=== PATIENT | female | born 1970 | race Caucasian/White ===

== ENCOUNTER 2021-11-26 09:17 | Outpatient (REF) | payer BC, MEDICAID, SELFPAY ==
[2021-11-26 10:44] LABS: Erythrocyte Sedimentation Rate 9 MM/HR (0-20)
[2021-11-27 07:27] LABS: Syphilis Screen Nonreactive (Nonreactive)
[2021-11-28 15:22] LABS: Anti DNA DS Antibody <1 IU/mL
[2021-11-30 14:22] LABS: Anti Nuclear Antibody Screen NEGATIVE (NEGATIVE)
[2021-11-30 18:11] LABS: IgA 320 mg/dL (47-310); IgG 1176 mg/dL (600-1640); IgM 112 mg/dL (50-300)
== END 2021-11-26 09:18 | disposition home or self-care (01) ==
LOC: HO.LAB 09:17
PROVIDERS: PCP Physician Assistant Medical; Visit Provider Psychiatry & Neurology Neurology
DX: G93.49 Other encephalopathy (principal)
CPT/HCPCS: 36415; 82784; 85652; 86038; 86039; 86225; 86334; 86780

== ENCOUNTER 2024-05-21 12:23 | Outpatient (AMB) | payer MEDICAID, SELFPAY ==
--- NOTE | 2024-05-21 12:32 | A.OFFVIS_ITS ---
Vital Signs 05/21/24 12:33 Height 4 ft 11 in Weight 162 lb 4.163 oz BMI 32.8 BP 132/72 Blood Pressure Location Lt brachial Position Sitting Pulse 78 Pulse Source Pulse Oximeter Pulse Oximetry (%) 98 Oxygen Delivery Method Room Air Intake Visit Reasons: Myalgia/CM Intake Note: Patient presents today for myalgia up both upper extremities, she was externally referred by her PCP, Edgardo Jose. Allergies codeine Allergy (Unknown, Unverified 05/21/24 12:36) Unknown Medication List - Last Reconciled 05/21/24 by Katherine Denny MD albuterol sulfate 90 mcg/actuation 2 puffs inhalation Q6H PRN cetirizine (Allergy Relief (cetirizine)) 10 mg PO DAILY PRN duloxetine 30 mg PO DAILY epinephrine 0.3 mg IM Q10M PRN meloxicam 15 mg PO DAILY montelukast 10 mg PO DAILY omeprazole 20 mg PO DAILY HPI Comments Details: Patient is a 53 y.o. female with GERD and anxiety who presents for eval of hand and wrist pain January 2023 - Started to notice hand and wrist pain. Also associated with clumsiness and numbness. Occasionally also noted elbow pain when she had prolonged resting on the elbow. - Over the year there was no involvement of shoulders - Has some knee and hip pain but her main issue is her bilateral hands and wrists Tried Gabapentin 400mg at night. Helped a little bit Prednisone (medrol dose pack). Helped a little bit but returned IACS Left wrist, right shoulder Meloxicam Other symptoms - Fatigue associated with insomnia - AM stiffness 30-45 mins Imaging - XRs wrist 10/17/23. Normal for the most part (report seen on patient's phone) - MRI bilateral hands (imaging and report not seen) - MRI R shoulder. Rotator cuff tendinosis with partial thickness bursla surface tear of supraspinatus. Mild AC OA - XR shoulder 11/08/23. Osteopenia. Mild AC joint OA - MRI C-spine (report faxed) showing multilevel spondylosis - XR Cspine 10/17/23. loss of resting lordosis - MRI Brachial plexus to eval for thoracic outlet syndrome 03/06/24. Normal, degenerative changes EMG done, normal Labs 12/19/23 RF <10 ESR 6 CRP 3 SARA negative WBC 11.7 Hb 15.1 Hct 46.8 Plt 510 BUN 17 Cr 0.98 Na 143 K 5.2 Cl 103 CO2 20 Ca 20 AST/ALT Denies rashes, photosensitivity, alopecia, oral/nasal ulcers, sicca symptoms, lymphadenopathy, chest pain/shortness of breath, foamy urine, lower extremity edema, muscle weakness, Raynaud's Also denies history of seizure, CVA, psychosis, history of kidney problems, history of cytopenias, history of VTE including PE or DVTs Ob history . No hx of pre eclampsia. [facility] Medical History (Updated 05/21/24 @ 13:26 by Katherine Denny MD) Fibromyalgia Review of Systems Const Details: Review of Systems Constitutional: Denies fever, chills, weight loss ENT: Denies vision changes, eye pain or eye redness, dental caries, dry mouth GI: Denies nausea, vomiting, diarrhea, abdominal pain, change in BM Pulm: Denies SOB, ELLIS, hemoptysis, wheezing Cards: Denies chest pain, palpitations Skin: Denies Raynaud's, rash, nail changes, photosensitivity, HOUSE [employer]IST[employer] RN: Denies headaches, weakness, paresthesias, recurrent falls MSK: as per HPI All other systems reviewed and are unremarkable except noted above Physical Exam Vital Signs: Last Vital Signs Pulse 78 05/21/24 12:33 BP 132/72 05/21/24 12:33 Pulse Ox 98 05/21/24 12:33 Oxygen Delivery Method Room Air 05/21/24 12:33 BMI result Body Mass Index 32.8 Physical Examination CONSTITUITIONAL Patient alert and cooperative. Well appearing and in no apparent painful distress HEENT Conjunctiva and sclera clear. ?Pupils equal round and reactive to light. ?No lymphadenopathy. ? CHEST/RESPIRATORY SYSTEM Normal respiratory effort and able to speak in complete sentences. ?Clear to auscultation bilaterally. ?No crackles, rales, rhonchi, wheezes heard. CARDIAC SYSTEM Regular rate and rhythm. ?S1 and S2 heard no murmurs. 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 No deformities noted. ?No synovitis noted to the MCPs, PIPs or DIPs. ?Tenderness to palpation throughout the hands not limited to joints Wrists: ?Full range of motion at the wrists without pain. ?No tenderness to palpation or synovitis noted to the wrists. Elbows: Full range of motion without pain. No tenderness, weakness, swelling, increased warmth or erythema. Tenderness to palpation of forearm including lateral epicondyles Shoulders: Full range of motion without pain. No tenderness, weakness, swelling, increased warmth or erythema. Hips: Full range of motion without pain. Hip bursa: Bilateral tenderness to palpation Knees: ?Full range of motion. ?No tenderness, swelling, increased warmth or erythema.?No effusion or crepitations Ankles: Full range of motion. ?No tenderness, swelling, increased warmth or erythema.? Feet: ?Negative squeeze test. ?No tenderness to palpation or swelling of the MTPs. Tender points:??Tenderness to palpation of the neck, shoulders, chest, elbows, bilateral greater trochanters, bilateral lateral knees. SKIN Skin intact without rashes. Results Reviewed Results Reviewed: Imaging - XRs wrist 10/17/23. Normal for the most part (report seen on patient's phone) - MRI bilateral hands (imaging and report not seen) - MRI R shoulder. Rotator cuff tendinosis with partial thickness bursla surface tear of supraspinatus. Mild AC OA - XR shoulder 11/08/23. Osteopenia. Mild AC joint OA - MRI C-spine (report faxed) showing multilevel spondylosis - XR Cspine 10/17/23. loss of resting lordosis - MRI Brachial plexus to eval for thoracic outlet syndrome 03/06/24. Normal, degenerative changes EMG done, normal Labs 12/19/23 RF <10 ESR 6 CRP 3 SARA negative WBC 11.7 Hb 15.1 Hct 46.8 Plt 510 BUN 17 Cr 0.98 Na 143 K 5.2 Cl 103 CO2 20 Ca 20 AST/ALT Assessment & Plan Assessment & Plan (1) Fibromyalgia: Code(s): M79.7 - Fibromyalgia Category: Medical Plan: #Fibromyalgia Patient's exam and history consistent with fibromyalgia. Plan - pamphlet given - gabapentin 400 mg at night - baclofen 5 mg at night - Celebrex 200 mg twice a day - RTC 6 months - stretching/exercise regimen recommended - check DEXA since multiple x-rays mentioned osteopenia Plan I spent 60 minutes reviewing the record and labs, seeing the patient, discussing the treatment plan and documenting in the medical record Orders: Orders XR DEXA axial skeleton Today E55.9 - Vitamin D deficiency, unspecified, M79.7 - Fibromyalgia, M85.80 - Other specified disorders of bone density and structure, unspecified site Vitamin D 25-OH (D2 and D3) Today E55.9 - Vitamin D deficiency, unspecified, M79.7 - Fibromyalgia Thyroid Stimulating Hormone Today E55.9 - Vitamin D deficiency, unspecified, M79.7 - Fibromyalgia Medications: New gabapentin 400 mg PO BEDTIME 90 caps 1RF M79.7 - Fibromyalgia baclofen 5 mg PO BEDTIME 90 tabs 1RF M79.7 - Fibromyalgia duloxetine 60 mg PO DAILY 90 caps 1RF 90 days M79.7 - Fibromyalgia celecoxib (Celebrex) 200 mg PO BID 180 caps 1RF M79.7 - Fibromyalgia Coding Level of Care Code New Pt Level 5 (25448) Diagnoses Fibromyalgia M79.7
[2024-05-21 12:33] VITALS: BP 132/72; PULSE 78; O2SAT 98; BMI 32.8
--- OUTSIDE RECORDS SUMMARY | 2024-05-23 15:26 | XMS_ITS | Data Portability ---
Author Organization [facility], Main Office Address [address] [facility] [place] [phone] Care Team Providers Care Banquet Manager Name Role Phone WILLEM BLOUNT Account Management Assistant JONATAN GONSALVES Occ Therapy Asst [facility] MELY LAMBERT Transmission Repairer KATELYN REYES Primary Care Provider Assessment Encounter Date Assessment Date Assessment LastModified by Organization Details LastModified Time 12/19/2023 12/19/2023 Discussed with patient the signs/symptoms warranted for a return to office visit and/or an ER visit. Patient understood and agreed with the plan. [email or web address] Not available 12/19/2023 15:33:24 03/06/2024 03/06/2024 This service was provided using telemedicine. Patient consented to telephone visit Patient was located in the [facility]. Provider was located in the office. No other persons participated in the telemedicine visit except for the patient unless otherwise indicated here. {{}} Total time of visit was 22 minutes. [email or web address] Not available 03/06/2024 15:11:37 Plan of Treatment Reminders Order Date Submit Date Provider Last Modified By Organization Details Last Modified Time Details Appointments FOLLOW UP 30MIN 2023 10:00A M Katelyn Reyes PA-C Not available Not available Not available Lab lipid panel, serum 2022 023 [email or web address], [address] [address], [place], [address], 10/26/2023 09:38:20 HbA1c (hemog lobin A1c), blood 2023 024 [facility], [address] [place] [address], [address], [place], [address], 12/17/2023 08:07:27 lipid panel, serum 2023 024 [facility], [address] [place] [address], [address], [place], [address], 12/17/2023 08:07:27 CMP, serum or plasma 2023 024 [facility], [address] [place] [address], [facility] [address], [place], [address], 12/17/2023 08:07:26 CBC w/ auto diff 2023 024 [facility], [address] [place] [address], [facility] [address], [place], [address], 12/17/2023 08:07:25 SARA (antin uclear antibo dies) screen , ifa, serum 2023 024 [facility], [address], [place], [address], 12/22/2023 22:06:07 ESR (eryth rocyte sedime ntatio n rate), blood 2023 024 [facility], [address], [place], [address], 12/22/2023 22:06:06 C reacti ve protei n, QN, serum or plasma 2023 024 [facility], [address], [place], [address], 12/22/2023 22:06:07 vitami n B12, serum 2023 024 [facility], [address], [place], [address], 12/22/2023 22:06:06 methyl malona te, QN, serum or plasma 2023 024 [facility], [address], [place], [address], 12/22/2023 22:06:06 rf (rheum atoid factor ), serum 2023 024 [facility], [address], [place], [address], 12/22/2023 22:06:04 thiami ne, QN, blood 2023 024 [facility], [address], [place], [address], 12/22/2023 22:06:05 HbA1c (hemog lobin A1c), blood 2023 024 [facility], [address], [place], [address], 05/19/2024 06:08:28 BMP, serum or plasma 2023 024 [facility], [address], [place], [address], 05/19/2024 06:08:27 Referral psychi atrist referr rachel nichole anxiet y-curr ently not on any medica tion-p t intere sted in behavi oral interv ention and discus drea for medica tion 2023 024 [email or web address] [facility], [address] [place] [address] Rd, [place], [address], 12/19/2023 15:50:54 Procedures None record ed. Surgeries None record ed. Imaging None record ed. Medication Orders gabape ntin 100 mg capsul e 2023 024 [facility]/Pharmacy #[id number], [address] [place], [address], 12/05/2023 17:09:57 duloxe agata 30 mg capsul evelyn napier releas e 2023 Lizeth [facility]/Pharmacy #[id number], [address] [place], [address], 01/03/2024 11:01:21 Patient Targets Encounter Date Encounter Id Patient Goals Patient Target Last Modified By Organization Details Last Modified Time 03/30/2023 [id number] [facility] goal of Excess Body Weight Loss % 5 Not available Not available Not available Ongoing of LDL Direct <100 Not available Not available Not available Ongoing of LDL Direct yearly Not available Not available Not available Pt agrees to follow low fat diet, avoid saturated fats , decrease carbohydrate intake to 45 - 50 gm per meal , pt agrees to develop a regular pattern of exercise such as walking 30 minutes a day 3 times a week, Pt will keep a record of exercise and activity level Patient preferences and goals incorporated in plan and updated/modified as needed to reflect progress toward goal.Pt advised and agrees to work on self-monitoring behaviors; begin an appropriate diet for weight loss (such as a low carbohydrate diet), to do moderate exercise (such as walking) for approximately 150 minutes per week; and to identify desirable and timely rewards that will reinforce achievement of specific weight loss goals. 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 pmadden Not available 12/05/2023 20:59:50 Patient Instructions Encounter Date Encounter Id Patient Instructions Last Modified By Organization Details Last Modified Time 03/30/2023 [id number] Medications (OTC , herbal therapies, supplements) reviewed and reconciled with patient and or caregiver, including potential side effects, drug interactions, instructions, and the consequences of not taking medication. Reviewed potential barriers to medication adherence, such as side effects from medication or cost of medication. pmadden Not available 03/30/2023 21:24:35 12/05/2023 [id number] learning about stress pmadden Not available 12/05/2023 17:09:54 Mental Health Information pmadden Not available 12/05/2023 17:09:54 A healthy lifestyle: care instructions pmadden Not available 12/05/2023 17:09:54 Well Visit, Ages 18 to 65: Care Instructions pmadden Not available 12/05/2023 17:09:54 take gabapentin at night x 3 nights, then twice daily x 3 days, then 3 times daily pmadden Not available 12/05/2023 17:03:53 Medications (OTC , herbal therapies, supplements) reviewed and reconciled with patient and or caregiver, including potential side effects, drug interactions, instructions, and the consequences of not taking medication. Reviewed potential barriers to medication adherence, such as side effects from medication or cost of medication. jess Not available 12/05/2023 16:18:07 01/03/2024 [id number] prediabetes: car e instructions pmadden Not available 01/03/2024 11:01:15 diet and exercis e for metabolic syndrome: care instructions pmadden Not available 01/03/2024 11:01:15 Medications (OTC , herbal therapies, supplements) reviewed and reconciled with patient and or caregiver, including potential side effects, drug interactions, instructions, and the consequences of not taking medication. Reviewed potential barriers to medication adherence, such as side effects from medication or cost of medication. pmadden Not available 01/03/2024 10:59:48 03/06/2024 [id number] Medications (OTC , herbal therapies, supplements) reviewed and reconciled with patient and or caregiver, including potential side effects, drug interactions, instructions, and the consequences of not taking medication. Reviewed potential barriers to medication adherence, such as side effects from medication or cost of medication. pmadden Not available 03/06/2024 15:11:08 Reason for Referral Psychiatrist Referral for An xiety ongoing anxiety-currently not on any medication-pt interested in behavioral intervention and discussion for medication Referring Physician: Chyna Villagran, Family Medicine, Encounter Date: 12/19/2023 Results Created Date Observation Date Name Description Value Unit Range Abnormal Flag Note LastModifiedBy Organization Detail LastModifiedTime 12/16/19 24 12/17/2023 CBC WITH DIFFE RENTI AL/PL ATELE T WBC 11.7 x10e3 /uL 3.4-10 .8 above high normal Not Available [facility] ([facility]) [address], [place], [address], 12/17/2023 08:07:25 12/16/19 24 12/17/2023 CBC WITH DIFFE RENTI AL/PL ATELE T RBC 5.22 x10e6 /uL 3.77-5 .28 Not Available [facility] ([facility]) [address] [place], [address], 12/17/2023 08:07:25 12/16/19 24 12/17/2023 CBC WITH DIFFE RENTI AL/PL ATELE T hemoglobin 15.1 g/dL 11.1-1 5.9 Not Available [facility] ([facility]) [address] [place], [address], 12/17/2023 08:07:25 12/16/19 24 12/17/2023 CBC WITH DIFFE RENTI AL/PL ATELE T hematocrit 46.8 % 34.0-4 6.6 above high normal Not Available [facility] ([facility]) [address] [place], [address], 12/17/2023 08:07:25 12/16/19 24 12/17/2023 CBC WITH DIFFE RENTI AL/PL ATELE T MCV 90 fL 79-97 Not Available [facility] ([facility]) [address] [place], [address], 12/17/2023 08:07:25 12/16/19 24 12/17/2023 CBC WITH DIFFE RENTI AL/PL ATELE T MCH 28.9 pg 26.6-3 3.0 Not Available [facility] ([facility]) [address] [place], [address], 12/17/2023 08:07:25 12/16/19 24 12/17/2023 CBC WITH DIFFE RENTI AL/PL ATELE T MCHC 32.3 g/dL 31.5-3 5.7 Not Available [facility] ([facility]) [address], [place], [address], 12/17/2023 08:07:25 12/16/19 24 12/17/2023 CBC WITH DIFFE RENTI AL/PL ATELE T RDW 13.0 % 11.7-1 5.4 Not Available [facility] ([facility]) [address], [place], [address], 12/17/2023 08:07:25 12/16/19 24 12/17/2023 CBC WITH DIFFE RENTI AL/PL ATELE T platelets 510 x10e3 /uL 150-45 0 above high normal Not Available [facility] ([facility]) [address], [place], [address], 12/17/2023 08:07:25 12/16/19 24 12/17/2023 CBC WITH DIFFE RENTI AL/PL ATELE T neutrophils 67 % not estab. Not Available [facility] ([facility]) [address], [place], [address], 12/17/2023 08:07:25 12/16/19 24 12/17/2023 CBC WITH DIFFE RENTI AL/PL ATELE T lymphs 25 % not estab. Not Available [facility] ([facility]) [address], [place], [address], 12/17/2023 08:07:25 12/16/19 24 12/17/2023 CBC WITH DIFFE RENTI AL/PL ATELE T monocytes 6 % not estab. Not Available [facility] ([facility]) [address], [place], [address], 12/17/2023 08:07:25 12/16/19 24 12/17/2023 CBC WITH DIFFE RENTI AL/PL ATELE T eos 1 % not estab. Not Available [facility] ([facility]) [address] [place], [address], 12/17/2023 08:07:25 12/16/19 24 12/17/2023 CBC WITH DIFFE RENTI AL/PL ATELE T basos 1 % not estab. Not Available [facility] ([facility]) [address], [place], [address], 12/17/2023 08:07:25 12/16/19 24 12/17/2023 CBC WITH DIFFE RENTI AL/PL ATELE T immature cells COPYWRITER Not Available [facility] ([facility]) [address] [place], [address], 12/17/2023 08:07:25 12/16/19 24 12/17/2023 CBC WITH DIFFE RENTI AL/PL ATELE T neutrophils (absolute) 7.9 x10e3 /uL 1.4-7. 0 above high normal Not Available [facility] ([facility]) [address] [place], [address], 12/17/2023 08:07:25 12/16/19 24 12/17/2023 CBC WITH DIFFE RENTI AL/PL ATELE T lymphs (absolute) 2.9 x10e3 /uL 0.7-3. 1 Not Available [facility] ([facility]) [address] [place], [address], 12/17/2023 08:07:25 12/16/19 24 12/17/2023 CBC WITH DIFFE RENTI AL/PL ATELE T monocytes(ab solute) 0.7 x10e3 /uL 0.1-0. 9 Not Available [facility] ([facility]) [address] [place], [address], 12/17/2023 08:07:25 12/16/19 24 12/17/2023 CBC WITH DIFFE RENTI AL/PL ATELE T eos (absolute) 0.1 x10e3 /uL 0.0-0. 4 Not Available [facility] ([facility]) [address], [place], [address], 12/17/2023 08:07:25 12/16/19 24 12/17/2023 CBC WITH DIFFE RENTI AL/PL ATELE T baso (absolute) 0.1 x10e3 /uL 0.0-0. 2 Not Available [facility] ([facility]) [address], [place], [address], 12/17/2023 08:07:25 12/16/19 24 12/17/2023 CBC WITH DIFFE RENTI AL/PL ATELE T immature granulocytes 0 % not estab. Not Available [facility] ([facility]) [address], [place], [address], 12/17/2023 08:07:25 12/16/19 24 12/17/2023 CBC WITH DIFFE RENTI AL/PL ATELE T immature grans (abs) 0.0 x10e3 /uL 0.0-0. 1 Not Available [facility] ([facility]) [address], [place], [address], 12/17/2023 08:07:25 12/16/19 24 12/17/2023 CBC WITH DIFFE RENTI AL/PL ATELE T NRBC COPYWRITER Not Available [facility] ([facility]) [address], [place], [address], 12/17/2023 08:07:25 12/16/19 24 12/17/2023 CBC WITH DIFFE RENTI AL/PL ATELE T hematology comments: COPYWRITER Not Available [facility] ([facility]) [address], [place], [address], 12/17/2023 08:07:25 12/16/19 24 12/17/2023 COMP. METAB OLIC PANEL (14) glucose 89 mg/dL 70-99 Not Available [facility] ([facility]) [address] [place], [address], 12/17/2023 08:07:26 12/16/19 24 12/17/2023 COMP. METAB OLIC PANEL (14) BUN 17 mg/dL 6-24 Not Available [facility] ([facility]) [address] [place], [address], 12/17/2023 08:07:26 12/16/19 24 12/17/2023 COMP. METAB OLIC PANEL (14) creatinine 0.98 mg/dL 0.57-1 .00 Not Available [facility] ([facility]) [address], [place], [address], 12/17/2023 08:07:26 12/16/19 24 12/17/2023 COMP. METAB OLIC PANEL (14) eGFR 69 mL/mi n/1.7 3 >59 Not Available [facility] ([facility]) [address] [place], [address], 12/17/2023 08:07:26 12/16/19 24 12/17/2023 COMP. METAB OLIC PANEL (14) BUN/creatini ne ratio 17 9-23 Not Available [facility] ([facility]) [address] [place], [address], 12/17/2023 08:07:26 12/16/19 24 12/17/2023 COMP. METAB OLIC PANEL (14) sodium 143 mmol/ L 134-14 4 Not Available [facility] ([facility]) [address] [place], [address], 12/17/2023 08:07:26 12/16/19 24 12/17/2023 COMP. METAB OLIC PANEL (14) potassium 5.2 mmol/ L 3.5-5. 2 Not Available [facility] ([facility]) [address] [place], [address], 12/17/2023 08:07:26 12/16/19 24 12/17/2023 COMP. METAB OLIC PANEL (14) chloride 103 mmol/ L 96-106 Not Available [facility] ([facility]) [address] [place], [address], 12/17/2023 08:07:26 12/16/19 24 12/17/2023 COMP. METAB OLIC PANEL (14) carbon dioxide, total 20 mmol/ L 20-29 Not Available [facility] ([facility]) [address] [place], [address], 12/17/2023 08:07:26 12/16/19 24 12/17/2023 COMP. METAB OLIC PANEL (14) calcium 10.0 mg/dL 8.7-10 .2 Not Available [facility] ([facility]) [address] [place], [address], 12/17/2023 08:07:26 12/16/19 24 12/17/2023 COMP. METAB OLIC PANEL (14) protein, total 7.4 g/dL 6.0-8. 5 Not Available [facility] ([facility]) [address] [place], [address], 12/17/2023 08:07:26 12/16/19 24 12/17/2023 COMP. METAB OLIC PANEL (14) albumin 4.5 g/dL 3.8-4. 9 Not Available [facility] ([facility]) [address] [place], [address], 12/17/2023 08:07:26 12/16/19 24 12/17/2023 COMP. METAB OLIC PANEL (14) globulin, total 2.9 g/dL 1.5-4. 5 Not Available [facility] ([facility]) [address] [place], [address], 12/17/2023 08:07:26 12/16/19 24 12/17/2023 COMP. METAB OLIC PANEL (14) bilirubin, total 0.3 mg/dL 0.0-1. 2 Not Available [facility] ([facility]) [address] [place], [address], 12/17/2023 08:07:26 12/16/19 24 12/17/2023 COMP. METAB OLIC PANEL (14) alkaline phosphatase 101 IU/L 44-121 Not Available [facility] ([facility]) [address] [place], [address], 12/17/2023 08:07:26 12/16/19 24 12/17/2023 COMP. METAB OLIC PANEL (14) AST (SGOT) 18 IU/L 0-40 Not Available [facility] ([facility]) [address] [place], [address], 12/17/2023 08:07:26 12/16/19 24 12/17/2023 COMP. METAB OLIC PANEL (14) ALT (SGPT) 19 IU/L 0-32 Not Available [facility] ([facility]) [address] [place], [address], 12/17/2023 08:07:26 12/16/19 24 12/17/2023 LIPID PANEL cholesterol, total 258 mg/dL 100-19 9 above high normal Not Available [facility] ([facility]) [address] [place], [address], 12/17/2023 08:07:27 12/16/19 24 12/17/2023 LIPID PANEL triglyceride s 140 mg/dL 0-149 Not Available [facility] ([facility]) [address] [place], [address], 12/17/2023 08:07:27 12/16/19 24 12/17/2023 LIPID PANEL HDL cholesterol 47 mg/dL >39 Not Available [facility] ([facility]) [address] [place], [address], 12/17/2023 08:07:27 12/16/19 24 12/17/2023 LIPID PANEL VLDL cholesterol phoebe 26 mg/dL 5-40 Not Available [facility] ([facility]) [address] [place], [address], 12/17/2023 08:07:27 12/16/19 24 12/17/2023 LIPID PANEL LDL chol calc ([facility]) 185 mg/dL 0-99 above high normal Not Available [facility] ([facility]) [address] [place], [address], 12/17/2023 08:07:27 12/16/19 24 12/17/2023 LIPID PANEL LDL calc comment: COPYWRITER Not Available [facility] ([facility]) [address] [place], [address], 12/17/2023 08:07:27 12/16/19 24 12/17/2023 HEMOG LOBIN A1C hemoglobin A1C 5.7 % 4.8-5. 6 above high normal Predi abete s: 5.7 - 6.4 Diabe zamzam: >6.4 Glyce elke contr ol for adult s with diabe zamzam: <7.0 Not Available [facility] ([facility]) [address] [place], [address], 12/17/2023 08:07:27 12/19/19 24 12/20/2023 RHEUM ATOID FACTO R (RF) rheumatoid factor (rf) <10.0 IU/mL <14.0 Not Available [facility] ([facility]) [address] [place], [address], 12/22/2023 22:06:04 12/19/19 24 12/22/2023 VITAM IN B1 (THIA MINE) , BLOOD vit. B1, whole blood 164.0 nmol/ L 66.5-2 00.0 Not Available [facility] ([facility]) [address], [place], [address], 12/22/2023 22:06:05 12/19/19 24 12/22/2023 METHY LMALO CATA ACID, SERUM methylmaloni c acid, serum 147 nmol/ L 0-378 Not Available [facility] ([facility]) [address], [place], [address], 12/22/2023 22:06:05 12/19/19 24 12/20/2023 SEDIM ENTAT ION RATE- WESTE RGREN sedimentatio n rate-westerg aisha 16 mm/HR 0-40 Not Available [facility] ([facility]) [address], [place], [address], 12/22/2023 22:06:06 12/19/19 24 12/20/2023 VITAM IN B12 vitamin B12 475 pg/mL 232-12 45 Not Available [facility] ([facility]) [address], [place], [address], 12/22/2023 22:06:06 12/19/19 24 12/20/2023 C-CHAR CTIVE PROTE IN, QUANT C-reactive protein, quant 3 mg/L 0-10 Not Available [facility] ([facility]) [address] [place], [address], 12/22/2023 22:06:07 12/19/19 24 12/20/2023 SARA BY IFA RFX TITER /BETTY COCO SARA by ifa rfx titer/patter n NEGATI VE Negat berna <1:80 Borde rline 1:80 Posit berna >1:80 ICAP nomen clatu re: AC-0 For more infor matio n about Hep-2 cell patte rns use ANApa ttern s.org , the offic ial websi te for the Inter natio nal Conse nsus on Antin uclea r Antib ardha (SARA) Patte rns (ICAP ). Not Available [facility] ([facility]) [address] [place], [address], 12/22/2023 22:06:07 05/18/20 24 05/18/2024 BASIC METAB OLIC PANEL (8) sodium 145 mmol/ L 134-14 4 above high normal Not Available [facility] ([facility]) [address] [place], [address], 05/19/2024 06:08:27 05/18/20 24 05/18/2024 BASIC METAB OLIC PANEL (8) potassium 4.6 mmol/ L 3.5-5. 2 normal Not Available [facility] ([facility]) [address] [place], [address], 05/19/2024 06:08:27 05/18/20 24 05/19/2024 BASIC METAB OLIC PANEL (8) glucose 103 mg/dL 70-99 above high normal Not Available [facility] ([facility]) [address] [place], [address], 05/19/2024 06:08:27 05/18/20 24 05/19/2024 BASIC METAB OLIC PANEL (8) BUN 10 mg/dL 6-24 normal Not Available [facility] ([facility]) [address] [place], [address], 05/19/2024 06:08:27 05/18/20 24 05/19/2024 BASIC METAB OLIC PANEL (8) creatinine 0.92 mg/dL 0.57-1 .00 normal Not Available [facility] ([facility]) [address] [place], [address], 05/19/2024 06:08:27 05/18/20 24 05/19/2024 BASIC METAB OLIC PANEL (8) eGFR 74 mL/mi n/1.7 3 >59 normal Not Available [facility] ([facility]) [address] [place], [address], 05/19/2024 06:08:27 05/18/20 24 05/19/2024 BASIC METAB OLIC PANEL (8) BUN/creatini ne ratio 11 9-23 normal Not Available [facility] ([facility]) [address] [place], [address], 05/19/2024 06:08:27 05/18/20 24 05/19/2024 BASIC METAB OLIC PANEL (8) chloride 102 mmol/ L 96-106 normal Not Available [facility] ([facility]) [address] [place], [address], 05/19/2024 06:08:27 05/18/20 24 05/19/2024 BASIC METAB OLIC PANEL (8) carbon dioxide, total 22 mmol/ L 20-29 normal Not Available [facility] ([facility]) [address] [place], [address], 05/19/2024 06:08:27 05/18/20 24 05/19/2024 BASIC METAB OLIC PANEL (8) calcium 9.9 mg/dL 8.7-10 .2 normal Not Available [facility] ([facility]) [address] [place], [address], 05/19/2024 06:08:27 05/18/20 24 05/18/2024 HEMOG LOBIN A1C hemoglobin A1C 5.7 % 4.8-5. 6 above high normal Predi abete s: 5.7 - 6.4 Diabe zamzam: >6.4 Glyce elke contr ol for adult s with diabe zamzam: <7.0 Not Available [facility] ([facility]) [address] [place], [address], 05/19/2024 06:08:28 06/08/20 23 06/02/2023 elect romyo gram No observ ation record ed. jess [facility] [address] [place], [address], 12/05/2023 16:48:14 02/15/20 24 02/09/2024 nerve condu ction study No observ ation record ed. [address], [address], 03/06/2024 14:42:41 03/09/20 24 02/06/2024 elect romyo gram + nerve condu ction study No observ ation record ed. [facility] Scheduling Dept [address] [place] [address], [address], 03/09/2024 20:10:45 Result Notes None recorded. Problems Name Problem SNOMED Code Status Onset Date Resolution Date Notes Provider Name and Address Organization Details Recorded Time Acute pharyngi tis 860578066 Completed 05/30/2017 Rhonda Reyes PA-C [address] [facility] [address], [place], [phone] , [facility] 7 16:57:48 Abdomina l pain [id number] Completed 201101/01/2014 RECORDED 04/20/20 12 1:28PM BY ERICKA LEIGH MA, ANNOTATI ON/ADDEN CHIRAG blandon [facility] 6 17:26:14 Mammogra phy abnormal [id number] Active 2012 Not Available [facility] 4 09:41:04 Asthma [id number] Completed 201101/01/2014 RECORDED 04/20/20 12 1:27PM BY ERICKA LEIGH MA, ANNOTATI ON/ADDEN DUM Rhonda Reyes PA-C [address], [place], [phone] , [facility] 7 16:57:25 Acute upper respirat ory infectio n [id number] Completed 201101/01/2014 RECORDED 04/20/20 12 1:27PM BY ERICKA LEIGH MA, ANNOTATI ON/ADDEN CHIRAG blandon [facility] 6 17:26:14 Allergic rhinitis [id number] Active 2012 Not Available [facility] 4 09:41:05 Anxiety state [id number] Active 2012 Not Available [facility] 4 09:41:04 Patient status finding [id number] Completed 201201/01/2014 RECORDED 10/31/19 13 3:44PM BY ERICKA LEIGH MA, ANNOTATI ON/ADDEN DUM Donna Chowdhury MA null, [place] 7 16:26:15 Intrinsi c asthma [id number] Completed 201101/01/2014 RECORDED 04/20/20 12 1:27PM BY ERICKA LEIGH MA, ANNOTATI ON/ADDEN DUM Hussein burgos null, [place] 6 17:26:14 Acute asthma [id number] Completed 201101/01/2014 RECORDED 04/20/20 12 1:27PM BY ERICKA LEIGH MA, ANNOTATI ON/ADDEN DUM Hussein burgos null, [place] 6 17:26:14 Asthma [id number] Completed 201205/30/2017 Rhonda Reyes PA-C [address] [address], [facility] [place], [address] , [facility] [place] [facility] 7 16:57:25 Screenin g for malignan t neoplasm of breast Completed 201301/01/2014 RECORDED 06/13/19 14 7:21PM BY RENEE Napier, JEMIC AL SUMMARY Hussein burgos null, [place] 6 17:26:15 Screenin g for malignan t neoplasm of cervix Completed 201101/01/2014 RECORDED 04/20/20 12 1:28PM BY ERICKA LEIGH MA, ANNOTATI ON/ADDEN DUM Donna Chowdhury MA null, [place] 7 16:26:27 Screenin g for malignan t neoplasm of cervix Completed 201302/28/2017 RECORDED 07/27/19 14 1:57PM BY JEM WALTERIC AL SUMMARY Donna blandon, [place] 7 16:26:27 Chest pain [id number] Completed 201101/01/2014 RECORDED 04/20/20 12 1:27PM BY ERICKA LEIGH MA, ANNOTATI ON/ADDEN DUM Hussein Smith ro null, [place] 6 17:26:14 Sprain of costal cartilag e Completed 201201/01/2014 IMPRESSI ON: SHE WONT FILL PERCOCET UNTIL AFTER THE WEEKEND. LONG WEEKEND AHEAD. AIM FOR RETURN TO WORK WED. IF CANT RETURN MAKE F/U APPT/. TAKE BENADRYL PRN ITCHING WITH PERCOCET . CONTINUE MELOXICA M; RECORDED 03/01/20 13 9:41AM BY ERICKA LEIGH MA, ANNOTATI ON/ADDEN DUM Hussein burgos null, [place] 6 17:26:15 Disorder of nail 24589041 Completed 201101/01/2014 RECORDED 04/20/20 12 1:27PM BY ERICKA LEIGH MA, ANNOTATI ON/ADDEN DUM Hussein Smith ro null, [place] 6 17:26:14 Disorder of skin 78298712 Completed 201101/01/2014 RECORDED 04/20/20 12 1:27PM BY ERICKA LEIGH MA, ANNOTATI ON/ADDEN DUM Hussein Smith ro null, [place] 6 17:26:14 Dyspareu miya [id number] Completed 201101/01/2014 RECORDED 04/20/20 12 1:28PM BY ERICKA LEIGH MA, ANNOTATI ON/ADDEN DUM Hussein Blountand ro null, [place] 6 17:26:14 Dysphagi a [id number] Completed 201101/01/2014 RECORDED 04/20/20 12 1:28PM BY ERICKA LEIGH MA, DIEGO ON/ADDEN DUM Hussein VieiraAlessand ro null, [place] 6 17:26:14 Dysuria [id number] Completed 201101/01/2014 RECORDED 04/20/20 12 1:27PM BY ERICKA LEIGH MA, DIEGO ON/ADDEN DUM Hussein VieiraAlessand ro null, [place] 6 17:26:14 Influenz a vaccine needed [id number] 06 Completed 200901/01/2014 RECORDED 06/01/20 10 9:07AM BY COOPER LAWS I, HISTORIC AL SUMMARY Hussein Sandra'Chacha ro null, [place] 6 17:26:15 Closed fracture of ulna 90952379 Completed 201101/01/2014 RECORDED 04/20/20 12 1:27PM BY ERICKA LEIGH MA, DIEGO ON/ADDEN DUM Hussein VieiraAlessand ro null, [place] 6 17:26:15 Gastriti s [id number] Completed 201101/01/2014 RECORDED 04/20/20 12 1:27PM BY ERICKA LEIGH MA, DIEGO ON/ADDEN DUM Hussein VieiraAlebernardaand ro null, [place] 6 17:26:14 Gastrodu odenitis 669139352 Active 2011 Not Available [facility] 4 09:41:04 Gastroes ophageal reflux disease 011452692 Active 2012 Not Available [facility] 4 09:41:04 Adult health examinat ion Completed 201202/28/2017 RECORDED 05/04/20 13 1:58PM BY ERICKA LEIGH MA, OFFICE VISIT Donna Chowdhury MA null, [place] 7 16:26:47 Adult health examinat ion Completed 201201/01/2014 RECORDED 10/31/19 13 3:44PM BY ERICKA LEIGH MA, ANNOTATI ON/ADDEN DUM Donna blandon, [place] 7 16:26:47 Genital herpes simplex 62258992 Active 2012 Not Available [facility] 4 09:41:04 Hyperlip idemia 87424946 Completed 201206/14/2017 Rhonda Reyes PA-C [address] [facility] [address], [place], [address] , [facility] 8 13:11:07 Irritabl e bowel syndrome 37838573 Active 2012 Not Available [facility] 4 09:41:04 Neck pain 25604083 Completed 201201/01/2014 RECORDED 05/04/20 13 1:57PM BY ERICKA LEIGH MA, ANNOTATI ON/ADDEN DUM Katelyn Reyes PA-C [address] [facility] [address], [place], [address] , [facility] 3 20:22:59 Patient status finding [id number] Completed 201202/28/2017 RECORDED 05/04/20 13 1:58PM BY ERICKA LEIGH MA, OFFICE VISIT Donna blandon, [place] 7 16:26:15 Screenin g for malignan t neoplasm of colon Completed 200801/01/2014 RECORDED 12/04/19 09 10:12AM BY CARLOS EDUARDO ALVARADO MA, ANNOTATI ON/ADDEN DUM Hussein blandon, [place] 6 17:26:15 Administ ration of diphther ia and tetanus vaccine Completed 201201/01/2014 RECORDED 10/31/19 13 3:44PM BY ERICKA LEIGH MA, ANNOTATI ON/ADDEN DUM Hussein blandon, [place] 6 17:26:15 Urinary tract infectio us disease 76539657 Completed 201101/01/2014 RECORDED 04/20/20 12 1:27PM BY ERICKA LEIGH MA, ANNOTATI ON/ADDEN DUM Hussein D'Alessand ro null, [place] 6 17:26:14 Viral disease 38276055 Completed 201101/01/2014 RECORDED 04/20/20 12 1:27PM BY ERICKA LEIGH MA, ANNOTATI ON/ADDEN DUM Hussein D'Alessand ro null, [place] 6 17:26:14 Vomiting 761852072 Completed 201101/01/2014 RECORDED 04/20/20 12 1:27PM BY ERICKA LEIGH MA, ANNOTATI ON/ADDEN DUM Hussein D'Alessand ro null, [place] 6 17:26:14 Persiste nt vomiting 232593172 Completed 201101/01/2014 RECORDED 04/20/20 12 1:27PM BY ERICKA LEIGH MA, ANNOTATI ON/ADDEN DUM Hussein D'Alessand ro null, [place] 6 17:26:14 Verruca vulgaris 45835779 Active 2012 Not Available [facility] 4 09:41:05 Abnormal weight loss 844523045 Completed 201205/30/2017 Rhonda Reyes PA-C [address] [facility] [address], [place], [address] , [facility] 7 16:47:15 Abdomina l pain 66050125 Completed 201101/21/2014 RECORDED 04/20/20 12 1:28PM BY ERICKA LEIGH MA, ANNOTATI ON/ADDEN DUM Hussein D'Alessand ro null, [place] 6 17:26:15 Asthma 284670396 Completed 201101/21/2014 RECORDED 04/20/20 12 1:27PM BY ERICKA LEIGH MA, ANNOTATI ON/ADDEN DUM Rhonda Damon GRANADOS [address] [facility] [address], [place], [address] , [facility] 7 16:57:25 Acute upper respirat ory infectio n 13871462 Completed 201101/21/2014 RECORDED 04/20/20 12 1:27PM BY ERICKA LEIGH MA, ANNOTATI ON/ADDEN DUM Hussein Smith ro null, [place] 6 17:26:14 Patient status finding [id number] Completed 201201/21/2014 RECORDED 10/31/19 13 3:44PM BY ERICKA LEIGH MA, ANNOTATI ON/ADDEN DUM Donna Chowdhury MA null, [place] 7 16:26:15 Intrinsi c asthma 766592573 Completed 201101/21/2014 RECORDED 04/20/20 12 1:27PM BY ERICKA LEIGH MA, ANNOTATI ON/ADDEN DUM Hussein Sandra'Alekeyur ro null, [place] 6 17:26:14 Acute asthma 079906999 Completed 201101/21/2014 RECORDED 04/20/20 12 1:27PM BY ERICKA LEIGH MA, ANNOTATI ON/ADDEN DUM Hussein Smith ro null, [place] 6 17:26:14 Screenin g for malignan t neoplasm of breast Completed 201301/21/2014 RECORDED 06/13/19 14 7:21PM BY RENEE Napier, HISTORIC AL SUMMARY Hussein Sandra'Chacha ro null, [place] 6 17:26:15 Screenin g for malignan t neoplasm of cervix Completed 201101/21/2014 RECORDED 04/20/20 12 1:28PM BY ERICKA LEIGH MA, ANNOTATI ON/ADDEN DUM Donna Chowdhury MA null, [place] 7 16:26:27 Chest pain 24066847 Completed 201101/21/2014 RECORDED 04/20/20 12 1:27PM BY ERICKA LEIGH MA, DIEGO ON/ADDEN HCIRAG Clevelandssand ro null, [place] 6 17:26:14 Sprain of costal cartilag e Completed 201201/21/2014 IMPRESSI ON: SHE WONT FILL PERCOCET UNTIL AFTER THE WEEKEND. LONG WEEKEND AHEAD. AIM FOR RETURN TO WORK WED. IF CANT RETURN MAKE F/U APPT/. TAKE BENADRYL PRN ITCHING WITH PERCOCET . CONTINUE MELOXICA M; RECORDED 03/01/20 13 9:41AM BY ERICKA LEIGH MA, DIEGO ON/ADDEN DUM Hussein VieiraAlessand ro null, [place] 6 17:26:15 Disorder of nail 18097667 Completed 201101/21/2014 RECORDED 04/20/20 12 1:27PM BY ERICKA LEIGH MA, DIEGO ON/ADDEN DUM Hussein Sandra'Andriaand ro null, [place] 6 17:26:14 Disorder of skin 20776299 Completed 201101/21/2014 RECORDED 04/20/20 12 1:27PM BY ERICKA LEIGH MA, DIEGO ON/ADDEN CHIRAG Blountand ro null, [place] 6 17:26:14 Dyspareu miya [id number] Completed 201101/21/2014 RECORDED 04/20/20 12 1:28PM BY ERICKA LEIGH MA, DIEGO ON/ADDEN CHIRAG Sandra'Andriaand ro null, [place] 6 17:26:14 Dysphagi a [id number] Completed 201101/21/2014 RECORDED 04/20/20 12 1:28PM BY ERICKA LEIGH MA, DIEGO ON/ADDEN DUM Hussein VieiraAlessand ro null, [place] 6 17:26:14 Dysuria [id number] Completed 201101/21/2014 RECORDED 04/20/20 12 1:27PM BY ERICKA LEIGH MA, ANNOTATI ON/ADDEN DUM Hussein VieiraAlekeyur ro null, [place] 6 17:26:14 Influenz a vaccine needed 87650992105 06 Completed 200901/21/2014 RECORDED 06/01/20 10 9:07AM BY COOPER LAWS I, HISTORIC AL SUMMARY Hussein Smith ro null, [place] 6 17:26:15 Closed fracture of ulna 54511284 Completed 201101/21/2014 RECORDED 04/20/20 12 1:27PM BY ERICKA LEIGH MA, ANNOTATI ON/ADDEN DUM Hussein VieiraAlebernardaand ro null, [place] 6 17:26:15 Gastriti s [id number] Completed 201101/21/2014 RECORDED 04/20/20 12 1:27PM BY ERICKA LEIGH MA, ANNOTATI ON/ADDEN DUM Hussein Smith ro null, [place] 6 17:26:14 Neck pain 84478237 Completed 201201/21/2014 RECORDED 05/04/20 13 1:57PM BY ERICKA LEIGH MA, ANNOTATI ON/ADDEN DUM Katelyn Reyes PA-C [address] [address], [place], [address] [facility] 3 20:22:59 Screenin g for malignan t neoplasm of colon Completed 200801/21/2014 RECORDED 12/04/19 09 10:12AM BY CARLOS EDUARDO ALVARADO MA, ANNOTATI ON/ADDEN DUM Hussein Smith ro null, [place] 6 17:26:15 Administ ration of diphther ia and tetanus vaccine Completed 201201/21/2014 RECORDED 10/31/19 13 3:44PM BY ERICKA LEIGH MA, ANNOTATI ON/ADDEN DUM Hussein D'Alessand ro null, [facility] 6 17:26:15 Urinary tract infectio us disease 31437890 Completed 201101/21/2014 RECORDED 04/20/20 12 1:27PM BY ERICKA LEIGH MA, ANNOTATI ON/ADDEN DUM Hussein D'Alessand ro null, [place] 6 17:26:14 Viral disease 11818323 Completed 201101/21/2014 RECORDED 04/20/20 12 1:27PM BY ERICKA LEIGH MA, ANNOTATI ON/ADDEN DUM Hussein D'Alessand ro null, [place] 6 17:26:14 Vomiting 304192981 Completed 201101/21/2014 RECORDED 04/20/20 12 1:27PM BY ERICKA LEIGH MA, ANNOTATI ON/ADDEN DUM Hussein D'Alessand ro null, [place] 6 17:26:14 Persiste nt vomiting 903692554 Completed 201101/21/2014 RECORDED 04/20/20 12 1:27PM BY ERICKA LEIGH MA, ANNOTATI ON/ADDEN DUM Hussein D'Alessand ro null, [place] 6 17:26:14 Temporom andibula r joint disorder 46734282 Completed 05/30/2017 Rhonda Reyes PA-C [address] [address], [place], [address] , [facility] 7 16:58:26 Nail problem 225232996 Completed 01/31/2019 Rhonda Reyes PA-C [address] [address], [place], [address] , [facility] 9 16:06:03 Onychomy cosis 217474415 Completed 01/31/2019 Rhonda Reyes PA-C [address] [address], [facility] [place], [address] , [facility] 9 16:06:13 Low back pain 202538248 Active Not Available [facility] 4 09:41:04 Goiter 7436826 Active 2016 Not Available [facility] 4 09:41:04 Intermit tent asthma 782366839 Active 2016 Not Available [facility] 4 09:41:05 Mixed hyperlip idemia 896864188 Active 2017 Not Available [facility] 4 09:41:04 Elevated blood-pr essure reading without diagnosi s of hyperten drea 789313839 Active 2018 Not Available [facility] 4 09:41:04 Body mass index 30+ - obesity 124564659 Active 2018 Not Available [facility] 4 09:41:04 Mass of left breast 03769563216 538992 Active 2018 Not Available [facility] 4 09:41:04 Obesity 079538662 Active 2018 Not Available [facility] 4 09:41:05 Low back strain 243033387 Active 2020 Not Available [facility] 4 09:41:04 Skin lesion 60054889 Active 2021 Not Available [facility] 4 09:41:05 Bilatera l temporom andibula r joint pain 31744601875 670431 Active 2021 Not Available [facility] 4 09:41:04 Magnetic resonanc e imaging of brain abnormal 192277891 Active 2021 Not Available [facility] 4 09:41:05 Migraine 92699783 Active 2022 Not Available [facility] 4 09:41:05 Allergy to food 879838365 Active 2022 Not Available [facility] 4 09:41:05 Neck pain 27881531 Active 2022 RECORDED 05/04/20 13 1:57PM BY ERICKA LEIGH MA, ANNOTATI ON/RANDOLPH DUM Not Available [facility] 4 09:41:05 Medial epicondy litis 13499251 Active 2022 Not Available [facility] 4 09:41:05 Carpal tunnel syndrome of right wrist 21444019518 9108 Active 2022 Not Available [facility] 4 09:41:04 Constipa tion 48446140 Active 2022 Not Available [facility] 4 09:41:04 Impaired fasting glycemia 675178591 Active 2022 Not Available [facility] 4 09:41:05 Pain of right shoulder joint 20860885745 521350 Active 2023 Ricky blandon, [place] 4 16:52:18 Insomnia 568337762 Active 2023 Ricky blandon [place] 4 17:01:18 Prediabe zamzam 374385344 Active 2023 Katelyn Reyes PA-C [address] [facility] [address], [facility] [place], [address] , [facility] 4 10:49:56 Notes:Some problems listed i n Document: #[id number] could not be added to this patient's chart. Please review this document and add these problems to the patient's chart manually as needed. Problem Notes None recorded. Procedures Surgical History Date Name Laterality Status Provider Name and Address Organization Details Recorded Time 06/03/20 22 Date of Last Pap Smear completed Randa Herrera [place] 06/24/2022 09:26:57 08/12/19 22 Most Recent Mammogram completed Hussein Suarez MA [place] 12/01/2022 14:49:47 09/12/19 21 colonoscopy completed Katelyn Reyes PA-C [address] [facility] [address], [place], [address], [facility] 08/19/2021 15:14:36 08/11/19 20 Mammogram screening completed Ale Cervantes [place] 08/13/2019 11:45:01 09/03/19 17 Hysteroscopy completed Donna Chowdhury MA [place] 10/04/2016 13:44:17 07/20/19 17 Mammogram one breast [facility] 05/30/2017 16:20:13 06/22/19 17 needle aspiration of breast completed Carlos Eduardo petit MA [place] 05/27/2020 10:23:48 06/09/20 16 Mammogram one breast completed Cally Griffin [place] 06/10/2016 11:08:33 08/25/19 05 Caesarean Section completed Lashon Hartley MA [place] 08/19/2021 14:18:11 08/11/18 95 Caesarean Section completed Feli Dumont [place] 05/06/2014 13:50:16 Imaging Results Imaging Date Name Status LastModified by Organization Details LastModified Time 06/02/2023 electromyogram completed [address], [address], 12/05/2023 16:48:14 02/09/2024 nerve conduction study completed [address], [address], 03/06/2024 14:42:41 02/06/2024 electromyogram + nerve conduction study completed [facility] Scheduling Dept [address] [place] [address], [address], 03/09/2024 20:10:45 Procedure Notes None recorded. Medical Equipment None Reported. Allergies Allergen ID Allergen Name Allergen Category Reaction Reaction Severity Criticality Documentation Date Start Date Code Code System Note Provider Name and Address Organization Details Recorded Time Grass Pollen environme nt,medica tion itching moderate Not available 05/20/2015 Donna blandon [facility] [place] 5 10:15:28 [address]179 house dust allergeni c extract environme nt,medica tion cough headache itching other severe moderate severe severe Not available 05/20/2015 95858 9 RxNorm [facility] 5 10:15:28 [address] Tree Pollen medicatio n cough headache itching moderate moderate moderate Not available 05/20/2015 Donnakristy Songspenser GAYLE jamia, [place] 5 10:15:28 [address] Animal Hair-Dand er medicatio n itching moderate Not available 05/20/2015 Donnakristy Songspenser GAY[place] jamia, [place] 5 10:15:28 8274 codeine medicatio n itching Not available Not available 12/25/20132012 2670 RxNorm Carlos Eduardo [place] [facility] 7 16:07:35 8275 No known allergy (situatio n) Not available Not available Not available Not available 12/25/20132012 82218 6003 SNOMED COMME NT: RECOR DED 03/01 9:41A M BY RIGO MELISSA MA, OFFIC E VISIT ; [facility] 4 13:49:27 Medications Name Sig Start Date Stop Date Status Note LastModified by Organization Details LastModified Time monteluka st sodium 10 mg tabs active Not Available Not Available Not Available lansopraz ole 30 mg cpdr active Not Available Not Available Not Available cyclobenz aprine hcl 5 mg tabs active Not Available Not Available Not Available cetirizin e hcl 10 mg tabs active Not Available Not Available Not Available terbinafi ne hcl 250 mg tabs active Not Available Not Available Not Available prednison e 10 mg tablet TAKE 3 TABLETS BY MOUTH DAILY FOR 4 DAYS, 2 TABLETS DAILY X 4 DAYS THEN 1 TABLET DAILY FOR 4 DAYS 12/04 completed Not Available Not Available Not Available cetirizin e 10 mg tablet TAKE 1 TABLET BY MOUTH EVERY DAY 03/22 completed Not Available Not Available Not Available ofloxacin 0.3 % eye drops INSTILL 1 DROP IN EACH EYE 4 TIMES DAILY X 1 WEEK AFTER EYE SURGERY 05/27 completed Not Available Not Available Not Available valacyclo vir 1 gram tablet QD 08/20 completed RECORDED 08/21/19 11 1:56PM BY ZOE ESTEVEZ, ANNOTATI ON/RANDOLPH BEARD; Not Available Not Available Not Available hydrocodo ne 5 mg-acetam inophen 325 mg tablet 05/30 completed Not Available Not Available Not Available meloxicam 15 mg tablet TAKE 1 TABLET BY MOUTH EVERY DAY active Not Available Not Available No t Available sucralfat e 1 gram tablet FOUR TIMES DAILY active RECORDED 05/04/20 13 1:58PM BY ERICKA LEIGH MA, OFFICE VISIT; Not Available Not Available Not Available prednison e 20 mg tablet DAILY active Not Available Not Available Not Available Zithromax Z-Pierce 250 mg tablet DAILY 08/22 completed RECORDED 08/25/19 11 7:26AM BY COOPER LAWS I, MEDICATI ON AUTO-YESY CTIVATIO N;TAKE 2 PILLS ON DAY 1, THEN 1 PILL DAILY ON DAYS 2-5. Not Available Not Available Not Available sumatript an 50 mg tablet TAKE 1 TABLET BY MOUTH AT LEAST 2 HOURS BETWEEN DOSES NEEDED ONCE A DAY active Not Available Not Available No t Available sulfameth oxazole 800 mg-trimet hoprim 160 mg tablet TWO TIMES DAILY 03/27 completed RECORDED 03/29/20 11 2:07PM BY GAYLE VU, MEDICATI ON AUTO-YESY CTIVATIO N; Not Available Not Available Not Available peg-elect rolyte solution 420 gram oral solution 02/18 completed Not Available Not Available Not Available tramadol 50 mg tablet TID 09/23 completed RECORDED 09/24/19 09 2:12PM BY GAYLE VU, OFFICE VISIT; Not Available Not Available Not Available oxycodone -acetamin ophen 5 mg-325 mg tablet EVERY 4 HRS NEEDED FOR PAIN 11/13 completed RECORDED 12/24/19 13 8:50AM BY JESUS MANUEL BETTENCOURT, MEDICATI ON AUTO-YESY CTIVATIO N; Not Available Not Available Not Available terbinafi ne HCl 250 mg tablet TAKE 1 TABLET(S ) EVERY DAY BY ORAL ROUTE FOR 42 DAYS. 05/30 completed Not Available Not Available Not Available amoxicill in 875 mg tablet 05/30 completed Not Available Not Available Not Available prednisol one acetate 1 % eye drops,stephie pension INSTILL 1 DROP IN EACH EYE 4 TIMES DAILY X 1 WEEK AFTER EYE SURGERY 05/27 completed Not Available Not Available Not Available ciproflox acin 0.3 % eye drops 05/30 completed Not Available Not Available Not Available baclofen 10 mg tablet TAKE 1 TABLET BY MOUTH THREE TIMES A DAY NEEDED 08/19 completed Not Available Not Available Not Available benzonata te 100 mg capsule Take 1 capsule 3 times a day by oral route. 05/27 completed Not Available Not Available Not Available cephalexi n 500 mg capsule THREE TIMES DAILY 11/29 completed RECORDED 09/24/19 09 12:17PM BY TEMITOPE WILKS, MEDICATI ON AUTO-YESY CTIVATIO N; Not Available Not Available Not Available oseltamiv ir 75 mg capsule TWO TIMES DAILY 04/14 completed RECORDED 04/14/20 09 3:24PM BY HUSSEIN WILLIS MD, DIEGO ON/ADDEN DUM; Not Available Not Available Not Available lansopraz ole 30 mg capsule,d elayed release Take 1 capsule every day by oral route for 30 days. 08/10 completed Not Available Not Available Not Available prednison e 50 mg tablet TAKE 1 TABLET BY MOUTH EVERY DAY 12/04 completed Not Available Not Available Not Available polymyxin B sulfate 10,000 unit-trim ethoprim 1 mg/mL eye drops 05/30 completed Not Available Not Available Not Available Advair Diskus 250 mcg-50 mcg/dose powder for inhalatio n TWO TIMES DAILY 05/19 completed RECORDED 05/19/20 10 10:36AM BY JESUS MANUEL TRIPATHI, DIEGO ON/ADDEN DUM; Not Available Not Available Not Available Advair Diskus 500 mcg-50 mcg/dose powder for inhalatio n TWO TIMES DAILY 09/11 completed RECORDED 09/12/19 11 4:02PM BY HUSSEIN WILLIS MD, ANNOTATI ON/ADDEN DUM; Not Available Not Available Not Available gabapenti n 300 mg capsule TAKE 1 CAPSULE BY MOUTH AT BEDTIME 12/04 completed Not Available Not Available Not Available omeprazol e 20 mg capsule,d elayed release TAKE 1 CAPSULE BY MOUTH EVERY DAY 2023 active Not Available Not Available Not Avai lable cephalexi n 500 mg tablet THREE TIMES DAILY, NEEDED 09/23 completed RECORDED 09/24/19 09 1:27PM BY GAYLE VU, OFFICE VISIT;IN FECTION ON FINGER Not Available Not Available Not Available monteluka st 10 mg tablet TAKE 1 TAB EVERY OTHER DAY BY ORAL ROUTE DIRECTED active Not Available Not Available No t Available piroxicam 10 mg capsule TAKE 1 TO 2 CAPSULES BY MOUTH DAILY WITH FOOD NEEDED 12/04 completed Not Available Not Available Not Available gabapenti n 100 mg capsule TAKE 1 CAPSULE BY MOUTH THREE TIMES A DAY active Not Available Not Available No t Available lorazepam 1 mg tablet AT BEDTIME 03/31 completed RECORDED 04/17/20 13 12:15PM BY HUSSEIN WILLIS MD, MEDICATI ON AUTO-YESY CTIVATIO N; Not Available Not Available Not Available azelastin e 137 mcg (0.1 %) nasal spray [place] 2 sprays every day by nasal route as needed for 30 days. active Not Available Not Available No t Available epinephri ne 0.3 mg/0.3 mL injection , auto-inje ctor INJECT 1 AUTO-INJ MAXIMUS EVERY DAY NEEDED active Not Available Not Available No t Available ibuprofen 600 mg tablet Take by oral route for 8 days. 05/30 completed Not Available Not Available Not Available methylpre dnisolone 4 mg tablets in a dose pack TAKE 6 TABLETS ON DAY 1 DIRECTED ON PACKAGE AND DECREASE BY 1 TAB EACH DAY FOR A TOTAL OF 6 DAYS 12/04 completed Not Available Not Available Not Available albuterol sulfate HFA 90 mcg/actua tion aerosol inhaler INHALE 2 PUFFS EVERY 6 HOURS NEEDED active Not Available Not Available No t Available ondansetr on 4 mg disintegr ating tablet EVERY 6-8 HOURS, NEEDED, FOR NAUSEA 08/31 completed RECORDED 09/02/19 11 9:36AM BY LEXI BAJWA ON AUTO-YESY CTIVATIO N; Not Available Not Available Not Available fluticaso ne propionat e 50 mcg/actua tion nasal spray,stephie pension [place] 2 sprays every day by nasal route for 30 days. active PRN Not Available Not Available No t Available ipratropi um bromide 21 mcg (0.03 %) nasal spray [place] 2 sprays 3 times a day by nasal route for 30 days. active PRN Not Available Not Available No t Available tobramyci n 0.3 %-dexamet hasone 0.1 % eye drops,stephie pension 05/30 completed Not Available Not Available Not Available clindamyc in 1 % lotion APPLY TO AFFECTED AREAS OF GROIN ONCE TO TWICE DAILY. active Not Available Not Available No t Available albuterol (refill) 90 mcg/actua tion aerosol inhaler PRN active RECORDED 05/19/20 10 10:36AM BY JESUS MANUEL TRIPATHI, ANNOTATI ON/JOSEEN DUM; Not Available Not Available Not Available cyclobenz aprine 5 mg tablet TAKE 1 TABLET BY MOUTH 3 TIMES A DAY 08/06 completed Not Available Not Available Not Available duloxetin e 30 mg capsule,d elayed release TAKE 1 CAPSULE BY MOUTH EVERY DAY active Not Available Not Available No t Available Flovent HFA 220 mcg/actua tion aerosol inhaler INHALE 1 PUFF BY MOUTH TWICE DAILY DIRECTED active Not Available Not Available No t Available magnesium active mag O7 daily Not Available Not Available Not Available Flonase DAILY 2010 active RECORDED 05/04/20 13 1:58PM BY ERICKA LEIGH MA, OFFICE VISIT; Not Available Not Available Not Available omeprazol e DAILY 2010 active RECORDED 05/04/20 13 1:58PM BY ERICKA LEIGH MA, OFFICE VISIT; Not Available Not Available Not Available orphenadr ine citrate TWO TIMES DAILY active RECORDED 05/04/20 13 1:58PM BY ERICKA LEIGH MA, OFFICE VISIT; Not Available Not Available Not Available Guiatuss AT BEDTIME 04/18 completed RECORDED 04/18/20 09 12:00PM BY LASHON MOCTEZUMA, PA-C, MEDICATI ON AUTO-YESY CTIVATIO N; Not Available Not Available Not Available peak flow meter USE DAILY. DIAGNOSI S: ASTHMA (493.90) 03/08 completed RECORDED 03/16/20 11 2:42PM BY HUSSEIN WILLIS MD, MEDICATI ON AUTO-YESY CTIVATIO N; Not Available Not Available Not Available Symbicort 160 mcg-4.5 mcg/actua tion HFA aerosol inhaler TWO TIMES DAILY 05/20 completed RECORDED 06/08/20 12 8:04AM BY HUSSEIN WILLIS MD, MEDICATI ON AUTO-YESY CTIVATIO N;PER PULM/[facility] Not Available Not Available Not Available omeprazol e 20 mg tablet,de layed release Take 1 tablet every day by oral route. 05/27 completed Not Available Not Available Not Available Fluvirin 9059-0063 (PF) 45 mcg (15 mcg x3)/0.5 mL intramusc ular syringe active Not Available Not Available Not Available Afluria (PF) 45 mcg (15 mcg x 3)/0.5 mL intramusc ular syringe active Not Available Not Available Not Available Fluarix Quad 6589-7369 (PF) 60 mcg (15 mcg x 4)/0.5 mL IM syringe 05/28 completed Not Available Not Available Not Available Flucelvax Quad [id number] (PF) 60 mcg (15 mcg x 4)/0.5 mL IM syringe 05/30 completed Not Available Not Available Not Available Afluria Qd 2019- (36 mos up)(PF)60 mcg (15 mcg x4)/0.5 mL IM syringe ADM 0.5ML IM UTD 05/27 completed Not Available Not Available Not Available Vitals Date Recorded Body height Body mass index (BMI) Body weight Heart rate Oxygen saturation Oxygen saturation in Arterial blood by Pulse oximetry Body temperature Systolic blood pressure Diastolic blood pressure Provider Name and Address Organization Details Last Updated DateTime 3 149.86 cm 33.3 kg/m2 02676.7 4 g 67 /min 97 % 97 % 97.5 [degF] 134 mm[Hg] 67 mm[Hg] Lashon Bryson [facility] 3 15:32:17 Date Recorded Body height Body mass index (BMI) Body weight Heart rate Oxygen saturation Oxygen saturation in Arterial blood by Pulse oximetry Body temperature Systolic blood pressure Diastolic blood pressure Provider Name and Address Organization Details Last Updated DateTime 4 149.86 cm 35.6 kg/m2 32505.9 6 g 84 /min 97 % 97 % 98.7 [degF] 159 mm[Hg] 84 mm[Hg] Victoria Obando LPN [facility] 4 16:06:15 Date Recorded Systolic blood pressure Diastolic blood pressure Provider Name and Address Organization Details Last Updated DateTime 12/05/2023 136 mm[Hg] 84 mm[Hg] Ricky Morrison [facility] 12/05/2023 17:00:01 Date Recorded Body height Body mass index (BMI) Body weight Heart rate Oxygen saturation Oxygen saturation in Arterial blood by Pulse oximetry Body temperature Systolic blood pressure Diastolic blood pressure Provider Name and Address Organization Details Last Updated DateTime 4 149.86 cm 34.9 kg/m2 24821.4 8 g 92 /min 98 % 98 % 98 [degF] 150 mm[Hg] 83 mm[Hg] Sara Ferrer [facility] 4 15:13:25 Date Recorded Body height Body mass index (BMI) Body weight Heart rate Oxygen saturation Oxygen saturation in Arterial blood by Pulse oximetry Body temperature Systolic blood pressure Diastolic blood pressure Provider Name and Address Organization Details Last Updated DateTime 4 149.86 cm 34.9 kg/m2 72222.4 8 g 66 /min 96 % 96 % 97.8 [degF] 138 mm[Hg] 82 mm[Hg] Ac cordoba MA [facility] 4 10:15:08 Date Recorded Body height Provider Name an d Address Organization Details Last Updated DateTime 03/06/2024 149.86 cm Victoria Obando LPN [facility] 03/06/2024 14:27:22 Social History Question Answer Notes LastModified by Organizat ion Details LastModified Time Tobacco Smoking Status Never Smoker Feil blandon [facility] 05/06/2014 13:50:08 Do You Have An Advance Directive? No [email or web address] Information not available 03/30/2023 What Is Your Level Of Alcohol Consumption? Occasional Information not available 05/06/2014 Animal Exposure? Yes [email or web address] Information not available 03/30/2023 Do You Wear A Helmet When Biking? Yes [email or web address] Information not available 03/30/2023 Is Blood Transfusion Acceptable In An Emergency? Yes Information not available 05/20/2015 What Is Your Level Of Caffeine Consumption? Occasional 1-2 Cups Of Coffee Daily; Occasional Soda Information not available 05/30/2017 How Much Tobacco Do You Chew? None Information not available 05/20/2015 Are You Currently Employed? Yes Information not available 02/18/2021 What Type Of Diet Are You Following? REGULAR Information not available 05/06/2014 Which Illicit Or Recreational Drugs Have You Used? None Information not available 05/30/2017 Do You Or Have You Ever Used E-cigarettes Or Vape? 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 Yes Information not available 03/30/2023 Are There Any Guns Present In Your Home? No [email or web address] Information not available 03/30/2023 What Is Your Home Situation? Both Parents [email or web address] Information not available 03/30/2023 Legally Blind In One Or Both Eyes? No [email or web address] Information not available 03/30/2023 Live Alone Or With Others? With Others Boyfriend (Chuck)(Taty lozano) And Stepson (Daniel) [email or web address] Information not available 03/30/2023 Do You Take Precautions To Prevent Distracted Driving? Yes Information not available 05/20/2015 How Often Do You Need To Have Someone Help You When You Read Instructions, Pamphlets, Or Other Written Material From Your Doctor Or Pharmacy? Never Information not available 05/20/2015 Have You Served In The ? No Information not available 05/30/2017 Have You Or Anyone In Your Household Had Any Of The Following Symptoms In The Last 14 Days: Sore Throat, Cough, Chills, Body Aches For Unknown Reasons, Shortness Of Breath For Unknown Reasons, Loss Of Smell, Loss Of Taste, Fever At Or Greater Than 100 Degrees Fahrenheit? Yes Information not available 05/27/2020 Are You Or Anyone In Your Household A Health Care Provider Or Emergency Responder? No Information not available 05/27/2020 To The Best Of Your Knowledge Have You Been In Close Proximity To Any Individual Who Tested Positive For COVID-19? No Information not available 05/27/2020 *AWV ONLY* Are You Presently Prescribed Opioid Medication By PCP Or Specialist? If YES -Provider Assess The Benefit For Other, Non-opioid Pain Therapies Instead, Even If The Patient Does Not Have OUD But Is Possibly At Risk. No Information not available 08/06/2020 Have You Recently Traveled To A COVID-19 High Risk Area Or Gathering In The Last 10 Days? No Information not available 07/09/2020 Marital Status [email or web address] Informati on not available 03/30/2023 What Was The Date Of Your Most Recent Tobacco Screening? 12/05/2023 [email or web address] Information not available 12/05/2023 Total Number Of Stairs In Home 30 [email or web address] Information not available 03/30/2023 How Many Children Do You Have? 2 Son; Dontrell (lives W/ Biological Dad) And Dtr Redd Information not available 05/06/2014 Do You Use Protection During Sex? No Information not available 05/06/2014 Difficulty Reading? No [email or web address] Information not available 03/30/2023 What Is Your Relationship Status? Single [email or web address] Information not available 03/30/2023 Do You Use Your Seat Belt Or Car Seat Routinely? Yes Information not available 02/18/2021 Seat Belts Used Routinely Yes [email or web address] Information not available 03/30/2023 Are You Sexually Active? Yes Information not available 05/06/2014 Smoke Alarm In Home Yes [email or web address] Information not available 03/30/2023 Do You Have Smoke And Carbon Monoxide Detectors In Your Home? Yes Information not available 02/18/2021 At What Age Did You Start Smoking Tobacco? 0 Information not available 05/30/2017 Are You Passively Exposed To Smoke? No Information not available 05/20/2015 Do You Or Have You Ever Used Smokeless Tobacco? Never Used Smokeless Tobacco Information not available 05/27/2020 How Much Tobacco Do You Smoke? No Information not available 05/20/2015 Do You Use Any Illicit Or Recreational Drugs? No [email or web address] Information not available 03/30/2023 Do You Use Sunscreen Routinely? Yes Information not available 05/06/2014 How Many Years Have You Smoked Tobacco? 0 Information not available 05/30/2017 Sex: Unknown Functional Status Question Answer Note LastModified by Organizat ion Details LastModified Time Do you have difficulty walking or climbing stairs? No [email or web address] Information not available 03/30/2023 [address]y [address] at night? No [email or web address] Information not available 03/30/2023 Are you able to care for yourself? Yes Information not available 05/06/2014 Do you have difficulty dressing or bathing? No [email or web address] Information not available 03/30/2023 What is your exercise level? Moderate 2-3 x week; exercise bike Information not available 09/14/2017 Mental Status Question Answer Note LastModified by Organization D etails LastModified Time Do you have difficulty concentrating, remembering or making decisions? No [email or web address] Information no t available 03/30/2023 Family History Relationship Description Onset Age of this Age Resolved Age Notes LastModified by Organization Details LastModified Time Maternal Aunt Malignant tumor of breast 70 Mom's half sister has DM/ other one had breast cancer [email or web address] Not available 11/04/2015 14:02:11 Maternal Grandmother Hypertensive disorder 50 54 [email or web address] Not available 2014 12:57:34 Mother Disorder of thyroid gland 60 mom is 63/sadiq betes abolcun Not available 11/04/2015 14:02:11 Mother Hypercholest erolemia 60 abolcun Not available 2015 14:02:11 Mother Diabetes mellitus 62 abolcun Not available 2015 14:02:11 Father Malignant tumor of lung 56 56 smoker [email or web address] Not available 01/2015 10:44:55 Maternal Uncle Hypertensive disorder 30 36 [email or web address] Not available 2014 12:57:34 Paternal Grandfather Alcohol abuse 10 50 abolcun Not available 2014 12:57:34 Sister Anxiety disorder 26 [email or web address] Not available 2015 14:02:11 Paternal Grandmother Malignant tumor of breast 50 86 abolcun Not available 2014 12:57:34 Paternal Aunt Malignant tumor of cervix 50 60 abolcun Not available 2014 12:57:34 Paternal Aunt Hypertensive disorder 30 abolcun Not available 2015 14:02:11 Paternal Aunt Hypertensive disorder 30 abolcun Not available 2015 14:02:11 Medical History Condition Response Gout N Other N Kidney Stones N Blood Diseases N Hyperthyroidism N Breast Cancer N Hypothyroidism N Lung Disease N Depression N COPD N Defects or Inherited Disease N Anesthesia Complications N Headaches/Migraines Y Anxiety Disorder N Varicose Veins N Obesity N Vision or Eye Problems N Arthritis N Head Injury/Concussion N Infertility N Polyps N Congenital Anomalies N Acid Reflux (GERD) N Cancer N Stroke N ADHD N Endometriosis N High Cholesterol N Liver Disease N Fibromyalgia N Kidney Disease N Heart Problems N Ear or Hearing Problems N Hospitalizations N Thyroid Problems N GI Problems N Acne N Eating Disorder N Skin Problems N Anemia N Constipation N Bladder Problems N Mental Illness N Diabetes N Ovarian Cancer N Blood Transfusions N Seizures/Epilepsy N Tuberculosis N AIDS/HIV N Congestive Heart Failure (CHF) N Eczema N Abuse/Domestic Violence N Diverticulitis N Asthma Y Allergies Y Reflux/GERD N Hepatitis N Pulmonary Embolism N Hypertension N Chicken Pox Y Autism Spectrum Disorder (ASD) N Osteoporosis N Gynecological History Statement/Question Response Abnormal Pap Y Flow Moderate 01/01/2014 STIs/STDs N HPV Vaccine N Duration of Flow (days) 5 Age at Menarche 12 Current Control Method Tubal Ligat ion Most Recent Mammogram 08/11/2021 Age at First Child 24 Date of Last Colonoscopy Frequency of Cycle (Q days) Sexually Active? Y Menses Monthly Y Date of Last Pap Smear 06/03/2022 Sexual Problems? N LMP Approximate Desired Control Method None N Obstetrics History GPAL:G 2 P 2 0 0 2 Type Value Full Term 2 Living 2 Total 2 Immunizations Vaccine Type Date Status Note Provider Nam e and Address Organization Details Recorded Time Influenza, split virus, trivalent, PF 4 completed Not Available [facility] 07/11/2023 09:41:06 Influenza, split virus, trivalent, preservative 6 completed Not Available [facility] 07/11/2023 09:41:06 Influenza, split virus, trivalent, preservative 7 completed Not Available [facility] 07/11/2023 09:41:06 Influenza, split virus, trivalent, preservative 0 completed Not Available [facility] 07/11/2023 09:41:06 COVID-19, mRNA, LNP-S, PF, 100 mcg/0.5mL dose or 50 mcg/0.25mL dose 1 completed Not Available [facility] 07/11/2023 09:41:05 COVID-19, mRNA, LNP-S, PF, 100 mcg/0.5mL dose or 50 mcg/0.25mL dose 1 completed Not Available [facility] 07/11/2023 09:41:05 Influenza, MDCK, quadrivalent, PF 7 completed Not Available [facility] 07/11/2023 09:41:05 Influenza, split virus, quadrivalent, PF 0 completed Not Available [facility] 07/11/2023 09:41:06 Influenza, split virus, quadrivalent, PF 6 completed Not Available [facility] 07/11/2023 09:41:06 Influenza, MDCK, quadrivalent, PF 2 completed Not Available [facility] 07/11/2023 09:41:05 Influenza, split virus, quadrivalent, PF 8 completed Not Available [facility] 06/30/2019 02:22:15 Td (adult), 2 Lf tetanus toxoid, preservative free, adsorbed 2 completed Not Available [facility] 07/11/2023 09:41:06 Hep B, adult 3 completed Not Available [facility] 07/11/2023 09:41:06 MMR 3 completed Not Available [facility] 07/11/2023 09:41:05 Hep B, adult 3 completed Not Available [facility] 07/11/2023 09:41:06 Hep B, adult 3 completed Not Available [facility] 07/11/2023 09:41:06 Influenza, split virus, trivalent, preservative 0 completed Not Available [facility] 07/11/2023 09:41:06 Influenza, split virus, trivalent, preservative 1 completed Not Available [facility] 07/11/2023 09:41:06 Influenza, split virus, trivalent, preservative 2 completed Not Available [facility] 07/11/2023 09:41:06 Tdap 2 completed Not Available [facility] 07/11/2023 09:41:05 Influenza, split virus, trivalent, preservative 3 completed Not Available [facility] 07/11/2023 09:41:06 Past Encounters Encounter ID Performer Location Encounter Start Date Encounter Closed Date Diagnosis/Indication Diagnosis SNOMED-CT Code Diagnosis ICD10 Code [id number] Feli [place] Main Office [address] [facility] [address] [place] [place] [address] 12/27/2013 09:02:12 12/27/2013 09:40:51 Acute pharyngitis [id number] [employer] [facility] [address] [facility] [place] [address] 10/29/2006 00:00:00 [id number] [employer] [facility] [address] [facility] [place] [address] 02/27/2007 00:00:00 [id number] [facility] [facility] [address] [facility] [place] [address] 07/21/2006 00:00:00 [id number] [facility] [facility] [address] [facility] [place], [place] [address] 07/12/2006 00:00:00 [id number] [address] [facility] [address] [place] [address] 03/22/2007 00:00:00 [id number] [facility] [facility] [address] [place] [address] 06/22/2007 00:00:00 [id number] [facility] [facility] [address] [place] [address] 11/20/2007 00:00:00 [id number] [facility] [facility] [address] [place] [address] 11/27/2007 00:00:00 [id number] [facility] [facility] [address] [place] [address] 09/23/2008 00:00:00 [id number] [employer] [facility] [address] [facility] [address] [place] [address] 12/03/2008 00:00:00 [id number] [employer] [address] [facility] [address] [place] [address] 04/11/2009 00:00:00 [id number] [employer] [address] [facility] [address] [place] [address] 04/14/2009 00:00:00 [id number] [employer] [address] [facility] [place] [address] 07/16/2009 00:00:00 [id number] [facility] [facility] [address] [place] [address] 02/09/2010 00:00:00 [id number] [facility] [address] [place] [address] 03/13/2010 00:00:00 [id number] [facility] [facility] [address] [place] [address] 05/19/2010 00:00:00 [id number] [facility] [facility] [address] [place] [address] 06/01/2010 00:00:00 [id number] [facility] [facility] [address] [place] [address] 08/17/2010 00:00:00 [id number] [employer] [address] [place] [address] 08/21/2010 00:00:00 [id number] [facility] [address] [place] [address] 08/24/2010 00:00:00 [id number] [employer] [address] [place] [address] 08/28/2010 00:00:00 [id number] [employer] [address] [place] [address] 09/11/2010 00:00:00 [id number] [facility] [address] [place] [address] 01/05/2011 00:00:00 [id number] [facility] [address] [place] [address] 04/15/2011 00:00:00 [id number] [facility] [address] [place] [address] 02/18/2012 00:00:00 [id number] auto[employer] [address] [place] [address] 04/20/2012 00:00:00 [id number] [facility] [address] [place] [address] 10/30/2012 00:00:00 [id number] auto[employer] [address] [place] [address] 11/03/2012 00:00:00 [id number] [facility] [address] [place] [address] 03/01/2013 00:00:00 [id number] [facility] [address] [place] [address] 05/04/2013 00:00:00 [id number] Main Office [address] [address] [place] [address] 05/06/2014 13:44:40 05/06/2014 14:34:13 Adult health examination [id number] Allergic rhinitis 090416 04 Gastroesop hageal reflux disease 190953632 Screening for malignant neoplasm of breast 927910683 Hyperlipidemia 50760846 [id number] Feli Tim Main Office [address] [address] [place] [address] 07/19/2014 10:38:34 07/19/2014 11:40:59 Temporomandibular joint disorder 75006898 [id number] Main Office [address] [address] [place] [address] 07/23/2014 12:41:36 07/23/2014 13:22:01 Nail problem [id number] [id number] Hussein burgos Main Office [address] [address] [place] [address] 05/20/2015 10:10:59 05/20/2015 11:04:55 Adult health examination 238476408 Z00.00 Hyperlipidemia 69737911 E78.5 Temporoman dibular joint disorder 44831696 M26.60 [id number] Hussein burgos Main Office [address] [address] [place] [address] 11/04/2015 13:39:34 11/04/2015 15:07:46 Low back pain 514440170 M54.5 [id number] Shaunna Valencia Main Office [address] [address] [place] [address] 05/28/2016 15:00:36 05/28/2016 16:13:24 Adult health examination 813467463 Z00.00 Menorrhagia 643839352 N9 2.0 Mass of left breast 1224 504756 8387186 N63 Microscopic hematuria 19 6724142 R31.21 [id number] Hussein burgos Main Office [address] [address] [place] [address] 05/30/2017 15:45:25 05/30/2017 17:01:40 Adult health examination 411757423 Z00.00 Hyperlipidemia 95022159 E78.00 Fatigue 81822019 R53.83 Goiter 0586955 E04.9 Body mass index 30+ - obesity 810327307 E66.01 Z68.32 Intermittent asthma 4276 28815 J45.20 Irritable bowel syndrome 41199592 K58.9 [id number] Keyshawn Merchant MD Main Office [address] [address] [place] [address] 09/14/2017 15:19:44 09/14/2017 16:08:07 Mixed hyperlipidemia 934804893 E78.2 Body mass index 30+ - obesity 187194686 E66.01 Z68.33 [id number] Ananth Riley MD Main Office [address] [address] [place] [address] 03/14/2018 08:42:51 03/14/2018 09:28:37 Needs influenza immunization 415103559 Z23 Mixed hyperlipidemia 267 981048 E78.2 Body mass index 30+ - obesity 203575818 E66.01 Z68.31 [id number] Shaunna Valencia Main Office [address] [place] [address] 01/31/2019 15:13:51 01/31/2019 16:05:05 Adult health examination 259539372 Z00.00 Neoplasm o f uncertain behavior of skin 44095376 D48.5 Mixed hyperlipidemia 267 836803 E78.2 Goiter 9598639 E04.9 Mass of left breast 1224 200328 9317601 N63.20 Body mass index 30+ - obesity 249060503 Z68.31 Elevated blood-pressure reading without diagnosis of hypertension 814145789 R03.0 Intermittent asthma 4276 13960 J45.20 Obesity 679543219 E66.9 [id number] Rhonda Reyes PA-C Main Office [address] [address] [place] [address] 06/25/2019 13:41:08 06/25/2019 14:41:41 Postviral cough 777805741 R05 [id number] Katelyn Reyes PA-C [facility] [address] [address] [place] [address] 05/27/2020 07:11:33 05/27/2020 12:50:46 Counseling 467251407 Z71.9 Exposure t o viral disease 7640763419 84078 Z03.818 Cough 31696213 R05 Intermittent asthma 4276 93905 J45.20 Allergic rhinitis 538590 04 J30.9 [id number] Moraima Reese [facility] [address] [address] [place] [address] 05/30/2020 11:17:21 05/30/2020 15:04:02 Allergic rhinitis 20144551 J30.9 Posterior rhinorrhea 758 76860 R09.82 Cough 68815188 R05 [id number] Katelyn Reyes PA-C Main Office [address] [address] [place] [address] 07/09/2020 14:50:50 07/09/2020 16:01:06 Mass of left breast 0668402047 1196067 N63.20 [id number] Katelyn Reyes PA-C Main Office [address] [place] [address] 08/06/2020 10:51:54 08/06/2020 12:18:10 Adult health examination 819922313 Z00.00 Anxiety state 070619932 F41.1 Mixed hyperlipidemia 267 404184 E78.2 Screening for malignant neoplasm of colon 619661104 Z12.11 Screening for malignant neoplasm of cervix 869107486 Z12.4 Varicella vaccination 68 250503 Z23 Skin lesion 04581502 L98 .9 Body mass index 30+ - obesity 579221823 E66.9 Mass of left breast 1224 806866 4120316 N63.20 Impaired f asting glycemia 961572080 R73.01 Intermittent asthma 4276 63169 J45.20 [id number] Katelyn Reyes PA-C Main Office [address] [address] [place] [address] 02/18/2021 13:52:39 02/18/2021 14:48:47 Increased frequency of urination 539418011 R35.0 Low back strain 61162006 1 S39.012A [id number] Katelyn Reyes PA-C Main Office [address] [place] [address] 08/19/2021 14:12:03 08/19/2021 15:35:36 Adult health examination 404200634 Z00.00 Anxiety state 177791836 F41.1 Mixed hyperlipidemia 267 318746 E78.2 Varicella vaccination 68 693546 Z23 Skin lesion 79915546 L98 .9 Body mass index 30+ - obesity 038920517 E66.9 Z68.31 Impaired f asting glycemia 327029652 R73.01 Intermittent asthma 4276 54547 J45.20 Bilateral temporomandibular joint pain 5331077630 6821208 M26.623 Hepatitis C screening 41 8090864 Z11.59 [id number] Kaetlyn Reyes PA-C Main Office [address] [place] [address] 10/26/2021 15:41:09 10/26/2021 16:30:43 Bilateral temporomandibular joint pain 9302763619 9757668 M26.623 Magnetic r esonance imaging of brain abnormal 632934463 R93.0 Skin lesion 94772052 L98 .9 [id number] Katelyn Reyes PA-C Main Office [address] [place] [address] 12/01/2022 14:29:24 12/01/2022 15:53:41 Adult health examination 035420246 Z00.00 Intermittent asthma 4276 77892 J45.20 Bilateral temporomandibular joint pain 4466663983 6794342 M26.623 Magnetic r esonance imaging of brain abnormal 415214170 R93.0 Skin lesion 97209979 L98 .9 Allergy to food 86899681 1 T78.1XXA Neck pain 83874522 M54.2 Migraine 15710967 G43.90 9 Gastroesop hageal reflux disease 839121634 K21.9 Constipation 52611234 K5 9.00 Impaired f asting glycemia 779305018 R73.01 Hyperlipidemia 88112812 E78.5 Body mass index 30+ - obesity 420124208 E66.9 Z68.32 Fatigue 73128448 R53.83 [id number] Rhonda Reyes PA-C Main Office [address] [place] [address] 01/25/2023 15:36:37 01/25/2023 16:05:54 Medial epicondylitis 75403951 M77.01 Carpal nancy ernesto syndrome of right wrist [id number] 78307 G56.01 [id number] Katelyn Reyes PA-C Main Office [address] [address] [place] [address] 03/30/2023 15:11:21 03/30/2023 16:26:27 Neck pain 29834334 M54.2 Mixed hyperlipidemia 267 387712 E78.2 Body mass index 30+ - obesity 576678467 E66.9 Z68.33 Intermittent asthma 4276 42167 J45.20 Migraine 70523257 G43.90 9 Constipation 81477945 K5 9.00 Impaired f asting glycemia 466276124 R73.01 [id number] Katelyn Reyes PA-C Main Office [address] [address] [place] [address] 12/05/2023 15:48:27 12/06/2023 08:50:12 Adult health examination 903217055 Z00.00 Allergy to food 42753285 1 T78.1XXA Anxiety state 558751782 F41.1 Body mass index 30+ - obesity 986003236 E66.9 Z68.35 Gastroesop hageal reflux disease 213735834 K21.9 Impaired f asting glycemia 138175280 R73.01 Intermittent asthma 4276 94264 J45.20 Migraine 82905572 G43.90 9 Pain of ri ght shoulder joint 3756349846 3064189 M25.511 Insomnia 765773103 G47.0 0 Constipation 18966311 K5 9.00 Hyperlipidemia 81898197 E78.5 [id number] JESUS MANUEL BANG Main Office [address] [address] [place] [address] 12/19/2023 15:04:53 12/19/2023 15:50:54 Neuropathy 039854598 G62.9 Anxiety 35586505 F41.9 [id number] Katelyn Reyes PA-C Main Office [address] [address] [place] [address] 01/03/2024 10:00:33 01/03/2024 11:06:21 Neuropathy 812460545 G62.9 Anxiety 58989180 F41.9 Pain of ri ght shoulder joint 6777633808 7243115 M25.511 Prediabetes 418732232 R7 3.03 [id number] Katelyn Reyes PA-C [facility] [address] [facility] [address] [place] [address] 03/06/2024 13:46:56 03/06/2024 15:46:59 Anxiety state 127831467 F41.1 Prediabetes 529899214 R7 3.03 Neuropathy 429071895 G62 .9 Health Concerns Section Related Observation LastModified by Organization Detai ls LastModified Time None Recorded Concern Status LastModified by Organization Details LastModified Time None Recorded Advance Directives Directive N: Payers Encounter Date Sequence Insurance Name Policy Number Policy Jay Covered Member ID Jay Member ID Guarantor Name 03/30/2023 1 [place] [id number] Janiya M Cusson [id number] Janiya M Cusson 03/30/2023 1 [place] Janiya M Cusson [id number] Janiya M Cusson 12/05/2023 1 [place] [id number] Janiya M Cusson [id number] Janiya M Cusson 12/05/2023 1 [place] Janiya M Cusson [id number] Janiya M Cusson 12/19/2023 1 [place] [id number] Janiya M Cusson [id number] Janiya M Cusson 12/19/2023 1 [place] Janiya M Cusson [id number] Janiya M Cusson 01/03/2024 1 [place] [id number] Janiya M Cusson [id number] Janiya M Cusson 01/03/2024 1 [place] Janiya M Cusson [id number] Janiya M Cusson 03/06/2024 1 [place] Janiya M Cusson [id number] Janiya M Cusson Notes Date Note Type Note Provider Name and Address Organization Details Recorded Time 3 text/html 52 year old female presents for routine f/uwt slightly increasedreviewed last lab results c pt from 7.23no further neck painasthma stable on montelukastconstipation stable on mag supplement Katelyn Reyes PA-C [address] [address], [place], [address], [facility] [place] 03/30/2023 21:26:18 4 text/html 53 yo female presenting for annual physical exam. States has severe pain to her bilateral wrists and right shoulder for approximately 10 months. Has had several ED visits for this pain, Dr. Glaser (Hand Specialist), and an Orthopedic provider at [facility]. 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 Received steroid injections to left wrist and right shoulder without relief. Has been using Tylenol. Tetanus not UTD. Colonoscopy UTD. Pap UTD. Mammogram UTD. No acute complaints today. Appointment with Dr. Glaser in 6 weeks. Katelyn Reyes PA-C [address] [address], [place], [address], [facility] 12/05/2023 21:04:52 4 text/html Janiya is a 53yr old F who presents for 2 episodes of numbness/tingling sensation in her bilateral hands/arms. Has hx of bilateral carpal tunnel syndrome. Pt reports each episode were triggered by an anxiety attack. The first episode, pt witnessed her partner expelling mucus which made her dry heave and triggered an anxiety attack- symptoms lasted <10 minutes. The second episode pt reports the symptoms of numbness/tingling lasted <30 seconds and she notes too be under increase levels of stress. Denies of any associated palpitations, chest pain, sob. Pt reports she does follow specialist for her carpal tunnel and wears wrist braces at night for relief. JESUS MANUEL BANG [address] [address], [place], [address], [facility] [place] 12/20/2023 20:59:45 4 text/html fol by ortho - rev last ov note 11.03, seen again in 12.04 but no ov note to reviewrev labs c pt - all negativeolder labs - dx'd c predm - admits to eating/baking muffins c dtr Katelyn Reyes PA-C [address] [address], [place], [address], [facility] 01/03/2024 11:04:54 4 text/html Anxiety/DepressionReported bypatient.Quality:symptoms improved; not crying as much as before Context:major life stressors;trouble at work Associated Symptoms:denies homicidal ideations Katelyn Reyes PA-C [address] [address], [place], [address], [facility] 03/06/2024 15:20:52 OBGyn Episode No OBEpisode recorded.
--- OUTSIDE RECORDS SUMMARY | 2024-05-23 15:26 | XMS_ITS | Continuity of Care Document ---
Author Organization [facility], [facility] Address [address] [address] [place] [address] Care Team Providers Care Supervisor Asbestos Removal Name Role Phone WILLEM BLOUNT Carrot Grader Inspector JONATAN GONSALVES Patient Safety Sitter [phone] [facility] Phys. Med. & Rehab MELY LAMBERT Theoretical Physicist EDGARDO REYES Primary Care Provider [phone] Assessment Encounter Date Assessment Date Assessment LastModified by Organization Details LastModified Time 03/06/2024 03/06/2024 This service was provided using telemedicine. Patient consented to telephone visit Patient was located in the [facility]. Provider was located in the office. No other persons participated in the telemedicine visit except for the patient unless otherwise indicated here. {{}} Total time of visit was 22 minutes. [email or web address] Not available 03/06/2024 15:11:37 Plan of Treatment Reminders Order Date Submit Date Provider Last Modified By Organization Details Last Modified Time Details Appointments FOLLOW UP 30MIN 2023 10:00A M Edgardo Reyes PA-C Not available Not available Not available Lab None recorded . Referral None recorded . Procedures None recorded . Surgeries None recorded . Imaging None recorded . Medication Orders None recorded . Patient TargetsNo targets recorded. Patient Instructions Encounter Date Encounter Id Patient Instructions Last Modified By Organization Details Last Modified Time 03/06/2024 [id number] Medications (OTC , herbal therapies, supplements) reviewed and reconciled with patient and or caregiver, including potential side effects, drug interactions, instructions, and the consequences of not taking medication. Reviewed potential barriers to medication adherence, such as side effects from medication or cost of medication. [facility] Not available 03/06/2024 15:11:08 Reason for Referral None Reported. Results Created Date Observation Date Name Description Value Unit Range Abnormal Flag Note LastModifiedBy Organization Detail LastModifiedTime 02/15/20 24 02/09/2024 nerve condu ction study No observ ation record ed. [facility] [address] [place], [address], 03/06/2024 14:42:41 03/09/2002/06/2024 elect romyo gram + nerve condu ction study No observ ation record ed. [facility] Scheduling Dept [address] [place], [address], 03/09/2024 20:10:45 Result Notes None recorded. Problems Name Problem SNOMED Code Status Onset Date Resolution Date Notes Provider Name and Address Organization Details Recorded Time Acute pharyngi tis 878160757 Completed 05/30/2017 Rhonda Reyes PA-C [address], [place], [address] , [facility] 7 16:57:48 Abdomina l pain 65866248 Completed 201101/01/2014 RECORDED 04/20/20 12 1:28PM BY ERICKA LEIGH MA, ANNOTATI ON/[facility] [place] 6 17:26:14 Mammogra phy abnormal 425557499 Active 2012 Not Available [facility] 4 09:41:04 Asthma 829952258 Completed 201101/01/2014 RECORDED 04/20/20 12 1:27PM BY ERICKA LEIGH MA, ANNOTATI ON/ADDEN CHIRAG Reyes PA-C [address], [place], [address] , [facility] [place] 7 16:57:25 Acute upper respirat ory infectio n 32973654 Completed 201101/01/2014 RECORDED 04/20/20 12 1:27PM BY ERICKA LEIGH MA, ANNOTATI ON/ADDEN DUM Hussein burgos null, [facility] 6 17:26:14 Allergic rhinitis 49839861 Active 2012 Not Available [facility] 4 09:41:05 Anxiety state 824274770 Active 2012 Not Available [facility] 4 09:41:04 Patient status finding [id number] Completed 201201/01/2014 RECORDED 10/31/19 13 3:44PM BY ERICKA LEIGH MA, ANNOTATI ON/ADDEN DUM Donna Chowdhury MA null, [facility] 7 16:26:15 Intrinsi c asthma 715205070 Completed 201101/01/2014 RECORDED 04/20/20 12 1:27PM BY ERICKA LEIGH MA, ANNOTATI ON/ADDEN DUM Hussein burgos null, [facility] 6 17:26:14 Acute asthma 015223925 Completed 201101/01/2014 RECORDED 04/20/20 12 1:27PM BY ERICKA LEIGH MA, ANNOTATI ON/ADDEN DUM Hussein burgos null, [facility] 6 17:26:14 Asthma 037342715 Completed 201205/30/2017 Rhonda Reyes PA-C [address] [address], [place], [address] [facility] 7 16:57:25 Screenin g for malignan t neoplasm of breast Completed 201301/01/2014 RECORDED 06/13/19 14 7:21PM BY JUAN JOSE WAYNE AL KUMAR burgos null, [facility] 6 17:26:15 Screenin g for malignan t neoplasm of cervix Completed 201101/01/2014 RECORDED 04/20/20 12 1:28PM BY ERICKA LEIGH MA, DIEGO ON/ADDEN DUM Donna blandon, [facility] 7 16:26:27 Screenin g for malignan t neoplasm of cervix Completed 201302/28/2017 RECORDED 07/27/19 14 1:57PM BY JEM WALTERIC AL SUMMARY Donna blandon, [facility] 7 16:26:27 Chest pain 16710979 Completed 201101/01/2014 RECORDED 04/20/20 12 1:27PM BY ERICKA LEIGH MA, ANNOTATI ON/ADDEN DUM Hussein burgos null, [facility] 6 17:26:14 Sprain of costal cartilag e Completed 201201/01/2014 IMPRESSI ON: SHE WONT FILL PERCOCET UNTIL AFTER THE WEEKEND. LONG WEEKEND AHEAD. AIM FOR RETURN TO WORK WED. IF CANT RETURN MAKE F/U APPT/. TAKE BENADRYL PRN ITCHING WITH PERCOCET . CONTINUE MELOXICA M; RECORDED 03/01/20 13 9:41AM BY ERICKA LEIGH MA, DIEGO ON/ADDEN DUM Hussein blandon, [facility] 6 17:26:15 Disorder of nail 37048946 Completed 201101/01/2014 RECORDED 04/20/20 12 1:27PM BY ERICKA LEIGH MA, DIEGO ON/ADDEN DUM Hussein burgos null, [facility] 6 17:26:14 Disorder of skin 25476381 Completed 201101/01/2014 RECORDED 04/20/20 12 1:27PM BY ERICKA LEIGH MA, DIEGO ON/ADDEN DUM Hussein blandon, [facility] 6 17:26:14 Dyspareu miya 51276416 Completed 201101/01/2014 RECORDED 04/20/20 12 1:28PM BY ERICKA LEIGH MA, ANNOTATI ON/ADDEN DUM Hussein Sandra'Alessand ro null, [facility] 6 17:26:14 Dysphagi a [id number] Completed 201101/01/2014 RECORDED 04/20/20 12 1:28PM BY ERICKA LEIGH MA, ANNOTATI ON/ADDEN DUM Hussein Ottoniel'Alessand ro null, [facility] 6 17:26:14 Dysuria [id number] Completed 201101/01/2014 RECORDED 04/20/20 12 1:27PM BY ERICKA LEIGH MA, ANNOTATI ON/ADDEN DUM Hussein Ottoniel'Alessand ro null, [facility] 6 17:26:14 Influenz a vaccine needed [id number] 06 Completed 200901/01/2014 RECORDED 06/01/20 10 9:07AM BY COOPER LAWS I, HISTORIC AL SUMMARY Hussein Sandra'Alessand ro null, [facility] 6 17:26:15 Closed fracture of ulna 83220929 Completed 201101/01/2014 RECORDED 04/20/20 12 1:27PM BY ERICKA LEIGH MA, ANNOTKATERINA ON/ADDEN DUM Hussein D'Alessand ro null, [facility] 6 17:26:15 Gastriti s 3737972 Completed 201101/01/2014 RECORDED 04/20/20 12 1:27PM BY ERICKA LEIGH MA, ANNOTATI ON/ADDEN DUM Hussein D'Alessand ro null, [facility] 6 17:26:14 Gastrodu odenitis 294617189 Active 2011 Not Available [facility] 4 09:41:04 Gastroes ophageal reflux disease 095482985 Active 2012 Not Available [facility] 4 09:41:04 Adult health examinat ion Completed 201202/28/2017 RECORDED 05/04/20 13 1:58PM BY ERICKA LEIGH MA, OFFICE VISIT Donna Chowdhury MA null, [facility] 7 16:26:47 Adult health examinat ion Completed 201201/01/2014 RECORDED 10/31/19 13 3:44PM BY ERICKA LEIGH MA, ANNOTATI ON/ADDEN DUM Donna Chowdhury MA null, [facility] 7 16:26:47 Genital herpes simplex 41358173 Active 2012 Not Available [facility] 4 09:41:04 Hyperlip idemia 26858974 Completed 201206/14/2017 Rhonda Reyes PA-C [address] [facility] [address], [place], [address] , [facility] 8 13:11:07 Irritabl e bowel syndrome 17971105 Active 2012 Not Available [facility] 4 09:41:04 Neck pain 07052036 Completed 201201/01/2014 RECORDED 05/04/20 13 1:57PM BY ERICKA LEIGH MA, ANNOTATI ON/ADDEN DUM Edgardo Reyes PA-C [address] [facility] [address], [place], [address] , [facility] 3 20:22:59 Patient status finding [id number] Completed 201202/28/2017 RECORDED 05/04/20 13 1:58PM BY ERICKA LEIGH MA, OFFICE VISIT Donna Chowdhury MA null, [facility] 7 16:26:15 Screenin g for malignan t neoplasm of colon Completed 200801/01/2014 RECORDED 12/04/19 09 10:12AM BY BAN ALVARADO MA, ANNOTATI ON/ADDEN DUM Hussein burgos null, [facility] 6 17:26:15 Administ ration of diphther ia and tetanus vaccine Completed 201201/01/2014 RECORDED 10/31/19 13 3:44PM BY ERICKA LEIGH MA, ANNOTATI ON/ADDEN DUM Hussein D'Alessand ro null, [facility] 6 17:26:15 Urinary tract infectio us disease 91112565 Completed 201101/01/2014 RECORDED 04/20/20 12 1:27PM BY ERICKA LEIGH MA, ANNOTATI ON/ADDEN DUM Hussein D'Alessand ro null, [facility] 6 17:26:14 Viral disease 48782210 Completed 201101/01/2014 RECORDED 04/20/20 12 1:27PM BY ERICKA LEIGH MA, ANNOTATI ON/ADDEN DUM Hussein D'Alessand ro null, [facility] 6 17:26:14 Vomiting 357321409 Completed 201101/01/2014 RECORDED 04/20/20 12 1:27PM BY ERICKA LEIGH MA, ANNOTATI ON/ADDEN DUM Hussein D'Alessand ro null, [facility] 6 17:26:14 Persiste nt vomiting 881588874 Completed 201101/01/2014 RECORDED 04/20/20 12 1:27PM BY ERICKA LEIGH MA, ANNOTATI ON/ADDEN DUM Hussein D'Alessand ro null, [facility] 6 17:26:14 Verruca vulgaris 98032457 Active 2012 Not Available [facility] 4 09:41:05 Abnormal weight loss 075948148 Completed 201205/30/2017 Rhonda Reyes PA-C [address] [address], [place], [address] , [facility] 7 16:47:15 Abdomina l pain 64412185 Completed 201101/21/2014 RECORDED 04/20/20 12 1:28PM BY ERICKA LEIGH MA, DIEGO ON/ADDEN DUM Hussein D'Alessand ro null, [facility] 6 17:26:15 Asthma 727282440 Completed 201101/21/2014 RECORDED 04/20/20 12 1:27PM BY ERICKA LEIGH MA, ANNOTATI ON/ADDEN DUM Rhonda Reyes PA-C [address] [facility] [address], [place], [address] , [facility] 7 16:57:25 Acute upper respirat ory infectio n 56903633 Completed 201101/21/2014 RECORDED 04/20/20 12 1:27PM BY ERICKA LEIGH MA, ANNOTATI ON/ADDEN DUM Hussein burgos null, [facility] 6 17:26:14 Patient status finding 016782040 Completed 201201/21/2014 RECORDED 10/31/19 13 3:44PM BY ERICKA LEIGH MA, ANNOTATI ON/ADDEN DUM Donna Chowdhury MA null, [facility] 7 16:26:15 Intrinsi c asthma 613881285 Completed 201101/21/2014 RECORDED 04/20/20 12 1:27PM BY ERICKA LEIGH MA, ANNOTATI ON/ADDEN DUM Hussein burgos null, [facility] 6 17:26:14 Acute asthma 621037984 Completed 201101/21/2014 RECORDED 04/20/20 12 1:27PM BY ERICKA LEIGH MA, ANNOTATI ON/ADDEN DUM Hussein burgos null, [facility] 6 17:26:14 Screenin g for malignan t neoplasm of breast Completed 201301/21/2014 RECORDED 06/13/19 14 7:21PM BY JUAN JOSE WAYNE AL SUMMARY Hussein burgos null, [facility] 6 17:26:15 Screenin g for malignan t neoplasm of cervix Completed 201101/21/2014 RECORDED 04/20/20 12 1:28PM BY ERICKA LEIGH MA, DIEGO ON/ADDEN DUM Donna Chowdhury MA null, [facility] 7 16:26:27 Chest pain 85183410 Completed 201101/21/2014 RECORDED 04/20/20 12 1:27PM BY ERICKA LEIGH MA, ANNOTATI ON/ADDEN DUM Hussein Sandra'Alebernardaand ro null, [facility] 6 17:26:14 Sprain of costal cartilag e Completed 201201/21/2014 IMPRESSI ON: SHE WONT FILL PERCOCET UNTIL AFTER THE WEEKEND. LONG WEEKEND AHEAD. AIM FOR RETURN TO WORK WED. IF CANT RETURN MAKE F/U APPT/. TAKE BENADRYL PRN ITCHING WITH PERCOCET . CONTINUE MELOXICA M; RECORDED 03/01/20 13 9:41AM BY ERICKA LEIGH MA, DIEGO ON/ADDEN DUM Hussein burgos null, [facility] 6 17:26:15 Disorder of nail 55688544 Completed 201101/21/2014 RECORDED 04/20/20 12 1:27PM BY ERICKA LEIGH MA, SHONDAATI ON/ADDEN DUM Hussein Sandra'Chacha ro null, [facility] 6 17:26:14 Disorder of skin 55200750 Completed 201101/21/2014 RECORDED 04/20/20 12 1:27PM BY ERICKA LEIGH MA, DIEGO ON/ADDEN DUM Hussein Smith ro null, [facility] 6 17:26:14 Dyspareu miya [id number] Completed 201101/21/2014 RECORDED 04/20/20 12 1:28PM BY ERICKA LEIGH MA, ANNOTATI ON/ADDEN DUM Hussein Smith ro null, [facility] 6 17:26:14 Dysphagi a [id number] Completed 201101/21/2014 RECORDED 04/20/20 12 1:28PM BY ERICKA LEIGH MA, ANNOTATI ON/ADDEN DUM Hussein Sandra'Alessand ro null, [facility] 6 17:26:14 Dysuria 15318688 Completed 201101/21/2014 RECORDED 04/20/20 12 1:27PM BY ERICKA LEIGH MA, ANNOTATI ON/ADDEN DUM Hussein Sandra'Alessand ro null, [facility] 6 17:26:14 Influenz a vaccine needed [id number] 06 Completed 200901/21/2014 RECORDED 06/01/20 10 9:07AM BY COOPER LAWS I, HISTORIC AL SUMMARY Hussein Sandra'Alebernardaand ro null, [facility] 6 17:26:15 Closed fracture of ulna 45950247 Completed 201101/21/2014 RECORDED 04/20/20 12 1:27PM BY ERICKA LEIGH MA, ANNOTATI ON/ADDEN DUM Hussein Sandra'Alessand ro null, [facility] 6 17:26:15 Gastriti s 0436582 Completed 201101/21/2014 RECORDED 04/20/20 12 1:27PM BY ERIKCA LEIGH MA, ANNOTATI ON/ADDEN DUM Hussein Sandra'Alessand ro null, [facility] 6 17:26:14 Neck pain 27006443 Completed 201201/21/2014 RECORDED 05/04/20 13 1:57PM BY ERICKA LEIGH MA, ANNOTATI ON/ADDEN DUM Edgardo Reyes PA-C [address] [address], [place], [address] , [facility] 3 20:22:59 Screenin g for malignan t neoplasm of colon Completed 200801/21/2014 RECORDED 12/04/19 09 10:12AM BY BAN ALVARADO MA, ANNOTATI ON/ADDEN DUM Hussein Sandra'Alessand ro null, [facility] 6 17:26:15 Administ ration of diphther ia and tetanus vaccine Completed 201201/21/2014 RECORDED 10/31/19 13 3:44PM BY ERICKA LEIGH MA, DIEGO ON/ADDEN DUM Hussein Ottoniel'Alessand ro null, [facility] 6 17:26:15 Urinary tract infectio us disease 88461980 Completed 201101/21/2014 RECORDED 04/20/20 12 1:27PM BY ERICKA LEIGH MA, SHONDAATI ON/ADDEN DUM Hussein Ottoniel'Alessand ro null, [facility] 6 17:26:14 Viral disease 77522591 Completed 201101/21/2014 RECORDED 04/20/20 12 1:27PM BY ERICKA LEIGH MA, ANNOTATI ON/ADDEN DUM Hussein Ottoniel'Alessand ro null, [facility] 6 17:26:14 Vomiting 267129173 Completed 201101/21/2014 RECORDED 04/20/20 12 1:27PM BY ERICKA LEIGH MA, ANNOTATI ON/ADDEN DUM Hussein Ottoniel'Alessand ro null, [facility] 6 17:26:14 Persiste nt vomiting 198006735 Completed 201101/21/2014 RECORDED 04/20/20 12 1:27PM BY ERICKA LEIGH MA, ANNOTATI ON/ADDEN DUM Hussein Ottoniel'Alessand ro null, [facility] 6 17:26:14 Temporom andibula r joint disorder 06775292 Completed 05/30/2017 Rhonda Reyes PA-C [address] [address], [place], [address] , [facility] 7 16:58:26 Nail problem 824928594 Completed 01/31/2019 Rhonda Reyes PA-C [address] [facility] [address], [place], [address] , [facility] 9 16:06:03 Onychomy cosis 198074007 Completed 01/31/2019 Rhonda Reyes PA-C [address] [facility] [address], [place], [address] , [facility] 9 16:06:13 Low back pain 480706199 Active Not Available [facility] 4 09:41:04 Goiter 6986293 Active 2016 Not Available [facility] 4 09:41:04 Intermit tent asthma 195150466 Active 2016 Not Available [facility] 4 09:41:05 Mixed hyperlip idemia 482699284 Active 2017 Not Available [facility] 4 09:41:04 Elevated blood-pr essure reading without diagnosi s of hyperten drea 908999985 Active 2018 Not Available [facility] 4 09:41:04 Body mass index 30+ - obesity 321879820 Active 2018 Not Available [facility] 4 09:41:04 Mass of left breast 98425253807 739103 Active 2018 Not Available [facility] 4 09:41:04 Obesity 658278660 Active 2018 Not Available [facility] 4 09:41:05 Low back strain 242465735 Active 2020 Not Available [facility] 4 09:41:04 Skin lesion 55076005 Active 2021 Not Available [facility] 4 09:41:05 Bilatera l temporom andibula r joint pain 91831161704 286942 Active 2021 Not Available [facility] 4 09:41:04 Magnetic resonanc e imaging of brain abnormal 392726927 Active 2021 Not Available [facility] 4 09:41:05 Migraine 08414387 Active 2022 Not Available [facility] 4 09:41:05 Allergy to food 869959244 Active 2022 Not Available [facility] 4 09:41:05 Neck pain 41558274 Active 2022 RECORDED 05/04/20 13 1:57PM BY ERICKA LEIGH MA, ANNOTATI ON/RANDOLPH DUM Not Available [facility] 4 09:41:05 Medial epicondy litis 29044179 Active 2022 Not Available [facility] 4 09:41:05 Carpal tunnel syndrome of right wrist 58024225692 9108 Active 2022 Not Available [facility] 4 09:41:04 Constipa tion 58163623 Active 2022 Not Available [facility] 4 09:41:04 Impaired fasting glycemia 714957549 Active 2022 Not Available [facility] 4 09:41:05 Pain of right shoulder joint 96612939992 590560 Active 2023 Ricky blandon, [facility] 4 16:52:18 Insomnia 485295713 Active 2023 Ricky blandon, [facility] 4 17:01:18 Prediabe zamzam 143195557 Active 2023 Edgardo Reyes PA-C [address] [address], [facility] [place], [address] , [facility] 4 10:49:56 Notes:Some problems listed i n Document: #[id number] could not be added to this patient's chart. Please review this document and add these problems to the patient's chart manually as needed. Problem Notes None recorded. Procedures Surgical History Date Name Laterality Status Provider Name and Address Organization Details Recorded Time 06/03/20 Date of Last Pap Smear completed Randa Herrera [facility] 06/24/2022 09:26:57 08/12/19 Most Recent Mammogram completed Hussein Suarez MA [facility] 12/01/2022 14:49:47 09/12/19 colonoscopy completed Edgardo Reyes PA-C [address], [address], [facility] 08/19/2021 15:14:36 08/11/19 20 Mammogram screening completed Ale Billy [facility] 08/13/2019 11:45:01 09/03/19 17 Hysteroscopy completed Donna Chowdhury MA [facility] 10/04/2016 13:44:17 07/20/19 17 Mammogram one breast completed Ban petit MA [facility] 05/30/2017 16:20:13 06/22/19 17 needle aspiration of breast completed Ban petit MA [facility] 05/27/2020 10:23:48 06/09/20 16 Mammogram one breast completed Cally Griffin [facility] 06/10/2016 11:08:33 08/25/19 05 Caesarean Section completed Kevin Hartley MA [facility] 08/19/2021 14:18:11 08/11/18 95 Caesarean Section completed Feli Dumont [facility] 05/06/2014 13:50:16 Imaging Results None recorded. Procedure Notes None recorded. Medical Equipment None Reported. Allergies Allergen ID Allergen Name Allergen Category Reaction Reaction Severity Criticality Documentation Date Start Date Code Code System Note Provider Name and Address Organization Details Recorded Time 78541 Grass Pollen environme nt,medica tion itching moderate Not available 05/20/2015 Donna blandon [facility] 5 10:15:28 27935 house dust allergeni c extract environme nt,medica tion cough headache itching other severe moderate severe severe Not available 05/20/2015 07002 9 RxNorm Donna blandon [facility] 5 10:15:28 05644 Tree Pollen medicatio n cough headache itching moderate moderate moderate Not available 05/20/2015 Donna blandon [facility] 5 10:15:28 45450 Animal Hair-Dand er medicatio n itching moderate Not available 05/20/2015 Donna blandon [facility] 5 10:15:28 8274 codeine medicatio n itching Not available Not available 12/25/20132012 2670 [facility] 7 16:07:35 8275 No known allergy (situatio n) Not available Not available Not available Not available 12/25/20132012 76168 6003 SNOMED COMME NT: RECOR DED 03/01 9:41A M BY RIGO MELISSA MA, OFFIC E VISIT ; [facility] 4 13:49:27 Medications Name Sig Start Date Stop Date Status Note LastModified by Organization Details LastModified Time cyclobenz aprine hcl 5 mg tabs active Not Available Not Available Not Available cetirizin e hcl 10 mg tabs active Not Available Not Available Not Available monteluka st sodium 10 mg tabs active [...] 08/20 completed RECORDED 08/21/19 11 1:56PM BY DIEGO JOHN/RANDOLPH BEARD; Not Available Not Available Not Available [...] 04/14/20 09 3:24PM BY HUSSEIN WILLIS MD, ANNOTATI ON/ADDEN DUM; [...] 05/19/20 10 10:36AM BY JESUS MANUEL TRIPATHI, SHONDAATI ON/ADDEN DUM; Not Available Not Available Not [...] e 137 mcg (0.1 %) nasal spray Lutz 2 sprays every day by nasal route [...] 08/31 completed RECORDED 09/02/19 11 9:36AM BY ACOSTA BAJWAATI ON AUTO-YESY CTIVATIO N; Not Available Not Available Not Available fluticaso ne propionat e 50 mcg/actua tion nasal spray,stephie pension Lutz 2 sprays every day by nasal route for 30 days. active PRN Not Available Not Available No t Available ipratropi um bromide 21 mcg (0.03 %) nasal spray Lutz 2 sprays 3 times a day by [...] 10 10:36AM BY JESUS MANUEL TRIPATHI, ANNOTATI ON/ADDEN DUM; Not Available Not Available [...] 04/18 completed RECORDED 04/18/20 09 12:00PM BY KEVIN MOCTEZUMA PA-C, MEDICATI ON AUTO-YESY CTIVATIO N; Not [...] Not Available Not Available Not Available Fluvirin (PF) 45 mcg (15 mcg x3)/0.5 mL intramusc ular syringe active Not Available Not Available Not Available Afluria (PF) 45 mcg (15 mcg x 3)/0.5 mL intramusc ular syringe active Not Available Not Available Not Available Fluarix Quad (PF) 60 mcg (15 mcg x 4)/0.5 mL IM syringe 05/28 completed Not Available Not Available Not Available Flucelvax Quad [id number] (PF) 60 mcg (15 mcg x 4)/0.5 mL IM syringe 05/30 completed Not Available Not Available Not Available Afluria Qd (36 mos up)(PF)60 mcg (15 mcg x4)/0.5 mL IM syringe ADM 0.5ML IM UTD 05/27 completed Not Available Not Available Not Available Vitals Date Recorded Body height Provider Name an d Address Organization Details Last Updated DateTime 03/06/2024 149.86 cm Victoria Obando LPN [facility] 03/06/2024 14:27:22 Social History Question Answer Notes LastModified by Organizat ion Details LastModified Time Tobacco Smoking Status Never Smoker Feli blandon [facility] 05/06/2014 13:50:08 Do You Have An Advance Directive? No Information not available 03/30/2023 What Is Your Level Of Alcohol Consumption? Occasional Information not available 05/06/2014 Animal Exposure? Yes [email or web address] Information not available 03/30/2023 Do You Wear A Helmet When Biking? Yes [email or web address] Information not available 03/30/2023 Is Blood Transfusion [...] E-cigarettes Or Vape? Never Used Electronic Cigarettes [email or web address] Information not available 03/30/2023 Education 4 Year College [email or web address] Informati on not available 03/30/2023 What Is Your Occupation? [employer] Information not available 02/18/2021 Have There Been Any Changes To Your Family Or Social Situation? Yes [email or web address] Information not available 03/30/2023 Are There Any Guns Present In Your Home? No [email or web address] Information not available 03/30/2023 What Is Your Home Situation? Both Parents [email or web address] Information not available 03/30/2023 Legally Blind In One Or Both Eyes? No [email or web address] Information not available 03/30/2023 Live Alone Or With Others? With Others Boyfriend (Chuck)(Taty lozano) And Stepson (Daniel) Information not available 03/30/2023 Do You Take [...] No Information not available 07/09/2020 Marital Status [email or web address] Informati on not available 03/30/2023 What Was The Date Of Your Most Recent Tobacco Screening? 12/05/2023 [email or web address] Information not available 12/05/2023 Total Number Of Stairs In Home 30 Information not available 03/30/2023 How Many Children Do You Have? 2 Son; Dontrell (lives W/ Biological Dad) And [facility]tr [place] Information not available 05/06/2014 Do You Use Protection During Sex? No Information not available 05/06/2014 Difficulty Reading? No [email or web address] Information not available 03/30/2023 What Is Your Relationship Status? Single [email or web address] Information not available 03/30/2023 Do You Use Your Seat Belt Or Car Seat Routinely? Yes Information not available 02/18/2021 Seat Belts Used Routinely Yes [email or web address] Information not available 03/30/2023 Are You Sexually Active? Yes Information not available 05/06/2014 Smoke Alarm In Home Yes Information not available 03/30/2023 Do You Have [...] Use Any Illicit Or Recreational Drugs? No [email or web address] Information not available 03/30/2023 Do You Use Sunscreen Routinely? Yes Information not available 05/06/2014 How Many Years Have You Smoked Tobacco? 0 Information not available 05/30/2017 Sex: Unknown Functional Status Question Answer Note LastModified by Organizat ion Details LastModified Time Do you have difficulty walking or climbing stairs? No [email or web address] Information not available 03/30/2023 [address]y [address] at night? No [email or web address] Information not available 03/30/2023 Are you able to care for yourself? Yes Information not available 05/06/2014 Do you have difficulty dressing or bathing? No [email or web address] Information not available 03/30/2023 What is your exercise level? Moderate 2-3 x week; exercise bike Information not available 09/14/2017 Mental Status Question Answer Note LastModified by Organization D etails LastModified Time Do you have difficulty concentrating, remembering or making decisions? No Information no t available 03/30/2023 Family History [...] of thyroid gland 60 mom is 63/sadiq keenaes abolcun Not available 11/04/2015 14:02:11 Mother Hypercholest [...] available 2015 14:02:11 Medical History Condition Response Other N Gout N Kidney Stones N Blood Diseases N Hyperthyroidism N Breast Cancer N Lung Disease N Hypothyroidism N Depression N COPD N Defects or Inherited Disease N Anesthesia Complications N Headaches/Migraines Y Varicose Veins N Anxiety Disorder N Obesity N Vision or Eye Problems N Arthritis N Head Injury/Concussion N Polyps N Infertility N Congenital Anomalies N Acid Reflux (GERD) N Cancer N Stroke N ADHD N Endometriosis N High Cholesterol N Liver Disease N Fibromyalgia N Kidney Disease N Heart Problems N Ear or Hearing Problems N Hospitalizations N Thyroid Problems N GI Problems N Acne N Skin Problems N Eating Disorder N Anemia N Constipation N Bladder Problems N Mental Illness N Ovarian Cancer N Diabetes N Blood Transfusions N Seizures/Epilepsy N Tuberculosis N AIDS/HIV N Congestive Heart Failure (CHF) N Eczema N Diverticulitis N Abuse/Domestic Violence N Asthma Y Allergies Y Reflux/GERD N Hepatitis N Pulmonary Embolism N Hypertension N Osteoporosis N Chicken Pox Y Autism Spectrum Disorder (ASD) N Gynecological History Statement/Question Response Abnormal Pap [...] virus, trivalent, PF 4 completed Not Available [facility] 07/11/2023 09:41:06 Influenza, split virus, trivalent, preservative 6 completed Not Available [facility] 07/11/2023 09:41:06 Influenza, split virus, trivalent, preservative 7 completed Not Available [facility] 07/11/2023 09:41:06 Influenza, split virus, trivalent, preservative 0 completed Not Available [facility] 07/11/2023 09:41:06 COVID-19, mRNA, LNP-S, PF, 100 mcg/0.5mL dose or 50 mcg/0.25mL dose 1 completed Not Available [facility] 07/11/2023 09:41:05 COVID-19, mRNA, LNP-S, PF, 100 mcg/0.5mL dose or 50 mcg/0.25mL dose 1 completed Not Available [facility] 07/11/2023 09:41:05 Influenza, MDCK, quadrivalent, PF 7 completed Not Available [facility] 07/11/2023 09:41:05 Influenza, split virus, quadrivalent, PF 0 completed Not Available [facility] 07/11/2023 09:41:06 Influenza, split virus, quadrivalent, PF 6 completed Not Available [facility] 07/11/2023 09:41:06 Influenza, MDCK, quadrivalent, PF 2 completed Not Available [facility] 07/11/2023 09:41:05 Influenza, split virus, quadrivalent, PF 8 completed Not Available [facility] 06/30/2019 02:22:15 Td (adult), 2 Lf tetanus toxoid, preservative free, adsorbed 2 completed Not Available [facility] 07/11/2023 09:41:06 Hep B, adult 3 completed Not Available [facility] 07/11/2023 09:41:06 MMR 3 completed Not Available [facility] 07/11/2023 09:41:05 Hep B, adult 3 completed Not Available [facility] 07/11/2023 09:41:06 Hep B, adult 3 completed Not Available [facility] 07/11/2023 09:41:06 Influenza, split virus, trivalent, preservative 0 completed Not Available [facility] 07/11/2023 09:41:06 Influenza, split virus, trivalent, preservative 1 completed Not Available [facility] 07/11/2023 09:41:06 Influenza, split virus, trivalent, preservative 2 completed Not Available [facility] 07/11/2023 09:41:06 Tdap 2 completed Not Available [facility] 07/11/2023 09:41:05 Influenza, split virus, trivalent, preservative 3 completed Not Available [facility] 07/11/2023 09:41:06 Past Encounters Encounter ID Performer Location Encounter Start Date Encounter Closed Date Diagnosis/Indication Diagnosis SNOMED-CT Code Diagnosis ICD10 Code [id number] Edgardo Reyes PA-C [facility] [address] [place] [address] 03/06/2024 13:46:56 03/06/2024 15:46:59 Anxiety state 047319506 F41.1 Prediabetes 347952353 R7 3.03 Neuropathy 095502788 G62 .9 Health Concerns Section Related Observation LastModified by Organization Detai ls LastModified Time None Recorded Concern Status LastModified by Organization Details LastModified Time None Recorded Payers Encounter Date Sequence Insurance Name Policy Number Policy Jay Covered Member ID Jay Member ID Guarantor Name 03/06/2024 1 [place] [facility] Janiya Ordaz [id number] Janiya Ordaz Notes Date Note Type Note Provider Name and Address Organization Details Recorded Time 03/06/2024 text/html Anxiety/Depressi onReported bypatient.Qualit y:symptoms improved; not crying as much as before Context:major life stressors;troubl e at work Associated Symptoms:denies homicidal ideations Edgardo Reyes PA-C [address], [place], [address], [facility] 03/06/2024 15:20:52 OBGyn Episode No OBEpisode recorded.
== END 2024-05-21 13:43 | disposition home or self-care (01) ==
PROVIDERS: PCP Physician Assistant Medical; Visit Provider Student in an Organized Health Care Education/Training Program
DX: M79.7 Fibromyalgia (principal)
CPT/HCPCS: 99205

== ENCOUNTER → 2024-05-21 12:23 | Outpatient (BNVA) | payer MEDICAID, SELFPAY | PROVIDERS: PCP Physician Assistant Medical; Visit Provider Student in an Organized Health Care Education/Training Program | DX: M79.7 Fibromyalgia (principal) | CPT/HCPCS: 99202 ==

== ENCOUNTER 2024-11-14 12:28 | Outpatient (REF) | payer OTHER, SELFPAY ==
--- OUTSIDE RECORDS SUMMARY | 2024-11-14 13:01 | XMS_ITS | Data Portability ---
Author Organization [facility], Main Office Address [address] [place] [id number] Care Team Providers Care Front Maker Name Role Phone WILLEM BLOUNT Pediatric Audiologist JONATAN GONSALVES Vet Tech [phone] [facility] Re[facility] MELY LAMBERT Periodontal Assistant KATELYN REYES Primary Care Provider [phone] Assessment Encounter Date Assessment Date Assessment LastModified by Organization Details LastModified Time 12/19/2023 12/19/2023 Discussed with patient the signs/symptoms warranted for a return to office visit and/or an ER visit. Patient understood and agreed with the plan. [email or web address] Not available 12/19/2023 15:33:24 03/06/2024 03/06/2024 This service was provided using telemedicine. Patient consented to telephone visit Patient was located in the [facility]. Provider was located in the office. No other persons participated in the telemedicine visit except for the patient unless otherwise indicated here. Total time of visit was 22 minutes. [email or web address] Not available 03/06/2024 15:11:37 Plan of Treatment Reminders Order Date Submit Date Provider Last Modified By Organization Details Last Modified Time Details Appointments PE EST 2024 10:30A M Katelyn Reyes PA-C Not available Not available Not available Lab lipid panel, serum 202306 025 [facility] (Centralized Electronic Ordering - All Locations), Patient Can Go To The Location Of Their Choice, [address] 11/14/2024 04:03:16 HbA1c (hemog lobin A1c), blood 2023 025 [facility] (Centralized Electronic Ordering - All Locations), Patient Can Go To The Location Of Their Choice, [address] 11/14/2024 04:03:16 BMP, serum or plasma 2023 025 [facility] (Centralized Electronic Ordering - All Locations), Patient Can Go To The Location Of Their Choice, [address] 11/14/2024 04:03:16 HbA1c (hemog lobin A1c), blood 2023 024 [facility], [address], [place], [address], 05/19/2024 06:08:28 BMP, serum or plasma 2023 024 [facility], [address], [place], [address], 05/19/2024 06:08:27 SARA (antin uclear antibo dies) screen , ifa, serum 2023 024 [facility], [address], [place], [address], 12/22/2023 22:06:07 ESR (eryth rocyte sedime ntatio n rate), blood 2023 024 [facility], [address], [place], [address], 12/22/2023 22:06:06 C reacti ve protei n, QN, serum or plasma 2023 024 [facility], [address], [place], [address], 12/22/2023 22:06:07 vitami n B12, serum 2023 024 [facility], [address], [place], [address], 12/22/2023 22:06:06 methyl malona te, QN, serum or plasma 2023 024 [facility], [address], [place], [address], 12/22/2023 22:06:06 rf (rheum atoid factor ), serum 2023 024 [facility], [address], [place], [address], 12/22/2023 22:06:04 thiami ne, QN, blood 2023 024 [facility], [address], [place], [address], 12/22/2023 22:06:05 HbA1c (hemog lobin A1c), blood 2023 024 [facility], [address], [place] [address], [place], [address], 12/17/2023 08:07:27 lipid panel, serum 2023 024 [facility], [address], [place] [address], [place], [address], 12/17/2023 08:07:27 CMP, serum or plasma 2023 024 [facility], [address], [place] [address], [place], [address], 12/17/2023 08:07:26 CBC w/ auto diff 2023 024 [facility], [address], [place] [address], [place], [address], 12/17/2023 08:07:25 Referral psychi atrist referr rachel burgoset y-curr ently not on any medica tion-p t intere sted in behavi oral interv ention and discus drea for medica tion 2023 024 [facility], [address], [place], [address], 06/18/2024 11:00:16 Procedures None record ed. Surgeries None record ed. Imaging None record ed. 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 jess Not available 12/05/2023 16:18:07 01/03/2024 [id number] prediabetes: car e instructions pmadden Not available [...] medication. pmadden Not available 01/03/2024 10:59:48 03/06/2024 [id number] Medications (OTC , herbal therapies, supplements) reviewed and reconciled with patient and or caregiver, including potential side effects, drug interactions, instructions, and the consequences of not taking medication. Reviewed potential barriers to medication adherence, such as side effects from medication or cost of medication. pmadden Not available 03/06/2024 15:11:08 06/04/2024 [id number] fibromyalgia: care instructions pmadden Not available 06/04/2024 10:50:29 learning about stress pmadden Not available 06/04/2024 10:50:28 Mental Health Information pmadden Not available 06/04/2024 10:50:28 Medications (OTC , herbal therapies, supplements) reviewed and reconciled with patient and or caregiver, including potential side effects, drug interactions, instructions, and the consequences of not taking medication. Reviewed potential barriers to medication adherence, such as side effects from medication or cost of medication. pmadden Not available 06/04/2024 10:41:43 Reason for Referral Psychiatrist Referral for An [...] .8 above high normal Not Available [facility] ([facility]) [address] [place], [address], 12/17/2023 08:07:25 12/16/19 24 12/17/2023 CBC WITH DIFFE RENTI AL/PL ATELE T RBC 5.22 x10e6 /uL 3.77-5 .28 Not Available [facility] ([facility]) [address] [place], [address], 12/17/2023 08:07:25 12/16/19 24 12/17/2023 CBC WITH DIFFE RENTI AL/PL ATELE T hemoglobin 15.1 g/dL 11.1-1 5.9 Not Available [facility] ([facility]) [address] [place], [address], 12/17/2023 08:07:25 12/16/19 24 12/17/2023 CBC WITH DIFFE RENTI AL/PL ATELE T hematocrit 46.8 % 34.0-4 6.6 above high normal Not Available [facility] ([facility]) [address] [place], [address], 12/17/2023 08:07:25 12/16/19 24 12/17/2023 CBC WITH DIFFE RENTI AL/PL ATELE T MCV 90 fL 79-97 Not Available [facility] ([facility]) [address] [place], [address], 12/17/2023 08:07:25 12/16/19 24 12/17/2023 CBC WITH DIFFE RENTI AL/PL ATELE T MCH 28.9 pg 26.6-3 3.0 Not Available [facility] ([facility]) [address] [place], [address], 12/17/2023 08:07:25 12/16/19 24 12/17/2023 CBC WITH DIFFE RENTI AL/PL ATELE T MCHC 32.3 g/dL 31.5-3 5.7 Not Available [facility] ([facility]) [address] [facility], [place], [address], 12/17/2023 08:07:25 12/16/19 24 12/17/2023 CBC WITH DIFFE RENTI AL/PL ATELE T RDW 13.0 % 11.7-1 5.4 Not Available [facility] ([facility]) [address] [facility], [place], [address], 12/17/2023 08:07:25 12/16/19 24 12/17/2023 CBC WITH DIFFE RENTI AL/PL ATELE T platelets 510 x10e3 /uL 150-45 0 above high normal Not Available [facility] ([facility]) [address] [facility], [place], [address], 12/17/2023 08:07:25 12/16/19 24 12/17/2023 CBC WITH DIFFE RENTI AL/PL ATELE T neutrophils 67 % not estab. Not Available [facility] ([facility]) [address] [facility], [place], [address], 12/17/2023 08:07:25 12/16/19 24 12/17/2023 CBC WITH DIFFE RENTI AL/PL ATELE T lymphs 25 % not estab. Not Available [facility] ([facility]) [address] [facility], [place], [address], 12/17/2023 08:07:25 12/16/19 24 12/17/2023 CBC WITH DIFFE RENTI AL/PL ATELE T monocytes 6 % not estab. Not Available [facility] ([facility]) [address] [facility], [place], [address], 12/17/2023 08:07:25 12/16/19 24 12/17/2023 CBC WITH DIFFE RENTI AL/PL ATELE T eos 1 % not estab. Not Available [facility] ([facility]) [address] [facility], [place], [address], 12/17/2023 08:07:25 12/16/19 24 12/17/2023 CBC WITH DIFFE RENTI AL/PL ATELE T basos 1 % not estab. Not Available [facility] ([facility]) [address] [facility], [place], [address], 12/17/2023 08:07:25 12/16/19 24 12/17/2023 CBC WITH DIFFE RENTI AL/PL ATELE T immature cells CENTRAL AISLE CASHIER Not Available [facility] ([facility]) [address] [facility], [place], [address], 12/17/2023 08:07:25 12/16/19 24 12/17/2023 CBC WITH DIFFE RENTI AL/PL ATELE T neutrophils (absolute) 7.9 x10e3 /uL 1.4-7. 0 above high normal Not Available [facility] ([facility]) [address] [facility], [place], [address], 12/17/2023 08:07:25 12/16/19 24 12/17/2023 CBC WITH DIFFE RENTI AL/PL ATELE T lymphs (absolute) 2.9 x10e3 /uL 0.7-3. 1 Not Available [facility] ([facility]) [address] [facility], [place], [address], 12/17/2023 08:07:25 12/16/19 24 12/17/2023 CBC WITH DIFFE RENTI AL/PL ATELE T monocytes(ab solute) 0.7 x10e3 /uL 0.1-0. 9 Not Available [facility] ([facility]) [address] [place], [address], 12/17/2023 08:07:25 12/16/19 24 12/17/2023 CBC WITH DIFFE RENTI AL/PL ATELE T eos (absolute) 0.1 x10e3 /uL 0.0-0. 4 Not Available [facility] ([facility]) [address] [facility], [place], [address], 12/17/2023 08:07:25 12/16/19 24 12/17/2023 CBC WITH DIFFE RENTI AL/PL ATELE T baso (absolute) 0.1 x10e3 /uL 0.0-0. 2 Not Available [facility] ([facility]) [address] [facility], [place], [address], 12/17/2023 08:07:25 12/16/19 24 12/17/2023 CBC WITH DIFFE RENTI AL/PL ATELE T immature granulocytes 0 % not estab. Not Available [facility] ([facility]) [address] [facility], [place], [address], 12/17/2023 08:07:25 12/16/19 24 12/17/2023 CBC WITH DIFFE RENTI AL/PL ATELE T immature grans (abs) 0.0 x10e3 /uL 0.0-0. 1 Not Available [facility] ([facility]) [address] [place], [address], 12/17/2023 08:07:25 12/16/19 24 12/17/2023 CBC WITH DIFFE RENTI AL/PL ATELE T NRBC CENTRAL AISLE CASHIER Not Available [facility] ([facility]) [address] [facility], [place], [address], 12/17/2023 08:07:25 12/16/19 24 12/17/2023 CBC WITH DIFFE RENTI AL/PL ATELE T hematology comments: CENTRAL AISLE CASHIER Not Available [facility] ([facility]) [address] [place], [address], 12/17/2023 08:07:25 12/16/19 24 12/17/2023 COMP. METAB OLIC PANEL (14) glucose 89 mg/dL 70-99 Not Available [facility] ([facility]) [address] [place], [address], 12/17/2023 08:07:26 12/16/19 24 12/17/2023 COMP. METAB OLIC PANEL (14) BUN 17 mg/dL 6-24 Not Available [facility] ([facility]) [address] [place], [address], 12/17/2023 08:07:26 12/16/19 24 12/17/2023 COMP. METAB OLIC PANEL (14) creatinine 0.98 mg/dL 0.57-1 .00 Not Available [facility] ([facility]) [address] [place], [address], 12/17/2023 08:07:26 12/16/19 24 12/17/2023 COMP. METAB OLIC PANEL (14) eGFR 69 mL/mi n/1.7 3 >59 Not Available [facility] ([facility]) [address] [place], [address], 12/17/2023 08:07:26 12/16/19 24 12/17/2023 COMP. METAB OLIC PANEL (14) BUN/creatini ne ratio 17 9-23 Not Available [facility] ([facility]) [address] [facility] [place], [address], 12/17/2023 08:07:26 12/16/19 24 12/17/2023 COMP. METAB OLIC PANEL (14) sodium 143 mmol/ L 134-14 4 Not Available [facility] ([facility]) [address] [facility] [place], [address], 12/17/2023 08:07:26 12/16/19 24 12/17/2023 COMP. METAB OLIC PANEL (14) potassium 5.2 mmol/ L 3.5-5. 2 Not Available [facility] ([facility]) [address] [facility] [place], [address], 12/17/2023 08:07:26 12/16/19 24 12/17/2023 COMP. METAB OLIC PANEL (14) chloride 103 mmol/ L 96-106 Not Available [facility] ([facility]) [address] [facility] [place], [address], 12/17/2023 08:07:26 12/16/19 24 12/17/2023 COMP. METAB OLIC PANEL (14) carbon dioxide, total 20 mmol/ L 20-29 Not Available [facility] ([facility]) [address] [facility] [place], [address], 12/17/2023 08:07:26 12/16/19 24 12/17/2023 COMP. METAB OLIC PANEL (14) calcium 10.0 mg/dL 8.7-10 .2 Not Available [facility] ([facility]) [address] [facility] [place], [address], 12/17/2023 08:07:26 12/16/19 24 12/17/2023 COMP. METAB OLIC PANEL (14) protein, total 7.4 g/dL 6.0-8. 5 Not Available [facility] ([facility]) [address] [facility] [place], [address], 12/17/2023 08:07:26 12/16/19 24 12/17/2023 COMP. METAB OLIC PANEL (14) albumin 4.5 g/dL 3.8-4. 9 Not Available [facility] ([facility]) [address] [facility] [place], [address], 12/17/2023 08:07:26 12/16/19 24 12/17/2023 COMP. METAB OLIC PANEL (14) globulin, total 2.9 g/dL 1.5-4. 5 Not Available [facility] ([facility]) [address] [facility] [place], [address], 12/17/2023 08:07:26 12/16/19 24 12/17/2023 COMP. METAB OLIC PANEL (14) bilirubin, total 0.3 mg/dL 0.0-1. 2 Not Available [facility] ([facility]) [address] [facility] [place], [address], 12/17/2023 08:07:26 12/16/19 24 12/17/2023 COMP. METAB OLIC PANEL (14) alkaline phosphatase 101 IU/L 44-121 Not Available [facility] ([facility]) [address] [facility] [place], [address], 12/17/2023 08:07:26 12/16/19 24 12/17/2023 COMP. METAB OLIC PANEL (14) AST (SGOT) 18 IU/L 0-40 Not Available [facility] ([facility]) [address] [facility], [place], [address], 12/17/2023 08:07:26 12/16/19 24 12/17/2023 COMP. METAB OLIC PANEL (14) ALT (SGPT) 19 IU/L 0-32 Not Available [facility] ([facility]) [address] [facility] [place], [address], 12/17/2023 08:07:26 12/16/19 24 12/17/2023 LIPID PANEL cholesterol, total 258 mg/dL 100-19 9 above high normal Not Available [facility] ([facility]) [address] [facility] [place], [address], 12/17/2023 08:07:27 12/16/19 24 12/17/2023 LIPID PANEL triglyceride s 140 mg/dL 0-149 Not Available [facility] ([facility]) [address] [facility] [place], [address], 12/17/2023 08:07:27 12/16/19 24 12/17/2023 LIPID PANEL HDL cholesterol 47 mg/dL >39 Not Available [facility]) [address] [facility] [place], [address], 12/17/2023 08:07:27 12/16/19 24 12/17/2023 LIPID PANEL VLDL cholesterol phoebe 26 mg/dL 5-40 Not Available [facility] ([facility]) [address] [place], [address], 12/17/2023 08:07:27 12/16/19 24 12/17/2023 LIPID PANEL LDL chol calc (rust) 185 mg/dL 0-99 above high normal Not Available [facility] ([facility]) [address] [place], [address], 12/17/2023 08:07:27 12/16/19 24 12/17/2023 LIPID PANEL LDL calc comment: CENTRAL AISLE CASHIER Not Available [facility] ([facility]) [address] [place], [address], 12/17/2023 08:07:27 12/16/19 24 12/17/2023 HEMOG LOBIN A1C hemoglobin A1C 5.7 % 4.8-5. 6 above high normal Predi abete s: 5.7 - 6.4 Diabe zamzam: >6.4 Glyce elke contr ol for adult s with diabe zamzam: <7.0 Not Available [facility] ([facility]) [address] [place], [address], 12/17/2023 08:07:27 12/19/19 24 12/20/2023 RHEUM ATOID FACTO R (RF) rheumatoid factor (rf) <10.0 IU/mL <14.0 Not Available [facility] ([facility]) [address] [place], [address], 12/22/2023 22:06:04 12/19/19 24 12/22/2023 VITAM IN B1 (THIA MINE) , BLOOD vit. B1, whole blood 164.0 nmol/ L 66.5-2 00.0 Not Available [facility] ([facility]) [address] [place], [address], 12/22/2023 22:06:05 12/19/19 24 12/22/2023 METHY LMALO CATA ACID, SERUM methylmaloni c acid, serum 147 nmol/ L 0-378 Not Available [facility] ([facility]) [address] [facility], [place], [address], 12/22/2023 22:06:05 12/19/19 24 12/20/2023 SEDIM ENTAT ION RATE- WESTE RGREN sedimentatio n rate-westerg aisha 16 mm/HR 0-40 Not Available [facility] ([facility]) [address] [facility], [place], [address], 12/22/2023 22:06:06 12/19/19 24 12/20/2023 VITAM IN B12 vitamin B12 475 pg/mL 232-12 45 Not Available [facility] ([facility]) [address] [facility], [place], [address], 12/22/2023 22:06:06 12/19/19 24 12/20/2023 C-CHAR CTIVE PROTE IN, QUANT C-reactive protein, quant 3 mg/L 0-10 Not Available [facility] ([facility]) [address] [facility], [place], [address], 12/22/2023 22:06:07 12/19/19 24 12/20/2023 SARA BY IFA RFX TITER /BETTY COCO SARA by ifa rfx titer/patter n NEGATI VE Negat berna <1:80 Borde rline 1:80 Posit berna >1:80 ICAP nomen clatu re: AC-0 For more infor matio n about Hep-2 cell patte rns use ANApa ttern s.org , the offic ial lindsey te for the Inter natio nal Conse nsus on Antin uclea r Antib radha (SARA) Patte rns (ICAP ). Not Available [facility] ([facility]) [address] [facility], [place], [address], 12/22/2023 22:06:07 05/18/20 24 05/18/2024 BASIC METAB OLIC PANEL (8) sodium 145 mmol/ L 134-14 4 above high normal Not Available [facility] ([facility]) [address] [facility] [place], [address], 05/19/2024 06:08:27 05/18/20 24 05/18/2024 BASIC METAB OLIC PANEL (8) potassium 4.6 mmol/ L 3.5-5. 2 normal Not Available [facility] ([facility]) [address] [facility] [place], [address], 05/19/2024 06:08:27 05/18/20 24 05/19/2024 BASIC METAB OLIC PANEL (8) glucose 103 mg/dL 70-99 above high normal Not Available [facility] ([facility]) [address] [facility] [place], [address], 05/19/2024 06:08:27 05/18/20 24 05/19/2024 BASIC METAB OLIC PANEL (8) BUN 10 mg/dL 6-24 normal Not Available [facility] ([facility]) [address] [facility] [place], [address], 05/19/2024 06:08:27 05/18/20 24 05/19/2024 BASIC METAB OLIC PANEL (8) creatinine 0.92 mg/dL 0.57-1 .00 normal Not Available [facility] ([facility]) [address] [place], [address], 05/19/2024 06:08:27 05/18/20 24 05/19/2024 BASIC METAB OLIC PANEL (8) eGFR 74 mL/mi n/1.7 3 >59 normal Not Available [facility] ([facility]) [address] [facility] [place], [address], 05/19/2024 06:08:27 05/18/20 24 05/19/2024 BASIC METAB OLIC PANEL (8) BUN/creatini ne ratio 11 9-23 normal Not Available [facility] ([facility]) [address] [facility] [place], [address], 05/19/2024 06:08:27 05/18/20 24 05/19/2024 BASIC METAB OLIC PANEL (8) chloride 102 mmol/ L 96-106 normal Not Available [facility] ([facility]) [address] [facility] [place], [address], 05/19/2024 06:08:27 05/18/20 24 05/19/2024 BASIC METAB OLIC PANEL (8) carbon dioxide, total 22 mmol/ L 20-29 normal Not Available [facility] ([facility]) [address] [facility], [place], [address], 05/19/2024 06:08:27 05/18/20 24 05/19/2024 BASIC METAB OLIC PANEL (8) calcium 9.9 mg/dL 8.7-10 .2 normal Not Available [facility] ([facility]) [address] [facility], [place], [address], 05/19/2024 06:08:27 05/18/20 24 05/18/2024 HEMOG LOBIN A1C hemoglobin A1C 5.7 % 4.8-5. 6 above high normal Predi abete s: 5.7 - 6.4 Diabe zamzam: >6.4 Glyce elke contr ol for adult s with diabe zamzam: <7.0 Not Available [facility] ([facility]) [address] [facility], [place], [address], 05/19/2024 06:08:28 02/15/20 24 02/09/2024 nerve condu ction study No observ ation record ed. [facility] [address] [place], [address], 03/06/2024 14:42:41 03/09/20 24 02/06/2024 elect romyo gram + nerve condu ction study No observ ation record ed. [facility] Scheduling [facility] [address], [place], [address], 06/04/2024 10:41:17 10/20/19 25 10/18/2024 MAMMO , scree jaylene, digit al, bilat eral PROCED URE: MM Digita l Mammo Screen ing INDICA TION: Screen ing for breast cancer . No known palpab le abnorm alitie s. COMPAR MERRICK: Multip le prior studie s dating back to 022. TECHNI QUE: Full-f ield digita l CC and MLO 3D tomosy nthesi s images of both breast s were acquir ed. Comput er-aid ed detect ion (CAD) was utiliz ed in the interp retati on of this study. DENSIT Y: The breast s are hetero geneou sly dense, which may obscur e small masses . FINDIN GS: No suspic ious masses , suspic ious microc alcifi cation s, or areas of makayla ectura l distor tion are seen in either breast to sugges t malign daniel. IMPRES DREA: No mammog raphic eviden ce of malign daniel. RECOMM ENDATI ON: Annual mammog raphic screen ing BI-RAD S: 1 (Negat berna) Lay letter mailed to rimma granados WSN: [id number] Orderi ng Physic natalie: Tonio Reyes Dictat ed By: Ezra Guzman MD Dictmiriam ed Date/T gabrielle: 1:34 pm Review ed By: Ezra Guzman MD Signed By: Ezra Guzman MD Signed Date/T gabrielle: 1:34 pm Transc ribed By: JODI Transc riptio n Date/T gabrielle: 1:33 pm Birads : Rimma granados Class: Outpat ient [email or web address] [facility] ([facility]) [address] , [place], [address], 10/22/2024 13:46:11 10/20/19 25 10/18/2024 MAMMO , scree jaylene, digit al, bilat eral No observ ation record ed. [email or web address] [facility] [address], [place], [address], 10/24/2024 14:42:21 Result Notes None recorded. Problems Name Problem SNOMED Code Status Onset Date Resolution Date Notes Provider Name and Address Organization Details Recorded Time Acute pharyngi tis 583406225 Completed 05/30/2017 Rhonda Reyes PA-C [address], [place], [address] , [facility] 7 16:57:48 Abdomina l pain [id number] Completed 201101/01/2014 RECORDED 04/20/20 12 1:28PM BY ERICKA LEIGH MA, ANNOTATI ON/ADDEN DUM Hussein blandon, [facility] 6 17:26:14 Mammogra phy abnormal [id number] Active 2012 Not Available [facility] 4 09:41:04 Asthma [id number] Completed 201101/01/2014 RECORDED 04/20/20 12 1:27PM BY ERICKA LEIGH MA, ANNOTATI ON/ADDEN DUM Rhonda Reyes PA-C [address], [place], [address] , [facility] 7 16:57:25 Acute upper respirat ory infectio n [id number] Completed 201101/01/2014 RECORDED 04/20/20 12 1:27PM BY ERICKA LEIGH MA, ANNOTATI ON/ADDEN DUM Hussein blandon, [facility] 6 17:26:14 Allergic rhinitis [id number] Active 2012 Not Available [facility] 4 09:41:05 Anxiety state [id number] Active 2012 Not Available [facility] 4 09:41:04 Patient status finding [id number] Completed 201201/01/2014 RECORDED 10/31/19 13 3:44PM BY ERICKA LEIGH MA, ANNOTATI ON/ADDEN DUM Donna Chowdhury MA null, [facility] 7 16:26:15 Intrinsi c asthma [id number] Completed 201101/01/2014 RECORDED 04/20/20 12 1:27PM BY ERICKA LEIGH MA, ANNOTATI ON/ADDEN DUM Hussein burgos null, [facility] 6 17:26:14 Acute asthma [id number] Completed 201101/01/2014 RECORDED 04/20/20 12 1:27PM BY ERICKA LEIGH MA, ANNOTATI ON/ADDEN DUM Hussein burgos null, [facility] 6 17:26:14 Asthma [id number] Completed 201205/30/2017 Rhonda Reyes PA-C [address] [address], [place], [address] [facility] 7 16:57:25 Screenin g for malignan t neoplasm of breast Completed 201301/01/2014 RECORDED 06/13/19 14 7:21PM BY JEM WAYNEIC AL SUMMARY Hussein burgos null, [facility] 6 17:26:15 Screenin g for malignan t neoplasm of cervix Completed 201101/01/2014 RECORDED 04/20/20 12 1:28PM BY ERICKA LEIGH MA, ANNOTATI ON/ADDEN DUM Donna Chowdhury MA null, [facility] 7 16:26:27 Screenin g for malignan t neoplasm of cervix Completed 201302/28/2017 RECORDED 07/27/19 14 1:57PM BY KYLE PRESSLEY, JEMIC AL SUMMARY Donna Chowdhury MA null, [facility] 7 16:26:27 Chest pain 62313436 Completed 201101/01/2014 RECORDED 04/20/20 12 1:27PM BY ERICKA LEIGH MA, DIEGO ON/ADDEN DUM Hussein D'Alessand ro null, [facility] 6 17:26:14 Sprain of costal cartilag e Completed 201201/01/2014 IMPRESSI ON: SHE WONT FILL PERCOCET UNTIL AFTER THE WEEKEND. LONG WEEKEND AHEAD. AIM FOR RETURN TO WORK WED. IF CANT RETURN MAKE F/U APPT/. TAKE BENADRYL PRN ITCHING WITH PERCOCET . CONTINUE MELOXICA M; RECORDED 03/01/20 13 9:41AM BY ERICKA LEIGH MA, DIEGO ON/ADDEN DUM Hussein D'Alessand ro null, [facility] 6 17:26:15 Disorder of nail 91646726 Completed 201101/01/2014 RECORDED 04/20/20 12 1:27PM BY ERICKA LEIGH MA, DIEGO ON/ADDEN DUM Hussein D'Alessand ro null, [facility] 6 17:26:14 Disorder of skin 66684189 Completed 201101/01/2014 RECORDED 04/20/20 12 1:27PM BY ERICKA LEIGH MA, DIEGO ON/ADDEN DUM Hussein D'Alessand ro null, [facility] 6 17:26:14 Dyspareu miya [id number] Completed 201101/01/2014 RECORDED 04/20/20 12 1:28PM BY ERICKA LEIGH MA, DIEGO ON/ADDEN DUM Hussein D'Alessand ro null, [facility] 6 17:26:14 Dysphagi a [id number] Completed 201101/01/2014 RECORDED 04/20/20 12 1:28PM BY ERICKA LEIGH MA, ANNOTKATERINA ON/ADDEN DUM Hussein D'Alessand ro null, [facility] 6 17:26:14 Dysuria 00182877 Completed 201101/01/2014 RECORDED 04/20/20 12 1:27PM BY ERICKA LEIGH MA, ANNOTATI ON/ADDEN DUM Hussein Smith ro null, [facility] 6 17:26:14 Influenz a vaccine needed [id number] 06 Completed 200901/01/2014 RECORDED 06/01/20 10 9:07AM BY COOPER LAWS I, HISTORIC AL SUMMARY Hussein Smith ro null, [facility] 6 17:26:15 Closed fracture of ulna 91565168 Completed 201101/01/2014 RECORDED 04/20/20 12 1:27PM BY ERICKA LEIGH MA, ANNOTATI ON/ADDEN DUM Hussein Smith ro null, [facility] 6 17:26:15 Gastriti s 8405380 Completed 201101/01/2014 RECORDED 04/20/20 12 1:27PM BY ERICKA LEIGH MA, DIEGO ON/ADDEN DUM Hussein burgos null, [facility] 6 17:26:14 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 2011 Not Available [facility] 4 09:41:04 Gastroes ophageal reflux disease 414007470 Active 2012 Not Available [facility] 4 09:41:04 Adult health examinat ion Completed 201202/28/2017 RECORDED 05/04/20 13 1:58PM BY ERICKA LEIGH MA, OFFICE VISIT Donna blandon, [facility] 7 16:26:47 Adult health examinat ion Completed 201201/01/2014 RECORDED 10/31/19 13 3:44PM BY ERICKA LEIGH MA, ANNOTATI ON/ADDEN DUM Donna blandon, [facility] 7 16:26:47 Genital herpes simplex 42529359 Active 2012 Not Available [facility] 4 09:41:04 Hyperlip idemia 81060890 Completed 201206/14/2017 Rhonda Reyes PA-C [address], [place], [address] , [facility] 8 13:11:07 Irritabl e bowel syndrome 37479464 Active 2012 Not Available [facility] 4 09:41:04 Neck pain 31162689 Completed 201201/01/2014 RECORDED 05/04/20 13 1:57PM BY ERICKA LEIGH MA, ANNOTATI ON/ADDEN DUM Katelyn Reyes PA-C [address], [place], [address] , [facility] 3 20:22:59 Patient status finding [id number] Completed 201202/28/2017 RECORDED 05/04/20 13 1:58PM BY ERICKA LEIGH MA, OFFICE VISIT Donna Chowdhury MA null, [facility] 7 16:26:15 Screenin g for malignan t neoplasm of colon Completed 200801/01/2014 RECORDED 12/04/19 09 10:12AM BY CARLOS EDUARDO ALVARADO MA, ANNOTATI ON/ADDEN DUM Hussein Smith ro null, [facility] 6 17:26:15 Administ ration of diphther ia and tetanus vaccine Completed 201201/01/2014 RECORDED 10/31/19 13 3:44PM BY ERICKA LEIGH MA, ANNOTATI ON/ADDEN DUM Hussein Smith ro null, [facility] 6 17:26:15 Urinary tract infectio us disease 74752999 Completed 201101/01/2014 RECORDED 04/20/20 12 1:27PM BY ERICKA LEIGH MA, ANNOTATI ON/ADDEN DUM Hussein Smith ro null, [facility] 6 17:26:14 Viral disease 95511176 Completed 201101/01/2014 RECORDED 04/20/20 12 1:27PM BY ERICKA LEIGH MA, DIEGO ON/ADDEN DUM Hussein burgos null, [facility] 6 17:26:14 Vomiting 884540669 Completed 201101/01/2014 RECORDED 04/20/20 12 1:27PM BY ERICKA LEIGH MA, ANNOTATI ON/ADDEN DUM Hussein Smith ro null, [facility] 6 17:26:14 Persiste nt vomiting 351967457 Completed 201101/01/2014 RECORDED 04/20/20 12 1:27PM BY ERICKA LEIGH MA, DIEGO ON/ADDEN DUM Hussein burgos null, [facility] 6 17:26:14 Verruca vulgaris 06270266 Active 2012 Not Available [facility] 4 09:41:05 Abnormal weight loss 335064182 Completed 201205/30/2017 Rhonda Reyes PA-C [address] [facility] [address], [place], [address] , [facility] 7 16:47:15 Abdomina l pain 47111794 Completed 201101/21/2014 RECORDED 04/20/20 12 1:28PM BY ERICKA LEIGH MA, DIEGO ON/ADDEN DUM Hussein burgos null, [facility] 6 17:26:15 Asthma 879232219 Completed 201101/21/2014 RECORDED 04/20/20 12 1:27PM BY ERICKA LEIGH MA, DIEGO ON/ADDEN DUM Rhonda Reyes PA-C [address], [place], [address] , [facility] 7 16:57:25 Acute upper respirat ory infectio n 71252624 Completed 201101/21/2014 RECORDED 04/20/20 12 1:27PM BY ERICKA LEIGH MA, ANNOTATI ON/ADDEN DUM Hussein D'Alessand ro null, [facility] 6 17:26:14 Patient status finding [id number] Completed 201201/21/2014 RECORDED 10/31/19 13 3:44PM BY ERICKA LEIGH MA, ANNOTATI ON/ADDEN DUM Donna Chowdhury MA null, [facility] 7 16:26:15 Intrinsi c asthma 389397823 Completed 201101/21/2014 RECORDED 04/20/20 12 1:27PM BY ERICKA LEIGH MA, ANNOTATI ON/ADDEN DUM Hussein D'Alessand ro null, [facility] 6 17:26:14 Acute asthma 740070538 Completed 201101/21/2014 RECORDED 04/20/20 12 1:27PM BY ERICKA LEIGH MA, ANNOTATI ON/ADDEN DUM Hussein D'Alessand ro null, [facility] 6 17:26:14 Screenin g for malignan t neoplasm of breast Completed 201301/21/2014 RECORDED 06/13/19 14 7:21PM BY RENEE Napier, HISTORIC AL SUMMARY Hussein D'Alessand ro null, [facility] 6 17:26:15 Screenin g for malignan t neoplasm of cervix Completed 201101/21/2014 RECORDED 04/20/20 12 1:28PM BY ERICKA LEIGH MA, ANNOTATI ON/ADDEN DUM Donna Chowdhury MA null, [facility] 7 16:26:27 Chest pain 24516186 Completed 201101/21/2014 RECORDED 04/20/20 12 1:27PM BY ERICKA LEIGH MA, ANNOTATI ON/ADDEN DUM Hussein D'Alessand ro null, [facility] 6 17:26:14 Sprain of costal cartilag e Completed 201201/21/2014 PAI ON: SHE WONT FILL PERCOCET UNTIL AFTER THE WEEKEND. LONG WEEKEND AHEAD. AIM FOR RETURN TO WORK WED. IF CANT RETURN MAKE F/U APPT/. TAKE BENADRYL PRN ITCHING WITH PERCOCET . CONTINUE MELOXICA M; RECORDED 03/01/20 13 9:41AM BY ERICKA LEIGH MA, ANNOTATI ON/ADDEN DUM Hussein D'Alessand ro null, [facility] 6 17:26:15 Disorder of nail 32467118 Completed 201101/21/2014 RECORDED 04/20/20 12 1:27PM BY ERICKA LEIGH MA, SHONDAATI ON/ADDEN DUM Hussein D'Alessand ro null, [facility] 6 17:26:14 Disorder of skin 12141520 Completed 201101/21/2014 RECORDED 04/20/20 12 1:27PM BY ERICKA LEIGH MA, DIEGO ON/ADDEN DUM Hussein Ottoniel'Alessand ro null, [facility] 6 17:26:14 Dyspareu miya [id number] Completed 201101/21/2014 RECORDED 04/20/20 12 1:28PM BY ERICKA LEIGH MA, ANNOTKATERINA ON/ADDEN DUM Hussein Ottoniel'Alessand ro null, [facility] 6 17:26:14 Dysphagi a [id number] Completed 201101/21/2014 RECORDED 04/20/20 12 1:28PM BY ERICKA LEIGH MA, ANNOTATI ON/ADDEN DUM Hussein D'Alessand ro null, [facility] 6 17:26:14 Dysuria 10962634 Completed 201101/21/2014 RECORDED 04/20/20 12 1:27PM BY ERICKA LEIGH MA, ANNOTKATERINA ON/ADDEN DUM Hussein D'Alessand ro null, [facility] 6 17:26:14 Influenz a vaccine needed [id number] 06 Completed 200901/21/2014 RECORDED 06/01/20 10 9:07AM BY COOPER LAWS I, HISTORIC AL SUMMARY Hussein blandon, [facility] 6 17:26:15 Closed fracture of ulna 97590546 Completed 201101/21/2014 RECORDED 04/20/20 12 1:27PM BY ERICKA LEIGH MA, SHONDAATI ON/ADDEN DUM Hussein burgos null, [facility] 6 17:26:15 Gastriti s 8841480 Completed 201101/21/2014 RECORDED 04/20/20 12 1:27PM BY ERICKA LEIGH MA, DIEGO ON/ADDEN DUM Hussein burgos null, [facility] 6 17:26:14 Neck pain 99983473 Completed 201201/21/2014 RECORDED 05/04/20 13 1:57PM BY ERICKA LEIGH MA, ANNOTATI ON/ADDEN DUM Katelyn Reyes PA-C [address] [facility] [address], [place], [address] , [facility] 3 20:22:59 Screenin g for malignan t neoplasm of colon Completed 200801/21/2014 RECORDED 12/04/19 09 10:12AM BY CARLOS EDUARDO ALVARADO MA, DIEGO ON/ADDEN DUM Hussein blandon, [facility] 6 17:26:15 Administ ration of diphther ia and tetanus vaccine Completed 201201/21/2014 RECORDED 10/31/19 13 3:44PM BY ERICKA LEIGH MA, ANNOTATI ON/ADDEN DUM Hussein blandon, [facility] 6 17:26:15 Urinary tract infectio us disease 42131518 Completed 201101/21/2014 RECORDED 04/20/20 12 1:27PM BY ERICKA LEIGH MA, ANNOTATI ON/ADDEN DUM Hussein Ottoniel'Alessand ro null, [facility] 6 17:26:14 Viral disease 65857077 Completed 201101/21/2014 RECORDED 04/20/20 12 1:27PM BY ERICKA LEIGH MA, ANNOTATI ON/ADDEN DUM Hussein Ottoniel'Alessand ro null, [facility] 6 17:26:14 Vomiting 949721239 Completed 201101/21/2014 RECORDED 04/20/20 12 1:27PM BY ERICKA LEIGH MA, ANNOTATI ON/ADDEN DUM Hussein Ottoniel'Alessand ro null, [facility] 6 17:26:14 Persiste nt vomiting 738922297 Completed 201101/21/2014 RECORDED 04/20/20 12 1:27PM BY ERICKA LEIGH MA, ANNOTATI ON/ADDEN DUM Hussein Sandra'Alessand ro null, [facility] 6 17:26:14 Temporom andibula r joint disorder 03089492 Completed 05/30/2017 Rhonda Reyes PA-C [address] [address], [place], [address] , [facility] 7 16:58:26 Nail problem 572622594 Completed 01/31/2019 Rhonda Reyes PA-C [address] [address], [place], [address] , [facility] 9 16:06:03 Onychomy cosis 232564893 Completed 01/31/2019 Rhonda Reyes PA-C [address] [address], [place], [address] , [facility] 9 16:06:13 Low back pain 184594410 Active Not Available [facility] 4 09:41:04 Goiter 3257991 Active 2016 Not Available [facility] 4 09:41:04 Intermit tent asthma 172612574 Active 2016 Not Available [facility] 4 09:41:05 Mixed hyperlip idemia 359919686 Active 2017 Not Available [facility] 4 09:41:04 Elevated blood-pr essure reading without diagnosi s of hyperten drea 196457722 Active 2018 Not Available [facility] 4 09:41:04 Body mass index 30+ - obesity 984197118 Active 2018 Not Available [facility] 4 09:41:04 Mass of left breast 77796039181 944447 Active 2018 Not Available [facility] 4 09:41:04 Obesity 534146023 Active 2018 Not Available [facility] 4 09:41:05 Low back strain 458092328 Active 2020 Not Available [facility] 4 09:41:04 Skin lesion 14510593 Active 2021 Not Available [facility] 4 09:41:05 Bilatera l temporom andibula r joint pain 07665306490 852598 Active 2021 Not Available [facility] 4 09:41:04 Magnetic resonanc e imaging of brain abnormal 683363791 Active 2021 Not Available [facility] 4 09:41:05 Migraine 38083923 Active 2022 Not Available [facility] 4 09:41:05 Allergy to food 400390552 Active 2022 Not Available [facility] 4 09:41:05 Neck pain 26749442 Active 2022 RECORDED 05/04/20 13 1:57PM BY ERICKA LEIGH MA, ANNOTATI ON/RANDOLPH BEARD Not Available [facility] 4 09:41:05 Medial epicondy litis 15787463 Active 2022 Not Available [facility] 4 09:41:05 Carpal tunnel syndrome of right wrist 41717522361 9108 Active 2022 Not Available [facility] 4 09:41:04 Constipa tion 87628083 Active 2022 Not Available [facility] 4 09:41:04 Impaired fasting glycemia 688538051 Active 2022 Not Available [facility] 4 09:41:05 Pain of right shoulder joint 39487430653 219523 Active 2023 Ricky blandon, [facility] 4 16:52:18 Insomnia 798635798 Active 2023 Ricky blandon, [facility] 4 17:01:18 Prediabe zamzam 308331849 Active 2023 Katelyn Reyes PA-C [address] [facility] [address], [place], [address] , [facility] 4 10:49:56 Fibromya lgia 143327297 Active 2023 Katelyn Reyes PA-C [address] [facility] [address], [place], [address] , [facility] 4 10:45:05 Notes:Some problems listed i n Document: #[id number] could not be added to this patient's chart. Please review this document and add these problems to the patient's chart manually as needed. Problem Notes None recorded. Procedures Surgical History Date Name Laterality Status Provider Name and Address Organization Details Recorded Time 10/19/19 25 Most Recent Mammogram completed Kelsea Clements [facility] 10/24/2024 14:42:17 10/19/19 25 Mammogram screening completed Kelsea Clements [facility] 10/24/2024 14:42:06 06/03/20 22 Date of Last Pap Smear completed Randa Herrera [facility] 06/24/2022 09:26:57 09/12/19 21 colonoscopy completed Katelyn Reyes PA-C [address], [place], [address], [facility] 08/19/2021 15:14:36 09/03/19 17 Hysteroscopy completed Donna Bigby MA [facility] 10/04/2016 13:44:17 07/20/19 17 Mammogram one breast completed Carlos Eduardo petit MA [facility] 05/30/2017 16:20:13 06/22/19 17 needle aspiration of breast completed Carlos Eduardo petit MA [facility] 05/27/2020 10:23:48 06/09/20 16 Mammogram one breast completed Cally Griffin [facility] 06/10/2016 11:08:33 08/25/19 05 Caesarean Section completed Lashon Daughertyspenser DhillonhalleyGAYLE [facility] 08/19/2021 14:18:11 08/11/18 95 Caesarean Section completed Feli Dumont [facility] 05/06/2014 13:50:16 Imaging Results None recorded. Procedure Notes None recorded. Medical Equipment None Reported. Allergies Allergen ID Allergen Name Allergen Category Reaction Reaction Severity Criticality Documentation Date Start Date Code Code System Note Provider Name and Address Organization Details Recorded Time 55708 Grass Pollen environme nt,medica tion itching moderate Not available 05/20/2015 77235 A[facility]dhury [facility] 5 10:15:28 88917 house dust allergeni c extract environme nt,medica tion cough headache itching other severe moderate severe severe Not available 05/20/2015 73397 9 RxNorm Donna Chowdhury GAYLE jamia [facility] 5 10:15:28 04315 Tree Pollen medicatio n cough headache itching moderate moderate moderate Not available 05/20/2015 81892 ANA Chowdhury GAYLE jamia [facility] 5 10:15:28 06761 Animal Hair-Dand er medicatio n itching moderate Not available 05/20/2015 76291 ANA blandon [facility] 5 10:15:28 8274 codeine medicatio n itching Not available Not available 12/25/20132012 2670 RxNorm Carlos EduardoGAYLE Vega [facility] 7 16:07:35 8275 No known allergy (situatio n) Not available Not available Not available Not available 12/25/20132012 42807 6003 SNOMED COMME NT: RECOR DED 03/01 9:41A M BY RIGO MELISSA MA, OFFIC E VISIT ; Feli Dumont jamia [facility] 4 13:49:27 Medications Name Sig Start [...] active Not Available Not Available Not Available celecoxib 200 mg capsule TAKE 1 CAPSULE BY MOUTH TWICE A DAY active Not Available Not Available No t Available prednison e 10 mg tablet TAKE [...] completed RECORDED 08/21/19 11 1:56PM BY DIEGO JOHN ON/RANDOLPH BEARD; Not Available Not Available Not Available hydrocodo ne 5 mg-acetam inophen 325 mg tablet 05/30 completed Not Available Not Available Not Available meloxicam 15 mg tablet TAKE 1 TABLET BY MOUTH EVERY DAY 06/04 completed Not Available Not Available Not Available sucralfat e 1 gram tablet FOUR TIMES DAILY active RECORDED 05/04/20 13 1:58PM BY ERICKA LEIGH MA, OFFICE VISIT; Not Available Not Available Not Available prednison e 20 mg tablet DAILY active Not Available Not Available Not Available gabapenti n 400 mg capsule TAKE 1 CAPSULE BY MOUTH AT BEDTIME active Not Available Not Available No t Available Zithromax Z-Pierce 250 mg tablet DAILY [...] CAPSULE BY MOUTH THREE TIMES A DAY 06/04 completed Not Available Not Available Not Available lorazepam 1 mg tablet AT BEDTIME 03/31 completed RECORDED 04/17/20 13 12:15PM BY HUSSEIN WILLIS MD, MEDICATI ON AUTO-YESY CTIVATIO N; Not Available Not Available Not Available azelastin e 137 mcg (0.1 %) nasal spray [place] 2 sprays every day by nasal route [...] e 50 mcg/actua tion nasal spray,stephie pension Sisseton 2 sprays every day by nasal route for 30 days. active PRN Not Available Not Available No t Available ipratropi um bromide 21 mcg (0.03 %) nasal spray S[place] 2 sprays 3 times a day by nasal route for 30 days. active PRN Not Available Not Available No t Available tobramyci n 0.3 %-dexamet hasone 0.1 % eye drops,stephie pension 05/30 completed Not Available Not Available Not Available clindamyc in 1 % lotion APPLY TO AFFECTED AREAS OF GROIN ONCE TO TWICE DAILY. 06/04 completed Not Available Not Available Not Available albuterol (refill) 90 mcg/actua tion aerosol inhaler PRN active RECORDED 05/19/20 10 10:36AM BY JESUS MANUEL TRIPATHI, ANNOTATI ON/ADDEN DUM; Not Available Not Available Not Available cyclobenz aprine 5 mg tablet TAKE 1 TABLET BY MOUTH 3 TIMES A DAY 08/06 completed Not Available Not Available Not Available duloxetin e 30 mg capsule,d elayed release TAKE 1 CAPSULE BY MOUTH EVERY DAY 06/04 completed Not Available Not Available Not Available duloxetin e 60 mg capsule,d elayed release TAKE 1 CAPSULE [...] completed RECORDED 04/18/20 09 12:00PM BY LASHON MOCTEZUMA PA-C, MEDICATI ON AUTO-YESY CTIVATIO N; [...] Not Available Not Available Not Available Fluvirin 1787-7405 (PF) 45 mcg (15 mcg x3)/0.5 mL intramusc ular syringe active Not Available Not Available Not Available Afluria 3456-6267 (PF) 45 mcg (15 mcg x 3)/0.5 mL intramusc ular syringe active Not Available Not Available Not Available Fluarix Quad 1454-3748 (PF) 60 mcg (15 mcg x 4)/0.5 mL IM syringe 05/28 completed Not Available Not Available Not Available Flucelvax Quad 1469-5573 (PF) 60 mcg (15 mcg x 4)/0.5 mL IM syringe 05/30 completed Not Available Not Available Not Available baclofen 5 mg tablet TAKE 1 TABLET BY MOUTH EVERYDAY AT BEDTIME active Not Available Not Available No t Available Afluria Qd 2019- (36 mos up)(PF)60 [...] Updated DateTime 4 149.86 cm 35.6 kg/m2 73073.9 6 g 84 /min 97 % 97 % 98.7 [degF] 159 mm[Hg] 84 mm[Hg] Victoria Obando LPN [facility] 4 16:06:15 Date Recorded Systolic blood pressure Diastolic blood pressure Provider Name and Address Organization Details Last Updated DateTime 12/05/2023 136 mm[Hg] 84 mm[Hg] Ricky Morrison [facility] 12/05/2023 17:00:01 Date Recorded Body height Body mass index (BMI) Body weight Heart rate Oxygen saturation Oxygen saturation in Arterial blood by Pulse oximetry Body temperature Systolic blood pressure Diastolic blood pressure Provider Name and Address Organization Details Last Updated DateTime 4 149.86 cm 34.9 kg/m2 75693.4 8 g 92 /min 98 % 98 % 98 [degF] 150 mm[Hg] 83 mm[Hg] Sara Ferrer MA [facility] 4 15:13:25 Date Recorded Body height Body mass index (BMI) Body weight Heart rate Oxygen saturation Oxygen saturation in Arterial blood by Pulse oximetry Body temperature Systolic blood pressure Diastolic blood pressure Provider Name and Address Organization Details Last Updated DateTime 4 149.86 cm 34.9 kg/m2 86715.4 8 g 66 /min 96 % 96 % 97.8 [degF] 138 mm[Hg] 82 mm[Hg] Ac cordoba [facility] 4 10:15:08 Date Recorded Body height Provider Name an d Address Organization Details Last Updated DateTime 03/06/2024 149.86 cm Victoria Obando LPN [facility] 03/06/2024 14:27:22 Date Recorded Body height Body mass index (BMI) Body weight Oxygen saturation Oxygen saturation in Arterial blood by Pulse oximetry Heart rate Body temperature Systolic blood pressure Diastolic blood pressure Provider Name and Address Organization Details Last Updated DateTime 4 149.86 cm 32.2 kg/m2 09871.9 9 g 97 % 97 % 75 /min 97.5 [degF] 129 mm[Hg] 75 mm[Hg] Monika Haynes MA [facility] 4 10:25:40 Social History Question Answer Notes LastModified by Organizat ion Details LastModified Time Tobacco Smoking Status Never Smoker Feli blandon [facility] 05/06/2014 13:50:08 Do You Have An Advance Directive? No [email or web address] Information not available 03/30/2023 Animal Exposure? Yes [email or web address] Information not available 03/30/2023 Do You Wear A Helmet When Biking? Yes [email or web address] Information not available 03/30/2023 Is Blood Transfusion Acceptable In An Emergency? Yes Information not available 05/20/2015 What Is Your Level Of Caffeine Consumption? Occasional 1-2 Cups Of Coffee Daily; Occasional Soda Information not available 05/30/2017 How Much Tobacco Do You Chew? None Information not available 05/20/2015 What Type Of Diet Are You Following? REGULAR Information not available 05/06/2014 Which Illicit Or Recreational Drugs Have You Used? None Information not available 05/30/2017 Education 4 Year College [email or web address] Information not available 03/30/2023 Have There Been Any Changes To Your Family Or Social Situation? Yes [email or web address] Information not available 03/30/2023 Are There Any Guns Present In Your Home? No [email or web address] Information not available 03/30/2023 What Is Your Home Situation? Both Parents [email or web address] Information not available 03/30/2023 Legally Blind In One Or Both Eyes? No [email or web address] Information not available 03/30/2023 Live Alone Or With Others? With Others Boyfriend (Chuck)(Halran wilks) And Stepson (Daniel) [email or web address] Information not available 03/30/2023 Do You Take [...] 08/06/2020 Have You Recently Traveled To A [place] [address] High Risk Area Or Gathering In The Last 10 Days? No Information not available 07/09/2020 Marital Status [email or web address] Informati on not available 03/30/2023 What Was The Date Of Your Most Recent Tobacco Screening? 12/05/2023 [email or web address] Information not available 12/05/2023 Total Number Of Stairs In Home 30 [email or web address] Information not available 03/30/2023 How Many Children Do You Have? 2 Son; Dontrell (lives W/ Biological Dad) And Dtr Redd Information not available 05/06/2014 Do You Use Protection During Sex? No Information not available 05/06/2014 Difficulty Reading? No [email or web address] Information not available 03/30/2023 What Is Your Relationship Status? Single [email or web address] Information not available 03/30/2023 Do You Use Your Seat Belt Or Car Seat Routinely? Yes Information not available 02/18/2021 Seat Belts Used Routinely Yes [email or web address] Information not available 03/30/2023 Are You Sexually Active? Yes Information not available 05/06/2014 Smoke Alarm In Home Yes [email or web address] Information not available 03/30/2023 Do You Have Smoke And Carbon Monoxide Detectors In Your Home? Yes Information not available 02/18/2021 At What Age Did You Start Smoking Tobacco? 0 Information not available 05/30/2017 Are You Passively Exposed To Smoke? No Information not available 05/20/2015 How Much Tobacco Do You Smoke? No Information not available 05/20/2015 Do You Use Sunscreen Routinely? Yes Information not available 05/06/2014 How Many Years Have You Smoked Tobacco? 0 Information not available 05/30/2017 Do You Have Difficulty Walking Or Climbing Stairs? No [email or web address] Information not available 03/30/2023 Sex: Unknown Functional Status Question Answer Note LastModified by Organizat ion Details LastModified Time Do you use any illicit or recreational drugs? No [email or web address] Information not available 03/30/2023 What is your level of alcohol consumption? Occasional Information not available 05/06/2014 Do you or have you ever used smokeless tobacco? Never used smokeless tobacco Information not available 05/27/2020 Are you currently employed? Yes Information not available 02/18/2021 Difficulty [address] at night? No Information not available 03/30/2023 Are you able to care for yourself? 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 No [email or web address] Information not available 03/30/2023 Do you or have you ever used e-cigarettes or vape? Never used electronic cigarettes [email or web address] Information not available 03/30/2023 What is your exercise level? Moderate 2-3 x week; exercise bike Information not available 09/14/2017 Mental Status Question Answer Note LastModified by Organization D etails LastModified Time Do you have difficulty concentrating, remembering or making decisions? No [email or web address] Information no t available 03/30/2023 Family History [...] [email or web address] Not available 2015 14:02:11 Father Malignant neoplasm of lung 56 56 smoker [email or web address] Not available 01/2015 10:44:55 Maternal Uncle Hypertensive disorder 30 36 [email or web address] Not available 2014 12:57:34 Paternal Grandfather Harmful pattern of use of alcohol 10 50 [email or web address] Not available 2014 12:57:34 [...] Diseases N Hyperthyroidism N Breast Cancer N COPD N Depression N Lung Disease N Hypothyroidism N Defects or Inherited Disease N Anesthesia [...] Method Tubal Ligat ion Most Recent Mammogram 10/18/2024 Age at First Child 24 Date of Last Colonoscopy Frequency of Cycle (Q days) Sexually Active? Y Menses Monthly Y Date of Last Pap Smear 06/03/2022 Sexual Problems? N LMP Approximate Desired Control Method None N Obstetrics History GPAL:G 2 P 2 0 0 2 Type Value Full Term 2 Living 2 Total 2 Immunizations Vaccine Type Date Status Note Provider Reginaldo napier and Address Organization Details Recorded Time Influenza, split virus, trivalent, PF 4 completed Not Available [facility]11/[facility]23 09:41:06 Influenza, split virus, trivalent, preservative 6 completed Not Available [facility] 07/11/2023 09:41:06 Influenza, split virus, trivalent, preservative 7 completed Not Available [facility] 07/11/2023 09:41:06 Influenza, split virus, trivalent, preservative 0 completed Not Available [facility] 07/11/2023 09:41:06 COVID-19, mRNA, LNP-S, PF, 100 mcg/0.5mL dose or 50 mcg/0.25mL dose 1 completed Not Available [facility] 07/11/2023 09:41:05 COVID-19, mRNA, LNP-S, PF, 100 mcg/0.5mL dose or 50 mcg/0.25mL dose 1 completed Not Available [facility] 07/11/2023 09:41:05 Influenza, MDCK, quadrivalent, PF 7 completed Not Available [facility] 07/11/2023 09:41:05 Influenza, split virus, quadrivalent, PF 0 completed Not Available [facility] 07/11/2023 09:41:06 Influenza, split virus, quadrivalent, PF 6 completed Not Available [facility] 07/11/2023 09:41:06 Influenza, MDCK, quadrivalent, PF 2 completed Not Available [facility] 07/11/2023 09:41:05 Influenza, split virus, quadrivalent, PF 8 completed Not Available [facility] 06/30/2019 02:22:15 Td (adult), 2 Lf tetanus toxoid, preservative free, adsorbed 2 completed Not Available [facility] 07/11/2023 09:41:06 Hep B, adult 3 completed Not Available [facility] 07/11/2023 09:41:06 MMR 3 completed Not Available [facility] 07/11/2023 09:41:05 Hep B, adult 3 completed Not Available [facility] 07/11/2023 09:41:06 Hep B, adult 11/28/200 3 completed Not Available [facility] 07/11/2023 09:41:06 Influenza, split virus, trivalent, preservative 0 completed Not Available [facility] 07/11/2023 09:41:06 Influenza, split virus, trivalent, preservative 1 completed Not Available [facility] 07/11/2023 09:41:06 Influenza, split virus, trivalent, preservative 2 completed Not Available [facility] 07/11/2023 09:41:06 Tdap 2 completed Not Available [facility] 07/11/2023 09:41:05 Influenza, split virus, trivalent, preservative 3 completed Not Available [facility] 07/11/2023 09:41:06 Past Encounters Encounter ID Performer Location Encounter Start Date Encounter Closed Date Diagnosis/Indication Diagnosis SNOMED-CT Code Diagnosis ICD10 Code Diagnosis Note [id number] YEYO Gaytan Main Office [address] [facility] [address] [place] [address] 12/27/2013 09:02:12 12/27/2013 09:40:51 Acute pharyngitis [id number] Rapid strep neg, c/w viral infx. Recommend supportive tx. [id number] [employer] [address] [place] [address] 10/29/2006 00:00:[id number] [facility] [address] [place] [address] 02/27/2007 00:00:00 [id number] [facility] [address] [place] [address],[address] [place] [address] 07/21/2006 00:00:00 [id number] [facility] [address] [place] [address] 07/12/2006 00:00:00 [id number] [facility] [address] [place] [address],[address] [place] [address] 03/22/2007 00:00:00 [id number] [employer] [address] [place] [address] 06/22/2007 00:00:00 [id number] [facility] er[place] [address] [place] [address] 11/20/2007 00:00:00 [id number] [facility] erce [address] [place] [address] 11/27/2007 00:00:00 [id number] [employer] erce [address] [place] [address] 09/23/2008 00:00:00 [id number] [employer] erce [address] [place] [address] 12/03/2008 00:00:00 [id number] [employer] erce [address] [place] [address] 04/11/2009 00:00:00 [id number] [employer] erce [address] [facility] [address] [place] [address] 04/14/2009 00:00:00 [id number] [employer] erce [address] [place] [address] 07/16/2009 00:00:00 [id number] [employer] er[facility] [address] [place] [address] 02/09/2010 00:00:00 [id number] [employer] erce [address] [place] [address] 03/13/2010 00:00:00 [id number] [employer] erce [address] [place] [address] 05/19/2010 00:00:00 [id number] [employer] erce [address] [place] [address] 06/01/2010 00:00:00 [id number] [employer] erce [address] [place] [address] 08/17/2010 00:00:00 [id number] [employer] erce [address] [place] [address] 08/21/2010 00:00:00 [id number] [employer] erce [address] [facility] [address] [place] [address] 08/24/2010 00:00:00 [id number] [employer] erce [address] [facility],[address] [place] [address] 08/28/2010 00:00:00 [id number] [employer] erce [address] [facility],[address] [place] [address] 09/11/2010 00:00:00 [id number] [employer] erce [address] [facility],[address] [place] [address] 01/05/2011 00:00:00 [id number] [employer] erce [address] [facility],[address] [place] [address] 04/15/2011 00:00:00 [id number] [employer] erce [address] [facility],[address] [place] [address] 02/18/2012 00:00:00 [id number] [employer] erce [address] [facility],[address] [place] [address] 04/20/2012 00:00:00 [id number] [employer] erce [address] [facility],[address] [place] [address] 10/30/2012 00:00:00 [id number] [employer] erce [address] [facility],[address] [place] [address] 11/03/2012 00:00:00 [id number] [employer] erce [address] [facility],[address] [place] [address] 03/01/2013 00:00:00 [id number] [employer] erce [address] [facility],[address] [place] [address] 05/04/2013 00:00:00 [id number] Hussein burgos MD Main Office [address] [facility] [address] [place] [address] 05/06/2014 13:44:40 05/06/2014 14:34:13 Adult health examination 232193592 Allergic rhinitis 94296758 pt sees Schreibste in/ENT Gastroesop hageal reflux disease 463027545 Screening for malignant neoplasm of breast 097067127 Hyperlipidemia 47089043 [id number] Hussein burgos MD Main Office [address] [address] [place] [address] 07/19/2014 10:38:34 07/19/2014 11:40:59 Temporomandibular joint disorder 72019104 [id number] Keyshawn Merchant MD Main Office [address] [address] [place] [address] 07/23/2014 12:41:36 07/23/2014 13:22:01 Nail problem 273967616 Likely fungal but will culture for confirmati on. Pt advised and typical treatment course, possible side effects, and potential for recurrence if culture is positive. Will provide rx for 6-9 months if LFT's normal and culture confirms diagnosis. Otherwise may need to see derm or podiatry. [id number] Hussein burgos MD Main Office [address] [address] [place] [address] 05/20/2015 10:10:59 05/20/2015 11:04:55 Adult health examination 560326313 Z00.00 Hyperlipidemia 56376240 E78.5 pt has FH of DM and labs c/w that risk. Hi Triglyc and low HDL. we will monitor this. Temporoman dibular joint disorder 45230745 M26.60 [id number] Hussein burgos MD Main Office [address] [address] [place] [address] 11/04/2015 13:39:34 11/04/2015 15:07:46 Low back pain 175525401 M54.5 [id number] Hussein burgos MD Main Office [address] [address] [place] [address] 05/28/2016 15:00:36 05/28/2016 16:13:24 Adult health examination 395960841 Z00.00 Menorrhagia 426777671 N9 2.0 Mass of left breast 1224 243323 1008505 N63 Microscopic hematuria 19 0407382 R31.21 [id number] Rhonda Reyes PA-C Main Office [address] [address] [place] [address] 05/30/2017 15:45:25 05/30/2017 17:01:40 Adult health examination 915376639 Z00.00 up to date on vaccines. Hyperlipidemia 48288180 E78.00 Fatigue 42779803 R53.83 Goiter 3481280 E04.9 Body mass index 30+ - obesity 530228857 E66.01 Z68.32 Intermittent asthma 4276 02624 J45.20 stable on Montelucas t and occasional rescue inhaler use. Irritable bowel syndrome 37999821 K58.9 some constipati on. Pt. is Advised to use MiraLax powder daily and increase [id number] Rhonda Reyes PA-C Main Office [address] [address] [place] [address] 09/14/2017 15:19:44 09/14/2017 16:08:07 Mixed hyperlipidemia 035646334 E78.2 repeat fasting lipids. Start Mediterran cuong low fat diet and daily 30 minute exercise activity as discussed. Return in 4 months for f/u. Body mass index 30+ - obesity 719591883 E66.01 Z68.33 [id number] Rhonda Reyes PA-C Main Office [address] [address] [place] [address] 03/14/2018 08:42:51 03/14/2018 09:28:37 Needs influenza immunization 348043156 Z23 Mixed hyperlipidemia 267 390094 E78.2 Continue monitoring lipids. Start Mediterran cuong low fat diet and daily 30 minute exercise activity as discussed. Return in may 2018 for physical exam. Pts ASCVD score calculated 2.4%. Low risk and not a candidate for statin therapy at this time. Body mass index 30+ - obesity 194611113 E66.01 Z68.31 continue weight loss via exercise and low fat /calorie diet. [id number] Rogelio Otero MD Main Office [address] [address] [place] [address] 01/31/2019 15:13:51 01/31/2019 16:05:05 Adult health examination 151202411 Z00.00 up to date on vaccines. Neoplasm o f uncertain behavior of skin 19758695 D48.5 Mixed hyperlipidemia 267 629046 E78.2 Repeat fasting labs, discussed low fat diet and weight loss. Goiter 5724770 E04.9 repeat labs Mass of left breast 1224 230989 4038476 N63.20 Will set up an ultrasound Body mass index 30+ - obesity 945225400 Z68.31 continue weight loss via exercise and low fat /calorie diet. Elevated blood-pressure reading without diagnosis of hypertension 761572679 R03.0 Lower sodium and caffeine , test BP on outside few time in the next 2-3 weeks and call office if BP is over 140/90. Intermittent asthma 4276 57500 J45.20 stable on montelukas t and occasional rescue inhaler use. Obesity 248984695 E66.9 [id number] Rogelio Otero MD Main Office [address] [facility] [address] [place] [address] 06/25/2019 13:41:08 06/25/2019 14:41:41 Postviral cough 057639598 R05 Continue benzonatat e prn as prescribed . Encouraged OTC decongesta nts. Continue to hydrate, use humidifier , and saline nasal washes. [id number] [facility] [address] [facility] [address] [place] [address] 05/27/2020 07:11:33 05/27/2020 12:50:46 Counseling 948822569 Z71.9 Health advice, education or counseling done for COVID 19 has pending covid test from [employer] from yesterday, but had high risk exposure to covid + friend on Sat - will try to arrange above covid test for Th. Exposure t o viral disease 7376841200 98258 Z03.818 Cough 16907944 R05 chronic d/t pnd, but see above and below - cont mishel prn as well Intermittent asthma 4276 32039 J45.20 stable, cont inhalers as dir Allergic rhinitis 274996 04 J30.9 cont allergy shots as dir, f/u c ENT 06.25.20 [id number] Le franco MD [facility] [address] [facility] [address] [place] [address] 05/30/2020 11:17:21 05/30/2020 15:04:02 Allergic rhinitis 17314725 J30.9 add medrol as she is on maximal therapy of other meds, call if not improving, side effects reviewed. Let natural gas technician know we are adding prednisone and her other meds back so they can plan next immunother apy. OOW until 06/09 Posterior rhinorrhea 758 82873 R09.82 flonase, atrovent and singulair all being taken, will add oral steroid Cough 46476322 R05 pt using all allergy meds, will add medrol taper pack to see if this helps with sx. If not improving consider adding antibiotic next week [id number] Keyshawn Merchant MD Main Office [address] [place] [address] 07/09/2020 14:50:50 07/09/2020 16:01:06 Mass of left breast 7962137131 1255414 N63.20 [id number] Keyshawn Merchant MD Main Office [address] [place] [address] 08/06/2020 10:51:54 08/06/2020 12:18:10 Adult health examination 610397495 Z00.00 Anxiety state 028358369 F41.1 stable lately, cont yoga Mixed hyperlipidemia 267 505013 E78.2 trigs trending down - congrats - continue low carb diet /// LDL (bad chol) slightly elevated - rec less red meat Screening for malignant neoplasm of colon 883346577 Z12.11 Screening for malignant neoplasm of cervix 571546610 Z12.4 Varicella vaccination 68 934782 Z23 Skin lesion 61994059 L98 .9 Body mass index 30+ - obesity 627387582 E66.9 Mass of left breast 1224 219034 6184011 N63.20 seen by breast specialist - benign - had recent mammo/ u/s Impaired f asting glycemia 692987265 R73.01 Janiya - your sugar is ever so slightly raised - rec. decrease sugar intake (brownies ac blood test) - rest of your chemistrie s are fine - will check a1c at next lab test Intermittent asthma 4276 64893 J45.20 stable, cont inhalers as dir, cont allergy shots as per ENT [id number] Keyshawn Merchant MD Main Office [address] [facility] [address] [place] [address] 02/18/2021 13:52:39 02/18/2021 14:48:47 Increased frequency of urination 894263566 R35.0 Low back strain 88491282 1 S39.012A rec moist heat, hep, nsaids call if no better in 1 month, sooner if worse - then consider PT, PMR vs xray at that time [id number] Keyshawn Merchant MD Main Office [address] [address] [place] [address] 08/19/2021 14:12:03 08/19/2021 15:35:36 Adult health examination 492509528 Z00.00 Anxiety state 393646389 F41.1 stable lately, cont yoga, cont fu c therapist ~ wkly Mixed hyperlipidemia 267 848458 E78.2 trigs trending down - congrats - continue low carb diet /// LDL (bad chol) slightly elevated - rec less red meat Varicella vaccination 68 311126 Z23 Skin lesion 75961857 L98 .9 cont f/u c derm Body mass index 30+ - obesity 866382187 E66.9 Z68.31 Impaired f asting glycemia 305521476 R73.01 Janiya - your sugar is ever so slightly raised - rec. decrease sugar intake (brownies ac blood test) - rest of your chemistrie s are fine - will check a1c at next lab test Intermittent asthma 4276 22013 J45.20 stable, cont inhalers as dir, used to do allergy shots as per ENT Bilateral temporomandibular joint pain 4159133691 0176493 M26.623 cont mouth guard, med, f/u c dentist Hepatitis C screening 41 8473189 Z11.59 [id number] Keyshawn Merchant MD Main Office [address] [address] [place] [address] 10/26/2021 15:41:09 10/26/2021 16:30:43 Bilateral temporomandibular joint pain 7505539972 7603111 M26.623 cont mouth guard, med, f/u c max/fac surgeon - anticipate sx in near future Magnetic r esonance imaging of brain abnormal 145037557 R93.0 mri tmj at [facility] incidental ly found white matter lesions - will get brain mri & r/o lyme, and pt would like to see a neurologis t Skin lesion 04543637 L98 .9 cont f/u c derm - pending excision on her back later this wk [id number] Keyshawn Merchant MD Main Office [address] [facility] [address] [facility] [place] [address] 12/01/2022 14:29:24 12/01/2022 15:53:41 Adult health examination 341741972 Z00.00 Pap & mammo & colon utd Intermittent asthma 4276 87796 J45.20 stable, cont inhalers/m ed as dir, used to do allergy shots as per ENT Bilateral temporomandibular joint pain 4420299590 6808201 M26.623 cont mouth guard, med, f/u c max/fac surgeon - anticipate sx in near future 6. - cont f/u c chiropract or, did not have sx as above Magnetic r esonance imaging of brain abnormal 163696085 R93.0 mri tmj at [facility] incidental ly found white matter lesions - will get brain mri & r/o lyme, and pt would like to see a neurologis t 6. - seen by neuro - negative w/u = likely scar tissue Skin lesion 01844072 L98 .9 cont f/u c derm Allergy to food 19098041 1 T78.1XXA used to see natural gas technician - epipen rx Neck pain 33340054 M54.2 x few months - fol by chiropract or, no xray yet - is having weakness R hand - check xray, if nl then consider hand specialist (? cts) - if advanced ddd - then consider pmr Migraine 83757050 G43.90 9 stable, cont prn imitrex, cont f/u c neuro Gastroesop hageal reflux disease 595245223 K21.9 stable, cont ppi / f/u c gi, had egd Constipation 54477028 K5 9.00 better c mag - helps c migraine prevention too Impaired f asting glycemia 971077984 R73.01 Janiya - your sugar is ever so slightly raised - rec. decrease sugar intake (brownies) - rest of your chemistrie s are fine - will check a1c at next lab test Hyperlipidemia 71115766 E78.5 Body mass index 30+ - obesity 877874649 E66.9 Z68.32 cont plenty of walking/co nsider HIIT, consider myplate.go v, rec increase sleep to 7-8 hours/nigh t Fatigue 49301649 R53.83 [id number] Natasha Rios MD Main Office [address] [place] [address] 01/25/2023 15:36:37 01/25/2023 16:05:54 Medial epicondylitis 23293326 M77.01 Symptoms are chronic at this point and are not helped by taking oral NSAIDs. Begin taking meloxicam 15 mg daily. Schedule ross with orthopedic s for cortisone injection. Carpal nancy ernesto syndrome of right wrist 5085500732 64105 G56.01 recommend wrist splint and icing. 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 [id number] Keyshawn Merchant MD Main Office [address] [place] [address] 03/30/2023 15:11:21 03/30/2023 16:26:27 Neck pain 70914455 M54.2 x few months - fol by chiropract or, no xray yet - is having weakness R hand - check xray, if nl then consider hand specialist (? cts) - if advanced ddd - then consider pmr 10.23 - recent cervical XR was unremarkab le with no abnormal findings. cont. Meloxicam - consider adding prn moist heat Mixed hyperlipidemia 267 559730 E78.2 rec low carb diet to lower trigs, increase aerobic exercise to raise HDL (good chol), and decrease your red meat intake to lower your LDL (bad chol)cont fish oil, rec less bread/past a - recheck fasting lipids - if trigs still elevated, then rec change to krill oil Body mass index 30+ - obesity 997389707 E66.9 Z68.33 cont plenty of walking/co nsider HIIT, consider myplate.go v, rec increase sleep to 7-8 hours/nigh t 10.23 - Pt has tried a form of weight watchers diet in the past without success in weight reduction, not exercising much due to ongoing issues with neck and right upper extremity pain. Intermittent asthma 4276 38630 J45.20 stable, cont inhalers/m ed as dir, used to do allergy shots as per ENT Migraine 27577331 G43.90 9 stable, cont prn imitrex, cont f/u c neuro Constipation 49576860 K5 9.00 better c mag - helps c migraine prevention too Impaired f asting glycemia 980437345 R73.01 Janiya - your sugar is ever so slightly raised - rec. decrease sugar intake (brownies) - rest of your chemistrie s are fine - will check a1c at next lab test 10.23 - no evidence of predm c a1c 5.5 [id number] Keyshawn Merchant MD Main Office [address] [facility] [address] [place] [address] 12/05/2023 15:48:27 12/06/2023 08:50:12 Adult health examination 427934291 Z00.00 Pap & mammo & colon utd Allergy to food 14206703 1 T78.1XXA Stable, has epi pen Anxiety state 516466459 F41.1 MIGUEL ANGEL 20. 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 Gastroesop hageal reflux disease 686511169 K21.9 stable, cont ppi / f/u c gi, had egd Impaired f asting glycemia 896023941 R73.01 Janiya - your sugar is ever so slightly raised - rec. decrease sugar intake (brownies) - rest of your chemistrie s are fine - will check a1c at next lab test 10.23 - no evidence of predm c a1c 5.5 Intermittent asthma 4276 81082 J45.20 stable, cont inhalers/m ed as dir, used to do allergy shots as per ENT Migraine 79334862 G43.90 9 stable, cont prn imitrex, cont f/u c neuro Pain of ri ght shoulder joint 9998692751 9042331 M25.511 in middle of w/u c Dr. Glaser - reviewed recent consult notes - had samuel injxn, pending start PTwihonorio get her mri and labs from [place] to see if has underlying rheum etiologyco nt meloxicam as dir, but add trial gbn - see below Insomnia 648715063 G47.0 0 see above Constipation 23570182 K5 9.00 better c mag - helps c migraine prevention too 6.24 - stop mag, rather take colace qd-qod Hyperlipidemia 38323126 E78.5 [id number] Ananth Riley MD Main Office [address] [facility] [address] [place] [address] 12/19/2023 15:04:53 12/19/2023 15:50:54 Neuropathy 526895801 G62.9 -given hx, likely related to pt anxiety-dotson s hx of bilateral carpal tunnel syndrome; follows specialist -had 2 episode; pt notes both were related to anxiety attacks-dotson s not noticed any other triggers-w ears wrist braces at night for carpal tunnel-pt requests lab work, will r/o vitamin deficiency , rheumatoid process, etc Anxiety 75116544 F41.9 pt is interested in seeing a psychiatri st to further discuss behavioral or medication interventi ons [id number] Keyshawn Merchant MD Main Office [address] [facility] [address] [place] [address] 01/03/2024 10:00:33 01/03/2024 11:06:21 Neuropathy 372088566 G62.9 -given hx, likely related to pt anxiety-dotson s hx of bilateral carpal tunnel syndrome; follows specialist -had 2 episode; pt notes both were related to anxiety attacks-dotson s not noticed any other triggers-w ears wrist braces at night for carpal tunnel-pt requests lab work, will r/o vitamin deficiency , rheumatoid process, etc 01.03.24 - reviewed labs c pt - negative Anxiety [id number] F41.9 pt is interested in seeing a psychiatri st to further discuss behavioral or medication interventi ons 7.23.24 - pending see psychiatri sttrial c duloxetine Pain of ri ght shoulder joint [id number] M25.511 in middle of w/u c Dr. Glaser - reviewed recent consult notes - had samuel injxn, pending start PTwill get her mri and labs from [place] to see if has underlying rheum etiologyco nt meloxicam as dir, but add trial gbn - see below 7.24 - cont f/u c ortho, had cervical mri - next ov in a few weeks Prediabetes [id number] R7 3.03 Janiya - unfortunat ana you have evidence of pre-diabet es - rec. less sugar intake (candy, ice cream, soda/juice , etc), follow a low carb diet and get plenty of aerobic exercise to help you to lose weight. Pat less aleida chip muffins, soda, iced tea [id number] Keyshawn Merchant MD [facility] [address] [facility] [address] [place] [address] 03/06/2024 13:46:56 03/06/2024 15:46:59 Anxiety state [id number] F41.1 MIGUEL ANGEL 20. 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 less sugar intake (candy, ice cream, soda/juice , etc), follow a low carb diet and get plenty of aerobic exercise to help you to lose weight. Pat less aleida chip muffins, soda, iced tea 9.24 - pending recheck a1c p 10.5 Neuropathy [id number] G62 .9 -given hx, likely related to pt anxiety-dotson s hx of bilateral carpal tunnel syndrome; follows specialist -had 2 episode; pt notes both were related to anxiety attacks-dotson s not noticed any other triggers-w ears wrist braces at night for carpal tunnel-pt requests lab work, will r/o vitamin deficiency , rheumatoid process, etc 7.23.24 - reviewed labs c pt - negative . - had normal nerve conduction study - seen by ortho, then referred to thoracic surgeon - seen yesterday - ? has thoracic outlet syndrome - rec mri (done) and PT [id number] Keyshawn Merchant MD Main Office [address] [facility] [address] [facility] [place] [address] 06/04/2024 10:01:44 06/04/2024 11:08:55 Anxiety state [id number] F41.1 MIGUEL ANGEL 20. 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 - miguel angel down to 11, pending see psych at [place], doing better on dulox - cont as dir 12. - miguel angel/phq low/stable , see below - hopefully will trend better as dulox recently increased by rheum, pending see psych - encouraged her to call, try other group if do not hear from them Prediabetes [id number] R7 3.03 Janiya - unfortunat ana you have evidence of pre-diabet es - rec. less sugar intake (candy, ice cream, soda/juice , etc), follow a low carb diet and get plenty of aerobic exercise to help you to lose weight. Pat less aleida chip muffins, soda, iced tea 06.05 - stable, recheck p 3 months - also rec low salt diet d/t slightly elevated sodium Fibromyalgia [id number] M 79.7 new dx - seen by rheum recently - cont gbn, but increase duloxetine , next f/u 6 months Mixed hyperlipidemia [id number] E78.2 rec low carb diet to lower trigs, increase aerobic exercise to raise HDL (good chol), and decrease your red meat intake to lower your LDL (bad chol)cont fish oil, rec less bread/past a - recheck fasting lipids - if trigs still elevated, then rec change to krill oil Health Concerns Section Related Observation LastModified by Organization Detai ls LastModified Time None Recorded Concern Status LastModified by Organization Details LastModified Time None Recorded Advance Directives Directive N: Payers Encounter Date Sequence Insurance Name Policy Number Policy Jay Covered Member ID Jay Member ID Guarantor Name 12/05/2023 1 [place] [id number] Janiya Ordaz [id number] Janiya Merchantson 12/05/2023 1 [place] Janiya Ordaz [id number] Janiya Merchantson 12/19/2023 1 [place] [id number] Janiya Ordaz [id number] Janiya Merchantson 12/19/2023 1 [place] Janiya Ordaz [id number] Janiya Merchantson 01/03/2024 1 [place] [id number] Janiya Ordaz [id number] Janiya Merchantson 01/03/2024 1 [place] Janiya Ordaz [id number] Janiya Merchantson 03/06/2024 1 [place] Janiya Ordaz [id number] Janiya Merchantson 06/04/2024 1 [place] Janiya Ordaz [id number] Janiya Merchantson Notes Date Note Type Note Provider Name and Address Organization Details Recorded Time 12/05/2023 text/html 53 yo female presenting for annual physical exam. States has severe pain to her bilateral wrists and right shoulder for approximately 10 months. Has had several ED visits for this pain, Dr. Glaser (Hand Specialist), and an Orthopedic provider at [facility]. 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 Received steroid injections to left wrist and right shoulder without relief. Has been using Tylenol. Tetanus not UTD. Colonoscopy UTD. Pap UTD. Mammogram UTD. No acute complaints today. Appointment with Dr. Glaser in 6 weeks. Katelyn Reyes PA-C [address] [address], [place], [address], [facility] 12/05/2023 21:04:52 12/19/2023 text/html Janiya is a 53y r old F who presents for 2 episodes [...] at night for relief. JESUS MANUEL BANG [address] [address], [place], [phone], [facility] 12/20/2023 20:59:45 01/03/2024 text/html fol by ortho - r rubin last ov note 11.03, seen again in 12.04 but no ov note to reviewrev labs c pt - all negativeolder labs - dx'd c predm - admits to eating/baking muffins c dtr Katelyn Reyes PA-C [address] [address], [place], [address], [facility] 01/03/2024 11:04:54 03/06/2024 text/html Anxiety/Depressi onR eported bypatient.Quality:s ymptoms improved; not crying as much as before Context:major life stressors;trouble at work Associated Symptoms:denies homicidal ideations Katelyn Reyes PA-C [address] [address], [place], [address], [facility] 03/06/2024 15:20:52 06/04/2024 text/html Anxiety/Depressi onR eported bypatient.Quality:s ymptoms improved Severity:denies suicidal ideations Context:major life stressors;trouble at work Associated Symptoms:denies homicidal ideations Katelyn Reyes PA-C [address] [address], [place], [address], [facility] 06/04/2024 13:01:40 OBGyn Episode No OBEpisode recorded.
[2024-11-14 14:45] LABS: Thyroid Stimulating Hormone 1.33 uIU/mL (0.32-4.0)
[2024-11-17 17:58] LABS: Vitamin D 25-OH, D2 <4 ng/mL; Vitamin D 25-OH, D3 30 ng/mL; Vitamin D 25-OH, Total 30 ng/mL (30-100)
== END 2024-11-14 12:29 | disposition home or self-care (01) ==
LOC: HO.LAB 12:28
PROVIDERS: PCP Physician Assistant Medical; Visit Provider Student in an Organized Health Care Education/Training Program
DX: M79.7 Fibromyalgia (principal); E55.9 Vitamin D deficiency, unspecified
CPT/HCPCS: 36415; 82306; 84443

== ENCOUNTER 2024-11-20 12:43 | Outpatient (AMB) | payer OTHER, SELFPAY ==
--- NOTE | 2024-11-20 13:03 | A.OFFVIS_ITS ---
Vital Signs 11/20/24 13:04 Height 4 ft 11 in Weight 152 lb 12.485 oz BMI 30.9 BP 124/72 Blood Pressure Location Rt brachial Position Sitting Pulse 80 Pulse Source Pulse Oximeter Pulse Oximetry (%) 99 Oxygen Delivery Method Room Air Intake Visit Reasons: Myalgia Intake Note: Patient last seen by Doctor Katherine Denny on 05/21/24. Presents today for Myalgia follow up and test results. Patient would like refill of Baclofen and Celebrex, all were denied. Accompanied by: Daughter Allergies codeine Allergy (Unknown, Unverified 05/21/24 12:36) Unknown Medication List - Last Reconciled 11/20/24 by Katherine Denny MD albuterol sulfate 90 mcg/actuation 2 puffs inhalation Q6H PRN duloxetine 60 mg PO DAILY 90 days epinephrine 0.3 mg IM Q10M PRN gabapentin 400 mg PO BEDTIME hydroxyzine HCl 25 mg PO BID montelukast 10 mg PO DAILY omeprazole 20 mg PO DAILY HPI Comments Details: Patient is a 53 y.o. female with GERD, anxiety and fibromyalgia here today for follow up Interval History: Patient last seen 05/21/2024 with me. At that time she was establishing care for the evaluation of hand and wrist pain. Her examination was consistent with fibromyalgia and she was recommended gabapentin and baclofen as well as Celebrex. Did not feel that the baclofen were the Celebrex was helpful. Currently continues to complain of widespread pain including her hands, wrists, back and shoulders. Recently got a shoulder subacromial bursa injection bilaterally which helps slightly. Also started hydroxyzine for anxiety Rheumatologic History: Initial History: January 2023 - Started to notice hand and wrist pain. Also associated with clumsiness and numbness. Occasionally also noted elbow pain when she had prolonged resting on the elbow. - Over the year there was no involvement of shoulders - Has some knee and hip pain but her main issue is her bilateral hands and wrists Tried Gabapentin 400mg at night. Helped a little bit Prednisone (medrol dose pack). Helped a little bit but returned IACS Left wrist, right shoulder Meloxicam Other symptoms - Fatigue associated with insomnia - AM stiffness 30-45 mins Imaging - XRs wrist 10/17/23. Normal for the most part (report seen on patient's phone) - MRI bilateral hands (imaging and report not seen) - MRI R shoulder. Rotator cuff tendinosis with partial thickness bursla surface tear of supraspinatus. Mild AC OA - XR shoulder 11/08/23. Osteopenia. Mild AC joint OA - MRI C-spine (report faxed) showing multilevel spondylosis - XR Cspine 10/17/23. loss of resting lordosis - MRI Brachial plexus to eval for thoracic outlet syndrome 03/06/24. Normal, degenerative changes EMG done, normal Labs 12/19/23 RF <10 ESR 6 CRP 3 SARA negative WBC 11.7 Hb 15.1 Hct 46.8 Plt 510 BUN 17 Cr 0.98 Na 143 K 5.2 Cl 103 CO2 20 Ca 20 AST/ALT Denies rashes, photosensitivity, alopecia, oral/nasal ulcers, sicca symptoms, lymphadenopathy, chest pain/shortness of breath, foamy urine, lower extremity edema, muscle weakness, Raynaud's Also denies history of seizure, CVA, psychosis, history of kidney problems, history of cytopenias, history of VTE including PE or DVTs Ob history . No hx of pre eclampsia. Both Current Rheumatology Medication(s): Baclofen 5 mg Celebrex 200 mg b.i.d. Gabapentin 400 mg nightly [facility] Medical History (Updated 05/21/24 @ 13:26 by Katherine Denny MD) Fibromyalgia Review of Systems Const Details: Review of Systems Constitutional: Denies fever, chills, weight loss ENT: Denies vision changes, eye pain or eye redness, dental caries, dry mouth GI: Denies nausea, vomiting, diarrhea, abdominal pain, change in BM Pulm: Denies SOB, ELLIS, hemoptysis, wheezing Cards: Denies chest pain, palpitations Skin: Denies Raynaud's, rash, nail changes, photosensitivity, YOUTUBER: Denies headaches, weakness, paresthesias, recurrent falls MSK: as per HPI All other systems reviewed and are unremarkable except noted above Physical Exam Vital Signs: Last Vital Signs Pulse 80 11/20/24 13:04 BP 124/72 11/20/24 13:04 Pulse Ox 99 11/20/24 13:04 Oxygen Delivery Method Room Air 11/20/24 13:04 BMI result Body Mass Index 30.9 Physical Examination CONSTITUITIONAL Patient alert and cooperative. Well appearing and in no apparent painful distress HEENT Conjunctiva and sclera clear. ?Pupils equal round and reactive to light. ?No lymphadenopathy. ? CHEST/RESPIRATORY SYSTEM Normal respiratory effort and able to speak in complete sentences. ?Clear to auscultation bilaterally. ?No crackles, rales, rhonchi, wheezes heard. CARDIAC SYSTEM Regular rate and rhythm. ?S1 and S2 heard no murmurs. 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 No deformities noted. ?No synovitis noted to the MCPs, PIPs or DIPs. ?Tenderness to palpation throughout the hands not limited to joints Wrists: ?Full range of motion at the wrists without pain. No synovitis but tenderness to palpation of her wrists Elbows: Full range of motion without pain. No tenderness, weakness, swelling, increased warmth or erythema. Tenderness to palpation of forearm including lateral epicondyles bilaterally Shoulders: Full range of motion without pain. No tenderness, weakness, swelling, increased warmth or erythema. Hips: Full range of motion without pain. Hip bursa: Bilateral tenderness to palpation Knees: ?Full range of motion. ?No tenderness, swelling, increased warmth or erythema.?No effusion or crepitations Ankles: Full range of motion. ?No tenderness, swelling, increased warmth or erythema.? Feet: ?Negative squeeze test. ?No tenderness to palpation or swelling of the MTPs. Tender points:??Tenderness to palpation of the neck, shoulders, chest, elbows, bilateral greater trochanters, bilateral lateral knees. SKIN Skin intact without rashes. Results Reviewed Results Reviewed: Imaging - XRs wrist 10/17/23. Normal for the most part (report seen on patient's phone) - MRI bilateral hands (imaging and report not seen) - MRI R shoulder. Rotator cuff tendinosis with partial thickness bursla surface tear of supraspinatus. Mild AC OA - XR shoulder 11/08/23. Osteopenia. Mild AC joint OA - MRI C-spine (report faxed) showing multilevel spondylosis - XR Cspine 10/17/23. loss of resting lordosis - MRI Brachial plexus to eval for thoracic outlet syndrome 03/06/24. Normal, degenerative changes EMG done, normal Labs 12/19/23 RF <10 ESR 6 CRP 3 SARA negative WBC 11.7 Hb 15.1 Hct 46.8 Plt 510 BUN 17 Cr 0.98 Na 143 K 5.2 Cl 103 CO2 20 Ca 20 AST/ALT Assessment & Plan Assessment & Plan (1) Fibromyalgia: Code(s): M79.7 - Fibromyalgia Category: Medical Plan: #Fibromyalgia Patient is a 54-year-old female here today for follow up of her fibromyalgia. She is a classic fibromyalgia but she does have tenderness to palpation of her actual joints. Could this be an underlying inflammatory disease that were missing? Let us try a short course of prednisolone and then re-evaluate Plan - Prednisone 15mg x 7 days then 10mg x 7 days then 5mg x 7 days then stop - Labs today: CBC, CMP, ESR, CRP, RF, CCP - get MRI hands report - RTC 3 weeks Plan I spent 30 minutes reviewing the record and labs, seeing the patient, discussing the treatment plan and documenting in the medical record Orders: Orders Complete Blood Count Auto Diff Today M79.7 - Fibromyalgia C Reactive Protein Today M79.7 - Fibromyalgia Comprehensive Met. Panel Today M79.7 - Fibromyalgia Erythrocyte Sedimentation Rate Today M79.7 - Fibromyalgia Rheumatoid Factor Today M79.7 - Fibromyalgia Cyclic Citrullinated Peptide Today M79.7 - Fibromyalgia Medications: New prednisone Take 3 tablets for 7 days then 2 tablets for 7 days then 1 tablet for 7 days then stop 5 mg PO DIRECTED 42 tabs 0RF M79.7 - Fibromyalgia Coding Level of Care Code Est Pt Level 4 (82104) Diagnoses Fibromyalgia M79.7
[2024-11-20 13:04] VITALS: BP 124/72; PULSE 80; O2SAT 99; BMI 30.9
--- OUTSIDE RECORDS SUMMARY | 2024-11-20 14:54 | XMS_ITS | Data Portability ---
Author Organization [facility], Main Office Address [address] [place] [id number] Care Team Providers Care Survey Research Professor Name Role Phone WILLEM BLOUNT Veneer Redrier JONATAN GONSALVES Peanut Blancher [facility] MELY LAMBERT Frame Fixer KATELYN REYES Primary Care Provider Assessment Encounter [...] telephone visit Patient was located in the [facility]. Provider was located in the office. [...] available Not available Lab lipid panel, serum 202306/2 025 [facility] (Centralized Electronic Ordering - All Locations), Patient Can Go To The Location Of Their Choice, [address] 11/14/2024 04:03:16 HbA1c (hemog lobin A1c), blood 2023 025 [facility] (Centralized Electronic Ordering - All Locations), Patient Can Go To The Location Of Their Choice, [address] 11/14/2024 04:03:16 BMP, serum or plasma 2023 025 [facility] (Centralized Electronic Ordering - All Locations), Patient Can Go To The Location Of Their Choice, [address] 11/14/2024 04:03:16 HbA1c (hemog lobin A1c), blood 2023 024 [facility], [address], [place], [address], 05/19/2024 06:08:28 BMP, serum or plasma 2023 024 [facility], [address], [place], [address], 05/19/2024 06:08:27 SARA (antin uclear antibo dies) screen , ifa, serum 2023 024 [facility], [address], [place], [address], 12/22/2023 22:06:07 ESR (eryth rocyte sedime ntatio n rate), blood 2023 024 [facility], [address], [place], [address], 12/22/2023 22:06:06 C reacti ve protei n, QN, serum or plasma 2023 024 [facility], [address], [place], [address], 12/22/2023 22:06:07 vitami n B12, serum 2023 024 [facility], [address], [place], [address], 12/22/2023 22:06:06 methyl malona te, QN, serum or plasma 2023 024 [facility], [address], [place], [address], 12/22/2023 22:06:06 rf (rheum atoid factor ), serum 2023 024 [facility], [address], [place], [address], 12/22/2023 22:06:04 thiami ne, QN, blood 2023 024 [facility], [address], [place], [address], 12/22/2023 22:06:05 HbA1c (hemog lobin A1c), blood 2023 024 [facility], [address], [place] [address], [place], [address], 12/17/2023 08:07:27 lipid panel, serum 2023 024 [facility], [address], [place] [address], [place], [address], 12/17/2023 08:07:27 CMP, serum or plasma 2023 024 [facility], [address], [place] [address], [place], [address], 12/17/2023 08:07:26 CBC w/ auto diff 2023 024 [facility], [address], [place] [address], [place], [address], 12/17/2023 08:07:25 Referral psychi atrist referr rachel burgoset y-curr ently not on any medica tion-p t intere sted in behavi oral interv ention and discus drea for medica tion 2023 024 [facility], [address], [place], [address], 06/18/2024 11:00:16 Procedures None record ed. Surgeries None record ed. Imaging None record ed. Medication Orders duloxe agata 30 mg capsul e,evelyn taylor releas e 2023 024 [id number] [id number], [address] [place], [address], 06/04/2024 10:26:54 gabape ntin 100 mg capsul e 2023 024 [email or web address] [id number], [address], [place], [address], 06/04/2024 10:27:08 Patient Targets Encounter Date Encounter Id Patient Goals Patient Target Last Modified By Organization Details Last Modified Time 12/05/2023 [id number] rn long term care goal of Excess Body Weight Loss % [...] By Organization Details Last Modified Time 12/05/2023 [id number] learning about stress pmadden Not available 12/05/2023 [...] medication. jess Not available 12/05/2023 16:18:07 01/03/2024 [id number] prediabetes: car e instructions pmadden Not available [...] medication. pmadden Not available 01/03/2024 10:59:48 03/06/2024 [id number] Medications (OTC , herbal therapies, supplements) reviewed and reconciled with patient and or caregiver, including potential side effects, drug interactions, instructions, and the consequences of not taking medication. Reviewed potential barriers to medication adherence, such as side effects from medication or cost of medication. pmadden Not available 03/06/2024 15:11:08 06/04/2024 [id number] fibromyalgia: care instructions pmadden Not available 06/04/2024 [...] .8 above high normal Not Available [facility] ([facility]) [address] [place], [address], 12/17/2023 08:07:25 12/16/19 24 12/17/2023 CBC WITH DIFFE RENTI AL/PL ATELE T RBC 5.22 x10e6 /uL 3.77-5 .28 Not Available [facility] ([facility]) [address] [place], [address], 12/17/2023 08:07:25 12/16/19 24 12/17/2023 CBC WITH DIFFE RENTI AL/PL ATELE T hemoglobin 15.1 g/dL 11.1-1 5.9 Not Available [facility] ([facility]) [address] [place], [address], 12/17/2023 08:07:25 12/16/19 24 12/17/2023 CBC WITH DIFFE RENTI AL/PL ATELE T hematocrit 46.8 % 34.0-4 6.6 above high normal Not Available [facility] ([facility]) [address] [place], [address], 12/17/2023 08:07:25 12/16/19 24 12/17/2023 CBC WITH DIFFE RENTI AL/PL ATELE T MCV 90 fL 79-97 Not Available [facility] ([facility]) [address] [place], [address], 12/17/2023 08:07:25 12/16/19 24 12/17/2023 CBC WITH DIFFE RENTI AL/PL ATELE T MCH 28.9 pg 26.6-3 3.0 Not Available [facility] ([facility]) [address] [place], [address], 12/17/2023 08:07:25 12/16/19 24 12/17/2023 CBC WITH DIFFE RENTI AL/PL ATELE T MCHC 32.3 g/dL 31.5-3 5.7 Not Available [facility] ([facility]) [address] [facility], [place], [address], 12/17/2023 08:07:25 12/16/19 24 12/17/2023 CBC WITH DIFFE RENTI AL/PL ATELE T RDW 13.0 % 11.7-1 5.4 Not Available [facility] ([facility]) [address] [facility], [place], [address], 12/17/2023 08:07:25 12/16/19 24 12/17/2023 CBC WITH DIFFE RENTI AL/PL ATELE T platelets 510 x10e3 /uL 150-45 0 above high normal Not Available [facility] ([facility]) [address] [facility], [place], [address], 12/17/2023 08:07:25 12/16/19 24 12/17/2023 CBC WITH DIFFE RENTI AL/PL ATELE T neutrophils 67 % not estab. Not Available [facility] ([facility]) [address] [facility], [place], [address], 12/17/2023 08:07:25 12/16/19 24 12/17/2023 CBC WITH DIFFE RENTI AL/PL ATELE T lymphs 25 % not estab. Not Available [facility] ([facility]) [address] [facility], [place], [address], 12/17/2023 08:07:25 12/16/19 24 12/17/2023 CBC WITH DIFFE RENTI AL/PL ATELE T monocytes 6 % not estab. Not Available [facility] ([facility]) [address] [facility], [place], [address], 12/17/2023 08:07:25 12/16/19 24 12/17/2023 CBC WITH DIFFE RENTI AL/PL ATELE T eos 1 % not estab. Not Available [facility] ([facility]) [address] [facility], [place], [address], 12/17/2023 08:07:25 12/16/19 24 12/17/2023 CBC WITH DIFFE RENTI AL/PL ATELE T basos 1 % not estab. Not Available [facility] ([facility]) [address] [facility], [place], [address], 12/17/2023 08:07:25 12/16/19 24 12/17/2023 CBC WITH DIFFE RENTI AL/PL ATELE T immature cells LEAD SOFTWARE TEST ENGINEER Not Available [facility] ([facility]) [address] [facility], [place], [address], 12/17/2023 08:07:25 12/16/19 24 12/17/2023 CBC WITH DIFFE RENTI AL/PL ATELE T neutrophils (absolute) 7.9 x10e3 /uL 1.4-7. 0 above high normal Not Available [facility] ([facility]) [address] [facility], [place], [address], 12/17/2023 08:07:25 12/16/19 24 12/17/2023 CBC WITH DIFFE RENTI AL/PL ATELE T lymphs (absolute) 2.9 x10e3 /uL 0.7-3. 1 Not Available [facility] ([facility]) [address] [facility], [place], [address], 12/17/2023 08:07:25 12/16/19 24 12/17/2023 CBC WITH DIFFE RENTI AL/PL ATELE T monocytes(ab solute) 0.7 x10e3 /uL 0.1-0. 9 Not Available [facility] ([facility]) [address] [place], [address], 12/17/2023 08:07:25 12/16/19 24 12/17/2023 CBC WITH DIFFE RENTI AL/PL ATELE T eos (absolute) 0.1 x10e3 /uL 0.0-0. 4 Not Available [facility] ([facility]) [address] [facility], [place], [address], 12/17/2023 08:07:25 12/16/19 24 12/17/2023 CBC WITH DIFFE RENTI AL/PL ATELE T baso (absolute) 0.1 x10e3 /uL 0.0-0. 2 Not Available [facility] ([facility]) [address] [facility], [place], [address], 12/17/2023 08:07:25 12/16/19 24 12/17/2023 CBC WITH DIFFE RENTI AL/PL ATELE T immature granulocytes 0 % not estab. Not Available [facility] ([facility]) [address] [facility], [place], [address], 12/17/2023 08:07:25 12/16/19 24 12/17/2023 CBC WITH DIFFE RENTI AL/PL ATELE T immature grans (abs) 0.0 x10e3 /uL 0.0-0. 1 Not Available [facility] ([facility]) [address] [place], [address], 12/17/2023 08:07:25 12/16/19 24 12/17/2023 CBC WITH DIFFE RENTI AL/PL ATELE T NRBC LEAD SOFTWARE TEST ENGINEER Not Available [facility] ([facility]) [address] [facility], [place], [address], 12/17/2023 08:07:25 12/16/19 24 12/17/2023 CBC WITH DIFFE RENTI AL/PL ATELE T hematology comments: LEAD SOFTWARE TEST ENGINEER Not Available [facility] ([facility]) [address] [place], [address], 12/17/2023 08:07:25 12/16/19 24 12/17/2023 COMP. METAB OLIC PANEL (14) glucose 89 mg/dL 70-99 Not Available [facility] ([facility]) [address] [place], [address], 12/17/2023 08:07:26 12/16/19 24 12/17/2023 COMP. METAB OLIC PANEL (14) BUN 17 mg/dL 6-24 Not Available [facility] ([facility]) [address] [place], [address], 12/17/2023 08:07:26 12/16/19 24 12/17/2023 COMP. METAB OLIC PANEL (14) creatinine 0.98 mg/dL 0.57-1 .00 Not Available [facility] ([facility]) [address] [place], [address], 12/17/2023 08:07:26 12/16/19 24 12/17/2023 COMP. METAB OLIC PANEL (14) eGFR 69 mL/mi n/1.7 3 >59 Not Available [facility] ([facility]) [address] [place], [address], 12/17/2023 08:07:26 12/16/19 24 12/17/2023 COMP. METAB OLIC PANEL (14) BUN/creatini ne ratio 17 9-23 Not Available [facility] ([facility]) [address] [facility] [place], [address], 12/17/2023 08:07:26 12/16/19 24 12/17/2023 COMP. METAB OLIC PANEL (14) sodium 143 mmol/ L 134-14 4 Not Available [facility] ([facility]) [address] [facility] [place], [address], 12/17/2023 08:07:26 12/16/19 24 12/17/2023 COMP. METAB OLIC PANEL (14) potassium 5.2 mmol/ L 3.5-5. 2 Not Available [facility] ([facility]) [address] [facility] [place], [address], 12/17/2023 08:07:26 12/16/19 24 12/17/2023 COMP. METAB OLIC PANEL (14) chloride 103 mmol/ L 96-106 Not Available [facility] ([facility]) [address] [facility] [place], [address], 12/17/2023 08:07:26 12/16/19 24 12/17/2023 COMP. METAB OLIC PANEL (14) carbon dioxide, total 20 mmol/ L 20-29 Not Available [facility] ([facility]) [address] [facility] [place], [address], 12/17/2023 08:07:26 12/16/19 24 12/17/2023 COMP. METAB OLIC PANEL (14) calcium 10.0 mg/dL 8.7-10 .2 Not Available [facility] ([facility]) [address] [facility] [place], [address], 12/17/2023 08:07:26 12/16/19 24 12/17/2023 COMP. METAB OLIC PANEL (14) protein, total 7.4 g/dL 6.0-8. 5 Not Available [facility] ([facility]) [address] [facility] [place], [address], 12/17/2023 08:07:26 12/16/19 24 12/17/2023 COMP. METAB OLIC PANEL (14) albumin 4.5 g/dL 3.8-4. 9 Not Available [facility] ([facility]) [address] [facility] [place], [address], 12/17/2023 08:07:26 12/16/19 24 12/17/2023 COMP. METAB OLIC PANEL (14) globulin, total 2.9 g/dL 1.5-4. 5 Not Available [facility] ([facility]) [address] [facility] [place], [address], 12/17/2023 08:07:26 12/16/19 24 12/17/2023 COMP. METAB OLIC PANEL (14) bilirubin, total 0.3 mg/dL 0.0-1. 2 Not Available [facility] ([facility]) [address] [facility] [place], [address], 12/17/2023 08:07:26 12/16/19 24 12/17/2023 COMP. METAB OLIC PANEL (14) alkaline phosphatase 101 IU/L 44-121 Not Available [facility] ([facility]) [address] [facility] [place], [address], 12/17/2023 08:07:26 12/16/19 24 12/17/2023 COMP. METAB OLIC PANEL (14) AST (SGOT) 18 IU/L 0-40 Not Available [facility] ([facility]) [address] [facility], [place], [address], 12/17/2023 08:07:26 12/16/19 24 12/17/2023 COMP. METAB OLIC PANEL (14) ALT (SGPT) 19 IU/L 0-32 Not Available [facility] ([facility]) [address] [facility] [place], [address], 12/17/2023 08:07:26 12/16/19 24 12/17/2023 LIPID PANEL cholesterol, total 258 mg/dL 100-19 9 above high normal Not Available [facility] ([facility]) [address] [facility] [place], [address], 12/17/2023 08:07:27 12/16/19 24 12/17/2023 LIPID PANEL triglyceride s 140 mg/dL 0-149 Not Available [facility] ([facility]) [address] [facility] [place], [address], 12/17/2023 08:07:27 12/16/19 24 12/17/2023 LIPID PANEL HDL cholesterol 47 mg/dL >39 Not Available [facility] ([facility]) [address] [facility] [place], [address], 12/17/2023 08:07:27 12/16/19 24 12/17/2023 LIPID PANEL VLDL cholesterol phoebe 26 mg/dL 5-40 Not Available [facility] ([facility]) [address] [place], [address], 12/17/2023 08:07:27 12/16/19 24 12/17/2023 LIPID PANEL LDL chol calc ([facility]) 185 mg/dL 0-99 above high normal Not Available [facility] ([facility]) [address] [place], [address], 12/17/2023 08:07:27 12/16/19 24 12/17/2023 LIPID PANEL LDL calc comment: LEAD SOFTWARE TEST ENGINEER Not Available [facility] ([facility]) [address] [place], [address], 12/17/2023 08:07:27 12/16/19 24 12/17/2023 HEMOG LOBIN A1C hemoglobin A1C 5.7 % 4.8-5. 6 above high normal Predi abete s: 5.7 - 6.4 Diabe zamzam: >6.4 Glyce elke contr ol for adult s with diabe zamzam: <7.0 Not Available [facility] ([facility]) [address] [place], [address], 12/17/2023 08:07:27 12/19/19 24 12/20/2023 RHEUM ATOID FACTO R (RF) rheumatoid factor (rf) <10.0 IU/mL <14.0 Not Available [facility] ([facility]) [address] [place], [address], 12/22/2023 22:06:04 12/19/19 24 12/22/2023 VITAM IN B1 (THIA MINE) , BLOOD vit. B1, whole blood 164.0 nmol/ L 66.5-2 00.0 Not Available [facility] ([facility]) [address] [place], [address], 12/22/2023 22:06:05 12/19/19 24 12/22/2023 METHY LMALO CATA ACID, SERUM methylmaloni c acid, serum 147 nmol/ L 0-378 Not Available [facility] ([facility]) [address] [facility], [place], [address], 12/22/2023 22:06:05 12/19/19 24 12/20/2023 SEDIM ENTAT ION RATE- WESTE RGREN sedimentatio n rate-westerg aisha 16 mm/HR 0-40 Not Available [facility] ([facility]) [address] [facility], [place], [address], 12/22/2023 22:06:06 12/19/19 24 12/20/2023 VITAM IN B12 vitamin B12 475 pg/mL 232-12 45 Not Available [facility] ([facility]) [address] [facility], [place], [address], 12/22/2023 22:06:06 12/19/19 24 12/20/2023 C-CHAR CTIVE PROTE IN, QUANT C-reactive protein, quant 3 mg/L 0-10 Not Available [facility] ([facility]) [address] [facility], [place], [address], 12/22/2023 22:06:07 12/19/19 24 12/20/2023 SARA BY [...] Patte rns (ICAP ). Not Available [facility] ([facility]) [address] [facility], [place], [address], 12/22/2023 22:06:07 05/18/20 24 05/18/2024 BASIC METAB OLIC PANEL (8) sodium 145 mmol/ L 134-14 4 above high normal Not Available [facility] ([facility]) [address] [facility] [place], [address], 05/19/2024 06:08:27 05/18/20 24 05/18/2024 BASIC METAB OLIC PANEL (8) potassium 4.6 mmol/ L 3.5-5. 2 normal Not Available [facility] ([facility]) [address] [facility] [place], [address], 05/19/2024 06:08:27 05/18/20 24 05/19/2024 BASIC METAB OLIC PANEL (8) glucose 103 mg/dL 70-99 above high normal Not Available [facility] ([facility]) [address] [facility] [place], [address], 05/19/2024 06:08:27 05/18/20 24 05/19/2024 BASIC METAB OLIC PANEL (8) BUN 10 mg/dL 6-24 normal Not Available [facility] ([facility]) [address] [facility] [place], [address], 05/19/2024 06:08:27 05/18/20 24 05/19/2024 BASIC METAB OLIC PANEL (8) creatinine 0.92 mg/dL 0.57-1 .00 normal Not Available [facility] ([facility]) [address] [place], [address], 05/19/2024 06:08:27 05/18/20 24 05/19/2024 BASIC METAB OLIC PANEL (8) eGFR 74 mL/mi n/1.7 3 >59 normal Not Available [facility] ([facility]) [address] [facility] [place], [address], 05/19/2024 06:08:27 05/18/20 24 05/19/2024 BASIC METAB OLIC PANEL (8) BUN/creatini ne ratio 11 9-23 normal Not Available [facility] ([facility]) [address] [facility] [place], [address], 05/19/2024 06:08:27 05/18/20 24 05/19/2024 BASIC METAB OLIC PANEL (8) chloride 102 mmol/ L 96-106 normal Not Available [facility] ([facility]) [address] [facility] [place], [address], 05/19/2024 06:08:27 05/18/20 24 05/19/2024 BASIC METAB OLIC PANEL (8) carbon dioxide, total 22 mmol/ L 20-29 normal Not Available [facility] ([facility]) [address] [facility], [place], [address], 05/19/2024 06:08:27 05/18/20 24 05/19/2024 BASIC METAB OLIC PANEL (8) calcium 9.9 mg/dL 8.7-10 .2 normal Not Available [facility] ([facility]) [address] [facility], [place], [address], 05/19/2024 06:08:27 05/18/20 24 05/18/2024 HEMOG LOBIN A1C hemoglobin A1C 5.7 % 4.8-5. 6 above high normal Predi abete s: 5.7 - 6.4 Diabe zamzam: >6.4 Glyce elke contr ol for adult s with diabe zamzam: <7.0 Not Available [facility] ([facility]) [address] [facility], [place], [address], 05/19/2024 06:08:28 02/15/20 24 02/09/2024 nerve condu ction study No observ ation record ed. [facility] [address] [place], [address], 03/06/2024 14:42:41 03/09/20 24 02/06/2024 elect romyo gram + nerve condu ction study No observ ation record ed. [facility] Scheduling Dept [address], [place], [address], 06/04/2024 10:41:17 10/20/19 25 10/18/2024 MAMMO , [...] Lay letter mailed to rimma granados WSN: [id number] Orderi ng Physic natalie: Tonio Reyes Dictat ed By: Ezra Guzman MD Dictmiriam ed Date/T gabrielle: 1:34 pm Review ed By: Ezra Guzman MD Signed By: Ezra Guzman MD Signed Date/T gabrielle: 1:34 pm Transc ribed By: JODI Transc riptio n Date/T gabrielle: 1:33 pm Birads : Rimma granados Class: Outpat ient [facility] [address] , [place], [address], 10/22/2024 13:46:11 10/20/19 25 10/18/2024 MAMMO , scree jaylene, digit al, bilat eral No observ ation record ed. [email or web address] [facility] [address], [place], [address], 10/24/2024 14:42:21 Result Notes None recorded. Problems Name Problem SNOMED Code Status Onset Date Resolution Date Notes Provider Name and Address Organization Details Recorded Time Acute pharyngi tis 205267882 Completed 05/30/2017 Rhonda Reyes PA-C [address], [place], [address] , [facility] 7 16:57:48 Abdomina l pain [id number] Completed 201101/01/2014 RECORDED 04/20/20 12 1:28PM BY ERICKA LEIGH MA, ANNOTATI ON/ADDEN DUM Hussein blandon, [facility] 6 17:26:14 Mammogra phy abnormal [id number] Active 2012 Not Available [facility] 4 09:41:04 Asthma [id number] Completed 201101/01/2014 RECORDED 04/20/20 12 1:27PM BY ERICKA LEIGH MA, ANNOTATI ON/ADDEN DUM Rhonda Reyes PA-C [address], [place], [address] , [facility] 7 16:57:25 Acute upper respirat ory infectio n [id number] Completed 201101/01/2014 RECORDED 04/20/20 12 1:27PM BY ERICKA LEIGH MA, ANNOTATI ON/ADDEN DUM Hussein blandon, [facility] 6 17:26:14 Allergic rhinitis 32182958 Active 2012 Not Available [facility] 4 09:41:05 Anxiety state 225177010 Active 2012 Not Available [facility] 4 09:41:04 Patient status finding [id number] Completed 201201/01/2014 RECORDED 10/31/19 13 3:44PM BY ERICKA LEIGH MA, ANNOTATI ON/ADDEN DUM Donna Chowdhury MA null, [facility] 7 16:26:15 Intrinsi c asthma [id number] Completed 201101/01/2014 RECORDED 04/20/20 12 1:27PM BY ERICKA LEIGH MA, ANNOTATI ON/ADDEN DUM Hussein burgos null, [facility] 6 17:26:14 Acute asthma [id number] Completed 201101/01/2014 RECORDED 04/20/20 12 1:27PM BY ERICKA LEIGH MA, ANNOTATI ON/ADDEN DUM Hussein burgos null, [facility] 6 17:26:14 Asthma 847502500 Completed 201205/30/2017 Rhonda Reyes PA-C [address] [address], [place], [address] [facility] 7 16:57:25 Screenin g for malignan t neoplasm of breast Completed 201301/01/2014 RECORDED 06/13/19 14 7:21PM BY JEM WAYNEIC AL SUMMARY Hussein burgos null, [facility] 6 17:26:15 Screenin g for malignan t neoplasm of cervix Completed 201101/01/2014 RECORDED 04/20/20 12 1:28PM BY ERICKA LEIGH MA, ANNOTATI ON/ADDEN DUM Donna Chowdhury MA null, [facility] 7 16:26:27 Screenin g for malignan t neoplasm of cervix Completed 201302/28/2017 RECORDED 07/27/19 14 1:57PM BY KYLE PRESSLEY, JEMIC AL SUMMARY Donna Chowdhury MA null, [facility] 7 16:26:27 Chest pain [id number] Completed 201101/01/2014 RECORDED 04/20/20 12 1:27PM BY ERICKA LEIGH MA, DIEGO ON/ADDEN DUM Hussein D'Alessand ro null, [facility] 6 17:26:14 Sprain of costal cartilag e Completed 201201/01/2014 IMPRESSI ON: SHE WONT FILL PERCOCET UNTIL AFTER THE WEEKEND. LONG WEEKEND AHEAD. AIM FOR RETURN TO WORK WED. IF CANT RETURN MAKE F/U APPT/. TAKE BENADRYL PRN ITCHING WITH PERCOCET . CONTINUE MELOXICA M; RECORDED 03/01/20 13 9:41AM BY ERICKA LEIGH MA, DIEGO ON/ADDEN DUM Hussein D'Alessand ro null, [facility] 6 17:26:15 Disorder of nail 96256351 Completed 201101/01/2014 RECORDED 04/20/20 12 1:27PM BY ERICKA LEIGH MA, DIEGO ON/ADDEN DUM Hussein D'Alessand ro null, [facility] 6 17:26:14 Disorder of skin 12606040 Completed 201101/01/2014 RECORDED 04/20/20 12 1:27PM BY ERICKA LEIGH MA, DIEGO ON/ADDEN DUM Hussein D'Alessand ro null, [facility] 6 17:26:14 Dyspareu miya [id number] Completed 201101/01/2014 RECORDED 04/20/20 12 1:28PM BY ERICKA LEIGH MA, DIEGO ON/ADDEN DUM Hussein D'Alessand ro null, [facility] 6 17:26:14 Dysphagi a [id number] Completed 201101/01/2014 RECORDED 04/20/20 12 1:28PM BY ERICKA LEIGH MA, ANNOTKATERINA ON/ADDEN DUM Hussein D'Alessand ro null, [facility] 6 17:26:14 Dysuria [id number] Completed 201101/01/2014 RECORDED 04/20/20 12 1:27PM BY ERICKA LEIGH MA, ANNOTATI ON/ADDEN DUM Hussein Smith ro null, [facility] [facility] 6 17:26:14 Influenz a vaccine needed [id number] 06 Completed 200901/01/2014 RECORDED 06/01/20 10 9:07AM BY COOPER LAWS I, HISTORIC AL SUMMARY Hussein Smith ro null, [facility] 6 17:26:15 Closed fracture of ulna 44619660 Completed 201101/01/2014 RECORDED 04/20/20 12 1:27PM BY ERICKA LEIGH MA, ANNOTATI ON/ADDEN DUM Hussein Smith ro null, [facility] 6 17:26:15 Gastriti s 7703220 Completed 201101/01/2014 RECORDED 04/20/20 12 1:27PM BY ERICKA LEIGH MA, DIEGO ON/ADDEN DUM Hussein burgos null, [facility] 6 17:26:14 Gastrodu odenitis 357614980 Active 2011 Not Available [facility] 4 09:41:04 Gastroes ophageal reflux disease 944525333 Active 2012 Not Available [facility] 4 09:41:04 Adult health examinat ion Completed 201202/28/2017 RECORDED 05/04/20 13 1:58PM BY ERICKA LEIGH MA, OFFICE VISIT Donna blandon, [facility] 7 16:26:47 Adult health examinat ion Completed 201201/01/2014 RECORDED 10/31/19 13 3:44PM BY ERICKA LEIGH MA, ANNOTATI ON/ADDEN DUM Donna blandon, [facility] 7 16:26:47 Genital herpes simplex 65396598 Active 2012 Not Available [facility] 4 09:41:04 Hyperlip idemia 86201902 Completed 201206/14/2017 Rhonda Reyes PA-C [address], [place], [address] , [facility] 8 13:11:07 Irritabl e bowel syndrome 84329430 Active 2012 Not Available [facility] 4 09:41:04 Neck pain 28351062 Completed 201201/01/2014 RECORDED 05/04/20 13 1:57PM BY ERICKA LEIGH MA, ANNOTATI ON/ADDEN DUM Katelyn Reyes PA-C [address], [place], [address] , [facility] 3 20:22:59 Patient status finding [id number] Completed 201202/28/2017 RECORDED 05/04/20 13 1:58PM BY ERICKA LEIGH MA, OFFICE VISIT Donna Chowdhury MA null, [facility] 7 16:26:15 Screenin g for malignan t neoplasm of colon Completed 200801/01/2014 RECORDED 12/04/19 09 10:12AM BY CARLOS EDUARDO ALVARADO MA, ANNOTATI ON/ADDEN DUM Hussein Smith ro null, [facility] 6 17:26:15 Administ ration of diphther ia and tetanus vaccine Completed 201201/01/2014 RECORDED 10/31/19 13 3:44PM BY ERICKA LEIGH MA, ANNOTATI ON/ADDEN DUM Hussein Smith ro null, [facility] 6 17:26:15 Urinary tract infectio us disease 30952364 Completed 201101/01/2014 RECORDED 04/20/20 12 1:27PM BY ERICKA LEIGH MA, ANNOTATI ON/ADDEN DUM Hussein Smith ro null, [facility] 6 17:26:14 Viral disease 49548139 Completed 201101/01/2014 RECORDED 04/20/20 12 1:27PM BY ERICKA LEIGH MA, DIEGO ON/ADDEN DUM Hussein burgos null, [facility] 6 17:26:14 Vomiting 583201195 Completed 201101/01/2014 RECORDED 04/20/20 12 1:27PM BY ERICKA LEIGH MA, ANNOTATI ON/ADDEN DUM Hussein Smith ro null, [facility] 6 17:26:14 Persiste nt vomiting 581509360 Completed 201101/01/2014 RECORDED 04/20/20 12 1:27PM BY ERICKA LEIGH MA, DIEGO ON/ADDEN DUM Hussein burgos null, [facility] 6 17:26:14 Verruca vulgaris 55437624 Active 2012 Not Available [facility] 4 09:41:05 Abnormal weight loss 140097830 Completed 201205/30/2017 Rhonda Reyes PA-C [address] [facility] [address], [place], [address] , [facility] 7 16:47:15 Abdomina l pain 08232810 Completed 201101/21/2014 RECORDED 04/20/20 12 1:28PM BY ERICKA LEIGH MA, DIEGO ON/ADDEN DUM Hussein burgos null, [facility] 6 17:26:15 Asthma 457864766 Completed 201101/21/2014 RECORDED 04/20/20 12 1:27PM BY ERICKA LEIGH MA, DIEGO ON/ADDEN DUM Rhonda Reyes PA-C [address], [place], [address] , [facility] 7 16:57:25 Acute upper respirat ory infectio n 09356122 Completed 201101/21/2014 RECORDED 04/20/20 12 1:27PM BY ERICKA LEIGH MA, ANNOTATI ON/ADDEN DUM Hussein D'Alessand ro null, [facility] 6 17:26:14 Patient status finding [id number] Completed 201201/21/2014 RECORDED 10/31/19 13 3:44PM BY ERICKA LEIGH MA, ANNOTATI ON/ADDEN DUM Donna Chowdhury MA null, [facility] 7 16:26:15 Intrinsi c asthma 602672613 Completed 201101/21/2014 RECORDED 04/20/20 12 1:27PM BY ERICKA LEIGH MA, ANNOTATI ON/ADDEN DUM Hussein D'Alessand ro null, [facility] 6 17:26:14 Acute asthma 486744125 Completed 201101/21/2014 RECORDED 04/20/20 12 1:27PM BY ERICKA LEIGH MA, ANNOTATI ON/ADDEN DUM Hussein D'Alessand ro null, [facility] 6 17:26:14 Screenin g for malignan t neoplasm of breast Completed 201301/21/2014 RECORDED 06/13/19 14 7:21PM BY RENEE Napier, HISTORIC AL SUMMARY Hussein D'Alessand ro null, [facility] 6 17:26:15 Screenin g for malignan t neoplasm of cervix Completed 201101/21/2014 RECORDED 04/20/20 12 1:28PM BY ERICKA LEIGH MA, ANNOTATI ON/ADDEN DUM Donna Chowdhury MA null, [facility] 7 16:26:27 Chest pain 14026935 Completed 201101/21/2014 RECORDED 04/20/20 12 1:27PM BY ERICKA LEIGH MA, ANNOTATI ON/ADDEN DUM Hussein D'Alessand ro null, [facility] 6 17:26:14 Sprain of costal cartilag e Completed 201201/21/2014 PAI ON: SHE WONT FILL PERCOCET UNTIL AFTER THE WEEKEND. LONG WEEKEND AHEAD. AIM FOR RETURN TO WORK WED. IF CANT RETURN MAKE F/U APPT/. TAKE BENADRYL PRN ITCHING WITH PERCOCET . CONTINUE MELOXICA M; RECORDED 03/01/20 13 9:41AM BY ERICKA LEIGH MA, ANNOTATI ON/ADDEN DUM Hussein D'Alessand ro null, [facility] 6 17:26:15 Disorder of nail 29817759 Completed 201101/21/2014 RECORDED 04/20/20 12 1:27PM BY ERICKA LEIGH MA, SHONDAATI ON/ADDEN DUM Hussein D'Alessand ro null, [facility] 6 17:26:14 Disorder of skin 37565513 Completed 201101/21/2014 RECORDED 04/20/20 12 1:27PM BY ERICKA LEIGH MA, DIEGO ON/ADDEN DUM Hussein Ottoniel'Alessand ro null, [facility] 6 17:26:14 Dyspareu miya 84955694 Completed 201101/21/2014 RECORDED 04/20/20 12 1:28PM BY ERICKA LEIGH MA, ANNOTKATERINA ON/ADDEN DUM Hussein Ottoniel'Alessand ro null, [facility] 6 17:26:14 Dysphagi a 76298733 Completed 201101/21/2014 RECORDED 04/20/20 12 1:28PM BY ERICKA LEIGH MA, ANNOTATI ON/ADDEN DUM Hussein D'Alessand ro null, [facility] 6 17:26:14 Dysuria [id number] Completed 201101/21/2014 RECORDED 04/20/20 12 1:27PM BY ERICKA LEIGH MA, ANNOTKATERINA ON/ADDEN DUM Hussein D'Alessand ro null, [facility] 6 17:26:14 Influenz a vaccine needed 39493629689 06 Completed 200901/21/2014 RECORDED 06/01/20 10 9:07AM BY COOPER ALWS I, HISTORIC AL SUMMARY Hussein blandon, [facility] 6 17:26:15 Closed fracture of ulna 85763006 Completed 201101/21/2014 RECORDED 04/20/20 12 1:27PM BY ERICKA LEIGH MA, SHONDAATI ON/ADDEN DUM Hussein burgos null, [facility] 6 17:26:15 Gastriti s 8542708 Completed 201101/21/2014 RECORDED 04/20/20 12 1:27PM BY ERICKA LEIGH MA, DIEGO ON/ADDEN DUM Hussein burgos null, [facility] 6 17:26:14 Neck pain 07086549 Completed 201201/21/2014 RECORDED 05/04/20 13 1:57PM BY ERICKA LEIGH MA, ANNOTATI ON/ADDEN DUM Katelyn Reyes PA-C [address] [facility] [address], [place], [address] , [facility] 3 20:22:59 Screenin g for malignan t neoplasm of colon Completed 200801/21/2014 RECORDED 12/04/19 09 10:12AM BY CARLOS EDUARDO ALVARADO MA, DIEGO ON/ADDEN DUM Hussein blandon, [facility] 6 17:26:15 Administ ration of diphther ia and tetanus vaccine Completed 201201/21/2014 RECORDED 10/31/19 13 3:44PM BY ERICKA LEIGH MA, ANNOTATI ON/ADDEN DUM Hussein blandon, [facility] 6 17:26:15 Urinary tract infectio us disease 55054727 Completed 201101/21/2014 RECORDED 04/20/20 12 1:27PM BY ERICKA LEIGH MA, ANNOTATI ON/ADDEN DUM Hussein Ottoniel'Alessand ro null, [facility] 6 17:26:14 Viral disease 59484894 Completed 201101/21/2014 RECORDED 04/20/20 12 1:27PM BY ERICKA LEIGH MA, ANNOTATI ON/ADDEN DUM Hussein Ottoniel'Alessand ro null, [facility] 6 17:26:14 Vomiting 588637240 Completed 201101/21/2014 RECORDED 04/20/20 12 1:27PM BY ERICKA LEIGH MA, ANNOTATI ON/ADDEN DUM Hussein Ottoniel'Alessand ro null, [facility] 6 17:26:14 Persiste nt vomiting 114430331 Completed 201101/21/2014 RECORDED 04/20/20 12 1:27PM BY ERICKA LEIGH MA, ANNOTATI ON/ADDEN DUM Hussein Sandra'Alessand ro null, [facility] 6 17:26:14 Temporom andibula r joint disorder 92719048 Completed 05/30/2017 Rhonda Reyes PA-C [address] [address], [place], [address] , [facility] 7 16:58:26 Nail problem 399281998 Completed 01/31/2019 Rhonda Reyes PA-C [address] [address], [place], [address] , [facility] 9 16:06:03 Onychomy cosis 369136827 Completed 01/31/2019 Rhonda Reyes PA-C [address] [address], [place], [address] , [facility] 9 16:06:13 Low back pain 076941449 Active Not Available [facility] 4 09:41:04 Goiter 5760064 Active 2016 Not Available [facility] 4 09:41:04 Intermit tent asthma 753402343 Active 2016 Not Available [facility] 4 09:41:05 Mixed hyperlip idemia 326822017 Active 2017 Not Available [facility] 4 09:41:04 Elevated blood-pr essure reading without diagnosi s of hyperten drea 073139583 Active 2018 Not Available [facility] 4 09:41:04 Body mass index 30+ - obesity 125856339 Active 2018 Not Available [facility] 4 09:41:04 Mass of left breast 88055796267 772974 Active 2018 Not Available [facility] 4 09:41:04 Obesity 639410722 Active 2018 Not Available [facility] 4 09:41:05 Low back strain 531895036 Active 2020 Not Available [facility] 4 09:41:04 Skin lesion 35535442 Active 2021 Not Available [facility] 4 09:41:05 Bilatera l temporom andibula r joint pain 61286903476 153719 Active 2021 Not Available [facility] 4 09:41:04 Magnetic resonanc e imaging of brain abnormal 586914412 Active 2021 Not Available [facility] 4 09:41:05 Migraine 31253599 Active 2022 Not Available [facility] 4 09:41:05 Allergy to food 427592305 Active 2022 Not Available [facility] 4 09:41:05 Neck pain 29523801 Active 2022 RECORDED 05/04/20 13 1:57PM BY ERICKA LEIGH MA, ANNOTATI ON/RANDOLPH BEARD Not Available [facility] 4 09:41:05 Medial epicondy litis 59668515 Active 2022 Not Available [facility] 4 09:41:05 Carpal tunnel syndrome of right wrist 02695834857 9108 Active 2022 Not Available [facility] 4 09:41:04 Constipa tion 98122045 Active 2022 Not Available [facility] 4 09:41:04 Impaired fasting glycemia 165628150 Active 2022 Not Available [facility] 4 09:41:05 Pain of right shoulder joint 80111199364 165265 Active 2023 Ricky blandon, [facility] 4 16:52:18 Insomnia 253892398 Active 2023 Ricky blandon, [facility] 4 17:01:18 Prediabe zamzam 254760896 Active 2023 Katelyn Reyes PA-C [address], [place], [address] , [facility] 4 10:49:56 Fibromya lgia 786572119 Active 2023 Katelyn Reyes PA-C [address], [place], [address] , [facility] 4 10:45:05 Notes:Some problems listed i n Document: #[id number] could not be added to this patient's chart. Please review this document and add these problems to the patient's chart manually as needed. Problem Notes None recorded. Procedures Surgical History Date Name Laterality Status Provider Name and Address Organization Details Recorded Time 10/19/19 25 Most Recent Mammogram completed Kelsea Clements [facility] 10/24/2024 14:42:17 10/19/19 25 Mammogram screening completed Kelsea Clements [facility] 10/24/2024 14:42:06 06/03/20 22 Date of Last Pap Smear completed Randa Herrera [facility] 06/24/2022 09:26:57 09/12/19 21 colonoscopy completed Katelyn Reyes PA-C [address], [place], [address], [facility] 08/19/2021 15:14:36 09/03/19 17 Hysteroscopy completed Donna Bigby MA [facility] 10/04/2016 13:44:17 07/20/19 17 Mammogram one breast completed Carlos Eduardo petit MA [facility] 05/30/2017 16:20:13 06/22/19 17 needle aspiration of breast completed Carlos Eduardo petit MA [facility] 05/27/2020 10:23:48 06/09/20 16 Mammogram one breast completed Cally Griffin [facility] 06/10/2016 11:08:33 08/25/19 05 Caesarean Section completed Lashon Daughertyspenser DhillonhalleyGAYLE [facility] 08/19/2021 14:18:11 08/11/18 95 Caesarean Section completed Feli Dumont [facility] 05/06/2014 13:50:16 Imaging Results None recorded. Procedure Notes None recorded. Medical Equipment None Reported. Allergies Allergen ID Allergen Name Allergen Category Reaction Reaction Severity Criticality Documentation Date Start Date Code Code System Note Provider Name and Address Organization Details Recorded Time 92507 Grass Pollen environme nt,medica tion itching moderate Not available 05/20/2015 42916 [facility] 10:15:28 79879 house dust allergeni c extract environme nt,medica tion cough headache itching other severe moderate severe severe Not available 05/20/2015 72647 9 RxNorm Donna Chowdhury GAYLE jamia [facility] 5 10:15:28 58840 Tree Pollen medicatio n cough headache itching moderate moderate moderate Not available 05/20/2015 57352 ANA Chowdhury GAYLE jamia [facility] 5 10:15:28 78043 Animal Hair-Dand er medicatio n itching moderate Not available 05/20/2015 21388 ANA blandon [facility] 5 10:15:28 8274 codeine medicatio n itching Not available Not available 12/25/20132012 2670 RxNorm Carlos EduardoGAYLE Vega [facility] 7 16:07:35 8275 No known allergy (situatio n) Not available Not available Not available Not available 12/25/20132012 69009 6003 SNOMED COMME NT: RECOR DED 03/01 9:41A M BY RIGO MELISSA MA, OFFIC E VISIT ; Feli Dumont jamia [facility] 4 13:49:27 Medications Name Sig Start [...] e 137 mcg (0.1 %) nasal spray [place] 2 sprays every day by nasal route [...] e 50 mcg/actua tion nasal spray,stephie pension [place] 2 sprays every day by nasal route for 30 days. active PRN Not Available Not Available No t Available ipratropi um bromide 21 mcg (0.03 %) nasal spray [place] 2 sprays 3 times a day by [...] Not Available Not Available Not Available Fluvirin 0728-2926 (PF) 45 mcg (15 mcg x3)/0.5 mL intramusc ular syringe active Not Available Not Available Not Available Afluria 1197-7830 (PF) 45 mcg (15 mcg x 3)/0.5 mL intramusc ular syringe active Not Available Not Available Not Available Fluarix Quad 2643-2362 (PF) 60 mcg (15 mcg x 4)/0.5 mL IM syringe 05/28 completed Not Available Not Available Not Available Flucelvax Quad 5108-5566 (PF) 60 mcg (15 mcg x 4)/0.5 [...] Updated DateTime 4 149.86 cm 35.6 kg/m2 60585.9 6 g 84 /min 97 % 97 % 98.7 [degF] 159 mm[Hg] 84 mm[Hg] Victoria Obando LPN [facility] 4 16:06:15 Date Recorded Systolic blood pressure Diastolic blood pressure Provider Name and Address Organization Details Last Updated DateTime 12/05/2023 136 mm[Hg] 84 mm[Hg] Ricky Morrison [facility] 12/05/2023 17:00:01 Date Recorded Body height Body mass index (BMI) Body weight Heart rate Oxygen saturation Oxygen saturation in Arterial blood by Pulse oximetry Body temperature Systolic blood pressure Diastolic blood pressure Provider Name and Address Organization Details Last Updated DateTime 4 149.86 cm 34.9 kg/m2 93018.4 8 g 92 /min 98 % 98 % 98 [degF] 150 mm[Hg] 83 mm[Hg] Sara Ferrer [facility] 4 15:13:25 Date Recorded Body height Body mass index (BMI) Body weight Heart rate Oxygen saturation Oxygen saturation in Arterial blood by Pulse oximetry Body temperature Systolic blood pressure Diastolic blood pressure Provider Name and Address Organization Details Last Updated DateTime 4 149.86 cm 34.9 kg/m2 56124.4 8 g 66 /min 96 % 96 % 97.8 [degF] 138 mm[Hg] 82 mm[Hg] [facility] 4 10:15:08 Date Recorded Body height Provider Name an d Address Organization Details Last Updated DateTime 03/06/2024 149.86 cm Victoria Obando LPN [facility] 03/06/2024 14:27:22 Date Recorded Body height Body mass index (BMI) Body weight Oxygen saturation Oxygen saturation in Arterial blood by Pulse oximetry Heart rate Body temperature Systolic blood pressure Diastolic blood pressure Provider Name and Address Organization Details Last Updated DateTime 4 149.86 cm 32.2 kg/m2 85985.9 9 g 97 % 97 % 75 /min 97.5 [degF] 129 mm[Hg] 75 mm[Hg] Monika Haynes MA [facility] 4 10:25:40 Social History Question Answer Notes LastModified by Organizat ion Details LastModified Time Tobacco Smoking Status Never Smoker Feli blandon [facility] 05/06/2014 13:50:08 Do You Have An Advance Directive? No [email or web address] Information not available 03/30/2023 Animal Exposure? Yes Information not available 03/30/2023 Do You Wear A Helmet When Biking? Yes [email or web address] Information not available 03/30/2023 Is Blood Transfusion [...] not available 05/30/2017 Education 4 Year College [email or web address] Information not available 03/30/2023 Have There Been Any Changes To Your Family Or Social Situation? Yes Information not available 03/30/2023 Are There Any Guns Present In Your Home? No [email or web address] Information not available 03/30/2023 What Is Your Home Situation? Both Parents [email or web address] Information not available 03/30/2023 Legally Blind In One Or Both Eyes? No [email or web address] Information not available 03/30/2023 Live Alone Or With Others? With Others Boyfriend (Chuck)(Harlan wilks) And Stepson (Daniel) [email or web address] Information not available 03/30/2023 Do You Take [...] 08/06/2020 Have You Recently Traveled To A [place] [address] High Risk Area Or Gathering In The Last 10 Days? No Information not available 07/09/2020 Marital Status Informati on not available 03/30/2023 What Was The Date Of Your Most Recent Tobacco Screening? 12/05/2023 [email or web address] Information not available 12/05/2023 Total Number Of Stairs In Home 30 [email or web address] Information not available 03/30/2023 How Many Children Do You Have? 2 Son; Dontrell (lives W/ Biological Dad) And Dtr Redd Information not available 05/06/2014 Do You Use Protection During Sex? No Information not available 05/06/2014 Difficulty Reading? No [email or web address] Information not available 03/30/2023 What Is Your Relationship Status? Single [email or web address] Information not available 03/30/2023 Do You Use Your Seat Belt Or Car Seat Routinely? Yes Information not available 02/18/2021 Seat Belts Used Routinely Yes [email or web address] Information not available 03/30/2023 Are You Sexually Active? Yes Information not available 05/06/2014 Smoke Alarm In Home Yes [email or web address] Information not available 03/30/2023 Do You Have [...] Have Difficulty Walking Or Climbing Stairs? No [email or web address] Information not available 03/30/2023 Sex: Unknown Functional Status Question Answer Note LastModified by Organizat ion Details LastModified Time Do you use any illicit or recreational drugs? No [email or web address] Information not available 03/30/2023 What is your level of alcohol consumption? Occasional Information not available 05/06/2014 Do you or have you ever used smokeless tobacco? Never used [email or web address] tobacco Information not available 05/27/2020 Are you currently employed? Yes Information not available 02/18/2021 [address]y [address] at night? No [email or web address] Information not available 03/30/2023 Are you able to care for yourself? 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 No [email or web address] Information not available 03/30/2023 Do you or have you ever used e-cigarettes or vape? Never used electronic cigarettes [email or web address] Information not available 03/30/2023 What is your exercise level? Moderate 2-3 x week; exercise bike Information not available 09/14/2017 Mental Status Question Answer Note LastModified by Organization D etails LastModified Time Do you have difficulty concentrating, remembering or making decisions? No [email or web address] Information no t available 03/30/2023 Family History [...] virus, trivalent, PF 4 completed Not Available [facility] 07/11/2023 09:41:06 Influenza, split virus, trivalent, preservative 6 completed Not Available [facility] 07/11/2023 09:41:06 Influenza, split virus, trivalent, preservative 7 completed Not Available [facility] 07/11/2023 09:41:06 Influenza, split virus, trivalent, preservative 0 completed Not Available [facility] 07/11/2023 09:41:06 COVID-19, mRNA, LNP-S, PF, 100 mcg/0.5mL dose or 50 mcg/0.25mL dose 1 completed Not Available [facility] 07/11/2023 09:41:05 COVID-19, mRNA, LNP-S, PF, 100 mcg/0.5mL dose or 50 mcg/0.25mL dose 1 completed Not Available [facility] 07/11/2023 09:41:05 Influenza, MDCK, quadrivalent, PF 7 completed Not Available [facility] 07/11/2023 09:41:05 Influenza, split virus, quadrivalent, PF 0 completed Not Available [facility] 07/11/2023 09:41:06 Influenza, split virus, quadrivalent, PF 6 completed Not Available [facility] 07/11/2023 09:41:06 Influenza, MDCK, quadrivalent, PF 2 completed Not Available [facility] 07/11/2023 09:41:05 Influenza, split virus, quadrivalent, PF 8 completed Not Available [facility] 06/30/2019 02:22:15 Td (adult), 2 Lf tetanus toxoid, preservative free, adsorbed 2 completed Not Available [facility] 07/11/2023 09:41:06 Hep B, adult 3 completed Not Available [facility] 07/11/2023 09:41:06 MMR 3 completed Not Available [facility] 07/11/2023 09:41:05 Hep B, adult 3 completed Not Available [facility] 07/11/2023 09:41:06 Hep B, adult 11/28/200 3 completed Not Available [facility] 07/11/2023 09:41:06 Influenza, split virus, trivalent, preservative 0 completed Not Available [facility] 07/11/2023 09:41:06 Influenza, split virus, trivalent, preservative 1 completed Not Available [facility] 07/11/2023 09:41:06 Influenza, split virus, trivalent, preservative 2 completed Not Available [facility] 07/11/2023 09:41:06 Tdap 2 completed Not Available [facility] 07/11/2023 09:41:05 Influenza, split virus, trivalent, preservative 3 completed Not Available [facility] 07/11/2023 09:41:06 Past Encounters Encounter ID Performer Location Encounter Start Date Encounter Closed Date Diagnosis/Indication Diagnosis SNOMED-CT Code Diagnosis ICD10 Code Diagnosis Note [id number] YEYO Gaytan Main [address] [facility] [address] [place] [address] 12/27/2013 09:02:12 12/27/2013 09:40:51 Acute pharyngitis [id number] Rapid strep neg, c/w viral infx. Recommend supportive tx. [id number] [employer] [address] [place] [address] 10/29/2006 00:00:00 [id number] [employer] [address] [place] [address] 02/27/2007 00:00:00 [id number] [employer] [facility] [address] [place] [address],[address] [place] [address] 07/21/2006 00:00:00 [id number] [employer] [address] [place] [address] 07/12/2006 00:00:00 [id number] [employer] [facility] [address] [place] [address],[address] [place] [address] 03/22/2007 00:00:00 [id number] [employer] [address] [place] [address] 06/22/2007 00:00:00 [id number] [employer] erce [address] [place] [address] 11/20/2007 00:00:00 [id number] [employer] erce [address] [place] [address] 11/27/2007 00:00:00 [id number] [employer] erce [address] [place] [address] 09/23/2008 00:00:00 [id number] [employer] [facility]ce [address] [place] [address] 12/03/2008 00:00:00 [id number] [employer] erce [address] [place] [address] 04/11/2009 00:00:00 [id number] [employer] erce [address] [facility] [address] [place] [address] 04/14/2009 00:00:00 [id number] [employer] erce [address] [place] [address] 07/16/2009 00:00:00 [id number] [employer] erce [address] [place] [address] 02/09/2010 00:00:00 [id number] [employer] erce [address] [place] [address] 03/13/2010 00:00:00 [id number] [employer] erce [address] [place] [address] 05/19/2010 00:00:00 [id number] [employer] erce [address] [place] [address] 06/01/2010 00:00:00 [id number] [employer] erce [address] [place] [address] 08/17/2010 00:00:00 [id number] [employer] erce [address] [place] [address] 08/21/2010 00:00:00 [id number] [employer] erce [address] [facility] [address] [place] [address] 08/24/2010 00:00:00 [id number] [employer] erce [address] [facility],[address] [place] [address] 08/28/2010 00:00:00 [id number] [employer] erce [address] [facility],[address] [place] [address] 09/11/2010 00:00:00 [id number] [employer] erce [address] [facility],[address] [place] [address] 01/05/2011 00:00:00 [id number] [employer] erce [address] [facility],[address] [place] [address] 04/15/2011 00:00:00 [id number] [employer] erce [address] [facility],[address] [place] [address] 02/18/2012 00:00:00 [id number] [employer] erce [address] [facility],[address] [place] [address] 04/20/2012 00:00:00 [id number] [employer] erce [address] [facility],[address] [place] [address] 2 10/30/2012 00:00:00 [id number] [employer] erce [address] [facility],[address] [place] [address] 11/03/2012 00:00:00 [id number] [employer] erce [address] [facility],[address] [place] [address] 03/01/2013 00:00:00 [id number] [employer] erce [address] [facility],[address] [place] [address] 2 05/04/2013 00:00:00 [id number] Hussein burgos MD Main Office [address] [facility] [address] [place] [address] 05/06/2014 13:44:40 05/06/2014 14:34:13 Adult health examination [id number] Allergic rhinitis [id number] pt sees Schreibste in/ENT Gastroesop hageal reflux disease 739510975 Screening for malignant neoplasm of breast 077306332 Hyperlipidemia 03783035 [id number] Hussein burgos MD Main Office [address] [address] [place] [address] 07/19/2014 10:38:34 07/19/2014 11:40:59 Temporomandibular joint disorder 82591629 [id number] Keyshawn Merchant MD Main Office [address] [address] [place] [address] 07/23/2014 12:41:36 07/23/2014 13:22:01 Nail problem 151149174 Likely fungal but will culture for confirmati on. Pt advised and typical treatment course, possible side effects, and potential for recurrence if culture is positive. Will provide rx for 6-9 months if LFT's normal and culture confirms diagnosis. Otherwise may need to see derm or podiatry. [id number] Hussein burgos MD Main Office [address] [address] [place] [address] 05/20/2015 10:10:59 05/20/2015 11:04:55 Adult health examination 925876409 Z00.00 Hyperlipidemia 96259107 E78.5 pt has FH of DM and labs c/w that risk. Hi Triglyc and low HDL. we will monitor this. Temporoman dibular joint disorder 92335354 M26.60 [id number] Hussein burgos MD Main Office [address] [address] [place] [address] 11/04/2015 13:39:34 11/04/2015 15:07:46 Low back pain 095770620 M54.5 [id number] Hussein burgos MD Main Office [address] [address] [place] [address] 05/28/2016 15:00:36 05/28/2016 16:13:24 Adult health examination 774309090 Z00.00 Menorrhagia 870056643 N9 2.0 Mass of left breast 1224 083924 0373059 N63 Microscopic hematuria 19 4438296 R31.21 [id number] Rhonda Reyes PA-C Main Office [address] [address] [place] [address] 05/30/2017 15:45:25 05/30/2017 17:01:40 Adult health examination 993714132 Z00.00 up to date on vaccines. Hyperlipidemia 25939385 E78.00 Fatigue 05884899 R53.83 Goiter 4308773 E04.9 Body mass index 30+ - obesity 411299537 E66.01 Z68.32 Intermittent asthma 4276 06328 J45.20 stable on Montelucas t and occasional rescue inhaler use. Irritable bowel syndrome 51138949 K58.9 some constipati on. Pt. is Advised to use MiraLax powder daily and increase [id number] Rhonda Reyes PA-C Main Office [address] [address] [place] [address] 09/14/2017 15:19:44 09/14/2017 16:08:07 Mixed hyperlipidemia 694496672 E78.2 repeat fasting lipids. Start Mediterran cuong low fat diet and daily 30 minute exercise activity as discussed. Return in 4 months for f/u. Body mass index 30+ - obesity 262386937 E66.01 Z68.33 [id number] Rhonda Reyes PA-C Main Office [address] [address] [place] [address] 03/14/2018 08:42:51 03/14/2018 09:28:37 Needs influenza immunization 935200361 Z23 Mixed hyperlipidemia 267 059832 E78.2 Continue monitoring lipids. Start Mediterran cuong low fat diet and daily 30 minute exercise activity as discussed. Return in may 2018 for physical exam. Pts ASCVD score calculated 2.4%. Low risk and not a candidate for statin therapy at this time. Body mass index 30+ - obesity 597035765 E66.01 Z68.31 continue weight loss via exercise and low fat /calorie diet. [id number] Rogelio Otero MD Main Office [address] [address] [place] [address] 01/31/2019 15:13:51 01/31/2019 16:05:05 Adult health examination 368057249 Z00.00 up to date on vaccines. Neoplasm o f uncertain behavior of skin 64328589 D48.5 Mixed hyperlipidemia 267 112172 E78.2 Repeat fasting labs, discussed low fat diet and weight loss. Goiter 9263315 E04.9 repeat labs Mass of left breast 1224 142198 1604359 N63.20 Will set up an ultrasound Body mass index 30+ - obesity 375627550 Z68.31 continue weight loss via exercise and low fat /calorie diet. Elevated blood-pressure reading without diagnosis of hypertension 146158821 R03.0 Lower sodium and caffeine , test BP on outside few time in the next 2-3 weeks and call office if BP is over 140/90. Intermittent asthma 4276 56927 J45.20 stable on montelukas t and occasional rescue inhaler use. Obesity 925191804 E66.9 [id number] Rogelio Otero MD Main Office [address] [facility] [address] [place] [address] 06/25/2019 13:41:08 06/25/2019 14:41:41 Postviral cough 495619950 R05 Continue benzonatat e prn as prescribed . Encouraged OTC decongesta nts. Continue to hydrate, use humidifier , and saline nasal washes. [id number] [facility] [address] [facility] [address] [place] [address] 05/27/2020 07:11:33 05/27/2020 12:50:46 Counseling 310390509 Z71.9 Health advice, education or counseling done for COVID 19 has pending covid test from [facility] from yesterday, but had high risk exposure to covid + friend on Sat - will try to arrange above covid test for Th. Exposure t o viral disease 5914181771 06550 Z03.818 Cough 92682127 R05 chronic d/t pnd, but see above and below - cont mishel prn as well Intermittent asthma 4276 06388 J45.20 stable, cont inhalers as dir Allergic rhinitis 217841 04 J30.9 cont allergy shots as dir, f/u c ENT 06.25.20 [id number] Le franco MD [facility] [address] [facility] [address] [place] [address] 05/30/2020 11:17:21 05/30/2020 15:04:02 Allergic rhinitis 52017597 J30.9 add medrol as she is on maximal therapy of other meds, call if not improving, side effects reviewed. Let curtain cutter know we are adding prednisone and her other meds back so they can plan next immunother apy. OOW until 06/09 Posterior rhinorrhea 758 46571 R09.82 flonase, atrovent and singulair all being taken, will add oral steroid Cough 81322088 R05 pt using all allergy meds, will add medrol taper pack to see if this helps with sx. If not improving consider adding antibiotic next week [id number] Keyshawn Merchant MD Main Office [address] [place] [address] 07/09/2020 14:50:50 07/09/2020 16:01:06 Mass of left breast 0821212987 1770385 N63.20 [id number] Keyshawn Merchant MD Main Office [address] [place] [address] 08/06/2020 10:51:54 08/06/2020 12:18:10 Adult health examination 127100261 Z00.00 Anxiety state 313514757 F41.1 stable lately, cont yoga Mixed hyperlipidemia 267 444603 E78.2 trigs trending down - congrats - continue low carb diet /// LDL (bad chol) slightly elevated - rec less red meat Screening for malignant neoplasm of colon 362726333 Z12.11 Screening for malignant neoplasm of cervix 500975987 Z12.4 Varicella vaccination 68 686276 Z23 Skin lesion 26335993 L98 .9 Body mass index 30+ - obesity 588540799 E66.9 Mass of left breast 1224 238844 7265772 N63.20 seen by breast specialist - benign - had recent mammo/ u/s Impaired f asting glycemia 000843522 R73.01 Janiya - your sugar is ever so slightly raised - rec. decrease sugar intake (brownies ac blood test) - rest of your chemistrie s are fine - will check a1c at next lab test Intermittent asthma 4276 98010 J45.20 stable, cont inhalers as dir, cont allergy shots as per ENT [id number] eKyshawn Merchant MD Main Office [address] [facility] [address] [place] [address] 02/18/2021 13:52:39 02/18/2021 14:48:47 Increased frequency of urination 092804276 R35.0 Low back strain 57706474 1 S39.012A rec moist heat, hep, nsaids call if no better in 1 month, sooner if worse - then consider PT, PMR vs xray at that time [id number] Keyshawn Merchant MD Main Office [address] [address] [place] [address] 08/19/2021 14:12:03 08/19/2021 15:35:36 Adult health examination 264526858 Z00.00 Anxiety state 721681303 F41.1 stable lately, cont yoga, cont fu c therapist ~ wkly Mixed hyperlipidemia 267 880479 E78.2 trigs trending down - congrats - continue low carb diet /// LDL (bad chol) slightly elevated - rec less red meat Varicella vaccination 68 782542 Z23 Skin lesion 25080208 L98 .9 cont f/u c derm Body mass index 30+ - obesity 805017693 E66.9 Z68.31 Impaired f asting glycemia 896697201 R73.01 Janiya - your sugar is ever so slightly raised - rec. decrease sugar intake (brownies ac blood test) - rest of your chemistrie s are fine - will check a1c at next lab test Intermittent asthma 4276 55874 J45.20 stable, cont inhalers as dir, used to do allergy shots as per ENT Bilateral temporomandibular joint pain 7180804364 8825046 M26.623 cont mouth guard, med, f/u c dentist Hepatitis C screening 41 5448019 Z11.59 [id number] Keyshawn Merchant MD Main Office [address] [address] [place] [address] 10/26/2021 15:41:09 10/26/2021 16:30:43 Bilateral temporomandibular joint pain 7590366358 5444116 M26.623 cont mouth guard, med, f/u c max/fac surgeon - anticipate sx in near future Magnetic r esonance imaging of brain abnormal 632883799 R93.0 mri tmj at [facility] incidental ly found white matter lesions - will get brain mri & r/o lyme, and pt would like to see a neurologis t Skin lesion 20803012 L98 .9 cont f/u c derm - pending excision on her back later this wk [id number] Keyshawn Merchant MD Main Office [address] [facility] [address] [facility] [place] [address] 12/01/2022 14:29:24 12/01/2022 15:53:41 Adult health examination 162130507 Z00.00 Pap & mammo & colon utd Intermittent asthma 4276 47885 J45.20 stable, cont inhalers/m ed as dir, used to do allergy shots as per ENT Bilateral temporomandibular joint pain 2161705811 5442892 M26.623 cont mouth guard, med, f/u c max/fac surgeon - anticipate sx in near future 6. - cont f/u c chiropract or, did not have sx as above Magnetic r esonance imaging of brain abnormal 865260791 R93.0 mri tmj at [facility] incidental ly found white matter lesions - will get brain mri & r/o lyme, and pt would like to see a neurologis t 6. - seen by neuro - negative w/u = likely scar tissue Skin lesion 71557316 L98 .9 cont f/u c derm Allergy to food 01819011 1 T78.1XXA used to see curtain cutter - epipen rx Neck pain 71262120 M54.2 x few months - fol by chiropract or, no xray yet - is having weakness R hand - check xray, if nl then consider hand specialist (? cts) - if advanced ddd - then consider pmr Migraine 06125925 G43.90 9 stable, cont prn imitrex, cont f/u c neuro Gastroesop hageal reflux disease 303257596 K21.9 stable, cont ppi / f/u c gi, had egd Constipation 02531470 K5 9.00 better c mag - helps c migraine prevention too Impaired f asting glycemia 806683967 R73.01 Janiya - your sugar is ever so slightly raised - rec. decrease sugar intake (brownies) - rest of your chemistrie s are fine - will check a1c at next lab test Hyperlipidemia 59404797 E78.5 Body mass index 30+ - obesity 324527544 E66.9 Z68.32 cont plenty of walking/co nsider HIIT, consider myplate.go v, rec increase sleep to 7-8 hours/nigh t Fatigue 07396763 R53.83 [id number] Natasha Rios MD Main Office [address] [place] [address] 01/25/2023 15:36:37 01/25/2023 16:05:54 Medial epicondylitis 68752296 M77.01 Symptoms are chronic at this point and are not helped by taking oral NSAIDs. Begin taking meloxicam 15 mg daily. Schedule ross with orthopedic s for cortisone injection. Carpal nancy ernesto syndrome of right wrist 7764763347 15936 G56.01 recommend wrist splint and icing. 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 [id number] Keyshawn Merchant MD Main Office [address] [place] [address] 03/30/2023 15:11:21 03/30/2023 16:26:27 Neck pain 42475810 M54.2 x few months - fol by chiropract or, no xray yet - is having weakness R hand - check xray, if nl then consider hand specialist (? cts) - if advanced ddd - then consider pmr 10.23 - recent cervical XR was unremarkab le with no abnormal findings. cont. Meloxicam - consider adding prn moist heat Mixed hyperlipidemia 267 343518 E78.2 rec low carb diet to lower trigs, increase aerobic exercise to raise HDL (good chol), and decrease your red meat intake to lower your LDL (bad chol)cont fish oil, rec less bread/past a - recheck fasting lipids - if trigs still elevated, then rec change to krill oil Body mass index 30+ - obesity 754361912 E66.9 Z68.33 cont plenty of walking/co nsider HIIT, consider myplate.go v, rec increase sleep to 7-8 hours/nigh t 10.23 - Pt has tried a form of weight watchers diet in the past without success in weight reduction, not exercising much due to ongoing issues with neck and right upper extremity pain. Intermittent asthma 4276 22889 J45.20 stable, cont inhalers/m ed as dir, used to do allergy shots as per ENT Migraine 19312528 G43.90 9 stable, cont prn imitrex, cont f/u c neuro Constipation 45441099 K5 9.00 better c mag - helps c migraine prevention too Impaired f asting glycemia 593614383 R73.01 Janiya - your sugar is ever so slightly raised - rec. decrease sugar intake (brownies) - rest of your chemistrie s are fine - will check a1c at next lab test 10.23 - no evidence of predm c a1c 5.5 [id number] Keyshawn Merchant MD Main Office [address] [facility] [address] [place] [address] 12/05/2023 15:48:27 12/06/2023 08:50:12 Adult health examination 550170438 Z00.00 Pap & mammo & colon utd Allergy to food 84152060 1 T78.1XXA Stable, has epi pen Anxiety state 698824154 F41.1 MIGUEL ANGEL 20. 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 Gastroesop hageal reflux disease 570950724 K21.9 stable, cont ppi / f/u c gi, had egd Impaired f asting glycemia 830516208 R73.01 Janiya - your sugar is ever so slightly raised - rec. decrease sugar intake (brownies) - rest of your chemistrie s are fine - will check a1c at next lab test 10.23 - no evidence of predm c a1c 5.5 Intermittent asthma 4276 91104 J45.20 stable, cont inhalers/m ed as dir, used to do allergy shots as per ENT Migraine 75160548 G43.90 9 stable, cont prn imitrex, cont f/u c neuro Pain of ri ght shoulder joint 3865622280 3229992 M25.511 in middle of w/u c Dr. Glaser - reviewed recent consult notes - had samuel injxn, pending start PTwihonorio get her mri and labs from [place] to see if has underlying rheum etiologyco nt meloxicam as dir, but add trial gbn - see below Insomnia 677985275 G47.0 0 see above Constipation 10658145 K5 9.00 better c mag - helps c migraine prevention too 6.24 - stop mag, rather take colace qd-qod Hyperlipidemia 98961396 E78.5 [id number] Ananth Riley MD Main Office [address] [facility] [address] [place] [address] 12/19/2023 15:04:53 12/19/2023 15:50:54 Neuropathy 487132882 G62.9 -given hx, likely related to pt anxiety-dotson s hx of bilateral carpal tunnel syndrome; follows specialist -had 2 episode; pt notes both were related to anxiety attacks-dotson s not noticed any other triggers-w ears wrist braces at night for carpal tunnel-pt requests lab work, will r/o vitamin deficiency , rheumatoid process, etc Anxiety 28578784 F41.9 pt is interested in seeing a psychiatri st to further discuss behavioral or medication interventi ons [id number] Keyshawn Merchant MD Main Office [address] [facility] [address] [place] [address] 01/03/2024 10:00:33 01/03/2024 11:06:21 Neuropathy 588704647 G62.9 -given hx, likely related to pt anxiety-dotson s hx of bilateral carpal tunnel syndrome; follows specialist -had 2 episode; pt notes both were related to anxiety attacks-dotson s not noticed any other triggers-w ears wrist braces at night for carpal tunnel-pt requests lab work, will r/o vitamin deficiency , rheumatoid process, etc 01.03.24 - reviewed labs c pt - negative Anxiety 10702664 F41.9 pt is interested in seeing a psychiatri st to further discuss behavioral or medication interventi ons 7.23.24 - pending see psychiatri sttrial c duloxetine Pain of ri ght shoulder joint 1018944865 9685149 M25.511 in middle of w/u c Dr. Glaser - reviewed recent consult notes - had samuel injxn, pending start PTwill get her mri and labs from [place] to see if has underlying rheum etiologyco nt meloxicam as dir, but add trial gbn - see below 7.24 - cont f/u c ortho, had cervical mri - next ov in a few weeks Prediabetes 681474673 R7 3.03 Janiya - unfortunat ana you have evidence of pre-diabet es - rec. less sugar intake (candy, ice cream, soda/juice , etc), follow a low carb diet and get plenty of aerobic exercise to help you to lose weight. Pat less aleida chip muffins, soda, iced tea [id number] [facility]wn [facility] [address] [facility] [address] [place] [address] 03/06/2024 13:46:56 03/06/2024 15:46:59 Anxiety state 124407404 F41.1 MIGUEL ANGEL 20. 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 less sugar intake (candy, ice cream, soda/juice , etc), follow a low carb diet and get plenty of aerobic exercise to help you to lose weight. Pat less aleida chip muffins, soda, iced tea 9.24 - pending recheck a1c p 10.5 Neuropathy 421225781 G62 .9 -given hx, likely related to [...] syndrome - rec mri (done) and PT [id number] Keyshawn Merchant MD Main Office [address] [facility] [address] [facility] [place] [address] 06/04/2024 10:01:44 06/04/2024 11:08:55 Anxiety state 005785843 F41.1 MIGUEL ANGEL 20. 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 - miguel angel down to 11, pending see psych at [facility], doing better on dulox - cont as dir 12. - miguel angel/phq low/stable , see below - hopefully will trend better as dulox recently increased by rheum, pending see psych - encouraged her to call, try other group if do not hear from them Prediabetes 608263654 R7 3.03 Janiya - unfortunat ana you have evidence of pre-diabet es - rec. less sugar intake (candy, ice cream, soda/juice , etc), follow a low carb diet and get plenty of aerobic exercise to help you to lose weight. Pat less laeida chip muffins, soda, iced tea 06.05 - stable, recheck p 3 months - also rec low salt diet d/t slightly elevated sodium Fibromyalgia 510472653 M 79.7 new dx - seen by rheum recently - cont gbn, but increase duloxetine , next f/u 6 months Mixed hyperlipidemia 267 302191 E78.2 rec low carb diet to lower [...] ID Guarantor Name 12/05/2023 1 [place] [id number] Janiya Ordaz [id number] Janiya Merchantson 12/05/2023 1 [place] Janiya Ordaz [id number] Janiya Merchantson 12/19/2023 1 [place] [id number] Janiya Ordaz [id number] Janiya Merchantson 12/19/2023 1 [place] Janiya Ordaz [id number] Janiya Merchantson 01/03/2024 1 [place] [id number] Janiya Ordaz [id number] Janiya Merchantson 01/03/2024 1 [place] Janiya Ordaz [id number] Janiya Merchantson 03/06/2024 1 [place] Janiya Ordaz [id number] Janiya Merchantson 06/04/2024 1 [place] Janiya Ordaz [id number] Janiya Merchantson Notes Date Note Type Note Provider Name and Address Organization Details Recorded Time 12/05/2023 text/html 53 yo female presenting for annual physical exam. States has severe pain to her bilateral wrists and right shoulder for approximately 10 months. Has had several ED visits for this pain, Dr. Glaser (Hand Specialist), and an Orthopedic provider at [facility]. 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 Received steroid injections to left wrist and right shoulder without relief. Has been using Tylenol. Tetanus not UTD. Colonoscopy UTD. Pap UTD. Mammogram UTD. No acute complaints today. Appointment with Dr. Glaser in 6 weeks. Katelyn Reyes PA-C [address] [address], [place], [address], [facility] 12/05/2023 21:04:52 12/19/2023 text/html Janiya is a [...] night for relief. JESUS MANUEL BANG [address] [address], [place], [address], [facility] 12/20/2023 20:59:45 01/03/2024 text/html fol by ortho - r rubin last ov note 11.03, seen again in 12.04 but no ov note to reviewrev labs c pt - all negativeolder labs - dx'd c predm - admits to eating/baking muffins c dtr Katelyn Reyes PA-C [address] [address], [place], [phone], [facility] 01/03/2024 11:04:54 03/06/2024 text/html Anxiety/Depressi onR eported bypatient.Quality:s ymptoms improved; not crying as much as before Context:major life stressors;trouble at work Associated Symptoms:denies homicidal ideations Katelyn Reyes PA-C [address] [address], [place], [phone], [facility] 03/[facility] 15:20:52 06/04/2024 text/html Anxiety/Depressi onR eported bypatient.Quality:s ymptoms improved Severity:denies suicidal ideations Context:major life stressors;trouble at work Associated Symptoms:denies homicidal ideations Katelyn Reyes PA-C [address] [address], [place], [phone], [facility] 06/04/2024 13:01:40 OBGyn Episode No OBEpisode recorded.
== END 2024-11-20 13:55 | disposition home or self-care (01) ==
LOC: HO.RHE 12:43
PROVIDERS: PCP Physician Assistant Medical; Visit Provider Student in an Organized Health Care Education/Training Program
DX: M79.7 Fibromyalgia (principal)
CPT/HCPCS: 99214

== ENCOUNTER → 2024-11-20 12:43 | Outpatient (BNVA) | payer OTHER, SELFPAY | PROVIDERS: PCP Physician Assistant Medical; Visit Provider Student in an Organized Health Care Education/Training Program | DX: M79.7 Fibromyalgia (principal) | CPT/HCPCS: 99212 ==

== ENCOUNTER 2025-01-03 09:53 | Outpatient (REF) | payer OTHER, SELFPAY ==
--- NOTE | ~2025-01-03 | MM_ITS ---
EXAMINATION: DXA BONE DENSITY AXIAL HISTORY: M85.80 - Other specified disorders of bone density and structure, unspecified... TECHNIQUE: Healthy Humans Dual energy absorptiometry (DEXA) of the lumbar spine, total left hip, and femoral neck was performed. COMPARISON: There are no prior studies for comparison. FINDINGS: The bone mineral density of the lumbar spine is 0.961 g/cm2, corresponding to a T-score of -1.8, and a Z-score of -1.3. This is indicative of osteopenia. The bone mineral density of the left total hip is 0.842 g/cm2, corresponding to a T-score of -1.3, and a Z-score of -0.9. This is indicative of osteopenia. The bone mineral density of the left femoral neck is 0.762 g/cm2, corresponding to a T-score of -2.0, and a Z-score of -1.1. This is indicative of osteopenia. FRACTURE RISK: The FRAX index suggests a risk of major osteoporotic fracture of 7.1%, and of hip fracture 0.8%. MM/XR DEXA axial skeleton IMPRESSION: Based on bone mineral density, and according to World Health Organization (WHO) criteria, the diagnosis is consistent with osteopenia. Statistically, 68% of repeat scans fall within 1 SD (+/- 0.010 g/cm2 for AP spine L1-L4) and 1 SD (+/- 0.012 g/cm2 for femur total) FRAX is a trademark of the [employer]'s [place] for Metabolic Bone Disease, a World Health Organization (WHO) Collaborating Center. Electronically signed by: Tam Truong MD 01/03/2025 10:24 AM EDT
--- OUTSIDE RECORDS SUMMARY | 2025-01-03 10:37 | XMS_ITS | Data Portability ---
Author Organization [facility], Main Office Address [address] [facility] [address] [place] [id number] Care Team Providers Care Director Process Name Role Phone WILLEM BLOUNT Brine Process Operator JONATAN GONSALVES Cyber Systems Operations Specialist [phone] [facility] Phys. Med. [facility] Rehab MELY LAMBERT Geospatial Program Management Officer KATELYN REYES Primary Care Provider Assessment Encounter [...] telephone visit Patient was located in the [facility]. Provider was located in the office. [...] available Lab lipid panel, serum [id number] [email or web address] [facility] (Centralized Electronic Ordering - All Locations), Patient Can Go To The Location Of Their Choice, [address] 11/26/2024 11:13:29 HbA1c (hemog lobin A1c), blood 2023 025 [email or web address] [facility] (Centralized [facility] Ordering - All Locations), Patient Can Go To The Location Of Their Choice, [address] 11/26/2024 11:13:29 BMP, serum or plasma 2023 025 [email or web address] [facility] (Centralized Electronic Ordering - All Locations), Patient Can Go To The Location Of Their Choice, [address] 11/26/2024 11:13:29 HbA1c (hemog lobin A1c), blood 2023 024 [facility], [address], [place], [address], 05/19/2024 06:08:28 BMP, serum or plasma 2023 024 [facility], [address], [place], [address], 05/19/2024 06:08:27 SARA (antin uclear antibo dies) screen , ifa, serum 2023 024 [facility], [address], [place], [address], 12/22/2023 22:06:07 ESR (eryth rocyte sedime ntatio n rate), blood 2023 024 [facility], [address], [place], [address], 12/22/2023 22:06:06 C reacti ve protei n, QN, serum or plasma 2023 024 [facility], [address], [place], [address], 12/22/2023 22:06:07 vitami n B12, serum 2023 024 [facility], [address], [place], [address], 12/22/2023 22:06:06 methyl malona te, QN, serum or plasma 2023 024 [facility], [address], [place], [address], 12/22/2023 22:06:06 rf (rheum atoid factor ), serum 2023 024 [facility], [address], [place], [address], 12/22/2023 22:06:04 thiami ne, QN, blood 2023 024 [facility], [address], [place], [address], 12/22/2023 22:06:05 HbA1c (hemog lobin A1c), blood 2023 024 [facility], [address], [place] [address], [place], [address], 12/17/2023 08:07:27 lipid panel, serum 2023 024 REDD [facility], [address], [place] [address], [place], [address], 12/17/2023 08:07:27 CMP, serum or plasma 2023 024 [facility], [address], [address] [address], [place], [address], 12/17/2023 08:07:26 CBC w/ auto diff 2023 024 RED[facility], [address], [place] [address], [place], [address], 12/17/2023 08:07:25 Referral psychi atrist referr rachel nichole anxiet y -curre ntly not on any medica tion -pt intere sted in behavi oral interv ention and discus drea for medica tion 2023 024 [facility], [address], [place], [address], 06/18/2024 11:00:16 Procedures None record ed. Surgeries None record ed. Imaging None record ed. Medication Orders duloxe agata 30 mg capsul e,evelyn yed releas e 2023 024 [email or web address] [facility]/Pharmacy #[id number], [address] [place], [address], 06/04/2024 10:26:54 gabape ntin 100 mg capsul e 2023 024 [email or web address] [facility]/Pharmacy #[id number], [address] [facility], [place], [address], 06/04/2024 10:27:08 Patient Targets Encounter Date Encounter Id Patient Goals Patient Target Last Modified By Organization Details Last Modified Time 12/05/2023 [id number] senior living goal of Excess Body Weight Loss % 5 Not available Not available Not available 12/05/2023 [id number] Pt advised and agrees to work on [...] By Organization Details Last Modified Time 12/05/2023 [id number] learning about stress pmadden Not available 12/05/2023 [...] medication. jess Not available 12/05/2023 16:18:07 01/03/2024 [id number] prediabetes: car e instructions pmadden Not available [...] medication. pmadden Not available 01/03/2024 10:59:48 03/06/2024 [id number] Medications (OTC , herbal therapies, supplements) reviewed and reconciled with patient and or caregiver, including potential side effects, drug interactions, instructions, and the consequences of not taking medication. Reviewed potential barriers to medication adherence, such as side effects from medication or cost of medication. pmadden Not available 03/06/2024 15:11:08 06/04/2024 [id number] fibromyalgia: care instructions pmadden Not available 06/04/2024 [...] .8 above high normal Not Available [facility] ([facility]) [address] [facility], [place], [address], 12/17/2023 08:07:25 12/16/19 24 12/17/2023 CBC WITH DIFFE RENTI AL/PL ATELE T RBC 5.22 x10e6 /uL 3.77-5 .28 Not Available [facility] ([facility]) [address] [facility], [place], [address], 12/17/2023 08:07:25 12/16/19 24 12/17/2023 CBC WITH DIFFE RENTI AL/PL ATELE T hemoglobin 15.1 g/dL 11.1-1 5.9 Not Available [facility] ([facility]) [address] [place], [address], 12/17/2023 08:07:25 12/16/19 24 12/17/2023 CBC WITH DIFFE RENTI AL/PL ATELE T hematocrit 46.8 % 34.0-4 6.6 above high normal Not Available [facility] ([facility]) [address] [place], [address], 12/17/2023 08:07:25 12/16/19 24 12/17/2023 CBC WITH DIFFE RENTI AL/PL ATELE T MCV 90 fL 79-97 Not Available [facility] ([facility]) [address] [place], [address], 12/17/2023 08:07:25 12/16/19 24 12/17/2023 CBC WITH DIFFE RENTI AL/PL ATELE T MCH 28.9 pg 26.6-3 3.0 Not Available [facility] ([facility]) [address] [place], [address], 12/17/2023 08:07:25 12/16/19 24 12/17/2023 CBC WITH DIFFE RENTI AL/PL ATELE T MCHC 32.3 g/dL 31.5-3 5.7 Not Available [facility] ([facility]) [address] [facility], [place], [address], 12/17/2023 08:07:25 12/16/19 24 12/17/2023 CBC WITH DIFFE RENTI AL/PL ATELE T RDW 13.0 % 11.7-1 5.4 Not Available [facility] ([facility]) [address] [facility], [place], [address], 12/17/2023 08:07:25 12/16/19 24 12/17/2023 CBC WITH DIFFE RENTI AL/PL ATELE T platelets 510 x10e3 /uL 150-45 0 above high normal Not Available [facility] ([facility]) [address] [facility], [place], [address], 12/17/2023 08:07:25 12/16/19 24 12/17/2023 CBC WITH DIFFE RENTI AL/PL ATELE T neutrophils 67 % not estab. Not Available [facility] ([facility]) [address] [facility], [place], [address], 12/17/2023 08:07:25 12/16/19 24 12/17/2023 CBC WITH DIFFE RENTI AL/PL ATELE T lymphs 25 % not estab. Not Available [facility] ([facility]) [address] [facility], [place], [address], 12/17/2023 08:07:25 12/16/19 24 12/17/2023 CBC WITH DIFFE RENTI AL/PL ATELE T monocytes 6 % not estab. Not Available [facility] ([facility]) [address] [facility], [place], [address], 12/17/2023 08:07:25 12/16/19 24 12/17/2023 CBC WITH DIFFE RENTI AL/PL ATELE T eos 1 % not estab. Not Available [facility] ([facility]) [address] [facility], [place], [address], 12/17/2023 08:07:25 12/16/19 24 12/17/2023 CBC WITH DIFFE RENTI AL/PL ATELE T basos 1 % not estab. Not Available [facility] ([facility]) [address] [facility], [place], [address], 12/17/2023 08:07:25 12/16/19 24 12/17/2023 CBC WITH DIFFE RENTI AL/PL ATELE T immature cells TELEVISION PICTURE TUBE REBUILDER Not Available [facility] ([facility]) [address] [facility], [place], [address], 12/17/2023 08:07:25 12/16/19 24 12/17/2023 CBC WITH DIFFE RENTI AL/PL ATELE T neutrophils (absolute) 7.9 x10e3 /uL 1.4-7. 0 above high normal Not Available [facility] ([facility]) [address] [place], [address], 12/17/2023 08:07:25 12/16/19 24 12/17/2023 CBC WITH DIFFE RENTI AL/PL ATELE T lymphs (absolute) 2.9 x10e3 /uL 0.7-3. 1 Not Available [facility] ([facility]) [address] [place], [address], 12/17/2023 08:07:25 12/16/19 24 12/17/2023 CBC WITH DIFFE RENTI AL/PL ATELE T monocytes(ab solute) 0.7 x10e3 /uL 0.1-0. 9 Not Available [facility] ([facility]) [address] [place], [address], 12/17/2023 08:07:25 12/16/19 24 12/17/2023 CBC WITH DIFFE RENTI AL/PL ATELE T eos (absolute) 0.1 x10e3 /uL 0.0-0. 4 Not Available [facility] ([facility]) [address] [place], [address], 12/17/2023 08:07:25 12/16/19 24 12/17/2023 CBC WITH DIFFE RENTI AL/PL ATELE T baso (absolute) 0.1 x10e3 /uL 0.0-0. 2 Not Available [facility] ([facility]) [address] [facility], [place], [address], 12/17/2023 08:07:25 12/16/19 24 12/17/2023 CBC WITH DIFFE RENTI AL/PL ATELE T immature granulocytes 0 % not estab. Not Available [facility] ([facility]) [address] [facility], [place], [address], 12/17/2023 08:07:25 12/16/19 24 12/17/2023 CBC WITH DIFFE RENTI AL/PL ATELE T immature grans (abs) 0.0 x10e3 /uL 0.0-0. 1 Not Available [facility] ([facility]) [address] [place], [address], 12/17/2023 08:07:25 12/16/19 24 12/17/2023 CBC WITH DIFFE RENTI AL/PL ATELE T NRBC TELEVISION PICTURE TUBE REBUILDER Not Available [facility] ([facility]) [address] [place], [address], 12/17/2023 08:07:25 12/16/19 24 12/17/2023 CBC WITH DIFFE RENTI AL/PL ATELE T hematology comments: TELEVISION PICTURE TUBE REBUILDER Not Available [facility] ([facility]) [address] [place], [address], 12/17/2023 08:07:25 12/16/19 24 12/17/2023 COMP. METAB OLIC PANEL (14) glucose 89 mg/dL 70-99 Not Available [facility] ([facility]) [address], [place], [address], 12/17/2023 08:07:26 12/16/19 24 12/17/2023 COMP. METAB OLIC PANEL (14) BUN 17 mg/dL 6-24 Not Available [facility] ([facility]) [address] [place], [address], 12/17/2023 08:07:26 12/16/19 24 12/17/2023 COMP. METAB OLIC PANEL (14) creatinine 0.98 mg/dL 0.57-1 .00 Not Available [facility] ([facility]) [address] [place], [address], 12/17/2023 08:07:26 12/16/19 24 12/17/2023 COMP. METAB OLIC PANEL (14) eGFR 69 mL/mi n/1.7 3 >59 Not Available [facility] ([facility]) [address], [place], [address], 12/17/2023 08:07:26 12/16/19 24 12/17/2023 COMP. METAB OLIC PANEL (14) BUN/creatini ne ratio 17 9-23 Not Available [facility] [address] [facility] [place], [address], 12/17/2023 08:07:26 12/16/19 24 12/17/2023 COMP. METAB OLIC PANEL (14) sodium 143 mmol/ L 134-14 4 Not Available [facility] ([facility]) [address] [place], [address], 12/17/2023 08:07:26 12/16/19 24 12/17/2023 COMP. METAB OLIC PANEL (14) potassium 5.2 mmol/ L 3.5-5. 2 Not Available [facility] ([facility]) [address] [place], [address], 12/17/2023 08:07:26 12/16/19 24 12/17/2023 COMP. METAB OLIC PANEL (14) chloride 103 mmol/ L 96-106 Not Available [facility] ([facility]) [address] [place], [address], 12/17/2023 08:07:26 12/16/19 24 12/17/2023 COMP. METAB OLIC PANEL (14) carbon dioxide, total 20 mmol/ L 20-29 Not Available [facility] ([facility]) [address] [place], [address], 12/17/2023 08:07:26 12/16/19 24 12/17/2023 COMP. METAB OLIC PANEL (14) calcium 10.0 mg/dL 8.7-10 .2 Not Available [facility] ([facility] [address] [facility] [place], [address], 12/17/2023 08:07:26 12/16/19 24 12/17/2023 COMP. METAB OLIC PANEL (14) protein, total 7.4 g/dL 6.0-8. 5 Not Available [facility] ([facility]) [address] [facility] [place], [address], 12/17/2023 08:07:26 12/16/19 24 12/17/2023 COMP. METAB OLIC PANEL (14) albumin 4.5 g/dL 3.8-4. 9 Not Available [facility] ([facility] [address] [facility] [place], [address], 12/17/2023 08:07:26 12/16/19 24 12/17/2023 COMP. METAB OLIC PANEL (14) globulin, total 2.9 g/dL 1.5-4. 5 Not Available [facility] ([facility]) [address] [facility] [place], [address], 12/17/2023 08:07:26 12/16/19 24 12/17/2023 COMP. METAB OLIC PANEL (14) bilirubin, total 0.3 mg/dL 0.0-1. 2 Not Available [facility] ([facility]) [address] [place], [address], 12/17/2023 08:07:26 12/16/19 24 12/17/2023 COMP. METAB OLIC PANEL (14) alkaline phosphatase 101 IU/L 44-121 Not Available [facility]) [address] [facility] [place] [place], [address], 12/17/2023 08:07:26 12/16/19 24 12/17/2023 COMP. METAB OLIC PANEL (14) AST (SGOT) 18 IU/L 0-40 Not Available [facility] ([facility]) [address] [place], [address], 12/17/2023 08:07:26 12/16/19 24 12/17/2023 COMP. METAB OLIC PANEL (14) ALT (SGPT) 19 IU/L 0-32 Not Available [facility] ([facility]) [address] [place], [address], 12/17/2023 08:07:26 12/16/19 24 12/17/2023 LIPID PANEL cholesterol, total 258 mg/dL 100-19 9 above high normal Not Available [facility] ([facility]) [address] [place], [address], 12/17/2023 08:07:27 12/16/19 24 12/17/2023 LIPID PANEL triglyceride s 140 mg/dL 0-149 Not Available [facility] ([facility]) [address] [place], [address], 12/17/2023 08:07:27 12/16/19 24 12/17/2023 LIPID PANEL HDL cholesterol 47 mg/dL >39 Not Available [facility]) [address] [place], [address], 12/17/2023 08:07:27 12/16/19 24 12/17/2023 LIPID PANEL VLDL cholesterol phoebe 26 mg/dL 5-40 Not Available [facility] ([facility]) [address] [place], [address], 12/17/2023 08:07:27 12/16/19 24 12/17/2023 LIPID PANEL LDL chol calc ([facility]) 185 mg/dL 0-99 above high normal Not Available [facility] ([facility]) [address] [place], [address], 12/17/2023 08:07:27 12/16/19 24 12/17/2023 LIPID PANEL LDL calc comment: TELEVISION PICTURE TUBE REBUILDER Not Available [facility] ([facility]) [address] [place], [address], 12/17/2023 08:07:27 12/16/19 24 12/17/2023 HEMOG LOBIN A1C hemoglobin A1C 5.7 % 4.8-5. 6 above high normal Predi abete s: 5.7 - 6.4 Diabe zamzam: >6.4 Glyce elke contr ol for adult s with diabe zamzam: <7.0 Not Available [facility] ([facility]) [address] [place], [address], 12/17/2023 08:07:27 12/19/19 24 12/20/2023 RHEUM ATOID FACTO R (RF) rheumatoid factor (rf) <10.0 IU/mL <14.0 Not Available [facility]) [address] [place], [address], 12/22/2023 22:06:04 12/19/19 24 12/22/2023 VITAM IN B1 (THIA MINE) , BLOOD vit. B1, whole blood 164.0 nmol/ L 66.5-2 00.0 Not Available [facility] ([facility]) [address] [place], [address], 12/22/2023 22:06:05 12/19/19 24 12/22/2023 METHY LMALO CATA ACID, SERUM methylmaloni c acid, serum 147 nmol/ L 0-378 Not Available [facility] ([facility]) [address] [place], [address], 12/22/2023 22:06:05 12/19/19 24 12/20/2023 SEDIM ENTAT ION RATE- WESTE RGREN sedimentatio n rate-westerg aisha 16 mm/HR 0-40 Not Available [facility] ([facility]) [address] [place], [address], 12/22/2023 22:06:06 12/19/19 24 12/20/2023 VITAM IN B12 vitamin B12 475 pg/mL 232-12 45 Not Available [facility] ([facility]) [address] [place], [address], 12/22/2023 22:06:06 12/19/19 24 12/20/2023 C-CHAR CTIVE PROTE IN, QUANT C-reactive protein, quant 3 mg/L 0-10 Not Available [facility] ([facility]) [address] [place], [address], 12/22/2023 22:06:07 12/19/19 24 12/20/2023 SARA BY IFA RFX TITER /BETTY COCO SARA by ifa rfx titer/patter n NEGATI VE Negat berna <1:80 Borde rline 1:80 Posit berna >1:80 ICAP nomen zora re: AC-0 For more infor chris n about Hep-2 cell patte rns use ANApa ttern s.org , the offic ial lindsey te for the Inter natio nal Conse nsus on Antin uclea r Antib radha (SARA) Patte rns (ICAP ). Not Available [facility] ([facility]) [address] [place], [address], 12/22/2023 22:06:07 05/18/20 24 05/18/2024 BASIC METAB OLIC PANEL (8) sodium 145 mmol/ L 134-14 4 above high normal Not Available [facility] ([facility]) [address] [place], [address], 05/19/2024 06:08:27 05/18/20 24 05/18/2024 BASIC METAB OLIC PANEL (8) potassium 4.6 mmol/ L 3.5-5. 2 normal Not Available [facility] ([facility]) [address] [facility] [place], [address], 05/19/2024 06:08:27 05/18/20 24 05/19/2024 BASIC METAB OLIC PANEL (8) glucose 103 mg/dL 70-99 above high normal Not Available [facility] ([facility]) [address] [facility] [place] [place], [address], 05/19/2024 06:08:27 05/18/20 24 05/19/2024 BASIC METAB OLIC PANEL (8) BUN 10 mg/dL 6-24 normal Not Available [facility] ([facility]) [address] [facility] [place], [address], 05/19/2024 06:08:27 05/18/20 24 05/19/2024 BASIC METAB OLIC PANEL (8) creatinine 0.92 mg/dL 0.57-1 .00 normal Not Available [facility] ([facility]) [address] [facility] [place], [address], 05/19/2024 06:08:27 05/18/20 24 05/19/2024 BASIC METAB OLIC PANEL (8) eGFR 74 mL/mi n/1.7 3 >59 normal Not Available [facility] ([facility]) [address] [facility] [place], [address], 05/19/2024 06:08:27 05/18/20 24 05/19/2024 BASIC METAB OLIC PANEL (8) BUN/creatini ne ratio 11 9-23 normal Not Available [facility] ([facility]) [address] [place], [address], 05/19/2024 06:08:27 05/18/20 24 05/19/2024 BASIC METAB OLIC PANEL (8) chloride 102 mmol/ L 96-106 normal Not Available [facility] ([facility]) [address] [place], [address], 05/19/2024 06:08:27 05/18/20 24 05/19/2024 BASIC METAB OLIC PANEL (8) carbon dioxide, total 22 mmol/ L 20-29 normal Not Available [facility] ([facility]) [address] [place], [address], 05/19/2024 06:08:27 05/18/20 24 05/19/2024 BASIC METAB OLIC PANEL (8) calcium 9.9 mg/dL 8.7-10 .2 normal Not Available [facility] ([facility]) [address] [place], [address], 05/19/2024 06:08:27 05/18/20 24 05/18/2024 HEMOG LOBIN A1C hemoglobin A1C 5.7 % 4.8-5. 6 above high normal Predi abete s: 5.7 - 6.4 Diabe zamzam: >6.4 Glyce elke contr ol for adult s with diabe zamzam: <7.0 Not Available [facility] ([facility]) [address] [place], [address], 05/19/2024 06:08:28 02/15/20 24 02/09/2024 nerve condu ction study No observ ation record ed. [facility] [address] [facility], [place], [address], 03/06/2024 14:42:41 03/09/20 24 02/06/2024 elect romyo gram + nerve condu ction study No observ ation record ed. [facility] Scheduling [facility] [address] [facility], [place], [address], 06/04/2024 10:41:17 10/20/19 25 10/18/2024 MAMMO , [...] Lay letter mailed to rimma granados WSN: [id number] Orderi ng Physic natalie: Tonio Reyes Dictat ed By: Ezra Guzman MD Dictmiriam ed Date/T gabrielle: 1:34 pm Review ed By: Ezra Guzman MD Signed By: Ezra Guzman MD Signed Date/T gabrielle: 1:34 pm Transc ribed By: JODI Transc riptio n Date/T gabrielle: 1:33 pm Birads : Rimma granados Class: Outpat ient [email or web address] [facility] (Outpt Imaging) [address], [place], [address], 10/22/2024 13:46:11 10/20/19 25 10/18/2024 MAMMO , norae jaylene, digit al, bilat eral No observ ation record ed. [email or web address] [facility] [address] [place], [address], 10/24/2024 14:42:21 01/04/20 25 01/03/2025 imagi ng/di agnos tic resul t No observ ation record ed. [facility] [address] [place], [address], 01/03/2025 10:28:03 Result Notes Documentation Provider Name and Address Organization Details Recorded Time Mammo, Screening, Digital, Bilateral : PROCEDURE: MM Digital Mammo Screening INDICATION: Screening for breast cancer. No known palpable abnormalities. COMPARISON: Multiple prior studies dating back to 08/30/2021. TECHNIQUE: Full-field digital CC and MLO 3D tomosynthesis images of both breasts were acquired. Computer-aided detection (CAD) was utilized in the interpretation of this study. DENSITY: The breasts are heterogeneously dense, which may obscure small masses. FINDINGS: No suspicious masses, suspicious microcalcifications, or areas of architectural distortion are seen in either breast to suggest malignancy. IMPRESSION: No mammographic evidence of malignancy. RECOMMENDATION: Annual mammographic screening BI-RADS: 1 (Negative) Lay letter mailed to patient WSN: [id number] Ordering Physician: Katelyn Reyes Dictated By: Ezra Auguste MD Dictated Date/Time: 10/19/24 1:34 pm Reviewed By: Ezra Auguste MD Signed By: Ezra Auguste MD Signed Date/Time: 10/19/24 1:34 pm Transcribed By: JODI Retail Field Supervisor Date/Time: 10/19/24 1:33 pm Birads: Patient Class: Outpatient Kelsea blandon [place] [facility] 10/22/2024 13:46:11 Problems Name Problem SNOMED Code Status Onset Date Resolution Date Notes Provider Name and Address Organization Details Recorded Time Acute pharyngi tis [id number] Completed 05/30/2017 Rhonda Reyes PA-C [address] [facility] [address], [place], [address] , [facility] 16:57:48 Temporom andibula r joint disorder [id number] Completed 05/30/2017 Rhonda Reyes PA-C [address] [facility] [address], [place], [address] , [facility] 16:58:26 Nail problem [id number] Completed 01/31/2019 Rhonda Reyes PA-C [address] [facility] [address], [place], [address] , [facility] 16:06:03 Onychomy cosis [id number] Completed 01/31/2019 Rhonda Reyes PA-C [address] [facility] [address], [place], [address] , [facility] [place] 16:06:13 Low back pain [id number] Active Not Available [facility] 4 09:41:04 Screenin g for malignan t neoplasm of colon Completed 200801/01/2014 RECORDED 12/04/19 09 10:12AM BY CARLOS EDUARDO ALVARADO MA, ANNOTATI ON/ADDMARY blandon, [facility] 6 17:26:15 Screenin g for malignan t neoplasm of colon Completed 200801/21/2014 RECORDED 12/04/19 09 10:12AM BY CARLOS EDUARDO ALVARADO MA ANNOTKATERINA ON/ADDEN DUM Hussein blandon, [facility] 6 17:26:15 Influenz a vaccine needed [id number] 06 Completed 200901/01/2014 RECORDED 06/01/20 10 9:07AM BY COOPER LAWS I, HISTORIC AL SUMMARY Hussein blandon, [facility] 6 17:26:15 Influenz a vaccine needed [id number] 06 Completed 200901/21/2014 RECORDED 06/01/20 10 9:07AM BY COOPER LAWS I, HISTORIC AL SUMMARY Hussein burgos null, [facility] 6 17:26:15 Abdomina l pain [id number] Completed 201101/01/2014 RECORDED 04/20/20 12 1:28PM BY ERICKA LEIGH MA, ANNOTATI ON/ADDEN DUM Hussein Smith ro null, [facility] 6 17:26:14 Asthma 275458224 Completed 201101/01/2014 RECORDED 04/20/20 12 1:27PM BY ERICKA LEIGH MA, ANNOTATI ON/ADDEN DUM Rhonda Reyes PA-C [address] [address], [place], [address] [facility] 7 16:57:25 Acute upper respirat ory infectio n 01691207 Completed 201101/01/2014 RECORDED 04/20/20 12 1:27PM BY ERICKA LEIGH MA, ANNOTATI ON/ADDEN DUM Hussein burgos null, [facility] 6 17:26:14 Intrinsi c asthma [id number] Completed 201101/01/2014 RECORDED 04/20/20 12 1:27PM BY ERICKA LEIGH MA, ANNOTATI ON/ADDEN DUM Hussein burgos null, [facility] 6 17:26:14 Acute asthma [id number] Completed 201101/01/2014 RECORDED 04/20/20 12 1:27PM BY ERICKA LEIGH MA, ANNOTATI ON/ADDEN DUM Hussein burgos null, [facility] 6 17:26:14 Screenin g for malignan t neoplasm of cervix Completed 201101/01/2014 RECORDED 04/20/20 12 1:28PM BY ERICKA LEIGH MA, ANNOTATI ON/ADDEN DUM Donna Chowdhury MA null, [facility] 7 16:26:27 Chest pain [id number] Completed 201101/01/2014 RECORDED 04/20/20 12 1:27PM BY ERICKA LEIGH MA, ANNOTATI ON/ADDEN DUM Hussein D'Alessand ro null, [facility] 6 17:26:14 Disorder of nail [id number] Completed 201101/01/2014 RECORDED 04/20/20 12 1:27PM BY ERICKA LEIGH MA, ANNOTATI ON/ADDEN DUM Hussein D'Alessand ro null, [facility] 6 17:26:14 Disorder of skin [id number] Completed 201101/01/2014 RECORDED 04/20/20 12 1:27PM BY ERICKA LEIGH MA, ANNOTATI ON/ADDEN DUM Hussein D'Alessand ro null, [facility] 6 17:26:14 Dyspareu miya [id number] Completed 201101/01/2014 RECORDED 04/20/20 12 1:28PM BY ERICKA LEIGH MA, ANNOTATI ON/ADDEN DUM Hussein D'Alessand ro null, [facility] 6 17:26:14 Dysphagi a [id number] Completed 201101/01/2014 RECORDED 04/20/20 12 1:28PM BY ERICKA LEIGH MA, ANNOTATI ON/ADDEN DUM Hussein D'Alessand ro null, [facility] 6 17:26:14 Dysuria [id number] Completed 201101/01/2014 RECORDED 04/20/20 12 1:27PM BY ERICKA LEIGH MA, ANNOTATI ON/ADDEN DUM Hussein D'Alessand ro null, [facility] 6 17:26:14 Closed fracture of ulna 86182796 Completed 201101/01/2014 RECORDED 04/20/20 12 1:27PM BY ERICKA LEIGH MA, ANNOTATI ON/ADDEN DUM Hussein D'Alessand ro null, [facility] 6 17:26:15 Gastriti s [id number] Completed 201101/01/2014 RECORDED 04/20/20 12 1:27PM BY ERICKA LEIGH MA, ANNOTATI ON/ADDEN DUM Hussein D'Alessand ro null, [facility] 6 17:26:14 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 Active 2011 Not Available [facility] 4 09:41:04 Urinary tract infectio us disease 73210528 Completed 201101/01/2014 RECORDED 04/20/20 12 1:27PM BY ERICKA LEIGH MA, ANNOTATI ON/ADDEN DUM Hussein D'Alessand ro null, [facility] 6 17:26:14 Viral disease 84610434 Completed 201101/01/2014 RECORDED 04/20/20 12 1:27PM BY ERICKA LEIGH MA, ANNOTATI ON/ADDEN DUM Hussein D'Alessand ro null, [facility] 6 17:26:14 Vomiting [id number] Completed 201101/01/2014 RECORDED 04/20/20 12 1:27PM BY ERICKA LEIGH MA, ANNOTATI ON/ADDEN DUM Hussein D'Alessand ro null, [facility] 6 17:26:14 Persiste nt vomiting 378837200 Completed 201101/01/2014 RECORDED 04/20/20 12 1:27PM BY ERICKA LEIGH MA, ANNOTATI ON/ADDEN DUM Hussein D'Alessand ro null, [facility] 6 17:26:14 Abdomina l pain 88502635 Completed 201101/21/2014 RECORDED 04/20/20 12 1:28PM BY ERICKA LEIGH MA, ANNOTATI ON/ADDEN DUM Hussein D'Alessand ro null, [facility] 6 17:26:15 Asthma [id number] Completed 201101/21/2014 RECORDED 04/20/20 12 1:27PM BY ERICKA LEIGH MA, ANNOTATI ON/ADDEN DUM Rhonda Reyes PA-C [address] [facility] [address], [place], [address] , [facility] 7 16:57:25 Acute upper respirat ory infectio n 77271020 Completed 201101/21/2014 RECORDED 04/20/20 12 1:27PM BY ERICKA LEIGH MA, ANNOTATI ON/ADDEN DUM Hussein Sandra'Alekeyur ro null, [facility] 6 17:26:14 Intrinsi c asthma 074303099 Completed 201101/21/2014 RECORDED 04/20/20 12 1:27PM BY ERICKA LEIGH MA, ANNOTATI ON/ADDEN DUM Hussein Sandra'Alessand ro null, [facility] 6 17:26:14 Acute asthma 901843020 Completed 201101/21/2014 RECORDED 04/20/20 12 1:27PM BY ERICKA LEIGH MA, ANNOTATI ON/ADDEN DUM Hussein Sandra'Alekeyur burgos null, [facility] 6 17:26:14 Screenin g for malignan t neoplasm of cervix Completed 201101/21/2014 RECORDED 04/20/20 12 1:28PM BY ERICKA LEIGH MA, ANNOTATI ON/ADDEN DUM Donna Bigby GAYLE null, [facility] 7 16:26:27 Chest pain 00619933 Completed 201101/21/2014 RECORDED 04/20/20 12 1:27PM BY ERICKA LEIGH MA, ANNOTATI ON/ADDEN DUM Hussein Sandra'Alekeyur burgos null, [facility] 6 17:26:14 Disorder of nail 93413880 Completed 201101/21/2014 RECORDED 04/20/20 12 1:27PM BY ERICKA LEIGH MA, ANNOTATI ON/ADDEN DUM Hussein D'Alessand ro null, [facility] 6 17:26:14 Disorder of skin 39828199 Completed 201101/21/2014 RECORDED 04/20/20 12 1:27PM BY ERICKA LEIGH MA, ANNOTATI ON/ADDEN DUM Hussein D'Alessand ro null, [facility] 6 17:26:14 Dyspareu miya [id number] Completed 201101/21/2014 RECORDED 04/20/20 12 1:28PM BY ERICKA LEIGH MA, ANNOTATI ON/ADDEN DUM Hussein D'Alessand ro null, [facility] 6 17:26:14 Dysphagi a [id number] Completed 201101/21/2014 RECORDED 04/20/20 12 1:28PM BY ERICKA LEIGH MA, ANNOTATI ON/ADDEN DUM Hussein D'Alessand ro null, [facility] 6 17:26:14 Dysuria [id number] Completed 201101/21/2014 RECORDED 04/20/20 12 1:27PM BY ERICKA LEIGH MA, ANNOTATI ON/ADDEN DUM Hussein D'Alessand ro null, [facility] 6 17:26:14 Closed fracture of ulna 54046602 Completed 201101/21/2014 RECORDED 04/20/20 12 1:27PM BY ERICKA LEIGH MA, ANNOTATI ON/ADDEN DUM Hussein D'Alessand ro null, [facility] 6 17:26:15 Gastriti s [id number] Completed 201101/21/2014 RECORDED 04/20/20 12 1:27PM BY ERICKA LEIGH MA, ANNOTATI ON/ADDEN DUM Hussein D'Alessand ro null, [facility] 6 17:26:14 Urinary tract infectio us disease 38220297 Completed 201101/21/2014 RECORDED 04/20/20 12 1:27PM BY ERICKA LEIGH MA, ANNOTATI ON/ADDEN DUM Hussein D'Alessand ro null, [facility] 6 17:26:14 Viral disease 79448625 Completed 201101/21/2014 RECORDED 04/20/20 12 1:27PM BY ERICKA LEIGH MA, ANNOTATI ON/ADDEN DUM Hussein D'Alessand ro null, [facility] 6 17:26:14 Vomiting 528226895 Completed 201101/21/2014 RECORDED 04/20/20 12 1:27PM BY ERICKA LEIGH MA, ANNOTATI ON/ADDEN DUM Hussein D'Alessand ro null, [facility] 6 17:26:14 Persiste nt vomiting 250470334 Completed 201101/21/2014 RECORDED 04/20/20 12 1:27PM BY ERICKA LEIGH MA, ANNOTATI ON/ADDEN DUM Hussein D'Alessand ro null, [facility] 6 17:26:14 Patient status finding [id number] Completed 201201/01/2014 RECORDED 10/31/19 13 3:44PM BY ERICKA LEIGH MA, ANNOTATI ON/ADDEN DUM Donna Chowdhury MA null, [facility] 7 16:26:15 Adult health examinat ion Completed 201201/01/2014 RECORDED 10/31/19 13 3:44PM BY ERICKA LEIGH MA, SHONDAATI ON/ADDEN DUM Donna Chowdhury MA null, [facility] 7 16:26:47 Administ ration of diphther ia and tetanus vaccine Completed 201201/01/2014 RECORDED 10/31/19 13 3:44PM BY ERICKA LEIGH MA, ANNOTATI ON/ADDEN DUM Hussein D'Alessand ro null, [facility] 6 17:26:15 Patient status finding [id number] Completed 201201/21/2014 RECORDED 10/31/19 13 3:44PM BY ERICKA LEIGH MA, DIEGO ON/RANDOLPH Chowdhury MA null, [facility] 7 16:26:15 Administ ration of diphther ia and tetanus vaccine Completed 201201/21/2014 RECORDED 10/31/19 13 3:44PM BY ERICKA LEIGH MA, DIEGO ON/[facility] CHIRAG burgos null, [facility] 6 17:26:15 Sprain of costal cartilag e Completed 201201/01/2014 IMPRESSI ON: SHE WONT FILL PERCOCET UNTIL AFTER THE WEEKEND. LONG WEEKEND AHEAD. AIM FOR RETURN TO WORK WED. IF CANT RETURN MAKE F/U APPT/. TAKE BENADRYL PRN ITCHING WITH PERCOCET . CONTINUE MELOXICA M; RECORDED 03/01/20 13 9:41AM BY ERICKA LEIGH MA, DIEGO ON/[facility] Hussein burgos null, [facility] 6 17:26:15 Sprain of costal cartilag e Completed 201201/21/2014 IMPRESSI ON: SHE WONT FILL PERCOCET UNTIL AFTER THE WEEKEND. LONG DAY WEEKEND AHEAD. AIM FOR RETURN TO WORK WED. IF CANT RETURN MAKE F/U APPT/. TAKE BENADRYL PRN ITCHING WITH PERCOCET . CONTINUE MELOXICA M; RECORDED 03/01/20 13 9:41AM BY ERICKA LEIGH MA, DIEGO ON/[facility] Hussein burgos null, [facility] 6 17:26:15 Allergic rhinitis 19049021 Active 2012 Not Available [facility] 4 09:41:05 Anxiety state 976729310 Active 2012 Not Available [facility] 4 09:41:04 Asthma 553538501 Completed 201205/30/2017 Rhonda Reyes PA-C [address] [facility] [address], [place], [address] , [facility] 7 16:57:25 Gastroes ophageal reflux disease 188228955 Active 2012 Not Available [facility] 4 09:41:04 Adult health examinat ion Completed 201202/28/2017 RECORDED 05/04/20 13 1:58PM BY ERICKA LEIGH MA, OFFICE VISIT Donna blandon, [facility] 7 16:26:47 Genital herpes simplex 31382324 Active 2012 Not Available [facility] 4 09:41:04 Hyperlip idemia 28071972 Completed 201206/14/2017 Rhonda Reyes PA-C [address] [facility] [address], [place], [address] , [facility] 8 13:11:07 Irritabl e bowel syndrome 60453833 Active 2012 Not Available [facility] 4 09:41:04 Neck pain 34054176 Completed 201201/01/2014 RECORDED 05/04/20 13 1:57PM BY ERICKA LEIGH MA, ANNOTATI ON/RANDOLPH Reyes PA-C [address] [facility] [address], [place], [address] , [facility] 3 20:22:59 Patient status finding [id number] Completed 201202/28/2017 RECORDED 05/04/20 13 1:58PM BY ERICKA LEIGH MA, OFFICE VISIT Donna blandon, [facility] 7 16:26:15 Verruca vulgaris 84142691 Active 2012 Not Available [facility] 4 09:41:05 Abnormal weight loss 982439335 Completed 201205/30/2017 Rhonda Reyes PA-C [address], [place], [address] , [facility] 7 16:47:15 Neck pain 92656410 Completed 201201/21/2014 RECORDED 05/04/20 13 1:57PM BY ERICKA LEIGH MA, ANNOTATI ON/RANDOLPH Reyes PA-C [address] [facility] [address], [place], [address] , [facility] 3 20:22:59 Mammogra phy abnormal 939285206 Active 2012 Not Available [facility] 4 09:41:04 Screenin g for malignan t neoplasm of breast Completed 201301/01/2014 RECORDED 06/13/19 14 7:21PM BY RENEE Trujillo, HISTORIC AL SUMMARY Hussein blandon, [facility] 6 17:26:15 Screenin g for malignan t neoplasm of breast Completed 201301/21/2014 RECORDED 06/13/19 14 7:21PM BY RENEE Trujillo, HISTORIC AL SUMMARY Hussein blandon, [facility] 6 17:26:15 Screenin g for malignan t neoplasm of cervix Completed 201302/28/2017 RECORDED 07/27/19 14 1:57PM BY KYLE PRESSLEY, HISTORIC AL SUMMARY Donna blandon, [facility] 7 16:26:27 Goiter 4685446 Active 2016 Not Available [facility] 4 09:41:04 Intermit tent asthma 442746184 Active 2016 Not Available [facility] 4 09:41:05 Mixed hyperlip idemia 898527869 Active 2017 Not Available [facility] 4 09:41:04 Elevated blood-pr essure reading without diagnosi s of hyperten drea 778818674 Active 2018 Not Available [facility] 4 09:41:04 Body mass index 30+ - obesity 452059740 Active 2018 Not Available [facility] 4 09:41:04 Mass of left breast 33204125205 493674 Active 2018 Not Available [facility] 4 09:41:04 Obesity 046483374 Active 2018 Not Available [facility] 4 09:41:05 Low back strain 090682036 Active 2020 Not Available [facility] 4 09:41:04 Skin lesion 16717047 Active 2021 Not Available [facility] 4 09:41:05 Bilatera l temporom andibula r joint pain 53331608163 718245 Active 2021 Not Available [facility] 4 09:41:04 Magnetic resonanc e imaging of brain abnormal 093892126 Active 2021 Not Available [facility] 4 09:41:05 Migraine 27394183 Active 2022 Not Available [facility] 4 09:41:05 Allergy to food 563473856 Active 2022 Not Available [facility] 4 09:41:05 Neck pain 47885296 Active 2022 RECORDED 05/04/20 13 1:57PM BY ERICKA LEIGH MA, ANNOTATI ON/RANDOLPH BEARD Not Available [facility] 4 09:41:05 Medial epicondy litis 83377184 Active 2022 Not Available [facility] 4 09:41:05 Carpal tunnel syndrome of right wrist 00370252996 9108 Active 2022 Not Available [facility] 4 09:41:04 Constipa tion 09342438 Active 2022 Not Available [facility] 4 09:41:04 Impaired fasting glycemia 248254923 Active 2022 Not Available [facility] 4 09:41:05 Pain of right shoulder joint 29558020887 509962 Active 2023 Ricky blandon [place] - [facility] 4 16:52:18 Insomnia 448988152 Active 2023 Ricky blandon [facility] 4 17:01:18 Prediabe zamzam 059524183 Active 2023 Katelyn Reyes PA-C [address], [place], [address] , [facility] 4 10:49:56 Fibromya lgia 710491934 Active 2023 Katelyn Reyes PA-C [address], [place], [address] , [facility] 4 10:45:05 Notes:Some problems listed i n Document: #[id number] could not be added to this patient's chart. Please review this document and add these problems to the patient's chart manually as needed. Problem Notes None recorded. Procedures Surgical History Date Name Laterality Status Provider Name and Address Organization Details Recorded Time 10/19/19 25 Most Recent Mammogram completed Kelsea Clements [facility] 10/24/2024 14:42:17 10/19/19 25 Mammogram screening completed Kelsea Clements [facility] 10/24/2024 14:42:06 06/03/20 22 Date of Last Pap Smear completed Randa Herrera [facility] 06/24/2022 09:26:57 09/12/19 21 colonoscopy completed Katelyn Reyes PA-C [address] [facility] [address], [place], [address], [facility] 08/19/2021 15:14:36 09/03/19 17 Hysteroscopy completed Donna Chowdhury MA [facility] 10/04/2016 13:44:17 07/20/19 17 Mammogram one breast completed Carlos Eduardo petit MA [facility] 05/30/2017 16:20:13 06/22/19 17 needle aspiration of breast completed Carlos Eduardo petit MA [facility] 05/27/2020 10:23:48 06/09/20 16 Mammogram one breast completed Cally Griffin [facility] 06/10/2016 11:08:33 08/25/19 05 Caesarean Section completed Lashon Hartley MA [facility] 08/19/2021 14:18:11 08/11/18 95 Caesarean Section completed Feli Dumont [facility] 05/06/2014 13:50:16 Imaging Results None recorded. Procedure Notes None recorded. Medical Equipment None Reported. Allergies Allergen ID Allergen Name Allergen Category Reaction Reaction Severity Criticality Documentation Date Start Date Code Code System Note Provider Name and Address Organization Details Recorded Time 36203 Grass Pollen environme nt,medica tion itching moderate Not available 05/20/2015 20520 ANA Songspenser GAYLE jamia [facility] 5 10:15:28 15044 house dust allergeni c extract environme nt,medica tion cough headache itching other severe moderate severe severe Not available 05/20/2015 58905 9 RxNorm Donna Songspenser GAYLE jamia [facility] 5 10:15:28 41398 Tree Pollen medicatio n cough headache itching moderate moderate moderate Not available 05/20/2015 57681 ANA Songspenser GAYLE jamia [facility] 5 10:15:28 55041 Animal Hair-Dand er medicatio n itching moderate Not available 05/20/2015 59052 ANA Songspenser GAYLE jamia [facility] 5 10:15:28 8274 codeine medicatio n itching Not available Not available 12/25/20132012 2670 RxNorm Carlos Eduardo GAYLE Tapia [facility] 7 16:07:35 8275 No known allergy (situatio n) Not available Not available Not available Not available 12/25/20132012 33719 6003 SNOMED COMME NT: RECOR DED 03/01 9:41A M BY RIGO MELISSA MA, OFFIC E VISIT ; Feli Dumont jamia [facility] 4 13:49:27 Medications Name Sig [...] RECORDED 08/21/19 11 1:56PM BY ZOE ESTEVEZ, ANNOTKATERINA ON/RANDOLPH DUM; Not Available Not Available Not Available hydrocodo [...] mg capsule TAKE 1 CAPSULE BY MOUTH EVERYDAY AT BEDTIME active Not Available Not Available No t Available prednison e 5 mg tablet TAKE 3 TABS DAILY X7 DAYS THEN 2 TABS DAILY X7 DAYS THEN 1 TAB DAILY X7 DAYS THEN STOP DIRECTED active Not Available Not Available No [...] Not Available Not Available No t Available cephalexi n 500 mg tablet THREE TIMES DAILY, NEEDED 09/23 completed RECORDED 09/24/19 09 1:27PM BY GAYLE VU, OFFICE VISIT;IN FECTION ON FINGER Not Available Not Available Not Available monteluka st 10 mg tablet TAKE 1 TAB EVERY OTHER DAY BY ORAL ROUTE DIRECTED active Not Available Not Available No t Available hydroxyzi ne HCl 25 mg tablet TAKE 1 TABLET BY MOUTH TWICE A DAY NEEDED FOR ANXIETY AND SLEEP active Not Available Not Available No t [...] e 137 mcg (0.1 %) nasal spray [place] 2 sprays every day by nasal route [...] e 50 mcg/actua tion nasal spray,stephie pension [place] 2 sprays every day by nasal route for 30 days. active PRN Not Available Not Available No t Available sertralin e 50 mg tablet TAKE 1 TABLET BY MOUTH EVERY DAY active Not Available Not Available No t Available ipratropi um bromide 21 mcg (0.03 %) nasal spray [place] 2 sprays 3 times a day by [...] 10 10:36AM BY JESUS MANUEL TRIPATHI, ANNOTATI ON/RANDOLPH DUM; Not Available Not Available Not Available [...] Not Available Not Available Not Available Fluvirin 2637-6771 (PF) 45 mcg (15 mcg x3)/0.5 mL intramusc ular syringe active Not Available Not Available Not Available Afluria (PF) 45 mcg (15 mcg x 3)/0.5 mL intramusc ular syringe active Not Available Not Available Not Available Fluarix Quad 8106-6843 (PF) 60 mcg (15 mcg x 4)/0.5 mL IM syringe 05/28 completed Not Available Not Available Not Available Flucelvax Quad 9643-8623 (PF) 60 mcg (15 mcg x 4)/0.5 mL IM syringe 05/30 completed Not Available Not Available Not Available baclofen 5 mg tablet TAKE 1 TABLET BY MOUTH EVERYDAY AT BEDTIME active Not Available Not Available No t Available Afluria Qd (36 mos up)(PF)60 mcg (15 mcg x4)/0.5 mL IM syringe ADM 0.5ML IM UTD 05/27 completed Not Available Not Available Not Available Vitals Date Recorded Body height Body mass index (BMI) Body weight Heart rate Oxygen saturation Oxygen saturation in Arterial blood by Pulse oximetry Body temperature Systolic And Diastolic Provider Name and Address Organization Details Last Updated DateTime 4 149.86 cm 35.6 kg/m2 08751.9 6 g 84 /min 97 % 97 % 98.7 [degF] 159/84 mm[Hg] Victoria Obando LPN [facility] [place]e 16:06:15 Date Recorded Systolic And Diastolic Provider Name and Address Organization Details Last Updated DateTime 12/05/2023 136/84 mm[Hg] Ricky Morrison [facility] [place] 12/05/2023 17:00:01 Date Recorded Body height Body mass index (BMI) Body weight Heart rate Oxygen saturation Oxygen saturation in Arterial blood by Pulse oximetry Body temperature Systolic And Diastolic Provider Name and Address Organization Details Last Updated DateTime 4 149.86 cm 34.9 kg/m2 51772.4 8 g 92 /min 98 % 98 % 98 [degF] 150/83 mm[Hg] Sara Ferrer MA [facility] [place] 4 15:13:25 Date Recorded Body height Body mass index (BMI) Body weight Heart rate Oxygen saturation Oxygen saturation in Arterial blood by Pulse oximetry Body temperature Systolic And Diastolic Provider Name and Address Organization Details Last Updated DateTime 4 149.86 cm 34.9 kg/m2 42310.4 8 g 66 /min 96 % 96 % 97.8 [degF] 138/82 mm[Hg] Ac cordoba MA [facility] [place] 4 10:15:08 Date Recorded Body height Provider Name an d Address Organization Details Last Updated DateTime 03/06/2024 149.86 cm Victoria Obando LPN [facility] 03/06/2024 14:27:22 Date Recorded Body height Body mass index (BMI) Body weight Oxygen saturation Oxygen saturation in Arterial blood by Pulse oximetry Heart rate Body temperature Systolic And Diastolic Provider Name and Address Organization Details Last Updated DateTime 4 149.86 cm 32.2 kg/m2 48745.9 9 g 97 % 97 % 75 /min 97.5 [degF] 129/75 mm[Hg] Monika Haynes MA [facility] 4 10:25:40 Social History Question Answer Notes LastModified by Organizat ion Details LastModified Time Tobacco Smoking Status Never Smoker Feli blandon [facility] 05/06/2014 13:50:08 Do You Have An Advance Directive? No [email or web address] Information not available 03/30/2023 Animal Exposure? Yes [email or web address] Information not available 03/30/2023 Do You Wear A Helmet When Biking? Yes [email or web address] Information not available 03/30/2023 Is Blood Transfusion [...] not available 05/30/2017 Education 4 Year College [email or web address] Information not available 03/30/2023 Have There Been Any Changes To Your Family Or Social Situation? Yes [email or web address] Information not available 03/30/2023 Are There Any Guns Present In Your Home? No [email or web address] Information not available 03/30/2023 What Is Your Home Situation? Both Parents [email or web address] Information not available 03/30/2023 Legally Blind In One Or Both Eyes? No Information not available 03/30/2023 Live Alone Or With Others? With Others Boyfriend (Chuck)(Harlan wilks) And Stepson (Daniel) Information not available 03/30/2023 [...] 08/06/2020 Have You Recently Traveled To A [facility] Area Or Gathering In The Last 10 Days? No Information not available 07/09/2020 Marital Status [email or web address] Informati on not available 03/30/2023 What Was The Date Of Your Most Recent Tobacco Screening? 12/05/2023 [email or web address] Information not available 12/05/2023 Total Number Of Stairs In Home 30 [email or web address] Information not available 03/30/2023 How Many Children Do You Have? 2 Son; Dontrell (lives W/ Biological Dad) And Dtr Redd Information not available 05/06/2014 Do You Use Protection During Sex? No Information not available 05/06/2014 Difficulty Reading? No [email or web address] Information not available 03/30/2023 What Is Your Relationship Status? Single [email or web address] Information not available 03/30/2023 Do You Use Your Seat Belt Or Car Seat Routinely? Yes Information not available 02/18/2021 Seat Belts Used Routinely Yes [email or web address] Information not available 03/30/2023 Are You Sexually Active? Yes Information not available 05/06/2014 Smoke Alarm In Home Yes [email or web address] Information not available 03/30/2023 Do You Have [...] Have Difficulty Walking Or Climbing Stairs? No Information not available 03/30/2023 Sex: Unknown Functional Status Question Answer Note LastModified by Organizat ion Details LastModified Time Do you use any illicit or recreational drugs? No [email or web address] Information not available 03/30/2023 What is your level of alcohol consumption? Occasional Information not available 05/06/2014 Do you or have you ever used smokeless tobacco? Never used [email or web address] Information not available 05/27/2020 Are you currently employed? Yes Information not available 02/18/2021 Difficulty driving at night? No [email or web address] Information not available 03/30/2023 Are you able to care for yourself? Yes Information not available 05/06/2014 What is your occupation? [employer] Information not available 02/18/2021 Do you have difficulty dressing or bathing? No [email or web address] Information not available 03/30/2023 Do you or have you ever used e-cigarettes or vape? Never used electronic cigarettes [email or web address] Information not available 03/30/2023 What is your exercise level? Moderate 2-3 x week; exercise bike Information not available 09/14/2017 Mental Status Question Answer Note LastModified by Organization D etails LastModified Time Do you have difficulty concentrating, remembering or making decisions? No [email or web address] Information no t available 03/30/2023 Family History [...] virus, trivalent, PF 4 completed Not Available [facility] 07/11/2023 09:41:06 Influenza, split virus, trivalent, preservative 6 completed Not Available [facility] 07/11/2023 09:41:06 Influenza, split virus, trivalent, preservative 7 completed Not Available [facility] 07/11/2023 09:41:06 Influenza, split virus, trivalent, preservative 0 completed Not Available [facility] 07/11/2023 09:41:06 COVID-19, mRNA, LNP-S, PF, 100 mcg/0.5mL dose or 50 mcg/0.25mL dose 1 completed Not Available [facility] 07/11/2023 09:41:05 COVID-19, mRNA, LNP-S, PF, 100 mcg/0.5mL dose or 50 mcg/0.25mL dose 1 completed Not Available [facility] 07/11/2023 09:41:05 Influenza, MDCK, quadrivalent, PF 7 completed Not Available [facility] 07/11/2023 09:41:05 Influenza, split virus, quadrivalent, PF 0 completed Not Available [facility] 07/11/2023 09:41:06 Influenza, split virus, quadrivalent, PF 6 completed Not Available [facility] 07/11/2023 09:41:06 Influenza, MDCK, quadrivalent, PF 2 completed Not Available [facility] 07/11/2023 09:41:05 Influenza, split virus, quadrivalent, PF 8 completed Not Available [facility] 06/30/2019 02:22:15 Td (adult), 2 Lf tetanus toxoid, preservative free, adsorbed 2 completed Not Available [facility] 07/11/2023 09:41:06 Hep B, adult 3 completed Not Available [facility] 07/11/2023 09:41:06 MMR 3 completed Not Available [facility] 07/11/2023 09:41:05 Hep B, adult 3 completed Not Available [facility] 07/11/2023 09:41:06 Hep B, adult 3 completed Not Available [facility] 07/11/2023 09:41:06 Influenza, split virus, trivalent, preservative 0 completed Not Available [facility] 07/11/2023 09:41:06 Influenza, split virus, trivalent, preservative 1 completed Not Available [facility] 07/11/2023 09:41:06 Influenza, split virus, trivalent, preservative 2 completed Not Available [facility] 07/11/2023 09:41:06 Tdap 2 completed Not Available [facility] 07/11/2023 09:41:05 Influenza, split virus, trivalent, preservative 3 completed Not Available [facility] 07/11/2023 09:41:06 Past Encounters Encounter ID Performer Location Encounter Start Date Encounter Closed Date Diagnosis/Indication Diagnosis SNOMED-CT Code Diagnosis ICD10 Code Diagnosis Note [id number] YEYO Gaytan Main Office [address] [place] [address] 12/27/2013 09:02:12 12/27/2013 09:40:51 Acute pharyngitis [id number] Rapid strep neg, c/w viral infx. Recommend supportive tx. [id number] auto[facility] erce [address] [facility] [place] [address] 10/29/2006 00:00:00 [id number] [employer] erce [address] [facility],[address] [place] [address] 02/27/2007 00:00:00 [id number] auto[employer] erce [address] [facility],[address] [place] [address] 07/21/2006 00:00:00 [id number] [employer] erce [address] [facility],[address] [place] [address] 07/12/2006 00:00:00 [id number] [employer] [address] [facility],[address] [place] [address] 03/22/2007 00:00:00 [id number] [employer]ce [address] [facility],[address] [place] [address] 06/22/2007 00:00:00 [id number] [employer] erce [address] [facility],[address] [place] [address] 11/20/2007 00:00:00 [id number] [address] [facility]ce [address] [place] [address] 11/27/2007 00:00:00 [id number] [facility] [facility] [address] [place] [address] 09/23/2008 00:00:00 [id number] [facility] [facility] [address] [place] [address] 12/03/2008 00:00:00 [id number] [employer] [address] [place] [address] 04/11/2009 00:00:00 [id number] [facility] [address] [place] [address] 04/14/2009 00:00:00 [id number] [employer]ce [address] [place] [address] 07/16/2009 00:00:00 [id number] [facility] erce [address] [place] [address] 02/09/2010 00:00:00 [id number] [facility] [facility] [address] [place] [address] 03/13/2010 00:00:00 [id number] [facility] erce [address] [place] [address] 05/19/2010 00:00:00 [id number] [facility] [facility] [address] [place] [address] 06/01/2010 00:00:00 [id number] [facility] [facility]ce [address] [place] [address] 08/17/2010 00:00:00 [id number] [facility] erce [address] [place] [address] 08/21/2010 00:00:00 [id number] [facility] erce [address] [place] [address] 08/24/2010 00:00:00 [id number] [facility] erce [address] [place],[address] [place] [address] 08/28/2010 00:00:00 [id number] [facility] erce [address] [place] [address] 09/11/2010 00:00:00 [id number] auto[employer] erce [address] [facility],[address] [place] [address] 01/05/2011 00:00:00 [id number] auto[employer] erce [address] [facility],[address] [place] [address] 04/15/2011 00:00:00 [id number] auto[employer]Comm erce [address] [facility],[address] [place] [address] 02/18/2012 00:00:00 [id number] auto[facility]Comm erce [address] [facility],[address] [place] [address] 04/20/2012 00:00:00 [id number] [facility] erce [address] [facility],[address] [place] [address] 10/30/2012 00:00:00 [id number] [employer] erce [address] [facility],[address] [place] [address] 11/03/2012 00:00:00 [id number] auto[employer] erce [address] [facility],[address] [place] [address] 03/01/2013 00:00:00 [id number] auto[employer]Comm erce [address] [facility],[address] [place] [address] 05/04/2013 00:00:00 [id number] Hussein burgos MD Main Office [address] [place] [address] 05/06/2014 13:44:40 05/06/2014 14:34:13 Adult health examination [id number] Allergic rhinitis 76427259 pt sees Schreibste in/ENT Gastroesop hageal reflux disease 887297518 Screening for malignant neoplasm of breast [id number] [facility] [id number] Hussein burgos MD Main Office [address] [address] [place] [address] 07/19/2014 10:38:34 07/19/2014 11:40:59 Temporomandibular joint disorder 40997310 [id number] Keyshawn Merchant MD Main Office [address] [address] [place] [address] 07/23/2014 12:41:36 07/23/2014 13:22:01 Nail problem 154682071 Likely fungal but will culture for confirmati on. Pt advised and typical treatment course, possible side effects, and potential for recurrence if culture is positive. Will provide rx for 6-9 months if LFT's normal and culture confirms diagnosis. Otherwise may need to see derm or podiatry. [id number] Hussein burgos MD Main Office [address] [address] [place] [address] 05/20/2015 10:10:59 05/20/2015 11:04:55 Adult health examination 729532907 Z00.00 Hyperlipidemia 28185177 E78.5 pt has FH of DM and labs c/w that risk. Hi Triglyc and low HDL. we will monitor this. Temporoman dibular joint disorder 03621578 M26.60 [id number] Hussein burgos MD Main Office [address] [address] [place] [address] 11/04/2015 13:39:34 11/04/2015 15:07:46 Low back pain 868363137 M54.5 [id number] Hussein burgos MD Main Office [address] [address] [place] [address] 05/28/2016 15:00:36 05/28/2016 16:13:24 Adult health examination 131565922 Z00.00 Menorrhagia 377239774 N9 2.0 Mass of left breast 1224 773118 1884599 N63 Microscopic hematuria 19 6208717 R31.21 [id number] Rhonda Reyes PA-C Main Office [address] [address] [place] [address] 05/30/2017 15:45:25 05/30/2017 17:01:40 Adult health examination 095513357 Z00.00 up to date on vaccines. Hyperlipidemia 18254296 E78.00 Fatigue 85662041 R53.83 Goiter 0990319 E04.9 Body mass index 30+ - obesity 121935786 E66.01 Z68.32 Intermittent asthma 4276 36948 J45.20 stable on Montelucas t and occasional rescue inhaler use. Irritable bowel syndrome 52383598 K58.9 some constipati on. Pt. is Advised to use MiraLax powder daily and increase [id number] Rhonda Reyes PA-C Main Office [address] [address] 09/14/2017 15:19:44 09/14/2017 16:08:07 Mixed hyperlipidemia 090982378 E78.2 repeat fasting lipids. Start Mediterran cuong low fat diet and daily 30 minute exercise activity as discussed. Return in 4 months for f/u. Body mass index 30+ - obesity 831423270 E66.01 Z68.33 [id number] Rhonda Reyes PA-C Main Office [address] [address] 03/14/2018 08:42:51 03/14/2018 09:28:37 Needs influenza immunization 363350047 Z23 Mixed hyperlipidemia 267 961873 E78.2 Continue monitoring lipids. Start Mediterran cuong low fat diet and daily 30 minute exercise activity as discussed. Return in may 2018 for physical exam. Pts ASCVD score calculated 2.4%. Low risk and not a candidate for statin therapy at this time. Body mass index 30+ - obesity 978497388 E66.01 Z68.31 continue weight loss via exercise and low fat /calorie diet. [id number] Rogelio Otero MD Main Office [address] [address] 01/31/2019 15:13:51 01/31/2019 16:05:05 Adult health examination 685886114 Z00.00 up to date on vaccines. Neoplasm o f uncertain behavior of skin 35966664 D48.5 Mixed hyperlipidemia 267 941572 E78.2 Repeat fasting labs, discussed low fat diet and weight loss. Goiter 2258909 E04.9 repeat labs Mass of left breast 1224 907794 0492936 N63.20 Will set up an ultrasound Body mass index 30+ - obesity 785048082 Z68.31 continue weight loss via exercise and low fat /calorie diet. Elevated blood-pressure reading without diagnosis of hypertension 098402106 R03.0 Lower sodium and caffeine , test BP on outside few time in the next 2-3 weeks and call office if BP is over 140/90. Intermittent asthma 4276 68086 J45.20 stable on montelukas t and occasional rescue inhaler use. Obesity 182089096 E66.9 [id number] Rogelio Otero MD Main Office [address] [place] [address] 06/25/2019 13:41:08 06/25/2019 14:41:41 Postviral cough 156372332 R05 Continue benzonatat e prn as prescribed . Encouraged OTC decongesta nts. Continue to hydrate, use humidifier , and saline nasal washes. [id number] Keyshawn Merchant MD [facility] [address] [address] 05/27/2020 07:11:33 05/27/2020 12:50:46 Counseling 976367246 Z71.9 Health advice, education or counseling done for COVID 19 has pending covid test from [facility] from yesterday, but had high risk exposure to covid + friend on Sat - will try to arrange above covid test for Th. Exposure t o viral disease 2088072271 32755 Z03.818 Cough 54835988 R05 chronic d/t pnd, but see above and below - cont mishel prn as well Intermittent asthma 4276 31854 J45.20 stable, cont inhalers as dir Allergic rhinitis 415481 04 J30.9 cont allergy shots as dir, f/u c ENT 06.25.20 [id number] Le franco MD [facility] [address] [place] [address] 05/30/2020 11:17:21 05/30/2020 15:04:02 Allergic rhinitis 90518506 J30.9 add medrol as she is on maximal therapy of other meds, call if not improving, side effects reviewed. Let warrant server know we are adding prednisone and her other meds back so they can plan next immunother apy. OOW until 06/09 Posterior rhinorrhea 758 16606 R09.82 flonase, atrovent and singulair all being taken, will add oral steroid Cough 07551566 R05 pt using all allergy meds, will add medrol taper pack to see if this helps with sx. If not improving consider adding antibiotic next week [id number] Keyshawn Merchant MD Main Office [address] [address] [place] [address] 07/09/2020 14:50:50 07/09/2020 16:01:06 Mass of left breast 6498817011 0210334 N63.20 [id number] Keyshawn Merchant MD Main Office [address] [address] [place] [address] 08/06/2020 10:51:54 08/06/2020 12:18:10 Adult health examination 484183492 Z00.00 Anxiety state 184807022 F41.1 stable lately, cont yoga Mixed hyperlipidemia 267 421230 E78.2 trigs trending down - congrats - continue low carb diet /// LDL (bad chol) slightly elevated - rec less red meat Screening for malignant neoplasm of colon 162687499 Z12.11 Screening for malignant neoplasm of cervix 021450669 Z12.4 Varicella vaccination 68 133660 Z23 Skin lesion 98814686 L98 .9 Body mass index 30+ - obesity 793426644 E66.9 Mass of left breast 1224 256266 7340906 N63.20 seen by breast specialist - benign - had recent mammo/ u/s Impaired f asting glycemia 471146572 R73.01 Janiya - your sugar is ever so slightly raised - rec. decrease sugar intake (brownies ac blood test) - rest of your chemistrie s are fine - will check a1c at next lab test Intermittent asthma 4276 40157 J45.20 stable, cont inhalers as dir, cont allergy shots as per ENT [id number] Keyshawn Merchant MD Main Office [address] [facility] [address] [place] [address] 02/18/2021 13:52:39 02/18/2021 14:48:47 Increased frequency of urination 776019722 R35.0 Low back strain 59992465 1 S39.012A rec moist heat, hep, nsaids call if no better in 1 month, sooner if worse - then consider PT, PMR vs xray at that time [id number] Keyshawn Merchant MD Main Office [address] [facility] [address] [place] [address] 08/19/2021 14:12:03 08/19/2021 15:35:36 Adult health examination 057461100 Z00.00 Anxiety state 306509942 F41.1 stable lately, cont yoga, cont fu c therapist ~ wkly Mixed hyperlipidemia 267 865049 E78.2 trigs trending down - congrats - continue low carb diet /// LDL (bad chol) slightly elevated - rec less red meat Varicella vaccination 68 316145 Z23 Skin lesion 94907592 L98 .9 cont f/u c derm Body mass index 30+ - obesity 649352813 E66.9 Z68.31 Impaired f asting glycemia 156563509 R73.01 Janiya - your sugar is ever so slightly raised - rec. decrease sugar intake (brownies ac blood test) - rest of your chemistrie s are fine - will check a1c at next lab test Intermittent asthma 4276 36939 J45.20 stable, cont inhalers as dir, used to do allergy shots as per ENT Bilateral temporomandibular joint pain 3624848875 4135495 M26.623 cont mouth guard, med, f/u c dentist Hepatitis C screening 41 0566984 Z11.59 [id number] Keyshawn Merchant MD Main Office [address] [address] [place] [address] 10/26/2021 15:41:09 10/26/2021 16:30:43 Bilateral temporomandibular joint pain 9498208579 2428588 M26.623 cont mouth guard, med, f/u c max/fac surgeon - anticipate sx in near future Magnetic r esonance imaging of brain abnormal 571169130 R93.[address] [facility] incidental ly found white matter lesions - will get brain mri & r/o lyme, and pt would like to see a neurologis t Skin lesion 21925303 L98 .9 cont f/u c derm - pending excision on her back later this wk [id number] Keyshawn Merchant MD Main Office [address] [facility] [address] [facility] [place] [address] 12/01/2022 14:29:24 12/01/2022 15:53:41 Adult health examination 585708451 Z00.00 Pap & mammo & colon utd Intermittent asthma 4276 39634 J45.20 stable, cont inhalers/m ed as dir, used to do allergy shots as per ENT Bilateral temporomandibular joint pain 1065735066 0640145 M26.623 cont mouth guard, med, f/u c max/fac surgeon - anticipate sx in near future 12.03 - cont f/u c chiropract or, did not have sx as above Magnetic r esonance imaging of brain abnormal 203655805 R93.[address] [facility] incidental ly found white matter lesions - will get brain mri & r/o lyme, and pt would like to see a neurologis t 12.03 - seen by neuro - negative w/u = likely scar tissue Skin lesion 42616945 L98 .9 cont f/u c derm Allergy to food 90729995 1 T78.1XXA used to see warrant server - epipen rx Neck pain 24186165 M54.2 x few months - fol by chiropract or, no xray yet - is having weakness R hand - check xray, if nl then consider hand specialist (? cts) - if advanced ddd - then consider pmr Migraine 54433770 G43.90 9 stable, cont prn imitrex, cont f/u c neuro Gastroesop hageal reflux disease 803591064 K21.9 stable, cont ppi / f/u c gi, had egd Constipation 53125547 K5 9.00 better c mag - helps c migraine prevention too Impaired f asting glycemia 185994852 R73.01 Janiya - your sugar is ever so slightly raised - rec. decrease sugar intake (brownies) - rest of your chemistrie s are fine - will check a1c at next lab test Hyperlipidemia 26873072 E78.5 Body mass index 30+ - obesity 877419407 E66.9 Z68.32 cont plenty of walking/co nsider HIIT, consider myplate.go v, rec increase sleep to 7-8 hours/nigh t Fatigue 26726137 R53.83 [id number] Natasha Rios MD Main Office [address] [facility] [address] [place] [address] 01/25/2023 15:36:37 01/25/2023 16:05:54 Medial epicondylitis 15675563 M77.01 Symptoms are chronic at this point and are not helped by taking oral NSAIDs. Begin taking meloxicam 15 mg daily. Schedule ross with orthopedic s for cortisone injection. Carpal nancy ernesto syndrome of right wrist 8913546333 67503 G56.01 recommend wrist splint and icing. 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 [id number] Keyshawn Merchant MD Main Office [address] [facility] [address] [place] [address] 03/30/2023 15:11:21 03/30/2023 16:26:27 Neck pain 82250229 M54.2 x few months - fol by chiropract or, no xray yet - is having weakness R hand - check xray, if nl then consider hand specialist (? cts) - if advanced ddd - then consider pmr 10.23 - recent cervical XR was unremarkab le with no abnormal findings. cont. Meloxicam - consider adding prn moist heat Mixed hyperlipidemia 267 620340 E78.2 rec low carb diet to lower trigs, increase aerobic exercise to raise HDL (good chol), and decrease your red meat intake to lower your LDL (bad chol)cont fish oil, rec less bread/past a - recheck fasting lipids - if trigs still elevated, then rec change to krill oil Body mass index 30+ - obesity 612921430 E66.9 Z68.33 cont plenty of walking/co nsider HIIT, consider myplate.go v, rec increase sleep to 7-8 hours/nigh t 10.23 - Pt has tried a form of weight watchers diet in the past without success in weight reduction, not exercising much due to ongoing issues with neck and right upper extremity pain. Intermittent asthma 4276 18509 J45.20 stable, cont inhalers/m ed as dir, used to do allergy shots as per ENT Migraine 24079159 G43.90 9 stable, cont prn imitrex, cont f/u c neuro Constipation 11344295 K5 9.00 better c mag - helps c migraine prevention too Impaired f asting glycemia 098268249 R73.01 Janiya - your sugar is ever so slightly raised - rec. decrease sugar intake (brownies) - rest of your chemistrie s are fine - will check a1c at next lab test 10.23 - no evidence of predm c a1c 5.5 [id number] Keyshawn Merchant MD Main Office [address] [facility] [address] [facility] [place] [address] 12/05/2023 15:48:27 12/06/2023 08:50:12 Adult health examination 114618658 Z00.00 Pap & mammo & colon utd Allergy to food 14102990 1 T78.1XXA Stable, has epi pen Anxiety state 159808996 F41.1 MIGUEL ANGEL 20. 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 Gastroesop hageal reflux disease 529143706 K21.9 stable, cont ppi / f/u c gi, had egd Impaired f asting glycemia 370059203 R73.01 Janiya - your sugar is ever so slightly raised - rec. decrease sugar intake (brownies) - rest of your chemistrie s are fine - will check a1c at next lab test 10.23 - no evidence of predm c a1c 5.5 Intermittent asthma 4276 19045 J45.20 stable, cont inhalers/m ed as dir, used to do allergy shots as per ENT Migraine 86455375 G43.90 9 stable, cont prn imitrex, cont f/u c neuro Pain of ri ght shoulder joint 5262910736 9211388 M25.511 in middle of w/u c Dr. Glaser - reviewed recent consult notes - had samuel injxn, pending start PTapryl get her mri and labs from [facility] to see if has underlying rheum etiologyco nt meloxicam as dir, but add trial gbn - see below Insomnia 411570039 G47.0 0 see above Constipation 09712879 K5 9.00 better c mag - helps c migraine prevention too 6.24 - stop mag, rather take colace qd-qod Hyperlipidemia 95518788 E78.5 [id number] Ananth Riley MD Main Office [address] [facility] [address] [facility] [place] [address] 12/19/2023 15:04:53 12/19/2023 15:50:54 Neuropathy 608449511 G62.9 -given hx, likely related to pt anxiety-dotson s hx of bilateral carpal tunnel syndrome; follows specialist -had 2 episode; pt notes both were related to anxiety attacks-dotson s not noticed any other triggers-w ears wrist braces at night for carpal tunnel-pt requests lab work, will r/o vitamin deficiency , rheumatoid process, etc Anxiety 77756303 F41.9 pt is interested in seeing a psychiatri st to further discuss behavioral or medication interventi ons [id number] Keyshawn Merchant MD Main Office [address] [facility] [address] [place] [address] 01/03/2024 10:00:33 01/03/2024 11:06:21 Neuropathy 228073854 G62.9 -given hx, likely related to pt anxiety-dotson s hx of bilateral carpal tunnel syndrome; follows specialist -had 2 episode; pt notes both were related to anxiety attacks-dotson s not noticed any other triggers-w ears wrist braces at night for carpal tunnel-pt requests lab work, will r/o vitamin deficiency , rheumatoid process, etc 01.03.24 - reviewed labs c pt - negative Anxiety 84739970 F41.9 pt is interested in seeing a psychiatri st to further discuss behavioral or medication interventi ons 01.03.24 - pending see psychiatri sttrial c duloxetine Pain of ri ght shoulder joint 6619946229 3476199 M25.511 in middle of w/u c Dr. Glaser - reviewed recent consult notes - had samuel injxn, pending start PTapryl get her mri and labs from [facility] to see if has underlying rheum etiologyco nt meloxicam as dir, but add trial gbn - see below 7.24 - cont f/u c ortho, had cervical mri - next ov in a few weeks Prediabetes 505043099 R7 3.03 Janiya - unfortunat ana you have evidence of pre-diabet es - rec. less sugar intake (candy, ice cream, soda/juice , etc), follow a low carb diet and get plenty of aerobic exercise to help you to lose weight. Pat less aleida chip muffins, soda, iced tea [id number] Keyshawn Merchant MD [facility] [address] [facility] [address] [facility] [place] [address] 03/06/2024 13:46:56 03/06/2024 15:46:59 Anxiety state 000222277 F41.1 MIGUEL ANGEL 20. 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 less sugar intake (candy, ice cream, soda/juice , etc), follow a low carb diet and get plenty of aerobic exercise to help you to lose weight. Pat less aleida chip muffins, soda, iced tea 9.24 - pending recheck a1c p 10.5 Neuropathy 095704214 G62 .9 -given hx, likely related to pt anxiety-dotson s hx of bilateral carpal tunnel syndrome; follows specialist -had 2 episode; pt notes both were related to anxiety attacks-dotson s not noticed any other triggers-w ears wrist braces at night for carpal tunnel-pt requests lab work, will r/o vitamin deficiency , rheumatoid process, etc 01.03.24 - reviewed labs c pt - negative 03.06 - had normal nerve conduction study - seen by ortho, then referred to thoracic surgeon - seen yesterday - ? has thoracic outlet syndrome - rec mri (done) and PT [id number] Keyshawn Merchant MD Main Office [address] [facility] [place] [address] 06/04/2024 10:01:44 06/04/2024 11:08:55 Anxiety state 434415299 F41.1 MIGUEL ANGEL 20. 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 less sugar intake (candy, ice cream, soda/juice , etc), follow a low carb diet and get plenty of aerobic exercise to help you to lose weight. Pat less aleida chip muffins, soda, iced tea 12.24 - stable, recheck p 3 months - also rec low salt diet d/t slightly elevated sodium Fibromyalgia [id number] M 79.7 new dx - seen by rheum recently - cont gbn, but increase duloxetine , next f/u 6 months Mixed hyperlipidemia [id number] E78.2 rec low carb diet to lower [...] None Recorded Advance Directives Directive N: Payers Insurance Date Sequence Insurance Name Policy Number Policy Jay Covered Member ID Jay Member ID Guarantor Name 07/04/2024 1 [employer] (PPO) [id number] Janiya Ordaz [id number] Janiya Ordaz 12/20/2024 1 [place] [facility] Janiya Ordaz [id number] Janiya Ordaz 12/01/2022 1 [facility] - MEDICAID ESSENTIAL (MEDICAID HMO) [id number] Janiya Ordaz [id number] Janiya Ordaz Notes Date Note Type Note Provider Name and Address Organization Details Recorded Time 4 text/html 53 yo female presenting for annual physical exam. States has severe pain to her bilateral wrists and right shoulder for approximately 10 months. Has had several ED visits for this pain, Dr. Glaser (Hand Specialist), and an Orthopedic provider at [facility]. 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 Received steroid injections to left wrist and right shoulder without relief. Has been using Tylenol. Tetanus not UTD. Colonoscopy UTD. Pap UTD. Mammogram UTD. No acute complaints today. Appointment with Dr. Glaser in 6 weeks. Katelyn Reyes PA-C [address] [address], [place], [phone], [facility] [place]/05/2023 21:04:52 4 text/html ROS as noted in the HPI Janiya is a 53yr old F who [...] at night for relief. JESUS MANUEL BANG [address] [facility] [address], [place], [address], [facility] [place]/20/2023 20:59:45 4 text/html fol by ortho - rev last ov note 5., seen again in 12.04 but no ov note to reviewrev labs c pt - all negativeolder labs - dx'd c predm - admits to eating/baking muffins c dtr Katelyn Reyes PA-C [address] [address], [place], [address], [facility] 01/03/2024 11:04:54 4 text/html Anxiety/DepressionReport ed by PatientHPIFor context, patient reportsmajor life stressorsandtrouble at work. For quality, patient reportssymptoms improved(not crying as much as before). For associated symptoms, patient reportsdenies homicidal ideations. Katelyn Reyes PA-C [address] [address], [place], [address], [facility] [place]/06/[place]24 15:20:52 4 text/html Anxiety/DepressionReport ed by PatientHPIFor context, patient reportsmajor life stressorsandtrouble at work. For quality, patient reportssymptoms improved. For severity, patient reportsdenies suicidal ideations. For associated symptoms, patient reportsdenies homicidal ideations. Katelyn Reyes PA-C [address] [address], [place], [address], [facility] 06/04/2024 13:01:40 OBGyn Episode No OBEpisode recorded.
--- OUTSIDE RECORDS SUMMARY | 2025-01-03 10:37 | XMS_ITS | Clinical Summary ---
Author Organization [address] [facility] Address [address] [place] [address] Phone Care Team Providers Care Tube Roller Name Role Phone Edgardo Jose Primary Care Provider + [phone] Allergies Active Allergy Reactions Criticality Noted Date Comments Codeine Anaphylaxis High 10/16/2004 Grass Pollen Itching Medium 05/18/2024 House Dust Cough,Headache,Itching,Other High 024 Mold 03/05/2024 Other 03/05/2024 Medications cetirizine (ZyrTEC) 10 mg tablet Active EPINEPHrine (EpiPen) 0.3 mg/0.3 mL injection Inject 0.3 mL (0.3 mg total) into the thigh. 08/27/2016 Active fluticasone HFA (Flovent HFA) 220 mcg/actuation inhaler Inhale 1 puff by mouth 2 (two) times a day. Active gabapentin (NEURONTIN) 300 mg capsule Take 400 mg by mouth. at bedtime 09/26/2023 Active montelukast (SINGULAIR) 10 mg tablet TAKE 1 TAB EVERY OTHER DAY BY ORAL ROUTE DIRECTED 12/21/2010 Active omeprazole 20 mg tablet,disinteg rat, delay rel Take by mouth. Active SUMAtriptan (IMITREX) 50 mg tablet TAKE 1 TABLET BY MOUTH AT LEAST 2 HOURS BETWEEN DOSES NEEDED ONCE A DAY Active sucralfate (CARAFATE) 1 gram tablet FOUR TIMES DAILY Active DULoxetine (CYMBALTA) [address] capsule Take 1 capsule (60 mg total) by mouth 1 (one) time each day. Active hydrOXYzine HCL (ATARAX) 25 mg tablet TAKE 1 TABLET BY MOUTH TWICE A DAY NEEDED FOR ANXIETY AND SLEEP 10/26/2024 Active predniSONE (DELTASONE) 5 mg tablet TAKE 3 TABS DAILY X7 DAYS THEN 2 TABS DAILY X7 DAYS THEN 1 TAB DAILY X7 DAYS THEN STOP DIRECTED Active sertraline (ZOLOFT) 50 mg tablet Take 1 tablet (50 mg total) by mouth 1 (one) time each day. 10/26/2024 Active Active Problems Problem Noted Date Diagnosed Date Arthritis of carpometacarpal (CMC) joint of left thumb 11/27/2024 Arthritis of carpometacarpal (CMC) joint of righ t thumb 11/27/2024 Bursitis of right shoulder 08/28/2024 Carpal tunnel syndrome of right wrist 08/28/2024 Fibromyalgia 08/28/2024 Thoracic outlet syndrome 03/06/2024 Overview (03/07/2024): Last Assessment & Plan: 53-year-old woman with severe shoulder pain and difficulty with movement as well as pain radiating out into both upper extremities right worse than left. I did have a long discussion with her about thoracic outlet syndrome and what that means. We discussed the borders of the thoracic outlet and how these can compress either the brachial plexus, subclavian artery, or axillary vein. 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 With that in mind we will plan on referring her for physical therapy geared towards thoracic outlet and she is already getting physical therapy for her shoulder so hopefully this can be just added. She will follow-up with me after 6 weeks of physical therapy. Bilateral wrist pain 01/15/2024 Numbness and tingling in both hands 01/15/2024 Severe shoulder pain, right 01/15/2024 Encounters Date Type Department Care Team Description 11/27/2024 10:15 AM EDT Office Visit Orthopedic Surgery - [address] [place] [id number] Yeni Glaser MD Arthritis of carpometacarpal (CMC) joint of right thumb (Primary Dx); Arthritis of carpometacarpal (CMC) joint of left thumb 10/04/2024 10:30 AM EDT Treatment [address] [address] Juan AntonioPriya, PT Numbness and tingling in both hands (Primary Dx); Right rotator cuff tendinitis from Last 3 Months Surgical History Surgery Date Site/Laterality Comments OTHER SURGICAL HISTORY 1994 PROCEDURE: CLASS; COMMENT: 1994 & 2004 OTHER SURGICAL HISTORY 2019 PROCEDURE: CA HYSTEROSCOPY ENDOMETRIAL ABLATION Medical History Medical History Date Comments Asthma DX:Asthma Anxiety state DX:Anxiety state Skin cancer DX:Skin cancer GERD (gastroesophageal reflux disease) DX:GERD (gastroesophageal reflux disease) Family History Medical History Relation Name Comments Breast cancer Grandparent Diabetes Mother Other: skin cancer Sister Relation Name Status Comments Grandparent Other Mother Sister Social History Tobacco Use Types Packs/Day Years Used Date Smoking Tobacco: Never Smokeless Tobacco: Never Comments Unknown Sex and Gender Information Value Date Recorded Sex Assigned at Not on file Legal Sex Female 2:41 PM EST Gender Identity Female 05/15/2024 12:21 PM EST Sexual Orientation Not on file Obstetrics History Last Filed Vital Signs Vital Sign Reading Time Taken Comments Blood Pressure 165/97 03/05/2024 3:38 PM EDT Sit ting L Arm Pulse 84 03/05/2024 3:38 PM EDT Temperature - - Respiratory Rate - - Oxygen Saturation - - Inhaled Oxygen Concentration - - Weight 72.6 kg (160 lb) 11/27/2024 10:06 AM EDT Height 149.9 cm (4' 11 ) 11/27/2024 10:06 AM EDT Body Mass Index 32.32 11/27/2024 10:06 AM EDT Plan of Treatment Health Maintenance Due Date Last Done Comments Pneumococcal Vaccine: 50+ Years (1 of 2 - PCV) 1989 Zoster Vaccines (1 of 2) 1989 Cervical Cancer Screening: Pap Smear 1991 COVID-19 Vaccine (3 - Moderna risk series) 11/07/2020 10/10/2020, 09/12/2020 DTaP,Tdap,and Td Vaccines (3 - Td or Tdap) 04/20/2022 04/20/2012, 04/16/2002 Cholesterol Screening (Lipid Panel) 05/12/2022 Colorectal Cancer Screening: Colonoscopy 05/12/2022 HIV Screening 05/12/2022 Hepatitis C Screening 05/12/2022 Social Influencers of Health Screening 05/12/2022 Depression Screening 06/13/2024 Influenza Vaccine (#1) 2025 2, 02/21/2020, 03/14/2018, Additional history exists Breast Cancer Screening 10/18/2026 10/19/19 25, 08/11/2019, 07/20/2016, Additional history exists MMR Vaccines Aged Out 10/18/2002 No longer eligi ble based on patient's age to complete this topic Hepatitis B Vaccines Completed 05/10/2003, 11/09/2002, 10/09/2002 HIB Vaccines Aged Out No longer eligi ble based on patient's age to complete this topic HPV Vaccines Aged Out No longer eligi ble based on patient's age to complete this topic Hepatitis A Vaccines Aged Out No long er eligible based on patient's age to complete this topic IPV Vaccines Aged Out No longer eligi ble based on patient's age to complete this topic Meningococcal ACWY Vaccine Aged Out N o longer eligible based on patient's age to complete this topic Meningococcal B Vaccine Aged Out No l onger eligible based on patient's age to complete this topic RSV Immunization Patients Under 20 months Aged Out No longer eligible based on patient's age to complete this topic Varicella Vaccines Aged Out No longer eligible based on patient's age to complete this topic Goals Goal Patient Goal Type Associated Problems Recent Progress Patient-Stated? Author improved grasp, decreased pain General Yes Seda Richards OT STG (6 visits) General On track( 024 2:00 PM EST) No Seda Richards OT Note: Indep HEP w/ progression (ROM, watch parts grinder strength) 06/26/24 MET and advised ongoing Improved watch parts grinder strength bilaterally to at least 15# for ease of opening ADL containers 06/26/24: NOT MET Improved wrist ext to at least 55' bilaterally to position Ue's for Wb'ing 06/26/24 MET Procedures Procedure Name Priority Date/Time Associated Diagnosis Comments CA ARTHROCENTESIS/ASP IRATION/INJECTION SMALL JOINT/BURSA WO U/S GUIDANCE Routine 11/27/2024 10:15 AM EDT Arthritis of carpometacarpal (CMC) joint of right thumb from Last 3 Months Results * CA ARTHROCENTESIS/ASPIRATION/INJECTION SMALL JOINT/BURSA WO U/S GUIDANCE (11/27/2024 10:15 AM EDT) Yeni Barnes MD - 11/27/2024 10:15 AM EDT Yeni Glaser MD 11/27/2024 7:33 PM Small Inj/Asp: R thumb CMC Details: 25 G needle, dorsal approach Medications: 20 mg triamcinolone acetonide 40 mg/mL Right thumb was prepped with Betadine and alcohol and the skin was injected with a small wheal of 1% lidocaine with epinephrine over the basal joint. After that had a chance to take effect I did prepped the skin again. In a sterile fashion I then injected 20 mg of Kenalog into the basal joint. A Band-Aid was applied. Informed Consent: Site: THUMB CMC Laterality: Right Procedure/treatment, purpose, treatment alternatives, risks/potential complications and benefits explained: yes Patient questions answered: yes Patient agrees, verbalizes understanding, and wants to proceed: yes Consent given by: Patient Informed consent discussion completed by Physician/ASHLEY with patient: Verbal Pre-procedure timeout performed: yes Yeni Glaser MD IN CLINIC/BEDSIDE ORDERABLES Final Result from Last 3 Months Insurance [place]ID - [place] [facility] [place] [employer] [address] [place] [address] GENERIC Care Teams Tube Roller Relationship Specialty Start Date End Date Edgardo Jose PA [address] [address] PCP - General 10/17/23
== END 2025-01-03 09:54 | disposition home or self-care (01) ==
LOC: HO.MAMMO 09:53
PROVIDERS: PCP Physician Assistant Medical; Visit Provider Student in an Organized Health Care Education/Training Program
DX: Z13.820 Encounter for screening for osteoporosis (principal); M85.89 Other specified disorders of bone density and structure, multiple sites; E55.9 Vitamin D deficiency, unspecified; M79.7 Fibromyalgia
CPT/HCPCS: 77080

== ENCOUNTER → 2025-01-03 09:55 | Outpatient (BNV) | payer OTHER, SELFPAY | PROVIDERS: PCP Physician Assistant Medical; Visit Provider Radiology Diagnostic Radiology | DX: E28.39 Other primary ovarian failure (principal) | CPT/HCPCS: 77080 ==

== ENCOUNTER 2025-01-03 10:14 | Outpatient (REF) | payer OTHER, SELFPAY ==
[2025-01-03 13:17] LABS: MANUAL DIFF FLAG NO
[2025-01-03 13:24] LABS: Hematocrit 42.4 % (37.0-47.0); Hemoglobin 13.8 g/dl (12.0-16.0); Imm Gran Abs Auto 0.04 X10*3/uL (0.00-0.03); Imm Gran Pct Auto 0.3 % (0.0-0.4); Lymphocytes Absolute Auto 2.4 X10*3/uL (1.2-4.9); Mean Corpuscular HGB Conc 32.5 g/dl (31.0-35.0); Mean Corpuscular Hemoglobin 29.0 pg (27.0-33.0); Mean Corpuscular Volume 89.1 fL (80.0-98.0); NRBC Abs Auto 0.000 X10*3/uL (0.0-0.012); NRBC Pct Auto 0.0 /100WBC (0.0-0.2); Platelet Count 468 X10*3/uL (160-400); Red Blood Count 4.76 X10*6/uL (4.20-5.50); White Blood Count 11.9 X10*3/uL (4.8-10.8)
[2025-01-03 13:46] LABS: Alanine Aminotransferase 20 U/L (0-31); Albumin Level 4.8 g/dL (3.5-5.0); Alkaline Phosphatase 95 U/L (39-117); Anion Gap 12 (12-20); Aspartate Amino Transferase 22 U/L (5-31); Blood Urea Nitrogen 7 mg/dL (9-16); Calcium 9.4 mg/dL (8.4-10.2); Carbon Dioxide 28 mmol/L (22-29); Chloride 105 mmol/L (96-108); Estimated Glomerular Filt Rate > 60; Potassium 3.8 mmol/L (3.3-5.1); Sodium 141 mmol/L (135-145); Total Protein 8.1 g/dL (6.5-8.0)
== END 2025-01-03 10:15 | disposition home or self-care (01) ==
LOC: HO.10HDL 10:14
PROVIDERS: Visit Provider Student in an Organized Health Care Education/Training Program
DX: M79.7 Fibromyalgia (principal)
CPT/HCPCS: 36415; 80053; 85025; 85652; 86140; 86200; 86431

== ENCOUNTER 2025-03-07 15:47 | Outpatient (AMB) | payer MEDICAID, SELFPAY ==
--- NOTE | 2025-03-07 15:50 | MHC.OFFVIS ---
Vital Signs 03/07/25 15:55 Height 4 ft 11 in Weight 155 lb 6 oz BMI 31.4 BP 134/90 H Blood Pressure Location Lt brachial Position Sitting Pulse 78 Pulse Source Pulse Oximeter Pulse Oximetry (%) 98 Oxygen Delivery Method Room Air Intake Visit Reasons: follow up FM Intake Note: Patient presents for FM follow up. Allergies codeine Allergy (Unknown, Verified 03/07/25 15:52) Unknown Medication List - Last Reconciled 03/07/25 by Katherine Denny MD albuterol sulfate 90 mcg/actuation 2 puffs inhalation Q6H PRN doxepin 10 mg PO BEDTIME duloxetine 60 mg PO DAILY 90 days epinephrine 0.3 mg IM Q10M PRN gabapentin 400 mg PO BEDTIME hydroxyzine HCl 25 mg PO BID montelukast 10 mg PO DAILY omeprazole 20 mg PO DAILY prednisone 5 mg PO DIRECTED HPI Comments Details: Patient is a 54 y.o. female with GERD, anxiety and fibromyalgia here today for follow up Interval History: Patient last seen 11/20/24 with me - on baclofen 5 mg, Celebrex 200 mg b.i.d. and gabapentin 400 mg nightly - Did not feel that the baclofen were the Celebrex was helpful. Currently continues to complain of widespread pain including her hands, wrists, back and shoulders. Recently got a shoulder subacromial bursa injection bilaterally which helps slightly. - Also started hydroxyzine for anxiety - Had TTP of the MCPs and PIPs, given steroid taper to eval for any benefit - Baclofen and celebrex stopped Today - On gabapentin 400mg nightly - Did not find the prednisone helped with pain - Still complaining of polyarticular joint pain Rheumatologic History: Initial History: January 2023 - Started to notice hand and wrist pain. Also associated with clumsiness and numbness. Occasionally also noted elbow pain when she had prolonged resting on the elbow. - Over the year there was no involvement of shoulders - Has some knee and hip pain but her main issue is her bilateral hands and wrists Tried Gabapentin 400mg at night. Helped a little bit Prednisone (medrol dose pack). Helped a little bit but returned IACS Left wrist, right shoulder Meloxicam Other symptoms - Fatigue associated with insomnia - AM stiffness 30-45 mins Imaging - XRs wrist 10/17/23. Normal for the most part (report seen on patient's phone) - MRI bilateral hands (imaging and report not seen) - MRI R shoulder. Rotator cuff tendinosis with partial thickness bursla surface tear of supraspinatus. Mild AC OA - XR shoulder 11/08/23. Osteopenia. Mild AC joint OA - MRI C-spine (report faxed) showing multilevel spondylosis - XR Cspine 10/17/23. loss of resting lordosis - MRI Brachial plexus to eval for thoracic outlet syndrome 03/06/24. Normal, degenerative changes EMG done, normal Labs 12/19/23 RF <10 ESR 6 CRP 3 SARA negative WBC 11.7 Hb 15.1 Hct 46.8 Plt 510 BUN 17 Cr 0.98 Na 143 K 5.2 Cl 103 CO2 20 Ca 20 AST/ALT Denies rashes, photosensitivity, alopecia, oral/nasal ulcers, sicca symptoms, lymphadenopathy, chest pain/shortness of breath, foamy urine, lower extremity edema, muscle weakness, Raynaud's Also denies history of seizure, CVA, psychosis, history of kidney problems, history of cytopenias, history of VTE including PE or DVTs Ob history . No hx of pre eclampsia. Both Current Rheumatology Medication(s): Baclofen 5 mg Celebrex 200 mg b.i.d. Gabapentin 400 mg nightly PFSH Medical History (Updated 05/21/24 @ 13:26 by Katherine Denny MD) Fibromyalgia Social History (Updated 03/07/25 @ 15:55 by Latisha Magana [facility]) Household Members: Children Housing: House Alcohol intake: current Comment: Occasionally Patient Tobacco Use Status: Never used Tobacco Review of Systems Const All systems reviewed & are unremarkable except as noted in HPI and below Physical Exam Exam Exam: Physical Examination CONSTITUITIONAL Patient alert and cooperative. Well appearing and in no apparent painful distress MSK Hands: ?Good net applications developer strength bilaterally. No deformities noted. ?No synovitis noted to the MCPs, PIPs or DIPs. ?Tenderness to palpation throughout the hands not limited to joints Wrists: ?Full range of motion at the wrists without pain. No synovitis but tenderness to palpation of her wrists Elbows: Full range of motion without pain. No tenderness, weakness, swelling, increased warmth or erythema. Tenderness to palpation of forearm including lateral epicondyles bilaterally Shoulders: Full range of motion without pain. No tenderness, weakness, swelling, increased warmth or erythema. Hip bursa: Bilateral tenderness to palpation Knees: ?Full range of motion. ?No tenderness, swelling, increased warmth or erythema.?No effusion or crepitations Ankles: Full range of motion. ?No tenderness, swelling, increased warmth or erythema.? Feet: ?Negative squeeze test. ?No tenderness to palpation or swelling of the MTPs. Tender points:??Tenderness to palpation of the neck, shoulders, chest, elbows, bilateral greater trochanters, bilateral lateral knees. SKIN Skin intact without rashes. Vital Signs: Last Vital Signs Pulse 78 03/07/25 15:55 BP 134/90 H 03/07/25 15:55 Pulse Ox 98 03/07/25 15:55 Oxygen Delivery Method Room Air 03/07/25 15:55 BMI result Body Mass Index 31.4 Results Reviewed Results Reviewed: Laboratory Tests 11/14/24 01/03/25 12:51 10:20 WBC 11.9 H RBC 4.76 Hgb 13.8 Hct 42.4 Plt Count 468 H ESR 19 Sodium 141 Potassium 3.8 Chloride 105 Carbon Dioxide 28 BUN 7 L Creatinine 0.70 AST 22 ALT 20 C-Reactive Protein 0.29 25-OH Vitamin D Total 30 Laboratory Tests 11/26/21 01/03/25 09:44 10:20 Rheumatoid Factor < 13.0 Cycl Citrul Peptide IgG <16 SARA Screen NEGATIVE DEXA 12/2024 FINDINGS: The bone mineral density of the lumbar spine is 0.961 g/cm2, corresponding to a T-score of -1.8, and a Z-score of -1.3. This is indicative of osteopenia. The bone mineral density of the left total hip is 0.842 g/cm2, corresponding to a T-score of -1.3, and a Z-score of -0.9. This is indicative of osteopenia. The bone mineral density of the left femoral neck is 0.762 g/cm2, corresponding to a T-score of -2.0, and a Z-score of -1.1. This is indicative of osteopenia. FRACTURE RISK: The FRAX index suggests a risk of major osteoporotic fracture of 7.1%, and of hip fracture 0.8%. Assessment & Plan Assessment & Plan (1) Fibromyalgia: Code(s): M79.7 - Fibromyalgia Category: Medical Plan: #Fibromyalgia Patient is a 54-year-old female here today for follow up of her fibromyalgia. She is a classic fibromyalgia but she does have tenderness to palpation of her actual joints. Could this be an underlying inflammatory disease that were missing? Did not respond to prednisone Plan - Naltrexone 4.5mg nightly - Continue 400mg nightly - MR bilateral hands to eval for underlying synovitis - RTC 6 months Plan I spent 30 minutes reviewing the record and labs, seeing the patient, discussing the treatment plan and documenting in the medical record Orders: Orders MR hand RT wo con 03/07/25 M19.90 - Unspecified osteoarthritis, unspecified site MR hand LT wo con 03/07/25 M19.90 - Unspecified osteoarthritis, unspecified site Medications: New naltrexone 4.5 mg PO .nightly 90 caps 1RF M79.7 - Fibromyalgia Refilled gabapentin 400 mg PO BEDTIME 30 caps 5RF M79.7 - Fibromyalgia Discontinued prednisone Take 3 tablets for 7 days then 2 tablets for 7 days then 1 tablet for 7 days then stop Discontinued Reason: Doctor's Order 5 mg PO DIRECTED 42 tabs 0RF M79.7 - Fibromyalgia Coding Level of Care Code Est Pt Level 4 (25993) Diagnoses Fibromyalgia M79.7
[2025-03-07 15:55] VITALS: BP 134/90; PULSE 78; O2SAT 98; BMI 31.4
--- OUTSIDE RECORDS SUMMARY | 2025-03-07 19:46 | XMS_ITS | Data Portability ---
Author Organization [facility], Main Office Address [address] [facility] [address] [place] [id number] Care Team Providers Care Insurance Service Representative Name Role Phone JONATAN GONSALVES Jigger Crown Pouncing Machine Operator [facility] MELY LAMBERT Cooperative Extension Agent KATELYN REYES Primary Care Provider KOMAL HERNANDEZ Orthopedic Surgeon [phone] DANTE SILVEIRA Knockout Man [phone] [facility] Psychiatris t Assessment Encounter Date Assessment Date Assessment LastModified [...] Organization Details Last Modified Time Details Appointments None recorde d. Lab lipid panel, serum 2024 025 REDD [facility] (Centralized Electronic Ordering - All Locations), Patient Can Go To The Location Of Their Choice, 11:39:25 HbA1c (hemogl obin A1c), blood 2024 REDD [facility] (Centralized Electronic Ordering - All Locations), Patient Can Go To The Location Of Their Choice, 11:39:24 CBC w/ auto diff 2024 REDD [facility] (Centralized Electronic Ordering - All Locations), Patient Can Go To The Location Of Their Choice, 11:39:24 CMP, serum or plasma 2024 REDD [facility] (Centralized Electronic Ordering - All Locations), Patient Can Go To The Location Of Their Choice, 11:39:25 vitamin D, 25-hydr oxy, total, serum 2024 [facility], [address] [place], [address], 11:39:25 lipid panel, serum 2023 025 [email or web address] [facility] (Centralized Electronic Ordering - All Locations), Patient Can Go To The Location Of Their Choice, 11:13:29 HbA1c (hemogl obin A1c), blood 2023 025 [email or web address] [facility] (Centralized Electronic Ordering - All Locations), Patient Can Go To The Location Of Their Choice, 11:13:29 BMP, serum or plasma 2023 025 [email or web address] (Centralized Electronic Ordering - All Locations), Patient Can Go To The Location Of Their Choice, 11:13:29 HbA1c (hemogl obin A1c), blood 2023 024 [facility], [address] [place], [address], 06:08:28 BMP, serum or plasma 2023 024 [facility], [address], [place], [address], 4 06:08:27 SARA (antinu clear antibod ies) screen, ifa, serum 2023 024 [facility], [address], [place], [address], 4 22:06:07 ESR (erythr ocyte sedimen tation rate), blood 2023 024 [facility], [address], [place], [address], 4 22:06:06 C reactiv e protein , QN, serum or plasma 2023 024 [facility], [address], [place], [address], 4 22:06:07 vitamin B12, serum 2023 024 [facility], [address], [place], [address], 4 22:06:06 methylm alonate , QN, serum or plasma 2023 024 [facility], [address], [place], [address], 4 22:06:06 rf (rheuma toid factor) , serum 2023 024 [facility], [address], [place], [address], 4 22:06:04 thiamin e, QN, blood 2023 024 [facility], [address], [place], [address], 4 22:06:05 Referral gynecol ogist referra l - Patient to schedul e 2024 025 [email or web address] Not available 11:42:20 nutriti onist/d isreal nagel 2024 025 [email or web address] Not available 14:26:22 psychia trist referra l - ongoing anxiety -sola tly not on any medicat ion -pt interes jose in behavio ral interve ntion and discuss ion for medicat ion 2023 024 [facility], [address] [place] [address], [place], [address], 5 11:00:16 Procedures None recorde d. Surgeries None recorde d. Imaging None recorde d. 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 Pt advised and agrees to work on self-monitoring behaviors; begin an appropriate diet for weight loss (such as a low carbohydrate diet), to do moderate exercise (such as walking) for approximately 150 minutes per week; and to identify desirable and timely rewards that will reinforce achievement of specific weight loss goals. pmadden Not available 02/14/2025 11:29:03 Patient Instructions Encounter Date Encounter Id Patient Instructions Last Modified By Organization Details Last Modified Time 01/03/2024 [id number] prediabetes: car e instructions pmadden Not available [...] medication. pmadden Not available 01/03/2024 10:59:48 03/06/2024 [id number] Medications (OTC , herbal therapies, supplements) reviewed and reconciled with patient and or caregiver, including potential side effects, drug interactions, instructions, and the consequences of not taking medication. Reviewed potential barriers to medication adherence, such as side effects from medication or cost of medication. pmadden Not available 03/06/2024 15:11:08 06/04/2024 [id number] fibromyalgia: care instructions pmadden Not available 06/04/2024 [...] of medication. pmadden Not available 06/04/2024 10:41:43 02/14/2025 [id number] fibromyalgia: care instructions pmadden Not available 02/14/2025 11:39:18 preventing osteoporosis: care instructions pmadden Not available 02/14/2025 11:39:18 Well Visit, Ages 18 to 65: Care Instructions pmadden Not available 02/14/2025 11:39:18 Cervical Cancer Screening pmadden Not available 02/14/2025 11:39:18 starting a weigh t loss plan: care instructions pmadden Not available 02/14/2025 11:39:19 Medications (OTC , herbal therapies, supplements) reviewed and reconciled with patient and or caregiver, including potential side effects, drug interactions, instructions, and the consequences of not taking medication. Reviewed potential barriers to medication adherence, such as side effects from medication or cost of medication. pmadden Not available 02/14/2025 11:05:33 Reason for Referral Psychiatrist Referral for An xiety ongoing anxiety-currently not on any medication-pt interested in behavioral intervention and discussion for medication Referring Physician: Chyna Villagran, Family Medicine, Encounter Date: 12/19/2023 Top Precipitator Operator Referral for Sc reening for malignant neoplasm of cervix Patient to schedule Referring Physician: Katelyn Reyes, Internal Medicine, Encounter Date: 02/14/2025 Accounts Payable Analyst/dietitian Refer ral for Body mass index 30+ - obesity Referring Physician: Katelyn Reyes, Internal Medicine, Encounter Date: 02/14/2025 Results Created Date Observation Date Name Description Value Unit Range Abnormal Flag Note LastModifiedBy Organization Detail LastModifiedTime 12/16/19 24 12/17/2023 CBC WITH DIFFE RENTI AL/PL ATELE T WBC 11.7 x10e3 /uL 3.4-10 .8 above high normal Not Available [facility] ([facility]) [address] [place], [address], 12/17/2023 08:07:25 12/16/19 24 12/17/2023 CBC WITH DIFFE RENTI AL/PL ATELE T RBC 5.22 x10e6 /uL 3.77-5 .28 Not Available [facility] ([facility]) [address] [place], [address], 12/17/2023 08:07:25 12/16/19 24 12/17/2023 CBC WITH DIFFE RENTI AL/PL ATELE T hemoglobin 15.1 g/dL 11.1-1 5.9 Not Available [facility] ([facility]) [address] [place], [address], 12/17/2023 08:07:25 12/16/19 24 12/17/2023 CBC WITH DIFFE RENTI AL/PL ATELE T hematocrit 46.8 % 34.0-4 6.6 above high normal Not Available [facility] ([facility]) [address] [place], [address], 12/17/2023 08:07:25 12/16/19 24 12/17/2023 CBC WITH DIFFE RENTI AL/PL ATELE T MCV 90 fL 79-97 Not Available [facility] ([facility]) [address] [facility], [place], [address], 12/17/2023 08:07:25 12/16/19 24 12/17/2023 CBC WITH DIFFE RENTI AL/PL ATELE T MCH 28.9 pg 26.6-3 3.0 Not Available [facility] ([facility]) [address] [facility], [place], [address], 12/17/2023 08:07:25 12/16/19 24 12/17/2023 CBC WITH DIFFE RENTI AL/PL ATELE T MCHC 32.3 g/dL 31.5-3 5.7 Not Available [facility] ([facility]) [address] [facility], [place], [address], 12/17/2023 08:07:25 12/16/19 24 12/17/2023 CBC WITH DIFFE RENTI AL/PL ATELE T RDW 13.0 % 11.7-1 5.4 Not Available [facility] ([facility]) [address] [facility], [place], [address], 12/17/2023 08:07:25 12/16/19 24 12/17/2023 CBC WITH DIFFE RENTI AL/PL ATELE T platelets 510 x10e3 /uL 150-45 0 above high normal Not Available [facility] ([facility]) [address] [place], [address], 12/17/2023 08:07:25 12/16/19 24 12/17/2023 CBC WITH DIFFE RENTI AL/PL ATELE T neutrophils 67 % not estab. Not Available [facility] ([facility]) [address] [facility], [place], [address], 12/17/2023 08:07:25 12/16/19 24 12/17/2023 CBC WITH DIFFE RENTI AL/PL ATELE T lymphs 25 % not estab. Not Available [facility] ([facility]) [address] [facility], [place], [address], 12/17/2023 08:07:25 12/16/19 24 12/17/2023 CBC WITH DIFFE RENTI AL/PL ATELE T monocytes 6 % not estab. Not Available [facility] ([facility]) [address] [facility], [place], [address], 12/17/2023 08:07:25 12/16/19 24 12/17/2023 CBC WITH DIFFE RENTI AL/PL ATELE T eos 1 % not estab. Not Available [facility] ([facility]) [address] [facility], [place], [address], 12/17/2023 08:07:25 12/16/19 24 12/17/2023 CBC WITH DIFFE RENTI AL/PL ATELE T basos 1 % not estab. Not Available [facility] ([facility]) [address] [facility], [place], [address], 12/17/2023 08:07:25 12/16/19 24 12/17/2023 CBC WITH DIFFE RENTI AL/PL ATELE T immature cells APPRENTICE MACHINIST OUTSIDE Not Available [facility] ([facility]) [address] [facility], [place], [address], 12/17/2023 08:07:25 12/16/19 24 12/17/2023 CBC WITH DIFFE RENTI AL/PL ATELE T neutrophils (absolute) 7.9 x10e3 /uL 1.4-7. 0 above high normal Not Available [facility] ([facility]) [address] [facility], [place], [address], 12/17/2023 08:07:25 12/16/19 24 12/17/2023 CBC WITH DIFFE RENTI AL/PL ATELE T lymphs (absolute) 2.9 x10e3 /uL 0.7-3. 1 Not Available [facility] ([facility]) [address] [facility], [place], [address], 12/17/2023 08:07:25 12/16/19 24 12/17/2023 CBC WITH DIFFE RENTI AL/PL ATELE T monocytes(ab solute) 0.7 x10e3 /uL 0.1-0. 9 Not Available [facility] ([facility]) [address] [facility], [place], [address], 12/17/2023 08:07:25 12/16/19 24 12/17/2023 CBC WITH DIFFE RENTI AL/PL ATELE T eos (absolute) 0.1 x10e3 /uL 0.0-0. 4 Not Available [facility] ([facility]) [address] [facility], [place], [address], 12/17/2023 08:07:25 12/16/19 24 12/17/2023 CBC WITH DIFFE RENTI AL/PL ATELE T baso (absolute) 0.1 x10e3 /uL 0.0-0. 2 Not Available [facility] ([facility]) [address] [facility], [place], [address], 12/17/2023 08:07:25 12/16/19 24 12/17/2023 CBC WITH DIFFE RENTI AL/PL ATELE T immature granulocytes 0 % not estab. Not Available [facility] ([facility]) [address] [facility], [place], [address], 12/17/2023 08:07:25 12/16/19 24 12/17/2023 CBC WITH DIFFE RENTI AL/PL ATELE T immature grans (abs) 0.0 x10e3 /uL 0.0-0. 1 Not Available [facility] ([facility]) [address], [place], [address], 12/17/2023 08:07:25 12/16/19 24 12/17/2023 CBC WITH DIFFE RENTI AL/PL ATELE T NRBC APPRENTICE MACHINIST OUTSIDE Not Available [facility] ([facility]) [address], [place], [address], 12/17/2023 08:07:25 12/16/19 24 12/17/2023 CBC WITH DIFFE RENTI AL/PL ATELE T hematology comments: APPRENTICE MACHINIST OUTSIDE Not Available [facility] ([facility]) [address], [place], [address], 12/17/2023 08:07:25 12/16/19 24 12/17/2023 COMP. METAB OLIC PANEL (14) glucose 89 mg/dL 70-99 Not Available [facility] ([facility]) [address], [place], [address], 12/17/2023 08:07:26 12/16/19 24 12/17/2023 COMP. METAB OLIC PANEL (14) BUN 17 mg/dL 6-24 Not Available [facility] ([facility]) [address], [place], [address], 12/17/2023 08:07:26 12/16/19 24 12/17/2023 COMP. METAB OLIC PANEL (14) creatinine 0.98 mg/dL 0.57-1 .00 Not Available [facility] ([facility]) [address], [place], [address], 12/17/2023 08:07:26 12/16/19 24 12/17/2023 COMP. METAB OLIC PANEL (14) eGFR 69 mL/mi n/1.7 3 >59 Not Available [facility] ([facility]) [address], [place], [address], 12/17/2023 08:07:26 12/16/19 24 12/17/2023 COMP. METAB OLIC PANEL (14) BUN/creatini ne ratio 17 9-23 Not Available [facility] ([facility]) [address] [facility], [address], 12/17/2023 08:07:26 12/16/19 24 12/17/2023 COMP. METAB OLIC PANEL (14) sodium 143 mmol/ L 134-14 4 Not Available [facility] ([facility]) [address] [facility], [place], [address], 12/17/2023 08:07:26 12/16/19 24 12/17/2023 COMP. METAB OLIC PANEL (14) potassium 5.2 mmol/ L 3.5-5. 2 Not Available [facility] ([facility]) [address] [facility], [place], [address], 12/17/2023 08:07:26 12/16/19 24 12/17/2023 COMP. METAB OLIC PANEL (14) chloride 103 mmol/ L 96-106 Not Available [facility] ([facility]) [address] [facility], [address], 12/17/2023 08:07:26 12/16/19 24 12/17/2023 COMP. METAB OLIC PANEL (14) carbon dioxide, total 20 mmol/ L 20-29 Not Available [facility] ([facility]) [address] [facility] [place], [address], 12/17/2023 08:07:26 12/16/19 24 12/17/2023 COMP. METAB OLIC PANEL (14) calcium 10.0 mg/dL 8.7-10 .2 Not Available [facility] ([facility]) [address] [facility], [address], 12/17/2023 08:07:26 12/16/19 24 12/17/2023 COMP. METAB OLIC PANEL (14) protein, total 7.4 g/dL 6.0-8. 5 Not Available [facility] ([facility]) [address] [facility] [place], [address], 12/17/2023 08:07:26 12/16/19 24 12/17/2023 COMP. METAB OLIC PANEL (14) albumin 4.5 g/dL 3.8-4. 9 Not Available [facility] ([facility]) [address] [facility], [address], 12/17/2023 08:07:26 12/16/19 24 12/17/2023 COMP. METAB OLIC PANEL (14) globulin, total 2.9 g/dL 1.5-4. 5 Not Available [facility] ([facility]) [address] [facility] [place], [address], 12/17/2023 08:07:26 12/16/19 24 12/17/2023 COMP. METAB OLIC PANEL (14) bilirubin, total 0.3 mg/dL 0.0-1. 2 Not Available [facility] ([facility]) [address] [facility] [place], [address], 12/17/2023 08:07:26 12/16/19 24 12/17/2023 COMP. METAB OLIC PANEL (14) alkaline phosphatase 101 IU/L 44-121 Not Available [facility] ([facility]) [address] [facility], [address], 12/17/2023 08:07:26 12/16/19 24 12/17/2023 COMP. METAB OLIC PANEL (14) AST (SGOT) 18 IU/L 0-40 Not Available [facility] ([facility]) [address] [facility] [place], [address], 12/17/2023 08:07:26 12/16/19 24 12/17/2023 COMP. METAB OLIC PANEL (14) ALT (SGPT) 19 IU/L 0-32 Not Available [facility] ([facility]) [address] [facility] [place], [address], 12/17/2023 08:07:26 12/16/19 24 12/17/2023 LIPID PANEL cholesterol, total 258 mg/dL 100-19 9 above high normal Not Available [facility] ([facility]) [address] [facility], [address], 12/17/2023 08:07:27 12/16/19 24 12/17/2023 LIPID PANEL triglyceride s 140 mg/dL 0-149 Not Available [facility] ([facility]) [address] [facility] [place], [address], 12/17/2023 08:07:27 12/16/19 24 12/17/2023 LIPID PANEL HDL cholesterol 47 mg/dL >39 Not Available [facility] ([facility]) [address] [facility], [address], 12/17/2023 08:07:27 12/16/19 24 12/17/2023 LIPID PANEL VLDL cholesterol phoebe 26 mg/dL 5-40 Not Available [facility] ([facility]) [address] [facility], [address], 12/17/2023 08:07:27 12/16/19 24 12/17/2023 LIPID PANEL LDL chol calc ([facility]) 185 mg/dL 0-99 above high normal Not Available [facility] ([facility]) [address] [place], [address], 12/17/2023 08:07:27 12/16/19 24 12/17/2023 LIPID PANEL LDL calc comment: APPRENTICE MACHINIST OUTSIDE Not Available [facility] ([facility]) [address] [facility], [address], 12/17/2023 08:07:27 12/16/19 24 12/17/2023 HEMOG LOBIN A1C hemoglobin A1C 5.7 % 4.8-5. 6 above high normal Predi abete s: 5.7 - 6.4 Diabe zamzam: >6.4 Glyce elke contr ol for adult s with diabe zamzam: <7.0 Not Available [facility] ([facility]) [address] [place], [address], 12/17/2023 08:07:27 12/19/19 24 12/20/2023 RHEUM ATOID FACTO R (RF) rheumatoid factor (rf) <10.0 IU/mL <14.0 Not Available [facility] ([facility]) [address] [facility], [place], [address], 12/22/2023 22:06:04 12/19/19 24 12/22/2023 VITAM IN B1 (THIA MINE) , BLOOD vit. B1, whole blood 164.0 nmol/ L 66.5-2 00.0 Not Available [facility] ([facility]) [address] [place], [address], 12/22/2023 22:06:05 12/19/19 24 12/22/2023 METHY LMALO CATA ACID, SERUM methylmaloni c acid, serum 147 nmol/ L 0-378 Not Available [facility] ([facility]) [address] [place], [address], 12/22/2023 22:06:05 12/19/19 24 12/20/2023 SEDIM ENTAT ION RATE- WESTE RGREN sedimentatio n rate-westerg aisha 16 mm/HR 0-40 Not Available [facility] ([facility]) [address] [place], [address], 12/22/2023 22:06:06 12/19/19 24 12/20/2023 VITAM IN B12 vitamin B12 475 pg/mL 232-12 45 Not Available [facility] ([facility]) [address] [place], [address], 12/22/2023 22:06:06 12/19/19 24 12/20/2023 C-CHAR CTIVE PROTE IN, QUANT C-reactive protein, quant 3 mg/L 0-10 Not Available [facility] ([facility]) [address] [place], [address], 12/22/2023 22:06:07 12/19/19 24 12/20/2023 SARA BY IFA RFX TITER /BETTY COCO SARA by ifa rfx titer/patter n NEGATI VE Negat berna <1:80 Borde rline 1:80 Posit berna >1:80 ICAP nomen zora re: AC-0 For more infor matio n about Hep-2 cell patte rns use ANApa ttern s.org , the offic ial lindsey te for the Inter natio nal Conse nsus on Antin uclea r Antib radha (SARA) Patte rns (ICAP ). Not Available [facility] ([facility]) [address] [place], [address], 12/22/2023 22:06:07 05/18/20 24 05/18/2024 BASIC METAB OLIC PANEL (8) sodium 145 mmol/ L 134-14 4 above high normal Not Available [facility] ([facility]) [address] [place], [address], 05/19/2024 06:08:27 05/18/20 24 05/18/2024 BASIC METAB OLIC PANEL (8) potassium 4.6 mmol/ L 3.5-5. 2 normal Not Available [facility] ([facility]) [address] [place], [address], 05/19/2024 06:08:27 05/18/20 24 05/19/2024 BASIC METAB OLIC PANEL (8) glucose 103 mg/dL 70-99 above high normal Not Available [facility] ([facility]) [address] [place], [address], 05/19/2024 06:08:27 05/18/20 24 05/19/2024 BASIC METAB OLIC PANEL (8) BUN 10 mg/dL 6-24 normal Not Available [facility] ([facility]) [address] [facility], [address], 05/19/2024 06:08:27 05/18/20 24 05/19/2024 BASIC METAB OLIC PANEL (8) creatinine 0.92 mg/dL 0.57-1 .00 normal Not Available [facility] ([facility]) [address] [facility], [address], 05/19/2024 06:08:27 05/18/20 24 05/19/2024 BASIC METAB OLIC PANEL (8) eGFR 74 mL/mi n/1.7 3 >59 normal Not Available [facility] ([facility]) [address] [facility], [address], 05/19/2024 06:08:27 05/18/20 24 05/19/2024 BASIC METAB OLIC PANEL (8) BUN/creatini ne ratio 11 9-23 normal Not Available [facility] ([facility]) [address] [facility], [address], 05/19/2024 06:08:27 05/18/20 24 05/19/2024 BASIC METAB OLIC PANEL (8) chloride 102 mmol/ L 96-106 normal Not Available [facility] ([facility]) [address] [place], [address], 05/19/2024 06:08:27 05/18/20 24 05/19/2024 BASIC METAB OLIC PANEL (8) carbon dioxide, total 22 mmol/ L 20-29 normal Not Available [facility] ([facility]) [address] [place], [address], 05/19/2024 06:08:27 05/18/20 24 05/19/2024 BASIC METAB OLIC PANEL (8) calcium 9.9 mg/dL 8.7-10 .2 normal Not Available [facility] ([facility]) [address] [place], [address], 05/19/2024 06:08:27 05/18/2005/18/2024 HEMOG LOBIN A1C hemoglobin A1C 5.7 % 4.8-5. 6 above high normal Predi abete s: 5.7 - 6.4 Diabe zamzam: >6.4 Glyce elke contr ol for adult s with diabe zamzam: <7.0 Not Available [facility] ([facility]) [address] [facility], [place], [address], 05/19/2024 06:08:28 02/15/20 24 02/09/2024 nerve condu ction study No observ ation record ed. [address], [address], 03/06/2024 14:42:41 03/09/20 24 02/06/2024 elect romyo gram + nerve condu ction study No observ ation record ed. [facility] Scheduling Dept [address] [place] [address], [address], 06/04/2024 10:41:17 10/20/19 25 10/18/2024 MAMMO , [...] Lay letter mailed to rimma granados WSN: [id number] Orderi ng Physic natalie: Tonio Reyes Dictat ed By: Ezra Guzman MD Dictat ed Date/T gabrielle: 1:34 pm Review ed By: Ezra Guzman MD Signed By: Ezra Guzman MD Signed Date/T gabrielle: 1:34 pm Transc ribed By: CSB Transc riptio n Date/T gabrielle: 1:33 pm Birads : Rimma granados Class: Outpat ient [facility] (Outpt Imaging) [address] [facility], [place], [address], 02/14/2025 11:06:05 10/20/19 25 10/18/2024 MAMMO , scree jaylene, digit al, bilat eral No observ ation record ed. [facility] [address], [place], [address], 02/14/2025 11:06:05 01/04/20 25 01/03/2025 DEXA, axial skele ton No observ ation record ed. [facility] [address] [place], [address], 02/14/2025 11:06:04 Result Notes Documentation Provider Name and Address [...] (Negative) Lay letter mailed to patient WSN: [id number] Ordering Physician: Katelyn Reyes Dictated By: Ezra Auguste MD Dictated Date/Time: 10/19/24 1:34 pm Reviewed By: Ezra Auguste MD Signed By: Ezra Auguste MD Signed Date/Time: 10/19/24 1:34 pm Transcribed By: JODI Reimbursement Representative Date/Time: 10/19/24 1:33 pm Birads: Patient Class: Outpatient Katelyn Reyes PA-C [id number] [address], [place], [id number], [facility] [place] 02/14/2025 11:06:05 Dexa, Axial Skeleton : DEXA Scan Katelyn Reyes PA-C [address] [address], [place], [address], [facility] 02/14/2025 11:06:04 Problems Name Problem SNOMED Code Status Onset Date Resolution Date Notes Provider Name and Address Organization Details Recorded Time Acute pharyngi tis 711989124 Completed 05/30/2017 Rhonda Reyes PA-C [address] [address], [place], [address] , [facility] 7 16:57:48 Temporom andibula r joint disorder 75364741 Completed 05/30/2017 Rhonda Reyes PA-C [address] [address], [place], [address] , [facility] 7 16:58:26 Nail problem [id number] Completed 01/31/2019 Rhonda Reyes PA-C [address] [address], [place], [address] , [facility] 9 16:06:03 Onychomy cosis 526598659 Completed 01/31/2019 Rhonda Reyes PA-C [address] [address], [place], [address] , [facility] 9 16:06:13 Low back pain 235468199 Completed 02/15/2025 Katelyn Reyes PA-C [address] [facility] [address], [place], [address] , [facility] 5 15:52:35 Screenin g for malignan t neoplasm of colon Completed 200801/01/2014 RECORDED 12/04/19 09 10:12AM BY CARLOS EDUARDO ALVARADO MA, ANNOTATI ON/ADDEN DUM Hussein Smith ro null, [facility] 6 17:26:15 Screenin g for malignan t neoplasm of colon Completed 200801/21/2014 RECORDED 12/04/19 09 10:12AM BY CARLOS EDUARDO ALVARADO MA, ANNOTATI ON/ADDEN DUM Hussein Smith ro null, [facility] 6 17:26:15 Influenz a vaccine needed 43030181266 06 Completed 200901/01/2014 RECORDED 06/01/20 10 9:07AM BY COOPER LAWS I, HISTORIC AL SUMMARY Hussein Smith ro null, [facility] 6 17:26:15 Influenz a vaccine needed 28382744722 06 Completed 200901/21/2014 RECORDED 06/01/20 10 9:07AM BY COOPER LAWS I, HISTORIC AL SUMMARY Hussein Smith ro null, [facility] 6 17:26:15 Abdomina l pain 92633841 Completed 201101/01/2014 RECORDED 04/20/20 12 1:28PM BY ERICKA LEIGH MA, ANNOTATI ON/ADDEN DUM Hussein Smith ro null, [facility] 6 17:26:14 Asthma 953966287 Completed 201101/01/2014 RECORDED 04/20/20 12 1:27PM BY ERICKA LEIGH MA, ANNOTATI ON/ADDEN DUM Rhonda Reyes PA-C [address] [facility] [address], [place], [address] , [facility] 7 16:57:25 Acute upper respirat ory infectio n 83758558 Completed 201101/01/2014 RECORDED 04/20/20 12 1:27PM BY ERICKA LEIGH MA, ANNOTATI ON/ADDEN DUM Hussein Ottoniel'Alessand ro null, [facility] 6 17:26:14 Intrinsi c asthma 618624687 Completed 201101/01/2014 RECORDED 04/20/20 12 1:27PM BY ERICKA LEIGH MA, ANNOTATI ON/ADDEN DUM Hussein Ottoniel'Alessand ro null, [facility] 6 17:26:14 Acute asthma 540320448 Completed 201101/01/2014 RECORDED 04/20/20 12 1:27PM BY ERICKA LEIGH MA, ANNOTATI ON/ADDEN DUM Hussein Ottoniel'Alessand ro null, [facility] 6 17:26:14 Screenin g for malignan t neoplasm of cervix Completed 201101/01/2014 RECORDED 04/20/20 12 1:28PM BY ERICKA LEIGH MA, ANNOTATI ON/ADDEN DUM Donna Chowdhury MA null, [facility] 7 16:26:27 Chest pain 36817241 Completed 201101/01/2014 RECORDED 04/20/20 12 1:27PM BY ERICKA LEIGH MA, ANNOTATI ON/ADDEN DUM Hussein Ottoniel'Alessand ro null, [facility] 6 17:26:14 Disorder of nail 40460457 Completed 201101/01/2014 RECORDED 04/20/20 12 1:27PM BY ERICKA LEIGH MA, ANNOTATI ON/ADDEN DUM Hussein Ottoniel'Alessand ro null, [facility] 6 17:26:14 Disorder of skin 05535223 Completed 201101/01/2014 RECORDED 04/20/20 12 1:27PM BY ERICKA LEIGH MA, ANNOTATI ON/ADDEN DUM Hussein D'Alessand ro null, [facility] 6 17:26:14 Dyspareu miya [id number] Completed 201101/01/2014 RECORDED 04/20/20 12 1:28PM BY ERICKA LEIGH MA, ANNOTATI ON/ADDEN DUM Hussein D'Alessand ro null, [facility] 6 17:26:14 Dysphagi a [id number] Completed 201101/01/2014 RECORDED 04/20/20 12 1:28PM BY ERICKA LEIGH MA, ANNOTATI ON/ADDEN DUM Hussein D'Alessand ro null, [facility] 6 17:26:14 Dysuria 23444137 Completed 201101/01/2014 RECORDED 04/20/20 12 1:27PM BY ERICKA LEIGH MA, ANNOTATI ON/ADDEN DUM Hussein D'Alessand ro null, [facility] 6 17:26:14 Closed fracture of ulna 13502295 Completed 201101/01/2014 RECORDED 04/20/20 12 1:27PM BY ERICKA LEIGH MA, ANNOTATI ON/ADDEN DUM Hussein D'Alessand ro null, [facility] 6 17:26:15 Gastriti s 0759255 Completed 201101/01/2014 RECORDED 04/20/20 12 1:27PM BY ERICKA LEIGH MA, ANNOTATI ON/ADDEN DUM Hussein D'Alessand ro null, [facility] 6 17:26:14 Gastrodu odenitis 565021064 Completed 201102/15/2025 Katelyn Reyes PA-C [address] [address], [place], [address] , [facility] 5 15:52:08 Urinary tract infectio us disease 72717388 Completed 201101/01/2014 RECORDED 04/20/20 12 1:27PM BY ERICKA LEIGH MA, SHONDAATI ON/ADDEN DUM Hussein D'Alessand ro null, [facility] 6 17:26:14 Viral disease 89255446 Completed 201101/01/2014 RECORDED 04/20/20 12 1:27PM BY ERICKA LEIGH MA, ANNOTATI ON/ADDEN DUM Hussein D'Alessand ro null, [facility] 6 17:26:14 Vomiting 341625430 Completed 201101/01/2014 RECORDED 04/20/20 12 1:27PM BY ERICKA LEIGH MA, ANNOTATI ON/ADDEN DUM Hussein D'Alessand ro null, [facility] 6 17:26:14 Persiste nt vomiting 397161084 Completed 201101/01/2014 RECORDED 04/20/20 12 1:27PM BY ERICKA LEIGH MA, SHONDAATI ON/ADDEN DUM Hussein D'Alessand ro null, [facility] 6 17:26:14 Abdomina l pain 26651759 Completed 201101/21/2014 RECORDED 04/20/20 12 1:28PM BY ERICKA LEIGH MA, SHONDAATI ON/ADDEN DUM Hussein D'Alessand ro null, [facility] 6 17:26:15 Asthma 391984753 Completed 201101/21/2014 RECORDED 04/20/20 12 1:27PM BY ERICKA LEIGH MA, ANNOTATI ON/ADDEN DUM Rhonda Reyes PA-C [address] [address], [place], [address] , [facility] 7 16:57:25 Acute upper respirat ory infectio n 35210121 Completed 201101/21/2014 RECORDED 04/20/20 12 1:27PM BY ERICKA LEIGH MA, ANNOTATI ON/ADDEN DUM Hussein D'Alessand ro null, [facility] 6 17:26:14 Intrinsi c asthma 463312809 Completed 201101/21/2014 RECORDED 04/20/20 12 1:27PM BY ERICKA LEIGH MA, ANNOTATI ON/ADDEN DUM Hussein D'Alessand ro null, [facility] 6 17:26:14 Acute asthma 105621128 Completed 201101/21/2014 RECORDED 04/20/20 12 1:27PM BY ERICKA LEIGH MA, ANNOTATI ON/ADDEN DUM Hussein D'Alessand ro null, [facility] 6 17:26:14 Screenin g for malignan t neoplasm of cervix Completed 201101/21/2014 RECORDED 04/20/20 12 1:28PM BY ERICKA LEIGH MA, ANNOTATI ON/ADDEN DUM Donna Bigby MA null, [facility] 7 16:26:27 Chest pain 70504943 Completed 201101/21/2014 RECORDED 04/20/20 12 1:27PM BY ERICKA LEIGH MA, ANNOTATI ON/ADDEN DUM Hussein D'Alessand ro null, [facility] 6 17:26:14 Disorder of nail 31908152 Completed 201101/21/2014 RECORDED 04/20/20 12 1:27PM BY ERICKA LEIGH MA, ANNOTATI ON/ADDEN DUM Hussein D'Alessand ro null, [facility] 6 17:26:14 Disorder of skin 11452716 Completed 201101/21/2014 RECORDED 04/20/20 12 1:27PM BY ERICKA LEIGH MA, ANNOTATI ON/ADDEN DUM Hussein D'Alessand ro null, [facility] 6 17:26:14 Dyspareu miya [id number] Completed 201101/21/2014 RECORDED 04/20/20 12 1:28PM BY ERICKA LEIGH MA, ANNOTATI ON/ADDEN DUM Hussein D'Alessand ro null, [facility] 6 17:26:14 Dysphagi a 69554707 Completed 201101/21/2014 RECORDED 04/20/20 12 1:28PM BY ERICKA LEIGH MA, ANNOTATI ON/ADDEN DUM Hussein D'Alessand ro null, [facility] 6 17:26:14 Dysuria 66111888 Completed 201101/21/2014 RECORDED 04/20/20 12 1:27PM BY ERICKA LEIGH MA, ANNOTATI ON/ADDEN DUM Hussein D'Alessand ro null, [facility] 6 17:26:14 Closed fracture of ulna 46844101 Completed 201101/21/2014 RECORDED 04/20/20 12 1:27PM BY ERICKA LEIGH MA, ANNOTATI ON/ADDEN DUM Hussein D'Alessand ro null, [facility] 6 17:26:15 Gastriti s 2887472 Completed 201101/21/2014 RECORDED 04/20/20 12 1:27PM BY ERICKA LEIGH MA, ANNOTATI ON/ADDEN DUM Uhssein D'Alessand ro null, [facility] 6 17:26:14 Urinary tract infectio us disease 97578064 Completed 201101/21/2014 RECORDED 04/20/20 12 1:27PM BY ERICKA LEIGH MA, ANNOTATI ON/ADDEN DUM Hussein D'Alessand ro null, [facility] 6 17:26:14 Viral disease 93730222 Completed 201101/21/2014 RECORDED 04/20/20 12 1:27PM BY ERICKA LEIGH MA, ANNOTATI ON/ADDEN DUM Hussein D'Alessand ro null, [facility] 6 17:26:14 Vomiting 105798193 Completed 201101/21/2014 RECORDED 04/20/20 12 1:27PM BY ERICKA LEIGH MA, ANNOTATI ON/ADDEN DUM Hussein D'Alessand ro null, [facility] 6 17:26:14 Persiste nt vomiting 036342760 Completed 201101/21/2014 RECORDED 04/20/20 12 1:27PM BY ERICKA LEIGH MA, ANNOTATI ON/ADDEN DUM Hussein D'Alessand ro null, [facility] 6 17:26:14 Patient status finding [id number] Completed 201201/01/2014 RECORDED 10/31/19 13 3:44PM BY ERICKA LEIGH MA, ANNOTATI ON/ADDEN DUM Donna Bigspenser ARAUJO null, [facility] 7 16:26:15 Adult health examinat ion Completed 201201/01/2014 RECORDED 10/31/19 13 3:44PM BY ERICKA LEIGH MA, ANNOTATI ON/ADDEN DUM Donna Bigby GAYLE null, [facility] 7 16:26:47 Administ ration of diphther ia and tetanus vaccine Completed 201201/01/2014 RECORDED 10/31/19 13 3:44PM BY ERICKA LEIGH MA, ANNOTATI ON/ADDEN DUM Hussein Ottoniel'Alessand ro null, [facility] 6 17:26:15 Patient status finding [id number] Completed 201201/21/2014 RECORDED 10/31/19 13 3:44PM BY ERICKA LEIGH MA, ANNOTATI ON/ADDEN DUM Donna Bigby GAYLE null, [facility] 7 16:26:15 Administ ration of diphther ia and tetanus vaccine Completed 201201/21/2014 RECORDED 10/31/19 13 3:44PM BY ERICKA LEIGH MA, ANNOTATI ON/ADDEN DUM Hussein Ottoniel'Alessand ro null, [facility] 6 17:26:15 Sprain of costal cartilag e Completed 201201/01/2014 IMPRESSI ON: SHE WONT FILL PERCOCET UNTIL AFTER THE WEEKEND. LONG WEEKEND AHEAD. AIM FOR RETURN TO WORK WED. IF CANT RETURN MAKE F/U APPT/. TAKE BENADRYL PRN ITCHING WITH PERCOCET . CONTINUE MELOXICA M; RECORDED 03/01/20 13 9:41AM BY ERICKA LEIGH [place], [facility] 6 17:26:15 Sprain of costal cartilag e Completed 201201/21/2014 IMPRESSI ON: SHE WONT FILL PERCOCET UNTIL AFTER THE WEEKEND. LONG WEEKEND AHEAD. AIM FOR RETURN TO WORK WED. IF CANT RETURN MAKE F/U APPT/. TAKE BENADRYL PRN ITCHING WITH PERCOCET . CONTINUE MELOXICA M; RECORDED 03/01/20 13 9:41AM BY ERICKA LEIGH MA, [facility] [facility], [facility] 6 17:26:15 Allergic rhinitis 49213127 Active 2012 Not Available [facility] 4 09:41:05 Anxiety state 271095784 Active 2012 Not Available [facility] 4 09:41:04 Asthma 211254318 Completed 201205/30/2017 Rhonda Reyes PA-C [address] [address], [place], [address] , [facility] 7 16:57:25 Gastroes ophageal reflux disease 672571906 Active 2012 Not Available [facility] 4 09:41:04 Adult health examinat ion Completed 201202/28/2017 RECORDED 05/04/20 13 1:58PM BY ERICKA LEIGH MA, OFFICE VISIT Donna blandon, [facility] 7 16:26:47 Genital herpes simplex 09319044 Active 2012 Not Available [facility] 4 09:41:04 Hyperlip idemia 03188494 Completed 201206/14/2017 Rhonda Reyes PA-C [address], [place], [address] , [facility] 8 13:11:07 Irritabl e bowel syndrome 45976426 Active 2012 Not Available [facility] 4 09:41:04 Neck pain 66956332 Completed 201201/01/2014 RECORDED 05/04/20 13 1:57PM BY ERICKA LEIGH MA, ANNOTATI ON/ADDEN DUM Katelyn Reyes PA-C [address], [place], [address] , [facility] 3 20:22:59 Patient status finding [id number] Completed 201202/28/2017 RECORDED 05/04/20 13 1:58PM BY ERICKA LEIGH MA, OFFICE VISIT Donna Chowdhury MA [facility], [facility] 7 16:26:15 Verruca vulgaris 52189835 Active 2012 Not Available [facility] 4 09:41:05 Abnormal weight loss 628866292 Completed 201205/30/2017 Rhonda Reyes PA-C [address], [place], [address] , [facility] 7 16:47:15 Neck pain 37463906 Completed 201201/21/2014 RECORDED 05/04/20 13 1:57PM BY ERICKA LEIGH MA, ANNOTATI ON/ADDEN DUM Katelyn Reyes PA-C [address], [place], [address] , [facility] 3 20:22:59 Mammogra phy abnormal 311559342 Completed 201202/15/2025 Katelyn Reyes PA-C [address], [place], [address] , [facility] 5 15:52:23 Screenin g for malignan t neoplasm of breast Completed 201301/01/2014 RECORDED 06/13/19 14 7:21PM BY RENEE Trujillo, HISTORIC AL SUMMARY Hussein burgos null, [facility] 6 17:26:15 Screenin g for malignan t neoplasm of breast Completed 201301/21/2014 RECORDED 06/13/19 14 7:21PM BY RENEE Trujillo, HISTORIC AL SUMMARY Hussein burgos null, [facility] 6 17:26:15 Screenin g for malignan t neoplasm of cervix Completed 201302/28/2017 RECORDED 07/27/19 14 1:57PM BY KYLE PRESSLEY, HISTORIC AL SUMMARY Donna blandon, [facility] 7 16:26:27 Goiter 7413327 Active 2016 Not Available [facility] 4 09:41:04 Intermit tent asthma 109557672 Active 2016 Not Available [facility] 4 09:41:05 Mixed hyperlip idemia 039970970 Active 2017 Not Available [facility] 4 09:41:04 Elevated blood-pr essure reading without diagnosi s of hyperten drea 478445603 Completed 201802/15/2025 Katelyn Reyes PA-C [address] [facility] [address], [place], [address] , [facility] 5 15:51:40 Body mass index 30+ - obesity 453350087 Active 2018 Not Available [facility] 4 09:41:04 Mass of left breast 40744383711 246848 Active 2018 Not Available [facility] 4 09:41:04 Obesity 642513999 Active 2018 Not Available [facility] 4 09:41:05 Low back strain 786576435 Active 2020 Not Available [facility] 4 09:41:04 Skin lesion 43833479 Active 2021 Not Available [facility] 4 09:41:05 Bilatera l temporom andibula r joint pain 89766324609 813437 Active 2021 Not Available [facility] 4 09:41:04 Magnetic resonanc e imaging of brain abnormal 119151374 Completed 202102/15/2025 Katelyn Reyes PA-C [address], [place], [address] , [facility] 5 15:54:15 Migraine 10901438 Active 2022 Not Available [facility] 4 09:41:05 Allergy to food 901705919 Active 2022 Not Available [facility] 4 09:41:05 Neck pain 22530905 Active 2022 RECORDED 05/04/20 13 1:57PM BY ERICKA LEIGH MA, ANNOTATI ON/ADDEN DUM Not Available [facility] 4 09:41:05 Medial epicondy litis 73276556 Active 2022 Not Available [facility] 4 09:41:05 Carpal tunnel syndrome of right wrist 20631554889 9108 Active 2022 Not Available [facility] 4 09:41:04 Constipa tion 74977848 Active 2022 Not Available [facility] 4 09:41:04 Impaired fasting glycemia 607169710 Completed 202202/15/2025 Katelyn Reyes PA-C [address], [place], [address] , [facility] 5 15:51:44 Pain of right shoulder joint 33873172664 494227 Active 2023 Ricky blandon, [facility] 4 16:52:18 Insomnia 436815049 Active 2023 Ricky Morrison jamia, [facility] 4 17:01:18 Prediabe zamzam 047326203 Active 2023 Katelyn Reyes PA-C [address] [facility] [facility] [address], [place] [facility] [place], [address] , [facility] 4 10:49:56 Fibromya lgia 420044472 Active 2023 Katelyn Reyes PA-C [address] [facility] [facility] [address], [place], [address] , [facility] 4 10:45:05 Severe major depressi on 994621030 Active 2024 Katelyn Reyes PA-C [address] [facility] [address], [place], [address] , [facility] 5 15:50:27 Osteopen ia 539314426 Active 2024 Katelyn Reyes PA-C [address] [facility] [address], [facility] [place], [address] , [facility] 5 15:50:33 Notes:Some problems listed i n Document: #[id number] could not be added to this patient's chart. Please review this document and add these problems to the patient's chart manually as needed. Problem Notes None recorded. Procedures Surgical History Date Name Laterality Status Provider Name and Address Organization Details Recorded Time 01/04/20 25 dexamethasone measurement completed Deedee Nichols [facility] 01/05/2025 10:54:29 10/19/19 25 Most Recent Mammogram completed Kelsea Clements [facility] 10/24/2024 14:42:17 10/19/19 25 Mammogram screening completed Kelsea Clements [facility] 10/24/2024 14:42:06 06/03/20 22 Date of Last Pap Smear completed Randa Herrera [facility] 06/24/2022 09:26:57 09/12/19 21 colonoscopy completed Katelyn Reyes PA-C [address] [facility] [address], [place], [address], [place] [facility] 08/19/2021 15:14:36 09/03/19 17 Hyster[facility]2016 13:44:17 07/20/19 17 Mammogram one breast completed Carlos Eduardo petit [facility] 05/30/2017 16:20:13 06/22/19 17 needle aspiration of breast completed Carlos Eduardo petit MA [facility] 05/27/2020 10:23:48 06/09/20 16 Mammogram one breast completed Callystan Griffin [facility] 06/10/2016 11:08:33 08/25/19 05 Caesarean Section completed Lashon Hartley [facility] 08/19/2021 14:18:11 08/11/18 95 Caesarean Section completed Feli Dumont [facility] 05/06/2014 13:50:16 Imaging Results None recorded. Procedure Notes None recorded. Medical Equipment None Reported. Allergies Allergen ID Allergen Name Allergen Category Reaction Reaction Severity Criticality Documentation Date Start Date Code Code System Note Provider Name and Address Organization Details Recorded Time 04395 Grass Pollen environme nt,medica tion itching moderate Not available 05/20/2015 Donna blandon [facility] 5 10:15:28 94506 house dust allergeni c extract environme nt,medica tion cough headache itching other severe moderate severe severe Not available 05/20/2015 [address] [facility] 5 10:15:28 76651 Tree Pollen medicatio n cough headache itching moderate moderate moderate Not available 05/20/2015 Donna blandon [facility] 5 10:15:28 86674 Animal Hair-Dand er medicatio n itching moderate Not available 05/20/2015 Donna blandon [facility] 5 10:15:28 8274 codeine medicatio n itching Not available Not available 12/25/20132012 2670 RxNorm Carlos Eduardo Sully-GAYLE Leone [facility] 7 16:07:35 8275 No known allergy (situatio n) Not available Not available Not available Not available 12/25/20132012 22105 6003 SNOMED COMME NT: RECOR DED 03/01 9:41A M BY RIGO MELISSA MA, OFFIC E VISIT ; Feli Arreolamaureen blandon [facility] 4 13:49:27 Medications Name Sig Start [...] 1 CAPSULE BY MOUTH TWICE A DAY 02/14 completed Not Available Not Available Not Available [...] Not Available No t Available sertralin e 100 mg tablet TAKE 1 TABLET BY MOUTH EVERY DAY active Not Available Not Available No t Available prednison e 5 mg tablet TAKE 3 TABS DAILY X7 DAYS THEN 2 TABS DAILY X7 DAYS THEN 1 TAB DAILY X7 DAYS THEN STOP DIRECTED 02/14 completed Not Available Not Available Not Available Zithromax [...] HOURS BETWEEN DOSES NEEDED ONCE A DAY 02/14 completed Not Available Not Available Not Available sulfameth oxazole 800 mg-trimet hoprim 160 [...] EVERY OTHER DAY BY ORAL ROUTE DIRECTED 02/14 completed Not Available Not Available Not Available hydroxyzi ne HCl 25 mg tablet [...] e 137 mcg (0.1 %) nasal spray [place] 2 sprays every day by nasal route [...] 2 PUFFS EVERY 6 HOURS NEEDED active for asthma Not Available Not Available Not Available ondansetr on 4 mg disintegr ating tablet EVERY 6-8 HOURS, NEEDED, FOR NAUSEA 08/31 completed RECORDED 09/02/19 11 9:36AM BY LEXI BAJWA ON AUTO-YESY CTIVATIO N; Not Available Not Available Not Available fluticaso ne propionat e 50 mcg/actua tion nasal spray,stephie pension [place] 2 sprays every day by nasal route for 30 days. active PRN Not Available Not Available No t Available sertralin e 50 mg tablet TAKE 1 TABLET BY MOUTH EVERY DAY 02/14 completed Not Available Not Available Not Available ipratropi um bromide 21 mcg (0.03 %) nasal spray [place] 2 sprays 3 times a day by [...] elayed release TAKE 1 CAPSULE BY MOUTH DAILY active Not Available Not Available No t [...] Not Available Not Available Not Available Fluvirin 4152-8831 (PF) 45 mcg (15 mcg x3)/0.5 mL intramusc ular syringe active Not Available Not Available Not Available Afluria 7519-7346 (PF) 45 mcg (15 mcg x 3)/0.5 mL intramusc ular syringe active Not Available Not Available Not Available Fluarix Quad (PF) 60 mcg (15 mcg x 4)/0.5 mL IM syringe 05/28 completed Not Available Not Available Not Available Flucelvax Quad (PF) 60 mcg (15 mcg x 4)/0.5 mL IM syringe 05/30 completed Not Available Not Available Not Available baclofen 5 mg tablet TAKE 1 TABLET BY MOUTH EVERYDAY AT BEDTIME 02/14 completed Not Available Not Available Not Available [...] Updated DateTime 4 149.86 cm 34.9 kg/m2 09376.4 8 g 92 /min 98 % 98 % 98 [degF] 150/83 mm[Hg] Sara Ferrer MA [facility] 4 15:13:25 Date Recorded Body height Body mass index (BMI) Body weight Heart rate Oxygen saturation Oxygen saturation in Arterial blood by Pulse oximetry Body temperature Systolic And Diastolic Provider Name and Address Organization Details Last Updated DateTime 4 149.86 cm 34.9 kg/m2 71860.4 8 g 66 /min 96 % 96 % 97.8 [degF] 138/82 mm[Hg] Ac cordoba MA [facility] 4 10:15:08 Date Recorded Body height Body mass index (BMI) Body weight Heart rate Oxygen saturation Oxygen saturation in Arterial blood by Pulse oximetry Body temperature Systolic And Diastolic Provider Name and Address Organization Details Last Updated DateTime 5 149.86 cm 31.3 kg/m2 35098.8 2 g 90 /min 100 % 100 % 98 [degF] 126/74 mm[Hg] Carlos Eduardo crisostomo MA [facility] 5 10:59:08 Date Recorded Body height Provider Name an d Address Organization Details Last Updated DateTime 03/06/2024 149.86 cm Victoria Obando LPN [facility] 03/06/2024 14:27:22 Date Recorded Body height Body mass index (BMI) Body weight Oxygen saturation Oxygen saturation in Arterial blood by Pulse oximetry Heart rate Body temperature Systolic And Diastolic Provider Name and Address Organization Details Last Updated DateTime 4 149.86 cm 32.2 kg/m2 16702.9 9 g 97 % 97 % 75 /min 97.5 [degF] 129/75 mm[Hg] Monika Haynes MA [facility] 4 10:25:40 Social History Question Answer Notes LastModified by Organizat ion Details LastModified Time Tobacco Smoking Status Never Smoker Feli Dumont [facility] 05/06/2014 13:50:08 Do You Have An Advance Directive? No [email or web address] Information not available 03/30/2023 Animal Exposure? Yes [email or web address] Information not available 03/30/2023 Do You Wear A Helmet When Biking? Yes Information not available 03/30/2023 Is Blood Transfusion Acceptable In An Emergency? Yes Information not available 05/20/2015 What Is Your Level Of Caffeine Consumption? Moderate 1-2 Cups Of Coffee Daily; Occasional Soda Information not available 02/14/2025 How Much Tobacco Do You Chew? None Information not available 05/20/2015 What Type Of Diet Are You Following? REGULAR Information not available 05/06/2014 Which Illicit Or Recreational Drugs Have You Used? None Information not available 05/30/2017 Education 4 Year College Information not available 03/30/2023 Have There Been Any Changes To Your Family Or Social Situation? Yes [email or web address] Information not available 03/30/2023 Are There Any Guns Present In Your Home? No [email or web address] Information not available 03/30/2023 What Is Your Home Situation? Both Parents [email or web address] Information not available 03/30/2023 Legally Blind In One Or Both Eyes? No [email or web address] Information not available 03/30/2023 Live Alone Or With Others? With Others Boyfriend (Chuck)(Harlan wilks) And Stepson (Daniel) [email or web address] Information not available 03/30/2023 Do You Take [...] No Information not available 07/09/2020 Marital Status [email or web address] Informati on not available 03/30/2023 What Was The Date Of Your Most Recent Tobacco Screening? 02/14/2025 Information not available 02/14/2025 Total Number Of Stairs In Home 30 Information not available 03/30/2023 How Many Children Do You Have? 2 Son; Dontrell (lives W/ Biological Dad) And Dtr Redd Information not available 05/06/2014 Do You Use Protection During Sex? No Information not available 05/06/2014 Difficulty Reading? No [email or web address] Information not available 03/30/2023 What Is Your Relationship Status? Single [email or web address] Information not available 03/30/2023 Do You Use Your Seat Belt Or Car Seat Routinely? Yes Information not available 02/18/2021 Seat Belts Used Routinely Yes [email or web address] Information not available 03/30/2023 Are You Sexually Active? Yes Information not available 05/06/2014 Smoke Alarm In Home Yes [email or web address] Information not available 03/30/2023 Do You Have [...] Have Difficulty Walking Or Climbing Stairs? No [email or web address] Information not available 03/30/2023 Sex: Unknown Functional Status Question Answer Note LastModified by Organizat ion Details LastModified Time Do you use any illicit or recreational drugs? No [email or web address] Information not available 03/30/2023 Do you or have you ever used any other forms of tobacco or nicotine? No Information not available 02/14/2025 What is your level of alcohol consumption? Occasional Information not available 05/06/2014 Do you or have you ever used smokeless tobacco? Never used smokeless tobacco Information not available 05/27/2020 Are you currently employed? No disabled; trying to get disability income Information not available 02/14/2025 [address]y [address] at night? No Information not available 03/30/2023 Are you able to care for yourself independently? 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 No Information not available 03/30/2023 Do you or have you ever used e-cigarettes or vape? Never used electronic cigarettes [email or web address] Information not available 03/30/2023 What is your exercise level? Moderate walking Information not available 02/14/2025 Mental Status Question Answer Note LastModified by Organization D etails LastModified Time Do you have difficulty concentrating, remembering or making decisions? No [email or web address] Information no t available 03/30/2023 Family History [...] of thyroid gland 60 mom is 63/sadiq jose angel abolcun Not available 11/04/2015 14:02:11 Mother Hypercholest [...] virus, trivalent, PF 4 completed Not Available [facility] 07/11/2023 09:41:06 Influenza, split virus, trivalent, preservative 6 completed Not Available [facility] 07/11/2023 09:41:06 Influenza, split virus, trivalent, preservative 7 completed Not Available [facility] 07/11/2023 09:41:06 Influenza, split virus, trivalent, preservative 0 completed Not Available [facility] 07/11/2023 09:41:06 COVID-19, mRNA, LNP-S, PF, 100 mcg/0.5mL dose or 50 mcg/0.25mL dose 1 completed Not Available [facility] 07/11/2023 09:41:05 COVID-19, mRNA, LNP-S, PF, 100 mcg/0.5mL dose or 50 mcg/0.25mL dose 1 completed Not Available [facility] 07/11/2023 09:41:05 Influenza, MDCK, quadrivalent, PF 7 completed Not Available [facility] 07/11/2023 09:41:05 Influenza, split virus, quadrivalent, PF 0 completed Not Available [facility] 07/11/2023 09:41:06 Influenza, split virus, quadrivalent, PF 6 completed Not Available [facility] 07/11/2023 09:41:06 Influenza, MDCK, quadrivalent, PF 2 completed Not Available [facility] 07/11/2023 09:41:05 Influenza, split virus, quadrivalent, PF 8 completed Not Available [facility] 06/30/2019 02:22:15 Td (adult), 2 Lf tetanus toxoid, preservative free, adsorbed 2 completed Not Available [facility] 07/11/2023 [...] Diagnosis SNOMED-CT Code Diagnosis ICD10 Code Diagnosis IMO Codes Diagnosis Note 471 YEYO Gaytan Main Office [address] [facility] [address] [place] [address] 12/27/2013 09:02:12 12/27/2013 09:40:51 Acute pharyngitis [id number] Rapid strep neg, c/w viral infx. Recommend supportive tx. [id number] autoEComm erce [address] [facility] [place] [address] 10/29/2006 00:00:00 [id number] autoEComm erce [address] [facility], [address] [place] [address] 02/27/2007 00:00:00 [id number] [address]EComm erce [address] [place] [address] 07/21/2006 00:00:00 [id number] autoEComm erce [address] [place] [address] 07/12/2006 00:00:00 [id number] autoEComm erce [address] [place] [address] 03/22/2007 00:00:00 [id number] autoEComm erce [address] [place] [address] 06/22/2007 00:00:00 [id number] autoEComm erce [address] [place] [address] 11/20/2007 00:00:00 [id number] autoEComm erce [address] [facility] [address] [place] [address] 11/27/2007 00:00:00 [id number] autoEComm erce [address] [facility] [address] [place] [address] 09/23/2008 00:00:00 [id number] autoEComm erce [address] [facility] [address] [place] [address] 12/03/2008 00:00:00 [id number] autoEComm erce [address] [facility] [address] [place] [address] 04/11/2009 00:00:00 [id number] autoEComm erce [address] [place] [address] 04/14/2009 00:00:00 [id number] autoEComm erce [address] [place] [address] 07/16/2009 00:00:00 [id number] autoEComm erce [address] [place] [address] 02/09/2010 00:00:00 [id number] autoEComm erce [address] [place] [address] 03/13/2010 00:00:00 [id number] autoEComm erce [address] [place] [address] 05/19/2010 00:00:00 [id number] autoEComm erce [address] [place] [address] 06/01/2010 00:00:00 [id number] autoEComm erce [address] [place] [address] 08/17/2010 00:00:00 [id number] autoEComm erce [address] [place] [address] 08/21/2010 00:00:00 [id number] autoEComm erce [address] [place] [address] 08/24/2010 00:00:00 [id number] autoEComm erce [address] [facility] [address] [place] [address] 08/28/2010 00:00:00 [id number] autoEComm erce [address] [place] [address] 09/11/2010 00:00:00 [id number] autoEComm erce [address] [place] [address] 01/05/2011 00:00:00 [id number] autoEComm erce [address] [facility] [address] [place] [address] 04/15/2011 00:00:00 [id number] autoEComm erce [address] [place] [address] 02/18/2012 00:00:00 [id number] autoEComm erce [address] [place] [address] 04/20/2012 00:00:00 [id number] autoEComm erce [address] [place] [address] 10/30/2012 00:00:00 [id number] autoEComm erce [address] [place] [address] 11/03/2012 00:00:00 [id number] autoEComm michaellee [address] [facility],[address] [place] [address] 03/01/2013 00:00:00 [id number] autoEComm erce [address] [facility],[address] [place] [address] 05/04/2013 00:00:00 [id number] Hussein burgos MD Main Office [address] [address] [place] [address] 05/06/2014 13:44:40 05/06/2014 14:34:13 Adult health examination [id number] Allergic rhinitis 23917473 pt sees Schreibste in/ENT Gastroesop hageal reflux disease 959038849 Screening for malignant neoplasm of breast 134412083 Hyperlipidemia 11685612 [id number] Hussein burgos MD Main Office [address] [place] [address] [place] [address] 07/19/2014 10:38:34 07/19/2014 11:40:59 Temporomandibular joint disorder 34967735 [id number] Keyshawn Merchant MD Main Office [address] [place] [address] [place] [address] 07/23/2014 12:41:36 07/23/2014 13:22:01 Nail problem 678856820 Likely fungal but will culture for confirmati on. Pt advised and typical treatment course, possible side effects, and potential for recurrence if culture is positive. Will provide rx for 6-9 months if LFT's normal and culture confirms diagnosis. Otherwise may need to see derm or podiatry. [id number] Hussein burgos MD Main Office [address] [address] [place] [address] 05/20/2015 10:10:59 05/20/2015 11:04:55 Adult health examination 588459780 Z00.00 Hyperlipidemia 29742024 E78.5 pt has FH of DM and labs c/w that risk. Hi Triglyc and low HDL. we will monitor this. Temporoman dibular joint disorder 88233982 M26.60 [id number] Hussein burgos MD Main Office [address] [address] [place] [address] 11/04/2015 13:39:34 11/04/2015 15:07:46 Low back pain 663555065 M54.5 [id number] Hussein burgos MD Main Office [address] [address] [place] [address] 05/28/2016 15:00:36 05/28/2016 16:13:24 Adult health examination 139683901 Z00.00 Menorrhagia 013014086 N9 2.0 Mass of left breast 1224 058933 6987012 N63 Microscopic hematuria 19 5010058 R31.21 [id number] Rhonda Reyes PA-C Main Office [address] [address] [place] [address] 05/30/2017 15:45:25 05/30/2017 17:01:40 Adult health examination 345092410 Z00.00 up to date on vaccines. Hyperlipidemia 10659945 E78.00 Fatigue 32730286 R53.83 Goiter 9657368 E04.9 Body mass index 30+ - obesity 901836160 E66.01 Z68.32 Intermittent asthma 4276 39188 J45.20 stable on Montelucas t and occasional rescue inhaler use. Irritable bowel syndrome 11637451 K58.9 some constipati on. Pt. is Advised to use MiraLax powder daily and increase [id number] Rhonda Reyes PA-C Main Office [address] [address] [place] [address] 09/14/2017 15:19:44 09/14/2017 16:08:07 Mixed hyperlipidemia 771722141 E78.2 repeat fasting lipids. Start Mediterran cuong low fat diet and daily 30 minute exercise activity as discussed. Return in 4 months for f/u. Body mass index 30+ - obesity 846083824 E66.01 Z68.33 [id number] Rhonda Reyes PA-C Main Office [address] [address] [place] [address] 03/14/2018 08:42:51 03/14/2018 09:28:37 Needs influenza immunization 961486345 Z23 Mixed hyperlipidemia 267 985672 E78.2 Continue monitoring lipids. Start Mediterran cuong low fat diet and daily 30 minute exercise activity as discussed. Return in may 2018 for physical exam. Pts ASCVD score calculated 2.4%. Low risk and not a candidate for statin therapy at this time. Body mass index 30+ - obesity 278054663 E66.01 Z68.31 continue weight loss via exercise and low fat /calorie diet. [id number] Rogelio Otero MD Main Office [address] [facility] [address] [place] [address] 01/31/2019 15:13:51 01/31/2019 16:05:05 Adult health examination 013297792 Z00.00 up to date on vaccines. Neoplasm o f uncertain behavior of skin 41511293 D48.5 Mixed hyperlipidemia 267 116906 E78.2 Repeat fasting labs, discussed low fat diet and weight loss. Goiter 8268275 E04.9 repeat labs Mass of left breast 1224 748866 9012032 N63.20 Will set up an ultrasound Body mass index 30+ - obesity 900687724 Z68.31 continue weight loss via exercise and low fat /calorie diet. Elevated blood-pressure reading without diagnosis of hypertension 071128639 R03.0 Lower sodium and caffeine , test BP on outside few time in the next 2-3 weeks and call office if BP is over 140/90. Intermittent asthma 4276 99074 J45.20 stable on montelukas t and occasional rescue inhaler use. Obesity 668307143 E66.9 [id number] Rogelio Otero MD Main Office [address] [address] [place] [address] 06/25/2019 13:41:08 06/25/2019 14:41:41 Postviral cough 897566236 R05 Continue benzonatat e prn as prescribed . Encouraged OTC decongesta nts. Continue to hydrate, use humidifier , and saline nasal washes. [id number] Keyshawn Merchant MD Telehealt h [address] [facility] [address] [place] [address] 05/27/2020 07:11:33 05/27/2020 12:50:46 Counseling 648331825 Z71.9 Health advice, education or counseling done for COVID 19 has pending covid test from [facility] from yesterday, but had high risk exposure to covid + friend on Sat - will try to arrange above covid test for Th. Exposure t o viral disease 3429130425 33079 Z03.818 Cough 68363036 R05 chronic d/t pnd, but see above and below - cont mishel prn as well Intermittent asthma 4276 55232 J45.20 stable, cont inhalers as dir Allergic rhinitis 886901 04 J30.9 cont allergy shots as dir, f/u c ENT 06.25.20 [id number] Le franco MD Telehealt [facility] [address] [address] 05/30/2020 11:17:21 05/30/2020 15:04:02 Allergic rhinitis 48209989 J30.9 add medrol as she is on maximal therapy of other meds, call if not improving, side effects reviewed. Let materials engineer know we are adding prednisone and her other meds back so they can plan next immunother apy. OOW until 06/09 Posterior rhinorrhea 758 76973 R09.82 flonase, atrovent and singulair all being taken, will add oral steroid Cough 20931976 R05 pt using all allergy meds, will add medrol taper pack to see if this helps with sx. If not improving consider adding antibiotic next week [id number] Keyshawn Merchant MD Main Office [address] [address] 07/09/2020 14:50:50 07/09/2020 16:01:06 Mass of left breast 4065626137 4520749 N63.20 [id number] Keyshawn Merchant MD Main Office [address] [address] 08/06/2020 10:51:54 08/06/2020 12:18:10 Adult health examination 073968275 Z00.00 Anxiety state 770182101 F41.1 stable lately, cont yoga Mixed hyperlipidemia 267 823586 E78.2 trigs trending down - congrats - continue low carb diet /// LDL (bad chol) slightly elevated - rec less red meat Screening for malignant neoplasm of colon 408077924 Z12.11 Screening for malignant neoplasm of cervix 896573165 Z12.4 Varicella vaccination 68 449777 Z23 Skin lesion 37188888 L98 .9 Body mass index 30+ - obesity 071942246 E66.9 Mass of left breast 1224 151674 7388661 N63.20 seen by breast specialist - benign - had recent mammo/ u/s Impaired f asting glycemia 389170494 R73.01 Janiya - your sugar is ever so slightly raised - rec. decrease sugar intake (brownies ac blood test) - rest of your chemistrie s are fine - will check a1c at next lab test Intermittent asthma 4276 27937 J45.20 stable, cont inhalers as dir, cont allergy shots as per ENT [id number] Keyshawn Merchant MD Main Office [address] [facility] [address] [place] [address] 02/18/2021 13:52:39 02/18/2021 14:48:47 Increased frequency of urination 736998762 R35.0 Low back strain 27094073 1 S39.012A rec moist heat, hep, nsaids call if no better in 1 month, sooner if worse - then consider PT, PMR vs xray at that time [id number] Keyshawn Merchant MD Main Office [address] [address] 08/19/2021 14:12:03 08/19/2021 15:35:36 Adult health examination 167680055 Z00.00 Anxiety state 136575803 F41.1 stable lately, cont yoga, cont fu c therapist ~ wkly Mixed hyperlipidemia 267 861105 E78.2 trigs trending down - congrats - continue low carb diet /// LDL (bad chol) slightly elevated - rec less red meat Varicella vaccination 68 325660 Z23 Skin lesion 00236047 L98 .9 cont f/u c derm Body mass index 30+ - obesity 785219216 E66.9 Z68.31 Impaired f asting glycemia 974942593 R73.01 Janiya - your sugar is ever so slightly raised - rec. decrease sugar intake (brownies ac blood test) - rest of your chemistrie s are fine - will check a1c at next lab test Intermittent asthma 4276 93313 J45.20 stable, cont inhalers as dir, used to do allergy shots as per ENT Bilateral temporomandibular joint pain 9714065757 3381494 M26.623 cont mouth guard, med, f/u c dentist Hepatitis C screening 41 3578716 Z11.59 [id number] Keyshawn Merchant MD Main Office [address] [facility] [address] [place] [address] 10/26/2021 15:41:09 10/26/2021 16:30:43 Bilateral temporomandibular joint pain 7822468636 5077592 M26.623 cont mouth guard, med, f/u c max/fac surgeon - anticipate sx in near future Magnetic r esonance imaging of brain abnormal 288082955 R93.0 mri tmj at [facility] incidental ly found white matter lesions - will get brain mri & r/o lyme, and pt would like to see a neurologis t Skin lesion 31665053 L98 .9 cont f/u c derm - pending excision on her back later this wk [id number] Keyshawn Merchant MD Main Office [address] [facility] 207 [facility] [place] [address] 12/01/2022 14:29:24 12/01/2022 15:53:41 Adult health examination 640356203 Z00.00 Pap & mammo & colon utd Intermittent asthma 4276 22398 J45.20 stable, cont inhalers/m ed as dir, used to do allergy shots as per ENT Bilateral temporomandibular joint pain 0280127675 6783760 M26.623 cont mouth guard, med, f/u c max/fac surgeon - anticipate sx in near future 6.23 - cont f/u c chiropract or, did not have sx as above Magnetic r esonance imaging of brain abnormal 486275357 R93.0 mri tmj at [facility] incidental ly found white matter lesions - will get brain mri & r/o lyme, and pt would like to see a neurologis t 6.23 - seen by neuro - negative w/u = likely scar tissue Skin lesion 44404830 L98 .9 cont f/u c derm Allergy to food 20261179 1 T78.1XXA used to see materials engineer - epipen rx Neck pain 59136057 M54.2 x few months - fol by chiropract or, no xray yet - is having weakness R hand - check xray, if nl then consider hand specialist (? cts) - if advanced ddd - then consider pmr Migraine 34363142 G43.90 9 stable, cont prn imitrex, cont f/u c neuro Gastroesop hageal reflux disease 635185103 K21.9 stable, cont ppi / f/u c gi, had egd Constipation 82719174 K5 9.00 better c mag - helps c migraine prevention too Impaired f asting glycemia 329322981 R73.01 Janiya - your sugar is ever so slightly raised - rec. decrease sugar intake (brownies) - rest of your chemistrie s are fine - will check a1c at next lab test Hyperlipidemia 50771071 E78.5 Body mass index 30+ - obesity 198347469 E66.9 Z68.32 cont plenty of walking/co nsider HIIT, consider myplate.go v, rec increase sleep to 7-8 hours/nigh t Fatigue 97542928 R53.83 [id number] Natasha Rios MD Main Office [address] [facility] [address] [place] [address] 01/25/2023 15:36:37 01/25/2023 16:05:54 Medial epicondylitis 77513568 M77.01 Symptoms are chronic at this point and are not helped by taking oral NSAIDs. Begin taking meloxicam 15 mg daily. Schedule ross with orthopedic s for cortisone injection. Carpal nancy ernesto syndrome of right wrist 0798823731 36612 G56.01 recommend wrist splint and icing. 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 [id number] Keyshawn Merchant MD Main Office [address] [facility] 207 [facility] [place] [address] 03/30/2023 15:11:21 03/30/2023 16:26:27 Neck pain 31750759 M54.2 x few months - fol by chiropract or, no xray yet - is having weakness R hand - check xray, if nl then consider hand specialist (? cts) - if advanced ddd - then consider pmr 10.23 - recent cervical XR was unremarkab le with no abnormal findings. cont. Meloxicam - consider adding prn moist heat Mixed hyperlipidemia 267 557798 E78.2 rec low carb diet to lower trigs, increase aerobic exercise to raise HDL (good chol), and decrease your red meat intake to lower your LDL (bad chol)cont fish oil, rec less bread/past a - recheck fasting lipids - if trigs still elevated, then rec change to krill oil Body mass index 30+ - obesity 034906005 E66.9 Z68.33 cont plenty of walking/co nsider HIIT, consider myplate.go v, rec increase sleep to 7-8 hours/nigh t 10.23 - Pt has tried a form of weight watchers diet in the past without success in weight reduction, not exercising much due to ongoing issues with neck and right upper extremity pain. Intermittent asthma 4276 52076 J45.20 stable, cont inhalers/m ed as dir, used to do allergy shots as per ENT Migraine 38416126 G43.90 9 stable, cont prn imitrex, cont f/u c neuro Constipation 20587956 K5 9.00 better c mag - helps c migraine prevention too Impaired f asting glycemia 171597556 R73.01 Janiya - your sugar is ever so slightly raised - rec. decrease sugar intake (brownies) - rest of your chemistrie s are fine - will check a1c at next lab test 10.23 - no evidence of predm c a1c 5.5 [id number] Keyshawn Merchant MD Main Office [address] [place] [address] 12/05/2023 15:48:27 12/06/2023 08:50:12 Adult health examination 594045775 Z00.00 Pap & mammo & colon utd Allergy to food 42815471 1 T78.1XXA Stable, has epi pen Anxiety state 030983935 F41.1 MIGUEL ANGEL 20. 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 Gastroesop hageal reflux disease 450651371 K21.9 stable, cont ppi / f/u c gi, had egd Impaired f asting glycemia 692610482 R73.01 Janiya - your sugar is ever so slightly raised - rec. decrease sugar intake (brownies) - rest of your chemistrie s are fine - will check a1c at next lab test 10.23 - no evidence of predm c a1c 5.5 Intermittent asthma 4276 32679 J45.20 stable, cont inhalers/m ed as dir, used to do allergy shots as per ENT Migraine 33055841 G43.90 9 stable, cont prn imitrex, cont f/u c neuro Pain of ri ght shoulder joint 7459418101 5552526 M25.511 in middle of w/u c Dr. Hernandez - reviewed recent consult notes - had samuel injxn, pending start PTwill get her mri and labs from [place] to see if has underlying rheum etiologyco nt meloxicam as dir, but add trial gbn - see below Insomnia 975754582 G47.0 0 see above Constipation 95714156 K5 9.00 better c mag - helps c migraine prevention too 6.24 - stop mag, rather take colace qd-qod Hyperlipidemia 10551303 E78.5 [id number] Ananth Riley MD Main Office [address] [facility] 207 [facility] [place] [address] 12/19/2023 15:04:53 12/19/2023 15:50:54 Neuropathy 275872357 G62.9 -given hx, likely related to pt anxiety-dotson s hx of bilateral carpal tunnel syndrome; follows specialist -had 2 episode; pt notes both were related to anxiety attacks-dotson s not noticed any other triggers-w ears wrist braces at night for carpal tunnel-pt requests lab work, will r/o vitamin deficiency , rheumatoid process, etc Anxiety [id number] F41.9 pt is interested in seeing a psychiatri st to further discuss behavioral or medication interventi ons [id number] Keyshawn Merchant MD Main Office [address] [facility] [address] [facility] [place] [address] 01/03/2024 10:00:33 01/03/2024 11:06:21 Neuropathy [id number] G62.9 -given hx, likely related to pt anxiety-dotson s hx of bilateral carpal tunnel syndrome; follows specialist -had 2 episode; pt notes both were related to anxiety attacks-dotson s not noticed any other triggers-w ears wrist braces at night for carpal tunnel-pt requests lab work, will r/o vitamin deficiency , rheumatoid process, etc 01.03.24 - reviewed labs c pt - negative Anxiety 15128676 F41.9 pt is interested in seeing a psychiatri st to further discuss behavioral or medication interventi ons 01.03.24 - pending see psychiatri sttrial c duloxetine Pain of ri ght shoulder joint [id number] M25.511 in middle of w/u c Dr. Hernandez - reviewed recent consult notes - had samuel injxn, pending start PTwill get her mri and labs from [place] to see if has underlying rheum etiologyco nt meloxicam as dir, but add trial gbn - see below . - cont f/u c ortho, had cervical mri - next ov in a few weeks Prediabetes [id number] R7 3.03 Janiya - unfortunat ana you have evidence of pre-diabet es - rec. less sugar intake (candy, ice cream, soda/juice , etc), follow a low carb diet and get plenty of aerobic exercise to help you to lose weight. Pat less aleida chip muffins, soda, iced tea [id number] Keyshawn Merchant MD Telehealt h [address] [facility] [address] [facility] [place] [address] 03/06/2024 13:46:56 03/06/2024 15:46:59 Anxiety state [id number] F41.1 MIGUEL ANGEL 20. 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 less sugar intake (candy, ice cream, soda/juice , etc), follow a low carb diet and get plenty of aerobic exercise to help you to lose weight. Pat less aleida chip muffins, soda, iced tea 9.24 - pending recheck a1c p 10.5 Neuropathy [id number] G62 .9 -given hx, likely related to pt anxiety-dotson s hx of bilateral carpal tunnel syndrome; follows specialist -had 2 episode; pt notes both were related to anxiety attacks-dotson s not noticed any other triggers-w ears wrist braces at night for carpal tunnel-pt requests lab work, will r/o vitamin deficiency , rheumatoid process, etc 7..24 - reviewed labs c pt - negative 9.24 - had normal nerve conduction study - seen by ortho, then referred to thoracic surgeon - seen yesterday - ? has thoracic outlet syndrome - rec mri (done) and PT [id number] Keyshawn Merchant MD Main Office [address] [place] [address] 06/04/2024 10:01:44 06/04/2024 11:08:55 Anxiety state [id number] F41.1 MIGUEL ANGEL 20. 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 - if persists/w orse, then consider trial of duloxetine 9.24 - miguel angel down to 11, pending see psych at [facility], doing better on dulox - cont as dir 12.24 - miguel angel/phq low/stable , see below - hopefully will trend better as dulox recently increased by rheum, pending see psych - encouraged her to call, try other group if do not hear from them Prediabetes [id number] R7 3.03 Janiya - unfortunat ana you [...] salt diet d/t slightly elevated sodium Fibromyalgia 069524770 M 79.7 new dx - seen by rheum recently - cont gbn, but increase duloxetine , next f/u 6 months Mixed hyperlipidemia [id number] E78.2 rec low carb diet to lower trigs, increase aerobic exercise to raise HDL (good chol), and decrease your red meat intake to lower your LDL (bad chol)cont fish oil, rec less bread/past a - recheck fasting lipids - if trigs still elevated, then rec change to krill oil [id number] Keyshawn Merchant MD Main Office [address] [place] [address] 02/14/2025 10:31:32 02/14/2025 11:42:20 Adult health examination [id number] Z00.00 mammo & colon utd Anxiety state [id number] F41.1 MIGUEL ANGEL 20. 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 - if persists/w orse, then consider trial of duloxetine 9.24 - miguel angel down to 11, pending see psych at [facility], doing better on dulox - cont as dir 12.24 - miguel angel/phq low/stable , see below - hopefully will trend better as dulox recently increased by rheum, pending see psych - encouraged her to call, try other group if do not hear from them 9.25 - pt states in general has been feeling better, but having a bad week p son arrested last w/econt meds (duloxetin e & sertraline ) as dircont f/u c pysch prescriber (Luis Tee, [employer]) - just seen 2 days agocont f/u c therapist q few wks*will fwd copy of this PE to psych - please forward your ov notes to us - thanks!* Prediabetes 309889231 R7 3.03 Janiya - unfortunat ana you [...] salt diet d/t slightly elevated sodium Fibromyalgia 800924620 M 79.7 new dx - seen by rheum recently - cont gbn, but increase duloxetine , next f/u 6 months 9.25 - stable, cont meds, f/u c rheum Mixed hyperlipidemia [id number] 446646 E78.2 rec low carb diet to lower trigs, increase aerobic exercise to raise HDL (good chol), and decrease your red meat & cheese intake to lower your LDL (bad chol)cont fish oil, rec less bread/past a - recheck fasting lipids - if trigs still elevated, then rec change to krill oil Severe kenneth or depression [id number] F32.2 21785 see anxiety above Osteopenia 922519175 M85 .80 [id number] rheum ordered bone density - cont walking, consider calcium c vit d dailywill check vit d Vitamin D deficiency 347 63074 E55.9 Screening for malignant neoplasm of cervix 410134371 Z12.4 Body mass index 30+ - obesity 067427533 E66.9 Z68.31 cont plenty of walking/co nsider HIIT, consider myplate.go v, rec increase sleep to 7-8 hours/nigh t 10.23 - Pt has tried a form of weight watchers diet in the past without success in weight reduction, not exercising much due to ongoing issues with neck and right upper extremity pain. Migraine 25751355 G43.90 9 stable, cont prn imitrex, cont f/u c neuro Health Concerns Section Related Observation LastModified by Organization Detai ls LastModified Time None Recorded Concern Status LastModified by Organization Details LastModified Time None Recorded Advance Directives Directive N: Payers Insurance Date Sequence Insurance Name Policy Number Policy Jay Covered Member ID Jay Member ID Guarantor Name 07/04/2024 1 [place] [id number] Janiya Ordaz [id number] Janiya Ordaz 03/07/2025 1 [place] Janiya Ordaz [id number] Janiya Ordaz 12/01/2022 1 [facility] - MEDICAID ESSENTIAL (MEDICAID HMO) [id number] Janiya Ordaz [id number] Janiya Ordaz Notes Date Note Type Note Provider Name and Address Organization Details Recorded Time 4 text/html ROS as noted in the [...] night for relief. JESUS MANUEL BANG [address] [address], [place], [address], [facility] 12/20/2023 20:59:45 4 text/html fol by ortho - rev last ov note 5.24, seen again in 6.24 but no ov note to reviewrev labs c pt - all negativeolder labs - dx'd c predm - admits to eating/baking muffins c dtr Katelyn Reyes PA-C [address] [address], [place], [address], [facility] 01/03/2024 11:04:54 4 text/html Anxiety/DepressionReport ed by PatientHPIFor context, patient reportsmajor life stressorsandtrouble at work. For quality, patient reportssymptoms improved(not crying as much as before). For associated symptoms, patient reportsdenies homicidal ideations. Katelyn Reyes PA-C [address] [address], [place], [address], [facility] 03/06/2024 15:20:52 4 text/html Anxiety/DepressionReport ed by PatientHPIFor context, patient reportsmajor life stressorsandtrouble at work. For quality, patient reportssymptoms improved. For severity, patient reportsdenies suicidal ideations. For associated symptoms, patient reportsdenies homicidal ideations. Katelyn Reyes PA-C [address] [address], [place], [address], [facility] 06/04/2024 13:01:40 5 text/html Generic HPI TemplateReported by Patient here for annual pe. Katelyn Reyes PA-C [address] [address], [place], [address], [facility] 02/15/2025 15:56:44 OBGyn Episode No OBEpisode recorded.
== END 2025-03-07 16:16 | disposition home or self-care (01) ==
LOC: HO.RHES 15:48
PROVIDERS: PCP Physician Assistant Medical; Visit Provider Student in an Organized Health Care Education/Training Program
DX: M79.7 Fibromyalgia (principal)
CPT/HCPCS: 99214

== ENCOUNTER → 2025-03-07 15:47 | Outpatient (BNVA) | payer MEDICAID, SELFPAY | PROVIDERS: PCP Physician Assistant Medical; Visit Provider Student in an Organized Health Care Education/Training Program | DX: M79.7 Fibromyalgia (principal) | CPT/HCPCS: 99212 ==